=== PATIENT | female | born 1945 | race Caucasian/White ===

== ENCOUNTER 2020-02-20 10:07 | Outpatient (CLI) | payer MEDICARE, SELFPAY ==
[2020-02-20 10:46] LABS: Basophils Absolute Auto 0.1 K/mm3 (0.0-0.1); Basophils Percent Auto 1.4 % (0.2-1.2); Eosinophils Absolute Auto 0.2 K/mm3 (0-0.3); Eosinophils Percent Auto 4.1 % (0-4.4); Hematocrit 41.6 % (37.0-47.0); Hemoglobin 14.4 g/dL (12.0-15.0); Immature Granulocyte Absolute 0.02 K/mm3 (0.00-0.031); Immature Granulocyte Percent A 0.3 % (0-0.5); Lymphocytes Absolute Auto 1.92 K/mm3 (0.9-3.2); Lymphocytes Percent Auto 33.1 % (18.3-44.2); Mean Corpuscular HGB Conc 34.6 g/dl (32-36); Mean Corpuscular Hemoglobin 30.5 pg (26-34); Mean Corpuscular Volume 88.1 fl (80-100); Mean Platelet Volume 9.5 fl (7.4-10.4); Monocytes Absolute Auto 0.4 K/mm3 (0.1-0.6); Monocytes Percent Auto 7.4 % (2.6-8.5); Neutrophils Absolute Auto 3.1 K/mm3 (1.3-6.7); Neutrophils Percent Auto 53.7 % (45.5-73.1); Platelet Count Result 283 k/mm3 (150-375); Red Blood Count 4.72 M/mm3 (4.2-5.4); Red Cell Distribution Width 13.2 % (11.5-14.5); White Blood Count 5.8 K/mm3 (4.5-10.0)
[2020-02-20 11:00] LABS: Alanine Aminotransferase 18 U/L (4-35); Albumin Level 4.2 g/dL (3.5-5.1); Alkaline Phosphatase 80 U/L (38-126); Anion Gap 5 mmol/L (8-16); Aspartate Amino Transferase 23 U/L (14-36); Bilirubin,Total 0.3 mg/dL (0.2-1.3); Blood Urea Nitrogen 14 mg/dL (7-17); Calcium 9.1 mg/dL (8.4-10.2); Carbon Dioxide 23 mmol/L (22-30); Chloride 110 mmol/L (98-107); Estimated Glomerular Filt Rate > 60; Glucose 91 mg/dL (65-105); Sodium 138 mmol/L (137-145)
[2020-02-20 11:02] LABS: Add Urine Microscopic? NO; Appearance Urine Clear (Clear); Bilirubin Urine Negative (Negative); Blood Urine Negative (Negative); Color Urine Yellow (Yellow); Glucose Urine UA Negative (Negative); Ketones Urine Negative (Negative); Leukocyte Esterase Ur Negative LEU/UL (Negative); Nitrate Urine Negative (Negative); Protein Urine Negative (Negative); Specific Grav Ur 1.018 (1.001-1.035); Urobilinogen Urine Negative mg/dL (<2.0)
[2020-02-20 11:28] LABS: Free T4 Free Thyroxine 0.97 ng/mL (0.78-2.19)
== END 2020-02-20 10:08 | disposition home or self-care (01) ==
PROVIDERS: Visit Provider Internal Medicine
DX: M25.551 Pain in right hip (principal); M54.5 Low back pain; M70.61 Trochanteric bursitis, right hip; M70.62 Trochanteric bursitis, left hip; M25.552 Pain in left hip; M79.18 Myalgia, other site; M79.2 Neuralgia and neuritis, unspecified; M46.1 Sacroiliitis, not elsewhere classified; R13.10 Dysphagia, unspecified
CPT/HCPCS: 36415; 80053; 81003; 84439; 84443; 85025

== ENCOUNTER 2020-04-03 13:52 | Outpatient (CLI) | payer MEDICARE, SELFPAY ==
--- NOTE | ~2020-04-03 | DEXA_ITS ---
Bone Density Report Name: Diana Terry Age: 74 Sex: Female Ethnicity: White Date of : 1945 Indication: postmenopausal; height loss; cancer; hysterectomy; Referring Provider: BethelAgustin Study: Bone densitometry was performed. Exam Date: April 03, 2020 Accession number: [id number] Bone Density: Region BMD T-score Z-score Classification AP Spine (L1-L4) 0.932 -1.0 1.4 Normal Femoral Neck (Left) 0.482 -3.3 -1.2 Osteoporosis Total Hip (Left) 0.675 -2.2 -0.4 Osteopenia Total Hip Bilateral Avg 0.695 -2.1 -0.3 Osteopenia Femoral Neck (Right) 0.573 -2.5 -0.4 Osteoporosis Total Hip (Right) 0.713 -1.9 -0.1 Osteopenia World Health Organization criteria for BMD impression classify patients as: Normal (T-score at or above -1.0), Osteopenia (T-score between -1.0 and -2.5), or Osteoporosis (T-score at or below -2.5). 10-year Fracture Risk: FRAX not reported because: Some T-score for Spine Total or Hip Total or Femoral Neck at or below -2.5 Clinical Information Provided by Patient: Smokes Has the following medical conditions: Cancer, Hysterectomy Patient maximum height was 61 Menopause Age: 39 No regular weight bearing exercise Drinks caffeinated beverages Onset of menses at age 16 Number of children 2 Impression: The patient has osteoporosis, based on the Left Femoral Neck T-score. The patient has risk factors, including: smoking. Discussion: INCREASED RISK OF FRACTURE. BONE DENSITY IS UNDESIRABLY LOW AT ONE OR MORE SKELETAL SITES, CONSISTENT WITH POSTMENOPAUSAL OSTEOPOROSIS. This patient's lowest T-score meets the World Health Organization's (WHO) criteria for osteoporosis at one or more sites (T-score -2.5 or below). In untreated patients, the risk of osteoporotic fracture increases approximately two-fold for each 1.0 SD decrease in T-score. Low bone density is not the only risk factor for fracture; also consider factors such as patient's age, frailty or poor health, risk of falling, risk of injury, previous osteoporotic fracture, family history of osteoporosis, cigarette smoking, low body weight, etc. Not everyone with low bone mineral density has osteoporosis; osteomalacia and other metabolic bone disorders should also be considered. Patients who have osteoporosis should be evaluated for specific diseases and conditions (secondary causes) that may cause or contribute to bone loss. The [place] Association [employer] Clinical Endocrinologists (AACE) and National Osteoporosis Foundation (NOF) recommend pharmacologic intervention for all postmenopausal women whose T-score is in this range. The patient should follow a healthful lifestyle (good nutrition with adequate calcium and vitamin D, and appropriate weight-bearing exercise). Follow-Up: Consider a repeat BMD and Vertebral Fracture Assessment (VFA) exam in 2 year
== END 2020-04-03 13:53 | disposition home or self-care (01) ==
PROVIDERS: Visit Provider Internal Medicine
DX: Z78.0 Asymptomatic menopausal state (principal); M81.0 Age-related osteoporosis without current pathological fracture; M85.852 Other specified disorders of bone density and structure, left thigh; M85.851 Other specified disorders of bone density and structure, right thigh
CPT/HCPCS: 77080

== ENCOUNTER 2020-08-30 12:42 | Outpatient (CLI) | payer MEDICARE, SELFPAY ==
[2020-08-30 13:28] LABS: Basophils Absolute Auto 0.1 K/mm3 (0.0-0.1); Basophils Percent Auto 1.4 % (0.2-1.2); Eosinophils Absolute Auto 0.2 K/mm3 (0-0.3); Eosinophils Percent Auto 3.8 % (0-4.4); Hematocrit 42.3 % (37.0-47.0); Hemoglobin 14.3 g/dL (12.0-15.0); Immature Granulocyte Absolute 0.01 K/mm3 (0.00-0.031); Immature Granulocyte Percent A 0.2 % (0-0.5); Lymphocytes Absolute Auto 2.32 K/mm3 (0.9-3.2); Lymphocytes Percent Auto 41.6 % (18.3-44.2); Mean Corpuscular HGB Conc 33.8 g/dl (32-36); Mean Corpuscular Volume 88.7 fl (80-100); Mean Platelet Volume 9.5 fl (7.4-10.4); Monocytes Absolute Auto 0.4 K/mm3 (0.1-0.6); Monocytes Percent Auto 6.8 % (2.6-8.5); Neutrophils Absolute Auto 2.6 K/mm3 (1.3-6.7); Neutrophils Percent Auto 46.2 % (45.5-73.1); Platelet Count Result 260 k/mm3 (150-375); Red Blood Count 4.77 M/mm3 (4.2-5.4); Red Cell Distribution Width 13.5 % (11.5-14.5); White Blood Count 5.6 K/mm3 (4.5-10.0)
[2020-08-30 13:29] LABS: Add Urine Microscopic? NO; Appearance Urine Clear (Clear); Bilirubin Urine Negative (Negative); Blood Urine Negative (Negative); Color Urine Yellow (Yellow); Glucose Urine UA Negative (Negative); Ketones Urine Negative (Negative); Leukocyte Esterase Ur Negative LEU/UL (NEGATIVE); Nitrate Urine Negative (Negative); Protein Urine Negative (Negative); Specific Grav Ur 1.011 (1.001-1.035); Urobilinogen Urine Negative mg/dL (<2.0)
[2020-08-30 14:05] LABS: LDL Cholesterol Direct 141 mg/dL
[2020-08-30 14:14] LABS: Alanine Aminotransferase 13 U/L (4-35); Albumin Level 4.2 g/dL (3.5-5.1); Alkaline Phosphatase 65 U/L (38-126); Anion Gap 3 mmol/L (8-16); Aspartate Amino Transferase 22 U/L (14-36); Bilirubin,Total 0.4 mg/dL (0.2-1.3); Blood Urea Nitrogen 16 mg/dL (7-17); Calcium 9.7 mg/dL (8.4-10.2); Carbon Dioxide 27 mmol/L (22-30); Chloride 110 mmol/L (98-107); Cholesterol 221 mg/dL (0-200); Estimated Glomerular Filt Rate > 60; Glucose 95 mg/dL (65-105); HDL Direct 55 mg/dL; Potassium 3.9 mmol/L (3.4-5.0); Sodium 140 mmol/L (137-145); Triglycerides 126 mg/dL (<150)
[2020-08-30 14:32] LABS: Vitamin D 25 Hydroxy 36.6 ng/mL
[2020-08-30 14:33] LABS: Free T4 Free Thyroxine 0.87 ng/mL (0.78-2.19)
== END 2020-08-30 12:43 | disposition home or self-care (01) ==
LOC: ANHLAB 12:45
PROVIDERS: Visit Provider Internal Medicine
DX: M25.551 Pain in right hip (principal); M54.5 Low back pain; M70.61 Trochanteric bursitis, right hip; M70.62 Trochanteric bursitis, left hip; M25.552 Pain in left hip; M79.18 Myalgia, other site; M79.2 Neuralgia and neuritis, unspecified; M46.1 Sacroiliitis, not elsewhere classified; R13.10 Dysphagia, unspecified
CPT/HCPCS: 36415; 80053; 80061; 81003; 82306; 84439; 84443; 85025

== ENCOUNTER → 2020-10-30 02:19 | Outpatient (CLI) | payer MEDICARE, SELFPAY ==
[2020-10-30 19:24] LABS: SARS-CoV-2 RNA PCR Negative
== END ==
PROVIDERS: Visit Provider Urology
DX: Z01.812 Encounter for preprocedural laboratory examination (principal); Z20.822 Contact with and (suspected) exposure to COVID-19
CPT/HCPCS: C9803; U0003; U0005

== ENCOUNTER 2020-10-31 13:49 | Outpatient (CLI) | payer MEDICARE, SELFPAY ==
--- NOTE | 2020-10-31 13:55 | ECG_ITS ---
Measurements Intervals Kite Rate: 76 P: 31 CA: 142 QRS: -8 QRSD: 93 T: 19 QT: 363 QTc: 410 Interpretive Statements SINUS RHYTHM ATRIAL PREMATURE COMPLEX VOLTAGE CRITERIA FOR LVH BORDERLINE R WAVE PROGRESSION, ANTERIOR LEADS BASELINE ARTIFACT- I, II, III, AVR, AVL BORDERLINE ECG Electronically Signed On 10-31-2020 14:08:36 CDT by Azael Sen D.O.
== END 2020-10-31 13:50 | disposition home or self-care (01) ==
LOC: ANHSURGERY 13:52
PROVIDERS: Visit Provider Urology
DX: Z01.810 Encounter for preprocedural cardiovascular examination (principal); I10 Essential (primary) hypertension
CPT/HCPCS: 93005

== ENCOUNTER 2020-11-01 01:17 | Day surgery (SDC) | payer MEDICARE, SELFPAY ==
[2020-10-30 11:13] VITALS: BMI 29.5
--- NOTE | 2020-10-31 10:01 | WPDANESEPPF ---
Anes - Initial Pre Proc Eval Procedure: Operation Date: 11/01/20 12:00 Proposed Procedures p Cystoscopy, Bilateral Retrograde Pyelogram, - Alexis Miguel MD s Trans Urethral Resection Bladder Tumor With Mitomycin C Instillation - Alexis Miguel MD Date/Time: 10/31/20 10:01 Surgeon: Alexis Miguel MD Pre Op Diagnosis: bladder ca Patient Data Age: 74 Gender: F Height: 1.47 m Weight: 64 kg Allergies Allergy/AdvReac Type Severity Reaction Status Date / Time propoxyphene AdvReac Unknown EXCESSIVE Verified 10/30/20 11:09 THIRST Home Medications Medication Instructions Recorded Confirmed Type amlodipine 5 mg PO QAM 10/30/20 10/30/20 History naproxen sodium 440 mg PO BID PRN 10/30/20 10/30/20 History PMFSH Past Medical History Medical History (Updated 10/31/20 @ 10:02 by Phu Dorantes DO) Bladder cancer GERD (gastroesophageal reflux disease) Hypertension PONV (postoperative nausea and vomiting) Surgical History Surgical History (Updated 10/31/20 @ 10:02 by Phu Dorantes DO) History of hysterectomy Family History Family History (Updated 02/23/14 @ 07:13 by DOCTOR UNKNOWN) Mother Family history of renal failure Patient's mother is Father Family history of heart disease in male family member before age 55 Patient's father is Other Diabetes mellitus Family history of arthritis Hypertension Social History Social History Smoking packs per day: 1 Smoking cigarettes per day: 20.0 Years smoked: 58 Smoking pack-years: 58.00 Smoking status: Current every day smoker Tobacco type: cigarettes Alcohol intake: never Substance use: never Additional living arrangements comments: Spiritual care concerns: No Anes - Eval Final PreProcedure Day of Procedure 10/31/20 10:01 Patient weight: overweight Heart: regular rate and rhythm Lungs: clear to auscultation and normal air movement Airway: Mallampati scale class II Neurological: alert and oriented Last oral intake: >/= 8 hours ASA classification: III Emergent: no Anesthetic plan: proceed Anesthesia type and monitoring: general LMA and standard monitoring Informed Consent: The patient's anesthetic plan and its attendant risks and benefits were discussed with the patient/family/POA. Questions were solicited and answers provided to the satisfaction of the patient/family/POA.
[2020-11-01] VITALS (11 sets, daily range): BP systolic 93–152; BP diastolic 41–93; PULSE 45–61; RESP 12–20; TEMP 36.2–36.8; O2SAT 92–100
--- NOTE | ~2020-11-01 | XR_ITS ---
EXAMINATION: XR retrograde pyelogram BI EXAM DATE: 11/01/2020 13:37 INDICATION: Bilateral retrograde pyelogram. TECHNIQUE: Fluoroscopy used during XR retrograde pyelogram BI performed by Dr. Alexis Miguel MD , urologist. The radiologist Tucker Patel M.D. dictating this report of the image(s) available was no t present for the procedure. Total fluoroscopic time of 24 seconds. The DAP for this procedure was 160 radcm2. A total of 92 images sent to PACS from the exam. Cine run(s) available for review. FINDINGS: The right ureter was cannulated and injected, is without filling defect or stricture. Tania екатерина unremarkable. Left ureter was then cannulated and injected, similar normal appearance. Correlate with procedure note. IMPRESSION: Fluoroscopy used during XR retrograde pyelogram BI. Reviewed, dictated and finalized at location B.
--- NOTE | 2020-11-01 07:23 | WPDHPUPDATE1 ---
History and Physical Update Update Date/Time: 11/01/20 07:23 History and Physical has been reviewed, including an updated exam of the patient. There are NO changes in the patient's condition. Risks, benefits, and alternatives have been discussed and questions answered. Patient agrees to proceed with procedure.
[2020-11-01] MEDS: LACTATED RINGERS 1,000 ML 30 ML IV CONT ×2 (10:20→14:08)
--- NOTE | 2020-11-01 10:25 | WPDANESEPPF ---
Anes - Initial Pre Proc Eval Procedure: Operation Date: 11/01/20 12:00 Proposed Procedures p Cystoscopy, Bilateral Retrograde Pyelogram, - Alexis Miguel MD s Trans Urethral Resection Bladder Tumor With Mitomycin C Instillation - Alexis Miguel MD Date/Time: 11/01/20 10:25 Surgeon: Alexis Miguel MD Pre Op Diagnosis: bladder ca Patient Data Age: 74 Gender: F Height: 4 ft 10 in Weight: 64 kg Allergies Allergy/AdvReac Type Severity Reaction Status Date / Time propoxyphene AdvReac Mild EXCESSIVE Verified 11/01/20 10:04 THIRST Home Medications Medication Instructions Recorded Confirmed Type amlodipine 5 mg PO QAM 10/30/20 11/01/20 History naproxen sodium 440 mg PO BID PRN 10/30/20 11/01/20 History Patient hx anesthesia problems: post op nausea/vomiting Family hx anesthesia problems: none PMFSH Past Medical History Medical History Bladder cancer GERD (gastroesophageal reflux disease) Hypertension PONV (postoperative nausea and vomiting) Surgical History Surgical History History of hysterectomy Family History Family History Mother Family history of renal failure Patient's mother is Father Family history of heart disease in male family member before age 55 Patient's father is Other Diabetes mellitus Family history of arthritis Hypertension Social History Social History Smoking packs per day: 1 Smoking cigarettes per day: 20.0 Years smoked: 58 Smoking pack-years: 58.00 Smoking status: Current every day smoker Tobacco type: cigarettes Alcohol intake: never Substance use: never Living arrangements: with family Additional living arrangements comments: Spiritual care concerns: No Anes - Eval Final PreProcedure Day of Procedure 11/01/20 10:25 Patient weight: overweight Heart: regular rate and rhythm Lungs: decreased breath sounds Airway: Mallampati scale class II Neurological: alert and oriented Last oral intake: >/= 8 hours ASA classification: III Emergent: no Anesthetic plan: proceed Anesthesia type and monitoring: general LMA and standard monitoring Other findings: TIVA with LMA Informed Consent: The patient's anesthetic plan and its attendant risks and benefits were discussed with the patient/family/POA. Questions were solicited and answers provided to the satisfaction of the patient/family/POA.
--- NOTE | 2020-11-01 11:27 | SUR.PREOP ---
1125-DR. VILLANUEVA IN TO SPEAK WITH PT AND INFORM PREVIOUS SURGEON DELAYS DR. VILLANUEVA UNDETERMINED AMOUNT OF TIME.
[2020-11-01] MEDS: ceFAZolin 2 GM/D5W 50 ML 2 GM/50 ML BAG IVPB (13:04)
[2020-11-01] MEDS: LIDOCAINE HCL 2% GEL UROJET 10 ML PKG MUCOUS MEM (13:27)
--- NOTE | 2020-11-01 13:43 | P.OP_ITS ---
Procedure Note - Detailed Date of procedure: 11/01/20 Pre-op diagnosis: bladder ca Post-op diagnosis: same Procedure performed: 1. TURBT (small, 1.5cm) 2. Right ureterosocpy 3. Bilateral retrograde pyelogram Description of procedure: Patient is brought to the operative suite where she was prepped and draped in routine sterile fashion while in a dorsal lithotomy position. This is done after the uneventful induction of a general LMA anesthe tic. Twenty-four F resectoscope was placed in her bladder. The bladder was carefully inspected. 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 I had resected orifice in order to excise this lesion. I avoid cautery in that area. Bilateral retrograde pyelography was then obtained via a 19 F F cystoscope and 5 F ball-tip catheter. Retrograde pyelography failed to show points of obstruction or filling defect. I did quick right distal ureteroscopy with the semi-rigid scope to ensure that there was no additional urothelial changes in the right distal ureter. Right ureter to the iliac vessels was without attached visible neoplastic changes Anesthesia: GLMA Surgeon: Alexis Miguel MD Estimated blood loss (mL): 0 Drains: Yes (16F Turner) Packing: No Pathology: yes Complications: No immediate complications Condition: stable Disposition: PACU
--- NOTE | 2020-11-01 13:46 | PM.PROC ---
Procedure Note - Detailed Date of procedure: 11/01/20 Pre-op diagnosis: bladder ca Post-op diagnosis: same Procedure performed: Mitomycin-C installation Description of procedure: With the patient in the supine position, a 16F Turner catheter is placed using sterile technique. Using a protective facemask, gown and double layer of gloves Mitomycin-C 40mm in 50cc saline is administered through the catheter/into the bladder. The catheter is then plugged. Patient was instructed to lie supine x20min, then to roll both the left and right x20 min. each. Total dwell time will be 60 min., after which the bladder will be drained and catheter removed. Anesthesia: none Surgeon: Alexis Miguel MD Estimated blood loss (mL): 0 Drains: No Packing: No Pathology: none sent Complications: No immediate complications Condition: stable Disposition: PACU
--- NOTE | 2020-11-01 14:19 | SUR.PHASEI ---
dr hogan here and instilled mitomycin into bLAdder,pt turned to right side 20 im,back 20mi,left side 20 min.
--- NOTE | 2020-11-01 15:29 | SUR.PHASEI ---
1520 crum opened to ldrain mitomycin 1530 instilled 150 ml ns into crum and removed.
--- NOTE | 2020-11-01 16:10 | SUR.PHASEII ---
1608 PRESCRIPTION FOR CEPHALEXIN 500MG Q8HRS DISPENSE #9 CALLED INTO [facility].
== END 2020-11-01 16:13 | disposition home or self-care (01) ==
PROVIDERS: Visit Provider Urology
PROC: (CPT 52352; principal; 2020-11-01 12:00)
PROC: 0TBB8ZZ Excision of Bladder, Via Natural or Artificial Opening Endoscopic (ICD-10-PCS; CPT 52234; 2020-11-01 12:00)
DX: C67.6 Malignant neoplasm of ureteric orifice (principal); I10 Essential (primary) hypertension; K21.9 Gastro-esophageal reflux disease without esophagitis; F17.210 Nicotine dependence, cigarettes, uncomplicated
CPT/HCPCS: 52234; 51720; 74420; 88305; 93005; A9270; C1758; C1769; C9803; J0690; J1100; J2405; J2704; J3010; J7120; J9280; Q9966; U0003; U0005

== ENCOUNTER 2021-02-09 11:48 | Emergency (ER) | payer MEDICARE, SELFPAY ==
[2021-02-09 12:15] VITALS: BP 157/84; PULSE 77; RESP 16; TEMP 36.1; O2SAT 98
--- NOTE | 2021-02-09 12:23 | ED.FEMALEGU ---
HPI - Female Genitourinary General Chief complaint: Urogenital-Female Stated complaint: uncontrollable urination post-op (November 01), abd pain Time Seen by Provider: 02/09/21 12:23 Source: patient Mode of arrival: ambulatory Limitations: no limitations History of Present Illness HPI Narrative: 75-year-old woman comes in today complaining of several months of incontinence and pain with urination. Patient states that she was up all night urinating. She frequently has incontinence and has discomfort around her privates from irritation. She denies fever, nausea, vomiting, abdominal pain. On November 01 she underwent a surgery for bladder cancer and states that she has had difficulty with urination since. MD elicited complaint: dysuria Onset (ago): month(s) (3) Location of symptoms: external genitalia and urethra Severity: severe Female Urogenital Radiation: Non-Radiating Quality of pain: sharp and burning Consistency: constant Vaginal discharge: none Vaginal bleeding: none Urinary symptoms: Dysuria, Urgency, Frequency and Foul Smelling Urine Exacerbating factors: none Relieving factors: none Associated symptoms: denies other symptoms Treatment prior to arrival: none Patient : No Related Data Home Medications Medication Instructions Recorded Confirmed amlodipine 5 mg PO QAM 10/30/20 02/09/21 Allergies Allergy/AdvReac Type Severity Reaction Status Date / Time propoxyphene AdvReac Mild EXCESSIVE Verified 11/01/20 10:04 THIRST Review of Systems Review of Systems: All systems reviewed & are unremarkable except as noted in HPI and below Constitutional: Constitutional: Denies chills and Denies fatigue ENT: Denies sore throat Cardiovascular: Cardiovascular: Denies chest pain and Denies radiating jaw, neck or arm pain Respiratory: Respiratory: Denies cough and Denies dyspnea Gastrointestinal: Gastrointestinal: Denies abdominal pain, Denies nausea and Denies vomiting Genitourinary: Genitourinary: Reports hematuria, Reports nocturia and Reports dysuria Musculoskeletal: Musculoskeletal: Denies back pain, Denies arthralgias and Denies joint swelling Integumentary/Breasts: Skin/Breast: Denies pruritus, Denies erythema and Reports rash Neurologic: Denies focal weakness and Denies numbness Hematologic/Lymphatic: Hematologic/Lymphatic: Denies easy bleeding and Denies easy bruising PMFSH Past Medical History Medical History (Updated 02/09/21 @ 14:56 by Maurice Osorio MD) Bladder cancer GERD (gastroesophageal reflux disease) Hypertension PONV (postoperative nausea and vomiting) Surgical History Surgical History (Updated 02/09/21 @ 14:29 by Maurice Osorio MD) History of bladder surgery History of hysterectomy Family History Family History Mother Family history of renal failure Patient's mother is Father Family history of heart disease in male family member before age 55 Patient's father is Other Diabetes mellitus Family history of arthritis Hypertension Social History Social History Smoking packs per day: 1 Smoking cigarettes per day: 20.0 Years smoked: 58 Smoking pack-years: 58.00 Smoking status: Current every day smoker Tobacco type: cigarettes Alcohol intake: never Substance use: never Additional living arrangements comments: Spiritual care concerns: No Exam Const: General: healthy appearing and alert Orientation/consciousness: patient oriented x3 Limitations: no limitations Other: Mild acute distress. HENMT: Head: normal to inspection Mouth: Yes moist mucous membranes Throat: posterior oropharynx normal Eyes: Conjunctivae: conjunctivae normal Pupils: Equal, round and reactive pupils present EOM: EOMs intact bilaterally Resp: Effort & Inspection: normal respiratory effort and not labo
--- NOTE | 2021-02-09 13:59 | PC.NURSE ---
pt resting comfortably on stretcher, no change in status. awaing ua results.
[2021-02-09 14:02] LABS: Add Urine Microscopic? YES; Appearance Urine Cloudy (Clear); Bilirubin Urine Negative (Negative); Blood Urine 3+ (Negative); Color Urine Light Yellow (Yellow); Glucose Urine UA Negative (Negative); Ketones Urine Negative (Negative); Leukocyte Esterase Ur 3+ (Negative); Nitrate Urine Negative (Negative); Protein Urine 2+ (Negative); Urobilinogen Urine 0.2 mg/dL (0.2-1.0)
[2021-02-09 14:07] LABS: RBC Urine 21-50 /hpf (0-2); Squamous Epithelial Cell Urine Few /hpf (Few); WBC Urine >75 /hpf (0-3)
[2021-02-09 14:08] LABS: Bacteria Urine 4+ /hpf
[2021-02-09 15:12] VITALS: BP 176/89; PULSE 69; RESP 20; TEMP 36.1; O2SAT 96
== END 2021-02-09 15:14 | disposition home or self-care (01) ==
PROVIDERS: Emergency Provider Emergency Medicine
DX: N30.00 Acute cystitis without hematuria (principal); K21.9 Gastro-esophageal reflux disease without esophagitis; I10 Essential (primary) hypertension
CPT/HCPCS: 81001; 87086; 99283

== ENCOUNTER 2021-11-04 13:44 | Outpatient (CLI) | payer MEDICARE, SELFPAY ==
--- NOTE | ~2021-11-04 | CT_ITS ---
EXAMINATION: CT abdomen pelvis wo/w con DATE: 11/04/2021 15:18 INDICATION: Malignant neoplasm of urinary bladder TECHNIQUE: Computed tomography (CT) of the abdomen and pelvis was performed without and subsequently with 130 CC Omnipaque 300 intravenous contrast. Automated exposure control and iterative reconstructi on technique were employed. Exam dose: 597.54 mGy-cm total exam DLP. COMPARISON: 11/01/2020 bilateral retrograde pyelography 03/25/2018 complete abdominal ultrasound examination FINDINGS: The lung bases are clear. Normal heart size. Coronary artery calcification. No pericardial or pleural effusion. 1 cm lower right hepatic cyst. The liver otherwise appears unremarkable. The gallbladder is present. No pericholecystic fluid or fat stranding or gallbladder wall thickening is evident. No bile duct or pancreatic duct dilatation. No pancreatic mass lesion or calcification is evident. Normal splenic siz e. No adrenal mass lesion is evident. Focal posterior lower pole right renal scarring. Moderately severe bilateral hydroureteronephrosis is noted. The bladder is relatively evacuated. There is some thickening of the urinary bladder wall, pa rticularly anteriorly; recurrent or residual urinary bladder malignancy is not excluded on this limit ed examination.. There are numerous diverticula of the sigmoid colon; no CT evidence of diverticulitis. No bowel obstr uction, bowel wall thickening, pneumatosis or intraperitoneal free air is detected. Status post hysterectomy. Diffuse osteopenia. Degenerative changes of the thoracic and lumbar spine, most severe at L5-S1, with severe degenerative disc disease at this level. Is prominent degenerative change at the apophyseal j oints of the lumbar and lumbosacral area with associated grade 1 anterolisthesis at L4-5. IMPRESSION: Prominent bilateral hydroureteronephrosis, new since 11/01/2020 Thickening of the wall of the urinary bladder; residual or recurrent urinary bladder malignancy is no t excluded Focal posterior lower pole right renal scarring 1 cm right hepatic cyst Diverticulosis of the sigmoid colon; no evidence of diverticulitis Status post hysterectomy Reviewed, dictated and finalized at Location [facility]. Reviewed, dictated and finalized at location B. IMPRESSION: Prominent bilateral hydroureteronephrosis, new since 11/01/2020 Thickening of the wall of the urinary bladder; residual or recurrent urinary bl adder malignancy is not excluded Focal posterior lower pole right renal scarring 1 cm right hepatic cyst Diverticulosis of the sigmoid colon; no evidence of diverticulitis Status post hysterectomy
[2021-11-04 15:03] LABS: Estimated Glomerular Filt Rate > 60
== END 2021-11-04 13:45 | disposition home or self-care (01) ==
PROVIDERS: PCP Internal Medicine
DX: Z85.51 Personal history of malignant neoplasm of bladder (principal); N13.30 Unspecified hydronephrosis; R93.41 Abnormal radiologic findings on diagnostic imaging of renal pelvis, ureter, or bladder; K76.89 Other specified diseases of liver; K57.30 Diverticulosis of large intestine without perforation or abscess without bleeding; Z90.710 Acquired absence of both cervix and uterus
CPT/HCPCS: 74178; Q9967

== ENCOUNTER 2023-04-02 21:42 | Inpatient (IN) | payer MEDICARE, SELFPAY ==
--- NOTE | ~2023-04-02 | US_ITS ---
EXAMINATION: US venous doppler [facility] DATE: 04/03/2023 16:30 INDICATION: Chest pain. Acute pulmonary emboli. TECHNIQUE: Grayscale ultrasound images without and with compression and Doppler ultrasound images of the bilateral lower extremity veins were obtained. COMPARISON: None. FINDINGS: The visualized portions of right common femoral vein, profunda (deep) femoral vein, femoral vein, pop liteal vein, peroneal veins, posterior tibial veins, and greater saphenous vein outflow are patent. The visualized portions of left common femoral vein, profunda femoral vein, femoral vein, popliteal v ein, peroneal veins, posterior tibial veins, and greater saphenous vein outflow are patent. IMPRESSION: 1. No deep venous thrombosis. Reviewed, dictated and finalized at location E.
--- NOTE | ~2023-04-02 | US_ITS ---
EXAMINATION: US venous doppler [facility] DATE: 04/03/2023 16:30 INDICATION: Pulmonary embolism TECHNIQUE: Grayscale images without and with compression and Doppler images of the bilateral upper ex tremity veins were obtained. COMPARISON: None. FINDINGS: The right internal jugular vein, subclavian vein, axillary vein, brachial vein, basilic vein, cephali c vein, radial vein, and ulnar vein are patent. The left internal jugular vein, subclavian vein, axillary vein, brachial vein, basilic vein, cephalic vein, radial vein, and ulnar vein are patent. IMPRESSION: 1. Patent bilateral upper extremity veins. No evidence of venous thrombosis. Reviewed, dictated and finalized at location A.
--- NOTE | ~2023-04-02 | US_ITS ---
US renal BI DATE: 04/05/2023 09:39 INDICATION: Bilateral hydronephrosis. History of bladder cancer. TECHNIQUE: Real-time imaging of kidneys, Doppler COMPARISON: 04/03/2023 CTA chest abdomen pelvis FINDINGS: Right kidney measures approximately 9 cm length, left kidney approximately 9.1 cm length. Mild right hydronephrosis. No left hydronephrosis is evident. No renal mass lesion is detected. The bladder is not evaluated due to evacuation, with Turner catheter present. IMPRESSION: Improvement of bilateral hydronephrosis since 04/03/2023 Reviewed, dictated and finalized at [facility]. Reviewed, dictated and finalized at location A.
--- NOTE | ~2023-04-02 | CT_ITS ---
Clinical Indication: Chest pain, flank pain CT Scan of the Chest, Abdomen, and Pelvis with Contrast: Technique: Contiguous sections were acquired throughout the chest, abdomen, and pelvis after intraven ous administration of 100 cc of Omnipaque 350. Dose reduction technique was used on this scan by pascual bhakta automated exposure control and iterative reconstruction technique. The dose-length product (DL P) was 672.24 mGy-cm. COMPARISON: 11/04/2021 Findings: There is no evidence of any significant mediastinal, hilar or axillary lymphadenopathy. There is pulm onary embolus occluding large segmental branches in the right lower lobe pulmonary arterial tree (axi al image 129 for example). No other pulmonary embolus identified. No aortic aneurysm or dissection. There is no evidence of pleural or pericardial effusion. There is hazy airspace disease the right lung base, probably corresponding to segment involved by the aforementioned pulmonary embolus, most likely representing developing pulmonary infarct. Remainder o f the lungs are clear. The liver, spleen, pancreas, gallbladder, and adrenal glands are within normal limits. There is moder ate to advanced bilateral hydroureteronephrosis, extending to the level of the urinary bladder. There are atherosclerotic calcifications of the aorta. No lymphadenopathy. No bowel obstruction or bowel wall thickening. There is no evidence to suggest acute appendicitis. Urinary bladder demonstrates a somewhat lobulated morphology, stable from prior exam. Possible urinar y bladder diverticula.. No pelvic mass clearly evident. No ascites. Impression: Pulmonary embolus occluding a large segmental branch in the right lower lobe pulmonary arterial tree. Associated developing pulmonary infarct in the right lung base. Moderate to advanced bilateral hydroureteronephrosis, similar to prior exam. Stable somewhat lobulated, unusual morphology of the urinary bladder. Correlate for any history of bl adder intervention or cancer treatment. Reviewed, dictated and finalized at [facility]. Impression: Pulmonary embolus occluding a large segmental branch in the right lower lobe pu lmonary arterial tree. Associated developing pulmonary infarct in the right lung base. Moderate to advanced bilateral hydroureteronephrosis, similar to prior exam. Stable somewhat lobulated, unusual morphology of the urinary bladder. Correlate for any history of bladder intervention or cancer treatment.
--- NOTE | ~2023-04-02 | XR_ITS ---
Clinical Indication: Chest pain AP and lateral views of the chest: Comparison: None Findings: The lungs are clear, without evidence of focal consolidation or pleural effusion. Cardiome diastinal silhouette is within normal limits. Bones and soft tissues are unremarkable. Impression: Normal chest. Reviewed, dictated and finalized at location . Impression: Normal chest.
[2023-04-02 21:47] VITALS: BP 158/84; PULSE 59; RESP 16; TEMP 36.3; O2SAT 99
--- NOTE | 2023-04-02 23:46 | ECG_ITS ---
Measurements Intervals [place]ell Rate: 48 P: 78 PA: 157 QRS: 9 QRSD: 88 T: 18 QT: 454 QTc: 409 Interpretive Statements SINUS BRADYCARDIA WITH OCCASIONAL SUPRAVENTRICULAR PREMATURE COMPLEXES COMPARED TO ECG 10/31/2020 14:01:59 SINUS BRADYCARDIA NOW PRESENT Electronically Signed On 04-03-2023 14:22:51 CDT by Jason Cortes M.D.
[2023-04-02 23:53] VITALS: BP 151/86; PULSE 64; RESP 14; O2SAT 99
[2023-04-03] VITALS (14 sets, daily range): BP systolic 133–164; BP diastolic 55–78; PULSE 46–68; RESP 13–23; TEMP 36.1–36.4; O2SAT 95–98
--- NOTE | 2023-04-03 01:00 | ED.BACK ---
HPI - Back Pain/Injury General Chief Complaint: Back Pain/Injury <Nicole Wilcox PA-C - Last Filed: 04/06/23 09:17> Stated Complaint: back pain <REGINE Hunt Last Filed: 04/06/23 09:17> Time Seen by Provider: 04/03/23 00:06 <REGINE Hunt Last Filed: 04/06/23 09:17> Source: patient <REGINE Hunt Last Filed: 04/06/23 09:17> Mode of arrival: ambulatory <REGINE Hunt Last Filed: 04/06/23 09:17> Limitations: no limitations <REGINE Hunt Last Filed: 04/06/23 09:17> History of Present Illness HPI Narrative: This is a 77 year old female that presents to the ER for right sided flank pain. Reports sudden onset sharp right sided chest/back pain. She took an anti-inflammatory and the pain has continued to improve since. Reports the pain made it difficult for her to breath. Denies fever, abdominal pain, or vomiting. <REGINE Hunt Last Filed: 04/06/23 09:17> Related Data Home Medications: Home Medications Medication Instructions Recorded Confirmed amlodipine 5 mg tablet (Norvasc) 5 mg PO QAM 10/30/20 04/03/23 <REGINE Hunt Last Filed: 04/06/23 09:17> Allergies/Adverse Reactions: Allergies Allergy/AdvReac Type Severity Reaction Status Date / Time propoxyphene AdvReac Mild EXCESSIVE Verified 04/02/23 23:47 THIRST <REGINE Hunt Last Filed: 04/06/23 09:17> Review of Systems Review of Systems: CONSTITUTIONAL: Denies fever CARDIOVASCULAR: Reports chest pain. Denies edema. RESPIRATORY: Denies dyspnea. GASTROINTESTINAL: Denies abdominal pain, nausea, vomiting MUSCULOSKELETAL: Reports back pain, joint pain, and myalgia. <REGINE Hunt Last Filed: 04/06/23 09:17> All systems reviewed & are unremarkable except as noted in HPI and below <Nicole Wilcox PA-C - Last Filed: 04/06/23 09:17> PMFSH Past Medical History Medical History: Medical History Bladder cancer GERD (gastroesophageal reflux disease) Hypertension PONV (postoperative nausea and vomiting) <Nicole Wilcox PA-C - Last Filed: 04/06/23 09:17> Surgical History Surgical History: Surgical History History of bladder surgery History of hysterectomy <Nicole Wilcox PA-C - Last Filed: 04/06/23 09:17> Family History Family History: Family History Mother Family history of renal failure Patient's mother is Father Family history of heart disease in male family member before age 55 Patient's father is Other Diabetes mellitus Family history of arthritis Hypertension <Nicole Wilcox PA-C - Last Filed: 04/06/23 09:17> Social History Social History: Social History Smoking packs per day: 1 Smoking cigarettes per day: 20.0 Years smoked: 58 Smoking pack-years: 58.00 Smoking status: Former smoker Tobacco type: cigarettes Alcohol intake: never Substance use: never Substance use type: does not use Lack of Transportation: No Lack of Food: Never True Current Housing: I Have Housing Concerned About Future Housing: No Difficulty Paying Gas/Electric Bills: No Difficulty Paying for Meds: No Currently Unemployed: YES Education: High School Diploma/GED Difficulty w/ Childcare or Family Care: No Living arrangements: with family Additional living arrangements comments: Spiritual care concerns: No <REGINE Hunt Last Filed: 04/06/23 09:17> Exam Narrative: GENERAL: Well-appearing, well-nourished, and in no acute distress. HEAD: Normocephalic, atraumatic. EYES: EOMI. CHEST: Clear to auscultation. No respiratory distress. No wheezes rales or rhonchi HEART:
[2023-04-03 01:09] LABS: Basophils Absolute Auto 0.1 K/mm3 (0.0-0.1); Basophils Percent Auto 0.6 % (0.2-1.2); Eosinophils Absolute Auto 0.1 K/mm3 (0-0.3); Eosinophils Percent Auto 1.6 % (0-4.4); Hematocrit 38.8 % (37.0-47.0); Hemoglobin 12.6 g/dL (12.0-15.0); Immature Granulocyte Absolute 0.03 K/mm3 (0.00-0.031); Immature Granulocyte Percent A 0.4 % (0-0.5); Lymphocytes Absolute Auto 2.32 K/mm3 (0.9-3.2); Mean Corpuscular HGB Conc 32.5 g/dl (32-36); Mean Corpuscular Volume 89.4 fl (80-100); Mean Platelet Volume 8.7 fl (7.4-10.4); Monocytes Absolute Auto 0.4 K/mm3 (0.1-0.6); Monocytes Percent Auto 4.6 % (2.6-8.5); Neutrophils Absolute Auto 5.1 K/mm3 (1.3-6.7); Neutrophils Percent Auto 63.8 % (45.5-73.1); Platelet Count Result 370 k/mm3 (150-375); Red Blood Count 4.34 M/mm3 (4.2-5.4); Red Cell Distribution Width 13.8 % (11.5-14.5)
[2023-04-03 01:16] LABS: Appearance Urine Cloudy (Clear); Bacteria Urine None Seen /hpf; Bilirubin Urine Negative (Negative); Blood Urine 1+ (Negative); Color Urine Yellow (Yellow); Glucose Urine UA Negative (Negative); Ketones Urine Negative (Negative); Leukocyte Esterase Ur 3+ LEU/UL (Negative); Nitrate Urine Negative (Negative); Non Pathogenic Casts 0-2; Protein Urine Negative (Negative); RBC Urine 0-2 /hpf (0-2); Squamous Epithelial Cell Urine None seen /hpf (Few); WBC Urine >100 /hpf
[2023-04-03 01:20] LABS: Add Urine Microscopic? YES
[2023-04-03 01:21] LABS: Partial Thromboplastin Time 24.7 SECONDS (22.3-36.8); Prothrombin Time 13.4 Seconds (11.1-14.7)
[2023-04-03 01:22] LABS: Alanine Aminotransferase 25 U/L (6-35); Albumin Level 3.8 g/dL (3.5-5.1); Alkaline Phosphatase 83 U/L (38-126); Anion Gap 6 mmol/L (8-16); Aspartate Amino Transferase 25 U/L (14-36); Bilirubin,Total 0.5 mg/dL (0.2-1.3); Blood Urea Nitrogen 18 mg/dL (7-17); Calcium 9.4 mg/dL (8.4-10.2); Carbon Dioxide 26 mmol/L (22-30); Chloride 107 mmol/L (98-107); Estimated Glomerular Filt Rate > 60; Glucose 100 mg/dL (65-110); Lipase 215 U/L (23-300); Potassium 3.9 mmol/L (3.4-5.0); Sodium 139 mmol/L (137-145)
[2023-04-03 01:25] LABS: D Dimer 2.93 ug/mL (<0.48)
[2023-04-03 01:34] LABS: Troponin I < 0.012 ng/mL (0.000-0.034)
[2023-04-03] MEDS: HEPARIN SODIUM 5,000 UNITS/ML VIAL 4500 UNITS IV PUSH (06:50)
[2023-04-03] MEDS: HEPARIN SOD/D5W 100 UNITS/ML 25,000 UNITS/250 ML BAG 11 UNITS IV CONT (06:51)
[2023-04-03 07:03] LABS: Troponin I < 0.012 ng/mL (0.000-0.034)
[2023-04-03] MEDS: HEPARIN SOD/D5W 100 UNITS/ML 25,000 UNITS/250 ML BAG 9 UNITS IV CONT (08:35)
--- NOTE | 2023-04-03 11:12 | PM.IMHP ---
H&P: HPI History of Present Illness Date/Time: 04/03/23 11:12 Chief Complaint: right flank pain Narrative: 77-year-old female with history of bladder cancer in remission as well as GERD hypertension is presenting with right flank pain. No chest pain or shortness of breath. No nausea, vomiting or diarrhea. No fevers or chills. She is concerned she might have a bladder infection. CTA in the ER showed acute PE with developing pulmonary infarct as well as lobulated unusual morphology of the bladder. Patient has noted that she is had significant fatigue, malaise and weight loss over the last month or 2. She also feels like she has had recurrent UTIs. Review of Systems Review of Systems: 12 point review of systems was assessed and was negative except as noted in the HPI [facility] Past Medical History Medical History Bladder cancer GERD (gastroesophageal reflux disease) Hypertension PONV (postoperative nausea and vomiting) Surgical History Surgical History History of bladder surgery History of hysterectomy Family History Family History Mother Family history of renal failure Patient's mother is Father Family history of heart disease in male family member before age 55 Patient's father is Other Diabetes mellitus Family history of arthritis Hypertension Social History Social History Smoking packs per day: 1 Smoking cigarettes per day: 20.0 Years smoked: 58 Smoking pack-years: 58.00 Smoking status: Former smoker Tobacco type: cigarettes Alcohol intake: never Substance use: never Substance use type: does not use Lack of Transportation: No Lack of Food: Never True Current Housing: I Have Housing Concerned About Future Housing: No Difficulty Paying Gas/Electric Bills: No Difficulty Paying for Meds: No Currently Unemployed: YES Education: High School Diploma/GED Difficulty w/ Childcare or Family Care: No Living arrangements: with family Additional living arrangements comments: Spiritual care concerns: No Meds Home Medications and Allergies Home Medications Medication Instructions Recorded Confirmed Type amlodipine 5 mg tablet (Norvasc) 5 mg PO QAM 10/30/20 04/03/23 History ciprofloxacin HCl 500 mg tablet 500 mg PO Q12H #14 tabs 02/09/21 04/03/23 Rx phenazopyridine 95 mg tablet 95 mg PO TID PRN pain 6 doses #6 02/09/21 04/03/23 Rx tabs amlodipine 5 mg tablet mg 04/03/23 History Allergies Allergy/AdvReac Type Severity Reaction Status Date / Time propoxyphene AdvReac Mild EXCESSIVE Verified 04/02/23 23:47 THIRST Vital Signs Vital Signs - 24 hr 04/02/23 21:47 04/02/23 23:53 04/03/23 03:58 Temperature 97.4 F L Pulse Rate 59 L 64 49 L Respiratory Rate 16 14 20 Blood Pressure 158/84 H 151/86 H Pulse Oximetry 99 99 98 Oxygen Delivery Room Air 04/03/23 04:00 04/03/23 04:17 04/03/23 04:31 Temperature Pulse Rate 55 L 49 L 46 L Respiratory Rate 15 20 15 Blood Pressure Pulse Oximetry 98 Oxygen Delivery 04/03/23 05:33 04/03/23 06:54 04/03/23 06:53 Temperature Pulse Rate 56 L 58 L Respiratory Rate 22 H 23 H Blood Pressure 164/78 H Pulse Oximetry 95 95 96 Oxygen Delivery 04/03/23 07:46 04/03/23 10:01 Temperature 97.1 F L Pulse Rate 48 L 50 L Respiratory Rate 13 14 Blood Pressure 146/70 H 144/67 H Pulse Oximetry 96 98 Oxygen Delivery Exam Narrative: General: No acute distress, alert and oriented per baseline HEENT: Atraumatic, normocephalic, mucous membranes moist CV: Regular rate and rhythm, S1, S2 Lungs: Clear to auscultation bilaterally, no rales or crackles noted, no wheezes, good air entry Abdomen: Soft, non
[2023-04-03 12:38] LABS: NT Pro B Type Natriuretic Pept 472 pg/mL (19.9-100)
--- NOTE | 2023-04-03 14:16 | ADMGEN ---
This patient, Diana Terry, was admitted to [facility] Surg Room 330-01. Patient/family oriented to hospital policies and general routines including ID bracelet, bed and alarms, visiting hours, pain management, procedures, bathroom and other care routines, personal items, smoking policy, room service/diet, and visiting hours. Information on how to activate the Rapid Response Team has been discussed. Patient/Family are encouraged to report perceived risks to care and to ask questions if they do not understand what they are told or what they should do.
[2023-04-03 15:19] LABS: Partial Thromboplastin Time 39.5 SECONDS (22.3-36.8)
[2023-04-03] MEDS: amLODIPine BESYLATE 5 MG TABLET PO (16:22)
[2023-04-03] MEDS: HEPARIN SODIUM 5,000 UNITS/ML VIAL 4000 UNITS IV PUSH (16:22)
--- NOTE | 2023-04-03 16:30 | WPDURCON ---
Assessment and Plan Assessment and plan (1) Acute UTI: Code(s): N39.0 - Urinary tract infection, site not specified Status: Acute Assessment and Plan: Continue Ceftriaxone, tailor antibiotics to culture results. 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 will need an outpatient cystoscopy to further evaluate CT findings. Cysto in 12/18 was normal without tumors noted. No need for surgical intervention at this time. (3) Bilateral hydronephrosis: Code(s): N13.30 - Unspecified hydronephrosis Status: Acute Assessment and Plan: Place crum catheter, secondary to retention. Obtain a CLARISA on Thursday to ensure hydro is improving. (4) Retention of urine: Code(s): R33.9 - Retention of urine, unspecified Status: Acute Assessment and Plan: Stop Gemtesa at home could be contributing to retention. Likely causing chronic UTI's and overflow incontinence. Urology Consult Note HPI Date Seen: 04/03/23 Time Seen: 16:30 Requesting Physician: Anna Vee DO Primary Care Provider: Armando Concepcion, Consult Narrative Reason for consult: Bilateral Hydronephrosis/Possible Bladder Tumor Narrative: Diana Terry is a 77 year old female who presented to the ER for lower abdominal pain that was persistent. She was found on CT today in the ER to have a Pulmonary embolus occluding a large segmental branch in the right lower lobe pulmonary arterial tree. Associated developing pulmonary infarct in the right lung base. Moderate to advanced bilateral hydroureteronephrosis, similar to prior exam. Stable somewhat lobulated, unusual morphology of the urinary bladder. Correlate for any history of bladder intervention or cancer treatment. Creatinine is 0.90, WBC is 8.0 and she is bradycardic, UA is suggestive of a UTI. She c/o chronic UTI's over the past year and just got off of a course of antibiotics. She is a patient from our group who is seen by Dr. Bernard for bladder cancer most recently seen in the office on 02/18/22. She was scoped on 12/12/21 with no tumors visible. She is also treated for OAB with Gemtesa. She c/o of severe incontinence for the past year which requires many clothing changes and depend changes throughout her day. She denies dysuria or hematuria. Review of Systems Cardiovascular: Cardiovascular: Denies chest pain Respiratory: Respiratory: Reports no additional respiratory complaints Gastrointestinal: Gastrointestinal: Reports abdominal pain, Denies nausea and Denies hematemesis Genitourinary: Genitourinary: Denies hematuria, Denies nocturia, Denies dysuria, Denies pelvic pain, Denies flank pain, Reports urinary incontinence, Denies urinary hesitancy and Denies urinary urgency PMFSH Past Medical History Medical History Bladder cancer GERD (gastroesophageal reflux disease) Hypertension PONV (postoperative nausea and vomiting) Surgical History Surgical History History of bladder surgery History of hysterectomy Family History Family History Mother Family history of renal failure Patient's mother is Father Family history of heart disease in male family member before age 55 Patient's father is Other Diabetes mellitus Family history of arthritis Hypertension Social History Social History Smoking packs per day: 1 Smoking cigarettes per day: 20.0 Years smoked: 58 Smoking pack-years: 58.00 Smoking status: Former smoker Tobacco type: cigarettes Alcohol intake: never Substance use: never Substance use type: does not use Lack of Transportation: No
[2023-04-03 23:31] LABS: Partial Thromboplastin Time 88.7 SECONDS (22.3-36.8)
[2023-04-04] VITALS (7 sets, daily range): BP systolic 134–138; BP diastolic 51–69; PULSE 47–76; RESP 16; TEMP 36.1–36.7; O2SAT 93–100
--- NOTE | 2023-04-04 | ECHO_ITS ---
Patient Info Name: Diana Terry Age: 77 years : 1945 Gender: Female Ht: 57 in Wt: 130 lbs BSA: 1.56 m2 HR: 67 bpm BP: 134 / 63 mmHg Heart Rhythm: Sinus Rhythm Technical Quality: Fair Exam Date: 04/04/2023 8:51 AM Exam Location: [facility] Room: 330 Patient Status: Inpatient Admit Date: 04/03/2023 Staff Ordering Physician: Delphine Hurtado DO Financial Accountant: Renita Zaragoza CT Attending Provider: Anna Vee DO Referring Physician: Bryant BENITEZ; Exam Type: CA echo doppler color flow Study Info Indications - ACUTE CVA PULM EMBOLISM Complete two-dimensional, color flow and Doppler transthoracic echocardiogram is performed. Summary 1. Complete two-dimensional, color flow and Doppler transthoracic echocardiogram is performed. 2. Left ventricular chamber dimension is normal. 3. Left ventricular systolic function is normal, estimated at 65-70%. 4. There is mildly increased left ventricular wall thickness. 5. The left ventricular diastolic function is grade I diastolic dysfunction. 6. Left atrial chamber dimension is mildly enlarged. 7. There is mild mitral valve regurgitation. 8. There is mild pulmonic regurgitation. 9. There is mild tricuspid valve regurgitation. 10. Mild pulmonary hypertension, estimated pulmonary arterial systolic pressure is 41 mmHg. Left Ventricle Left ventricular chamber dimension is normal. Left ventricular systolic function is normal, estimated at 65-70%. There is mildly increased left ventricular wall thickness. The left ventricular diastolic function is grade I diastolic dysfunction. Right Ventricle Right ventricular chamber dimension is normal. Right ventricular systolic function is normal. Left Atria Left atrial chamber dimension is mildly enlarged. Right Atria Right atrial chamber dimension is normal. Atrial Septum Intact interatrial septum visualized by color flow imaging. Aortic Valve The aortic valve is trileaflet. There is mild aortic valve sclerosis. There is no aortic valve stenosis. There is trace aortic valve regurgitation. Pulmonic Valve The pulmonic valve is normal. There is no pulmonic valve stenosis. There is mild pulmonic regurgitation. Mitral Valve The mitral valve has normal leaflets. There is no mitral valve stenosis. There is mild mitral valve regurgitation. Tricuspid Valve The tricuspid valve leaflets are normal. There is no significant tricuspid valve stenosis. There is mild tricuspid valve regurgitation. Mild pulmonary hypertension, estimated pulmonary arterial systolic pressure is 41 mmHg. Pericardium/Pleural The pericardium appears normal. There is no pericardial effusion. Inferior Vena Cava Normal inferior vena cava with >50% collapse upon inspiration consistent with normal right atrial pressure, 10 mmHg. Aorta The aortic root size at the sinus of Valsalva is normal. There is mild aortic atherosclerosis. Left Ventricular Outflow Tract Name Value Normal LVOT 2D LVOT Diameter 2.0 cm LVOT Doppler LVOT Peak Gradient 7 mmHg LVOT Mean Gradient 4 mmHg LVOT VTI 25 cm LVOT VTI/AV VTI
[2023-04-04 07:24] LABS: Basophils Absolute Auto 0.1 K/mm3 (0.0-0.1); Basophils Percent Auto 1.6 % (0.2-1.2); Eosinophils Absolute Auto 0.2 K/mm3 (0-0.3); Eosinophils Percent Auto 3.8 % (0-4.4); Hematocrit 36.5 % (37.0-47.0); Hemoglobin 11.8 g/dL (12.0-15.0); Immature Granulocyte Absolute 0.01 K/mm3 (0.00-0.031); Immature Granulocyte Percent A 0.2 % (0-0.5); Lymphocytes Absolute Auto 2.16 K/mm3 (0.9-3.2); Lymphocytes Percent Auto 48.5 % (18.3-44.2); Mean Corpuscular HGB Conc 32.3 g/dl (32-36); Mean Corpuscular Hemoglobin 29.3 pg (26-34); Mean Corpuscular Volume 90.6 fl (80-100); Monocytes Absolute Auto 0.3 K/mm3 (0.1-0.6); Monocytes Percent Auto 6.1 % (2.6-8.5); Neutrophils Absolute Auto 1.8 K/mm3 (1.3-6.7); Neutrophils Percent Auto 39.8 % (45.5-73.1); Platelet Count Result 356 k/mm3 (150-375); Red Blood Count 4.03 M/mm3 (4.2-5.4); Red Cell Distribution Width 14.1 % (11.5-14.5); White Blood Count 4.5 K/mm3 (4.5-10.0)
[2023-04-04 07:36] LABS: Partial Thromboplastin Time 78.1 SECONDS (22.3-36.8)
[2023-04-04 07:42] LABS: Alanine Aminotransferase 19 U/L (6-35); Albumin Level 3.3 g/dL (3.5-5.1); Alkaline Phosphatase 66 U/L (38-126); Anion Gap 5 mmol/L (8-16); Aspartate Amino Transferase 28 U/L (14-36); Bilirubin,Total 0.4 mg/dL (0.2-1.3); Blood Urea Nitrogen 16 mg/dL (7-17); Carbon Dioxide 23 mmol/L (22-30); Chloride 109 mmol/L (98-107); Estimated Glomerular Filt Rate > 60; Glucose 88 mg/dL (65-110); Potassium 4.1 mmol/L (3.4-5.0); Sodium 137 mmol/L (137-145)
[2023-04-04] MEDS: amLODIPine BESYLATE 5 MG TABLET PO (08:35)
[2023-04-04] MEDS: HEPARIN SOD/D5W 100 UNITS/ML 25,000 UNITS/250 ML BAG 11 UNITS IV CONT (08:36)
--- NOTE | 2023-04-04 12:05 | PM.IMPN ---
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: Code(s): C67.4 - Malignant neoplasm of posterior wall of bladder Status: Acute Assessment and Plan: With acute changes on bladder noted on CT as well as recent fatigue, weight loss and appetite loss in now on provoked PE, concern for recurrent bladder cancer, will put in consult to Oncology and Urology Urology consultation recommending Turner catheter, renal ultrasound 04/05, outpatient cystoscopy, d/c gemtessa Plan DVT prophylaxis with SCDs GI prophylaxis not indicated Code status full code Subjective Date/time seen: 04/04/23 12:05 Interval history: 77-year-old female with history of bladder cancer in remission as well as GERD hypertension is presenting with right flank pain and found to have acute PE with developing pulmonary infarct as well as lobulated unusual morphology of the bladder. No overnight events noted. No chest pain or shortness of breath. No nausea, vomiting or diarrhea. No fevers or chills. Review of Systems Review of Systems: 12 point review of systems was assessed and was negative except as noted in the HPI Exam Narrative: General: No acute distress, alert and oriented per baseline HEENT: Atraumatic, normocephalic, mucous membranes moist CV: Regular rate and rhythm, S1, S2 Lungs: Clear to auscultation bilaterally, no rales or crackles noted, no wheezes, good air entry Abdomen: Soft, nontender, nondistended Extremities: Normal to inspection Skin: No rashes noted, no lesions or wounds seen Psych: Euthymic, normal affect Objective Data Vital Signs Vital Signs: Vital Signs - 24 hr 04/03/23 14:00 04/03/23 16:00 04/03/23 20:51 Temperature 97.5 F L 97 F L Pulse Rate 54 L 58 L 51 L Respiratory Rate 15 16 Blood Pressure 133/57 L 146/55 H Pulse Oximetry 97 97 Oxygen Delivery 04/03/23 20:00 04/04/23 00:40 04/04/23 00:00 Temperature Pulse Rate 55 L 47 L Respiratory Rate Blood Pressure Pulse Oximetry 97 Oxygen Delivery Room Air 04/04/23 04:00 04/04/23 05:37 Temperature 97.3 F L Pulse Rate 50 L 50 L Respiratory Rate 16 Blood Pressure 134/63 Pulse Oximetry 95 Oxygen Delivery Intake/Output Intake/Output: Intake & Output 04/01/23 04/02/23 04/03/23 04/04/23 23:59 23:59 23:59 23:59 Intake Total 50 540 Output Total 700 1000 Balance -650 -460 Meds/Results Medications: Active Medications Generic Name Dose Route Start Last Admin Trade Name Freq PRN Reason Stop Dose Admin Amlodipine Besylate 5 mg 04/03/23 12:00 04/04/23 08:35 Amlodipine Besylate 5 Mg Tablet PO 5 mg QAM [facility] Administration Heparin Sodium (Porcine) 4,000 units 04/03/23 07:59 04/03/23 16:22 Heparin Sodium 5,000 Units/Ml Vial IV PUSH 4,000 units PRN PRN Administration aPTT less than 55 seconds Heparin Sodium (Porcine) 2,000 units 04/03/23 07:59 Heparin Sodium 5,000 Units/Ml Vial IV PUSH PRN PRN aPTT 55 - 70 seconds Heparin Sodium/Dextrose 25,000 units in 250 mls @ 11 mls/hr 04/03/23 08:05 04/04/23 08:36 Heparin Sodium/D5w 100 Units/Ml IV CONT 1,100 units/hr .[id number] FUNMI 11 mls/hr Administration Protocol 1,100 UNITS/HR Ceftriaxone Sodium 1 gm in 50 mls @ 100 mls/hr
--- NOTE | 2023-04-04 14:11 | PC.NURSE ---
1412 Called and updates patient's son
[2023-04-05 04:40] VITALS: BP 137/60; PULSE 54; RESP 16; TEMP 36.3; O2SAT 99
[2023-04-05] MEDS: HEPARIN SOD/D5W 100 UNITS/ML 25,000 UNITS/250 ML BAG 11 UNITS IV CONT (06:13)
[2023-04-05 06:59] LABS: Basophils Percent Auto 0.8 % (0.2-1.2); Eosinophils Absolute Auto 0.2 K/mm3 (0-0.3); Eosinophils Percent Auto 3.7 % (0-4.4); Hematocrit 36.4 % (37.0-47.0); Hemoglobin 11.6 g/dL (12.0-15.0); Immature Granulocyte Absolute 0.02 K/mm3 (0.00-0.031); Immature Granulocyte Percent A 0.4 % (0-0.5); Lymphocytes Absolute Auto 2.27 K/mm3 (0.9-3.2); Lymphocytes Percent Auto 46.6 % (18.3-44.2); Mean Corpuscular HGB Conc 31.9 g/dl (32-36); Mean Corpuscular Hemoglobin 28.6 pg (26-34); Mean Corpuscular Volume 89.9 fl (80-100); Monocytes Absolute Auto 0.3 K/mm3 (0.1-0.6); Neutrophils Absolute Auto 2.1 K/mm3 (1.3-6.7); Neutrophils Percent Auto 42.5 % (45.5-73.1); Platelet Count Result 356 k/mm3 (150-375); Red Blood Count 4.05 M/mm3 (4.2-5.4); Red Cell Distribution Width 13.9 % (11.5-14.5); White Blood Count 4.9 K/mm3 (4.5-10.0)
[2023-04-05 07:12] LABS: Alanine Aminotransferase 19 U/L (6-35); Albumin Level 3.5 g/dL (3.5-5.1); Alkaline Phosphatase 58 U/L (38-126); Anion Gap 3 mmol/L (8-16); Aspartate Amino Transferase 30 U/L (14-36); Bilirubin,Total 0.6 mg/dL (0.2-1.3); Blood Urea Nitrogen 20 mg/dL (7-17); Calcium 8.9 mg/dL (8.4-10.2); Carbon Dioxide 26 mmol/L (22-30); Chloride 107 mmol/L (98-107); Estimated Glomerular Filt Rate > 60; Glucose 89 mg/dL (65-110); Potassium 4.2 mmol/L (3.4-5.0); Sodium 136 mmol/L (137-145)
[2023-04-05 07:34] LABS: Partial Thromboplastin Time 51.1 SECONDS (22.3-36.8)
[2023-04-05] MEDS: HEPARIN SODIUM 5,000 UNITS/ML VIAL 4000 UNITS IV PUSH (08:22)
[2023-04-05] MEDS: amLODIPine BESYLATE 5 MG TABLET PO (08:24)
--- NOTE | 2023-04-05 08:44 | PM.IMPN ---
Progress Note: A&P Assessment and Plan (1) Pulmonary emboli: Code(s): I26.99 - Other pulmonary embolism without acute cor pulmonale Status: Acute Assessment and Plan: Heparin drip initially started, echo 04/04 showed an EF of 65-70% with grade 1 diastolic dysfunction as well as mild pulmonary hypertension but no significant right heart strain, transition to oral anticoagulation (2) Pulmonary infarct: Code(s): I26.99 - Other pulmonary embolism without acute cor pulmonale Status: Acute Assessment and Plan: See above (3) Acute UTI: Code(s): N39.0 - Urinary tract infection, site not specified Status: Acute Assessment and Plan: Rocephin initiated 04/03, follow-up urine culture, Gram-negative bacilli noted in greater than 100K CFU, specifics regarding species and sensitivities still pending D/c on augmentin, f/u culture to confirm sens (4) 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: Code(s): C67.4 - Malignant neoplasm of posterior wall of bladder Status: Acute Assessment and Plan: With acute changes on bladder noted on CT as well as recent fatigue, weight loss and appetite loss in now on provoked PE, concern for recurrent bladder cancer, will put in consult to Oncology and Urology Urology consultation recommending Turner catheter, renal ultrasound 04/05, outpatient cystoscopy, d/c gemtessa Plan DVT prophylaxis with SCDs GI prophylaxis not indicated Code status full code Subjective Date/time seen: 04/05/23 08:44 Interval history: 77-year-old female with history of bladder cancer in remission as well as GERD hypertension is presenting with right flank pain and found to have acute PE with developing pulmonary infarct as well as lobulated unusual morphology of the bladder. No overnight events noted. No chest pain or shortness of breath. No nausea, vomiting or diarrhea. No fevers or chills. Eager to go home. Her has Parkinson's and she is his caregiver. Review of Systems Review of Systems: 12 point review of systems was assessed and was negative except as noted in the HPI Exam Narrative: General: No acute distress, alert and oriented per baseline HEENT: Atraumatic, normocephalic, mucous membranes moist CV: Regular rate and rhythm, S1, S2 Lungs: Clear to auscultation bilaterally, no rales or crackles noted, no wheezes, good air entry Abdomen: Soft, nontender, nondistended Extremities: Normal to inspection Skin: No rashes noted, no lesions or wounds seen Psych: Euthymic, normal affect Objective Data Vital Signs Vital Signs: Vital Signs - 24 hr 04/04/23 14:00 04/04/23 20:51 04/05/23 04:40 Temperature 98.0 F 97 F L 97.3 F L Pulse Rate 57 L 57 L 54 L Respiratory Rate 16 16 16 Blood Pressure 138/69 138/51 L 137/60 Pulse Oximetry 93 100 99 Intake/Output Intake/Output: Intake & Output 04/02/23 04/03/23 04/04/23 04/05/23 23:59 23:59 23:59 23:59 Intake Total 50 1020 250 Output Total 700 1650 550 Balance -650 -630 -300 Meds/Results Medications: Active Medications Generic Name Dose Route Start Last Admin Trade Name Freq PRN Reason Stop Dose Admin Amlodipine Besylate 5 mg 04/03/23 12:00 04/05/23 08:24 Amlodipine Besylate 5 Mg Tablet PO 5 mg QAM FUNMI Administration Heparin Sodium (Porcine) 4,000 units 04/03/23 07:59 04/05/23 08:22 Heparin Sodium 5,000 Units/Ml Vial IV PUSH 4,000 units PRN PRN Administration aPTT less than 55 seconds Heparin Sodium (Porcine) 2,000 units 04/03/23 07:59 Heparin Sodium 5,000 Units/Ml Vial IV PUSH PRN PRN aPTT 55 - 70 seconds Heparin Sodium/Dextrose 25,000 units in 250 mls @ 13 mls/hr 04/03/23 08:05 04/05/23 08:22 Heparin Sodium/D5w 100 Units/Ml IV CONT 1,300 units/hr .[id number] [facility] 13 mls/hr Titration Protocol 1,300 UNITS/HR Ceftriaxone Sodium 1 gm in 50 mls @ 100 mls/hr 04/04/23 09
[2023-04-05] MEDS: APIXABAN 5 MG TABLET 10 MG PO ×2 (09:25→20:58)
[2023-04-05 14:00] VITALS: BP 131/69; PULSE 93; RESP 18; TEMP 36.2; O2SAT 94
--- NOTE | 2023-04-05 14:11 | PDONCCN ---
HPI - Date of Consult Date/Time: 04/05/23 14:11 Requesting Physician: Anna Vee DO Primary Care Provider: Armando Concepcion, - Consult Narrative Reason for consult: Pulmonary embolism and bladder tumor Narrative: Diana Terry is a 77 year old female with history of bladder tumor was seen by in [place]. Patient is a poor historian. Looks like her bladder cancer was diagnosed long time ago. She was last seen by the urologist in January 2022. Her last cystoscopy was in November 2021 showed no evidence of relapse of the disease. Patient came into the ER with complain of right-sided chest wall discomfort. CTA chest showed PE involving the large segmental branch in the right lower lobe. Doppler study showed no evidence of DVT. She denies any previous history of thromboembolic events. She denies any dysuria and hematuria. She was started on heparin drip with improvement in the chest discomfort. Review of Systems - Review of Systems All systems reviewed & are unremarkable except as noted in HPI and [facility] Medical History: Medical History (Last Reviewed 04/03/23 @ 16:35 by Betzaida Fleming APRN) Bladder cancer GERD (gastroesophageal reflux disease) Hypertension PONV (postoperative nausea and vomiting) Surgical History: Surgical History (Last Reviewed 04/03/23 @ 16:35 by Betzaida Fleming APRN) History of bladder surgery History of hysterectomy Family History: Family History (Last Reviewed 04/03/23 @ 16:35 by Betzaida Fleming APRN) Mother Family history of renal failure Patient's mother is Father Family history of heart disease in male family member before age 55 Patient's father is Other Diabetes mellitus Family history of arthritis Hypertension - Social History Social History: Social History (Last Reviewed 04/03/23 @ 16:35 by Betzaida Fleming APRN) Alcohol Use: Alcohol intake: never Substance Use: Substance use: never Substance use type: does not use Others: Spiritual care concerns: No Living Arrangements: Living arrangements: with family Smoking Status: Smoking status: Former smoker Tobacco type: cigarettes Approximate Smoking End Date: 07/2022 Smoking Pack-years: Smoking packs per day: 1 Smoking cigarettes per day: 20.0 Years smoked: 58 Smoking pack-years: 58.00 Social Determinants of Health: Has the Lack of Transportation Kept You From Medical Appointments or From Getting Medications?: No Within the Past 12 Months, Were You Worried Whether Your Food Would Run Out Before You Got Money to Buy More?: Never True What is Your Housing Situation Today?: I Have Housing Are You Worried That in the Next 2 Months, You May Not Have Your Own Housing to Live In?: No Do You Have Trouble Paying Your Heating Or Electricity Bill?: No Do You Have Trouble Paying For Medicines?: No Are You Currently Unemployed and Looking for Work?: Yes Highest Level of Education Completed: High School Diploma/GED Do You Have Trouble With Childcare or the Care of a Family Member?: No Exam - Vital Signs Vital Signs - 24 hr 04/04/23 20:51 04/05/23 04:40 Temperature 36.1 C L 36.3 C L Pulse Rate 57 L 54 L Respiratory Rate 16 16 Blood Pressure 138/51 L 137/60 Pulse Oximetry 100 99 - Exam HEENT: EOMI, PERRLA, mucous membranes moist and pink Neck: supple Lungs: clear to auscultation, normal air movement Heart: no murmurs, gallops, or rubs, regular rhythm, regular rate Abdomen: abdomen soft, non-distended Extremities: normal pulses Integumentary: no abnormalities Neurological: normal speech Psychological: mental status NL, mood NL - Lab Results Laboratory Last Values WBC 4.9 K/mm3 (4.5-10.0) 04/05/23 06:20 RBC 4.05 M/mm3 (4.2-5.4) L 04/05/23 06:20 Hgb 11.6 g/dL (12.0-15.0) L 04/05/23 06:20 Hct 36.4 %
[2023-04-05 14:57] LABS: Partial Thromboplastin Time 31.4 SECONDS (22.3-36.8)
--- NOTE | 2023-04-05 16:26 | PC.NURSE ---
Son called, and was given an update.
[2023-04-05 20:42] VITALS: BP 157/81; PULSE 66; RESP 18; TEMP 36.6; O2SAT 96
[2023-04-06 05:57] VITALS: BP 124/50; PULSE 51; RESP 18; TEMP 36.9; O2SAT 96
[2023-04-06 07:13] LABS: Basophils Absolute Auto 0.1 K/mm3 (0.0-0.1); Basophils Percent Auto 1.2 % (0.2-1.2); Eosinophils Absolute Auto 0.2 K/mm3 (0-0.3); Eosinophils Percent Auto 4.9 % (0-4.4); Hematocrit 36.5 % (37.0-47.0); Immature Granulocyte Absolute 0.01 K/mm3 (0.00-0.031); Immature Granulocyte Percent A 0.2 % (0-0.5); Lymphocytes Absolute Auto 1.64 K/mm3 (0.9-3.2); Lymphocytes Percent Auto 33.7 % (18.3-44.2); Mean Corpuscular HGB Conc 32.9 g/dl (32-36); Mean Corpuscular Hemoglobin 29.2 pg (26-34); Mean Corpuscular Volume 88.8 fl (80-100); Mean Platelet Volume 8.7 fl (7.4-10.4); Monocytes Absolute Auto 0.4 K/mm3 (0.1-0.6); Monocytes Percent Auto 7.4 % (2.6-8.5); Neutrophils Absolute Auto 2.6 K/mm3 (1.3-6.7); Neutrophils Percent Auto 52.6 % (45.5-73.1); Platelet Count Result 328 k/mm3 (150-375); Red Blood Count 4.11 M/mm3 (4.2-5.4); Red Cell Distribution Width 13.8 % (11.5-14.5); White Blood Count 4.9 K/mm3 (4.5-10.0)
[2023-04-06 07:25] LABS: Alanine Aminotransferase 24 U/L (6-35); Albumin Level 3.6 g/dL (3.5-5.1); Alkaline Phosphatase 65 U/L (38-126); Anion Gap 3 mmol/L (8-16); Aspartate Amino Transferase 31 U/L (14-36); Bilirubin,Total 0.5 mg/dL (0.2-1.3); Blood Urea Nitrogen 15 mg/dL (7-17); Calcium 9.4 mg/dL (8.4-10.2); Carbon Dioxide 25 mmol/L (22-30); Chloride 108 mmol/L (98-107); Estimated Glomerular Filt Rate > 60; Glucose 88 mg/dL (65-110); Potassium 4.1 mmol/L (3.4-5.0); Sodium 136 mmol/L (137-145)
--- NOTE | 2023-04-06 08:40 | PM.DS ---
DS: Admitting Diagnosis Discharge Date 04/06/23 Admitting Diagnosis flank pain DS: Discharge Diagnosis Discharge Diagnosis (1) Pulmonary emboli: Code(s): I26.99 - Other pulmonary embolism without acute cor pulmonale Status: Acute Assessment and Plan: Heparin drip initially started, echo 04/04 showed an EF of 65-70% with grade 1 diastolic dysfunction as well as mild pulmonary hypertension but no significant right heart strain, transition to oral anticoagulation (2) Pulmonary infarct: Code(s): I26.99 - Other pulmonary embolism without acute cor pulmonale Status: Acute Assessment and Plan: See above (3) Acute UTI: Code(s): N39.0 - Urinary tract infection, site not specified Status: Acute Assessment and Plan: Rocephin initiated 04/03, follow-up urine culture, Gram-negative bacilli noted in greater than 100K CFU, specifics regarding species and sensitivities still pending D/c on augmentin, f/u culture to confirm sens (4) 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: Code(s): C67.4 - Malignant neoplasm of posterior wall of bladder Status: Acute Assessment and Plan: With acute changes on bladder noted on CT as well as recent fatigue, weight loss and appetite loss in now on provoked PE, concern for recurrent bladder cancer, will put in consult to Oncology and Urology Urology consultation recommending Turner catheter, renal ultrasound 04/05, outpatient cystoscopy, d/c gemtessa Plan DVT prophylaxis with SCDs GI prophylaxis not indicated Code status full code DS: Summary Hospital Course Hospital Course: 77-year-old female with history of bladder cancer in remission as well as GERD hypertension is presenting with right flank pain and found to have acute PE with developing pulmonary infarct as well as lobulated unusual morphology of the bladder. Patient initiated on antibiotics for suspected UTI. Patient started on heparin drip for the PE. Urology was consulted and recommended Turner placement to hydronephrosis and likely recurrence of bladder cancer. Oncology was consulted and will follow-up outpatient for assessment and management of recurrent bladder cancer. Please see above and med rec for details. Time Spent with Patient Time attestation: Total time spent providing and/or coordinating discharge services: Exam Narrative: General: No acute distress, alert and oriented per baseline HEENT: Atraumatic, normocephalic, mucous membranes moist CV: Regular rate and rhythm, S1, S2 Lungs: Clear to auscultation bilaterally, no rales or crackles noted, no wheezes, good air entry Abdomen: Soft, nontender, nondistended Extremities: Normal to inspection Skin: No rashes noted, no lesions or wounds seen Psych: Euthymic, normal affect DS: Data Data Completed and Pending Labs on day of discharge: Labs from last 24 hours 04/06/23 04/05/23 07:05 14:41 WBC 4.9 RBC 4.11 L Hgb 12.0 Hct 36.5 L MCV 88.8 MCH 29.2 MCHC 32.9 RDW 13.8 Plt Count 328 MPV 8.7 Immature Gran % (Auto) 0.2 Neut % (Auto) 52.6 Lymph % (Auto) 33.7 Mckean % (Auto) 7.4 Eos % (Auto) 4.9 H Baso % (Auto) 1.2 Lymph # (Auto) 1.64 Mckean # (Auto) 0.4 Eos # (Auto) 0.2 Baso # (Auto) 0.1 Abs Immat Gran (auto) 0.01 Absolute Neuts (auto) 2.6 Absolute Nucleated RBC 0.0 Nucleated RBC % 0.0 APTT 31.4 Sodium 136 L Potassium 4.1 Chloride 108 H Carbon Dioxide 25 Anion Gap 3 L BUN 15 D Creatinine 0.80 Estim Creat Clear Calc Not Reportable Estimated GFR > 60 Glucose 88 Calcium 9.4 Total Bilirubin 0.5 AST 31 ALT 24 Alkaline Phosphatase 65 Total Protein 7.0 Albumin 3.6 Discharge Plan Discharge Attending physician on discharge: Delphine Hurtado Consulting providers: Alexis Miguel; Rainer Wong Discharging Clinician: Delphine Hurtado Patient Disposition:
[2023-04-06] MEDS: amLODIPine BESYLATE 5 MG TABLET PO (08:45)
[2023-04-06] MEDS: APIXABAN 5 MG TABLET 10 MG PO (08:46)
[2023-04-06 14:00] VITALS: BP 140/80; PULSE 70; RESP 16; TEMP 37.4; O2SAT 95
== END 2023-04-06 16:50 | disposition home or self-care (01) | DRG 176 ==
LOC: ANHED 04-03 00:20 → ANH3MEDSUR 04-03 07:36
PROVIDERS: Emergency Medicine; Admitting Provider Internal Medicine; Emergency Provider Physician Assistant; PCP Internal Medicine; Visit Provider Student in an Organized Health Care Education/Training Program
DX: I26.99 Other pulmonary embolism without acute cor pulmonale (principal); N13.6 Pyonephrosis; D68.59 Other primary thrombophilia; B96.1 Klebsiella pneumoniae [K. pneumoniae] as the cause of diseases classified elsewhere; C67.4 Malignant neoplasm of posterior wall of bladder; K21.9 Gastro-esophageal reflux disease without esophagitis; I10 Essential (primary) hypertension; Z90.710 Acquired absence of both cervix and uterus; Z87.891 Personal history of nicotine dependence
CPT/HCPCS: 36415; 71046; 71275; 74177; 76775; 80053; 81001; 83690; 83880; 84484; 85025; 85380; 85610; 85730; 87077; 87086; 87186; 93005; 93306; 93970; 96365; 96366; 96367; 99291; A9270; G0378; J0696; J1644; Q9967

== ENCOUNTER 2023-08-20 10:17 | Outpatient (CLI) | payer MEDICARE, SELFPAY ==
[2023-08-20 11:34] LABS: Appearance Urine Clear (Clear); Bilirubin Urine Negative (Negative); Blood Urine Negative (Negative); Color Urine Yellow (Yellow); Glucose Urine UA Negative (Negative); Ketones Urine Negative (Negative); Leukocyte Esterase Ur Negative LEU/UL (NEGATIVE); Nitrate Urine Negative (Negative); Protein Urine Negative (Negative); Specific Grav Ur 1.013 (1.001-1.035); Urobilinogen Urine 0.2 mg/dL (<2.0); pH Urine 6.5 (5.0-9.0)
[2023-08-20 11:45] LABS: Add Urine Microscopic? NO
== END 2023-08-20 10:18 | disposition home or self-care (01) ==
PROVIDERS: PCP Internal Medicine; Visit Provider Internal Medicine
DX: N39.0 Urinary tract infection, site not specified (principal)
CPT/HCPCS: 81003; 87086

== ENCOUNTER 2023-09-21 20:28 | Emergency (ER) | payer MEDICARE, SELFPAY ==
--- NOTE | ~2023-09-21 | XR_ITS ---
EXAMINATION: XR chest 1V portable INDICATION: Weakness TECHNIQUE: Portable AP chest at 2123 hours COMPARISON: 04/03/2023 FINDINGS: The lungs are free of acute opacities. No pleural effusion or pneumothorax. The cardiomedia stinal silhouette is normal. IMPRESSION: 1. No acute cardiopulmonary abnormality. Reviewed, dictated and finalized at location F.
[2023-09-21 20:35] VITALS: BP 150/97; PULSE 104; RESP 20; TEMP 37; O2SAT 95
--- NOTE | 2023-09-21 21:02 | ECG_ITS ---
Measurements Intervals [place] Rate: 94 P: 43 PA: 139 QRS: 8 QRSD: 85 T: 36 QT: 340 QTc: 427 Interpretive Statements SINUS RHYTHM CONSIDER INFERIOR INFARCT, AGE INDETERMINATE BASELINE ARTIFACT- II, III, AVF ABNORMAL ECG COMPARED TO ECG 04/02/2023 23:51:37 SINUS RHYTHM NOW PRESENT Electronically Signed On 09-22-2023 6:26:57 CDT by Azael Sen D.O.
[2023-09-21] MEDS: ONDANSETRON INJ 4 MG/2 ML VIAL IV PUSH (21:28)
[2023-09-21] MEDS: SODIUM CHLORIDE 0.9% IV 2,000 ML 999 ML IV CONT (21:29)
[2023-09-21] MEDS: ACETAMINOPHEN 500 MG TABLET 1000 MG PO (21:30)
[2023-09-21 21:31] LABS: Basophils Absolute Auto 0.04 K/mm3 (0.00-0.10); Basophils Percent Auto 0.4 % (0.0-1.0); Hematocrit 36.6 % (35.0-42.0); Hemoglobin 12.1 g/dL (11.7-13.8); Immature Granulocyte Absolute 0.05 K/mm3 (0.00-0.00); Immature Granulocyte Percent A 0.5 % (0.0-0.0); Lymphocytes Absolute Auto 1.04 K/mm3 (1.10-4.50); Mean Corpuscular HGB Conc 33.1 g/dL (32-36); Mean Corpuscular Hemoglobin 27.9 pg (27.0-31.0); Mean Corpuscular Volume 84.5 fL (78.0-102.0); Mean Platelet Volume 8.6 fl (9.2-11.8); Monocytes Absolute Auto 0.75 K/mm3 (0.10-0.90); Monocytes Percent Auto 7.2 % (2.0-11.0); Neutrophils Absolute Auto 8.48 K/mm3 (1.70-7.20); Neutrophils Percent Auto 81.9 % (50.0-70.0); Platelet Count Result 321 K/mm3 (150-420); Red Blood Count 4.33 M/mm3 (4.20-5.40); Red Cell Distribution Width 14.2 % (11.6-14.4); White Blood Count 10.4 K/mm3 (4.8-10.8)
--- NOTE | 2023-09-21 21:34 | ED.GENADULT ---
HPI - General Adult General Chief complaint: Urogenital-Female Stated complaint: UTI/seen at UrgentCare Time Seen by Provider: 09/21/23 20:36 History of Present Illness HPI narrative: This is a 77year-old female presenting with 2 days of not feeling well. Patient was seen in urgent care earlier today and had a UA indicative of infection. Her that time she was tachycardic in the 140s they were concerned for sepsis. She was then sent to the ED for further evaluation. patient states that over the last several days she has had decreased appetite and nausea. No vomiting. No fevers chills chest pain difficulty breathing abdominal pain or urinary symptoms. Patient has a history of bladder cancer and gets frequent UTIs. Related Data Home Medications Medication Instructions Recorded Confirmed amlodipine 5 mg tablet (Norvasc) 5 mg PO QAM 10/30/20 09/21/23 Allergies Allergy/AdvReac Type Severity Reaction Status Date / Time propoxyphene AdvReac Mild EXCESSIVE Verified 04/02/23 23:47 THIRST PMFSH Past Medical History Medical History Bladder cancer GERD (gastroesophageal reflux disease) Hypertension PONV (postoperative nausea and vomiting) Surgical History Surgical History History of bladder surgery History of hysterectomy Family History Family History Mother Family history of renal failure Patient's mother is Father Family history of heart disease in male family member before age 55 Patient's father is Other Diabetes mellitus Family history of arthritis Hypertension Social History Social History Smoking packs per day: 1 Smoking cigarettes per day: 20.0 Years smoked: 58 Smoking pack-years: 58.00 Smoking status: Former smoker Tobacco type: cigarettes Alcohol intake: never Substance use: never Substance use type: does not use Lack of Transportation: No Lack of Food: Never True Current Housing: I Have Housing Concerned About Future Housing: No Difficulty Paying Gas/Electric Bills: No Difficulty Paying for Meds: No Currently Unemployed: YES Education: High School Diploma/GED Difficulty w/ Childcare or Family Care: No Living arrangements: with family Additional living arrangements comments: Spiritual care concerns: No Exam Narrative: APPEARANCE: No apparent distress. Head: atraumatic. EYES: EOMI, NOSE: Atraumatic NECK: Trachea midline RESPIRATORY: No increased rate of breathing, CTAB CARDIOVASCULAR: RRR, No peripheral edema ABDOMINAL: Non-distended, soft nontender no CVA tenderness MUSCULOSKELETAl: No obvious deformities NEURO: Alert. Moving 4/4 extremities SKIN:: Warm, dry. Normal color PSYCHIATRIC: Normal affect Course Vital Signs Vital signs: Vital Signs Temperature 98.6 F 09/21/23 20:35 Pulse Rate 104 H 09/21/23 20:35 Respiratory Rate 20 09/21/23 20:35 Blood Pressure 150/97 H 09/21/23 20:35 Pulse Oximetry 95 09/21/23 20:35 Oxygen Delivery Room Air 09/21/23 20:35 Temperature 98.6 F 09/21/23 20:35 Pulse Rate 104 H 09/21/23 20:35 Respiratory Rate 20 09/21/23 20:35 Blood Pressure 150/97 H 09/21/23 20:35 Pulse Oximetry 95 09/21/23 20:35 Oxygen Delivery Room Air 09/21/23 20:35 Medical Decision Making MDM Narrative Medical decision making narrative: -Course: 69-year-old female presenting with 2 days of feeling unwell. Sepsis workup ordered. Urine indicative of infection. White count normal. Not febrile. No CVA tenderness. Lactic normal. Vital signs normalized after full of IV fluids. Patient has been tolerating food and water in our emergency department. Discussed admission versus discharge the patient adamantly refus
[2023-09-21 21:35] LABS: Appearance Urine Clear (Clear); Bilirubin Urine Negative (Negative); Blood Urine 1+ (Negative); Color Urine Light Yellow (Yellow); Glucose Urine UA Negative (Negative); Ketones Urine Trace (Negative); Leukocyte Esterase Ur 3+ LEU/UL (Negative); Nitrate Urine Positive (Negative); Protein Urine Trace (Negative); Urobilinogen Urine 0.2 mg/dL (0.2-1.0)
[2023-09-21 21:45] VITALS: BP 142/79; PULSE 100; RESP 18; O2SAT 98
[2023-09-21 21:45] LABS: Add Urine Microscopic? YES
[2023-09-21 21:46] LABS: Bacteria Urine 3+ /hpf; Squamous Epithelial Cell Urine None seen /hpf (Few); WBC Urine >75 /hpf (0-3)
[2023-09-21 21:51] LABS: Lactic Acid Reflex 0.8 mmol/L (0.4-2.0)
[2023-09-21 21:55] LABS: Alanine Aminotransferase 16 U/L (14-59); Albumin Level 3.3 g/dL (3.4-5.0); Alkaline Phosphatase 70 U/L (46-116); Anion Gap 12 mmol/L (8-16); Aspartate Amino Transferase 11 U/L (15-37); Bilirubin,Total 0.6 mg/dL (0.00-1.00); Blood Urea Nitrogen 18 mg/dL (7-18); Calcium 9.5 mg/dL (8.5-10.1); Carbon Dioxide 24 mmol/L (21-32); Chloride 101 mmol/L (98-108); Estimated Glomerular Filt Rate 59; Glucose 124 mg/dL (70-99); NT Pro B Type Natriuretic Pept 501 pg/mL (0-450); Osmolality Calculated 286 mOsm/kg (285-295); Potassium 3.9 mmol/L (3.5-5.1); Sodium 137 mmol/L (136-145); Total Protein 7.5 g/dL (6.4-8.2)
[2023-09-21 22:08] LABS: SARS-CoV-2 RNA PCR Negative (Negative)
[2023-09-21 22:09] LABS: Influenza A QL RT-PCR Negative (Negative); Influenza B QL RT-PCR Negative (Negative); RSV RNA, RT-PCR Negative (Negative)
--- NOTE | 2023-09-21 22:40 | PC.NURSE ---
Pt ambulated to BR steadily c IVF infusing. She states she is feeling better. POC discussed for d/c home p IVF and antibiotics given.
[2023-09-21 23:12] VITALS: BP 130/71; PULSE 89; RESP 18; TEMP 36.9; O2SAT 98
--- NOTE | 2023-09-26 15:52 | PC.NURSE ---
Final urine culture report; patient discharged on cefdinir, culture susceptible. no further action or treatment needed per Dr. Penaloza
--- NOTE | 2023-09-28 13:09 | PC.NURSE ---
FINAL BLOOD CULTURE RESULTS X2 : NO GROWTH AFTER 5 DAYS. NO ACTION NEEDED.
== END 2023-09-21 23:12 | disposition home or self-care (01) ==
PROVIDERS: Emergency Provider Emergency Medicine; PCP Internal Medicine
DX: N39.0 Urinary tract infection, site not specified (principal); I10 Essential (primary) hypertension; Z85.51 Personal history of malignant neoplasm of bladder; Z87.891 Personal history of nicotine dependence; Z79.01 Long term (current) use of anticoagulants; Z20.822 Contact with and (suspected) exposure to COVID-19
CPT/HCPCS: 36415; 71045; 80053; 81001; 83605; 83735; 83880; 85025; 87040; 87077; 87086; 87088; 87186; 87637; 93005; 96361; 96365; 96375; 99284; J0696; J2405; J7030

== ENCOUNTER 2024-01-19 15:17 | Outpatient (CLI) | payer MEDICARE, SELFPAY ==
--- NOTE | ~2024-01-19 | XR_ITS ---
EXAM: XR hand RT min 3V DATE: 01/19/2024 15:34 HISTORY: M18.11 - Unilateral primary osteoarthritis of first carpo... . COMPARISON: None available. FINDINGS: Decreased mineralization. No fracture or dislocation. No lytic or blastic lesion. Mild sca ttered joint space narrowing, most notably in the interphalangeal joints of the fingers. Degenerative cysts in the lunate adjacent to the ulna and the articulation with the scaphoid. Ulnar positive vari ance. Chondrocalcinosis. No erosion or periosteal change. Degenerative appearing calcified/ossificati on adjacent to the medial aspect of the fourth PIP joint. IMPRESSION: Osteopenia. Mild polyarticular arthritis of hand, with chondrocalcinosis. Findings sugges tive of ulnar impaction syndrome. Reviewed, dictated and finalized at location K. IMPRESSION: Osteopenia. Mild polyarticular arthritis of hand, with chondrocalci nosis. Findings suggestive of ulnar impaction syndrome.
== END 2024-01-19 15:18 | disposition home or self-care (01) ==
LOC: ANHIMG 15:20
PROVIDERS: PCP Internal Medicine; Visit Provider Plastic Surgery
DX: M18.11 Unilateral primary osteoarthritis of first carpometacarpal joint, right hand (principal); M11.241 Other chondrocalcinosis, right hand; M85.88 Other specified disorders of bone density and structure, other site
CPT/HCPCS: 73130

== ENCOUNTER 2024-02-19 21:20 | Inpatient (IN) | payer MEDICARE, SELFPAY ==
[2024-02-17 11:44] VITALS: BMI 28.3
--- NOTE | 2024-02-17 11:46 | PC.NURSE ---
Addendum entered by Joss Hilliard RN 03/01/24 09:18: Note to be moved to account [id number]. Duplicate registration. Original Note: Report to the Outpatient Waiting Room, entrance under the green pavilion located off [facility], at time _1245_ on date _[id number]_. Planned Procedure Time: _245pm_. Time changes happen often and if your time is changed the preop area will call you the afternoon before. - You and your visitor will be asked to self-screen and do not enter if you have any COVID symptoms. - A mask is optional within the hospital at this time. Patients may have clear liquids (water, carbonated beverages, clear teas, apple juice) until 3 hours prior to surgery with a maximum of 20 ounces. - No food from midnight until time of surgery Take the following medications with a SIP of water the morning of surgery: __Amlodipine DO NOT STOP ANY OF YOUR OTHER PRESCRIPTION MEDICATIONS PRIOR TO SURGERY ?EXCEPT THE FOLLOWING Medications to discontinue per physician Patient doesn't plan to start Vitamin B-12 until after surgery. Patient is calling Dr Mahoney's office about Eliquis. Please no make-up, nail tajik, hairspray, perfume, deodorant, or body powder the day of surgery. No jewelry (including any body piercings) or valuables the day of surgery, leave them at home. Please take a shower or bath the night before, or the morning of, surgery with an antibacterial soap. Wear comfortable, loose fitting clothing. - Jewelry must be removed prior to entering the operating room. Rings and piercings that are not removed may be cut off. - The hospital will not accept responsibility for valuables. - Please leave all valuables, including medications, at home the day of surgery. If you are going home after surgery, a licensed driver manager must drive you home. - NO public transportation without another adult if you receive anesthesia. - We recommend that an adult stay with you for 24 hours following discharge. - We also recommend that you do not drive, make important decision, drink alcoholic beverages, or take any drugs that were not prescribed by your health care provider for at least 24 hours after your discharge time. Follow any additional instructions given to you from your surgeon. If you or anyone in your household have experienced Covid symptoms in the past week, please notify your surgeon or the nurse liaison at the phone number below for possible testing. Telephone instructions given to __Lois__and asked if any additional questions and then verbalized understanding. Patient advised to call surgeon office or pre surgery nurse liaison [phone] if any additional questions.
--- NOTE | ~2024-02-19 | CT_ITS ---
EXAMINATION: CT abdomen pelvis w con DATE: 02/20/2024 11:16 INDICATION: Abdominal pain. TECHNIQUE: Computed tomography (CT) of the abdomen and pelvis was performed with 100 mL Omnipaque 350 intravenous contrast. Automated exposure control and iterative reconstruction technique were employe d. The dose-length product was 395.65 mGy-cm. COMPARISON: CT abdomen and pelvis 04/03/23, 11/04/2021 FINDINGS: The visualized portions of the lung bases demonstrate mild atelectasis. No pleural effusion . The heart is normal. There are coronary artery calcifications. No pericardial effusion. There is a small sliding hiatal hernia. There is an 11 mm cyst in the liver. The gallbladder, spleen, pancreas, and adrenal glands are normal. There is mild atrophy of the kidneys. There is severe bilateral hydron ephrosis and hydroureter. The bladder is small and lobulated. There is diverticulosis of the colon wi thout evidence of diverticulitis. The appendix is not visualized. There is calcified atherosclerosis of the aorta and many of the other arteries. There are no pathologically enlarged lymph nodes. There is severe lumbar spondylosis. IMPRESSION: 1. Chronic severe bilateral hydronephrosis and hydroureter. 2. Mild atrophy of the kidneys. Reviewed, dictated and finalized at location A.
--- NOTE | ~2024-02-19 | XR_ITS ---
CORRECTED REPORT Report was moved to account, [id number], on 02/24/24 [facility] 02/24/24 This report was recreated on 02/24/24. Original report was EXAMINATION: XR fluoroscopy no charge DATE: 02/22/2024 15:23 INDICATION: Neurostimulator placement. TECHNIQUE: 2 intraoperative fluoroscopic views of the sacrum were obtained. I was not present. Fluoroscopy exposure time was 50 seconds. COMPARISON: CT abdomen and pelvis 02/20/2024 FINDINGS: There is no side marker. There is severe lumbar spondylosis. There is an electrode in an S3 neural foramen. IMPRESSION: 1. Electrode in an S3 neural foramen. Reviewed, dictated and finalized at location A. MTDD
--- NOTE | ~2024-02-19 | XR_ITS ---
EXAMINATION: XR fluoroscopy no charge DATE: 02/22/2024 15:23 INDICATION: Neurostimulator placement. TECHNIQUE: 2 intraoperative fluoroscopic views of the sacrum were obtained. I was not present. Fluoro scopy exposure time was 50 seconds. COMPARISON: CT abdomen and pelvis 02/20/2024 FINDINGS: There is no side marker. There is severe lumbar spondylosis. There is an electrode in an S3 neural foramen. IMPRESSION: 1. Electrode in an S3 neural foramen. Reviewed, dictated and finalized at location A.
[2024-02-19 21:27] VITALS: BP 119/75; PULSE 105; RESP 16; TEMP 36.7; O2SAT 95
--- NOTE | 2024-02-19 21:30 | ECG_ITS ---
Test Date: 2024-02-19 21:35:09 Measurements Intervals [place] Rate: 99 P: 17 WI: 127 QRS: -17 QRSD: 96 T: -76 QT: 338 QTc: 435 Interpretive Statements SINUS RHYTHM WITH OCCASIONAL SUPRAVENTRICULAR PREMATURE COMPLEXES LEFT VENTRICULAR HYPERTROPHY AND ST-T CHANGE [VOLTAGE CRITERIA PLUS ST/T ABNORMALITY] INFERIOR MYOCARDIAL INFARCTION , OF INDETERMINATE AGE [40+ ms Q WAVE AND/OR ST/T ABNORMALITY IN II/aVF] No previous ECG available for comparison Electronically Signed On 02-20-2024 10:35:36 CDT by Jason Cortes M.D.
[2024-02-20] VITALS (12 sets, daily range): BP systolic 116–138; BP diastolic 55–93; PULSE 77–96; RESP 13–18; TEMP 36.6–37.1; O2SAT 96–98; BMI 27.5
[2024-02-20 02:27] LABS: Basophils Absolute Auto 0.1 K/mm3 (0.0-0.1); Basophils Percent Auto 0.5 % (0.2-1.2); Eosinophils Percent Auto 0.2 % (0-4.4); Hematocrit 34.4 % (37.0-47.0); Hemoglobin 11.4 g/dL (12.0-15.0); Immature Granulocyte Absolute 0.03 K/mm3 (0.00-0.031); Immature Granulocyte Percent A 0.3 % (0-0.5); Lymphocytes Absolute Auto 2.14 K/mm3 (0.9-3.2); Lymphocytes Percent Auto 20.2 % (18.3-44.2); Mean Corpuscular HGB Conc 33.1 g/dl (32-36); Mean Corpuscular Hemoglobin 27.9 pg (26-34); Mean Corpuscular Volume 84.3 fl (80-100); Mean Platelet Volume 9.4 fl (7.4-10.4); Neutrophils Absolute Auto 7.4 K/mm3 (1.3-6.7); Neutrophils Percent Auto 69.8 % (45.5-73.1); Platelet Count Result 344 k/mm3 (150-375); Red Blood Count 4.08 M/mm3 (4.2-5.4); Red Cell Distribution Width 13.8 % (11.5-14.5); White Blood Count 10.6 K/mm3 (4.5-10.0)
[2024-02-20 02:36] LABS: Lactic Acid Reflex 0.9 mmol/L (0.7-2.0)
[2024-02-20 02:37] LABS: Alanine Aminotransferase 20 U/L (6-35); Alkaline Phosphatase 60 U/L (38-126); Anion Gap 11 mmol/L (4-12); Aspartate Amino Transferase 28 U/L (14-36); Bilirubin,Total 0.7 mg/dL (0.2-1.3); Blood Urea Nitrogen 16 mg/dL (7-17); Calcium 9.6 mg/dL (8.4-10.2); Carbon Dioxide 24 mmol/L (22-30); Chloride 100 mmol/L (98-107); Estimated Glomerular Filt Rate 60; Glucose 108 mg/dL (65-110); Potassium 3.2 mmol/L (3.4-5.0); Sodium 135 mmol/L (137-145)
[2024-02-20 02:59] LABS: Add Urine Microscopic? YES; Appearance Urine Cloudy (Clear); Bacteria Urine 4+ /hpf; Bilirubin Urine Negative (Negative); Blood Urine 1+ (Negative); Color Urine Yellow (Yellow); Glucose Urine UA Negative (Negative); Ketones Urine 1+ mg/dL (Negative); Leukocyte Esterase Ur 3+ LEU/UL (Negative); Need Manual Microscopic Reviewed; Nitrate Urine Negative (Negative); Non Pathogenic Casts 0-2; Protein Urine 1+ mg/dL (Negative); RBC Urine 0-2 /hpf (0-2); Specific Grav Ur 1.009 (1.001-1.035); Squamous Epithelial Cell Urine None Seen /hpf (Few); Urobilinogen Urine 0.2 mg/dL (<2.0); WBC Urine >100 /hpf (0-3)
[2024-02-20] MEDS: POTASSIUM CHLORIDE 20 MEQ PACKET (FOR LIQUID) 40 MEQ PO (03:01)
[2024-02-20 03:04] LABS: Procalcitonin 0.4 ng/mL
--- NOTE | 2024-02-20 03:30 | ED.GENADULT ---
HPI - General Adult General Chief complaint: Unspecified Stated complaint: uti, palpations Time Seen by Provider: 02/20/24 01:03 History of Present Illness HPI narrative: patient is a episode 8-year-old female who presents emergency department with chief complaint of palpitations and urinary tract infection. Patient reports he has been having burning with urination the patient has been treated with multiple rounds of antibiotics and still having episodes of burning with urination the patient reports she is scheduled to have urological procedure on Thursday reports that she went to urgent care and they told her that her heartbeat felt irregular. Related Data Home Medications Medication Instructions Recorded Confirmed amlodipine 5 mg tablet (Norvasc) 5 mg PO QAM 10/30/20 02/17/24 cyanocobalamin (vitamin B-12) 1,000 mcg PO DAILY 02/17/24 02/17/24 1,000 mcg tablet (Vitamin B-12) Allergies Allergy/AdvReac Type Severity Reaction Status Date / Time No Known Allergies Allergy Verified 02/19/24 21:30 Review of Systems Review of Systems: A 10 system review of systems was completed on the patient and is negative except for what is stated in the HPI. Nursing and ancillary documentation was reviewed. [facility] Past Medical History Medical History Bladder cancer GERD (gastroesophageal reflux disease) Hypertension PONV (postoperative nausea and vomiting) Surgical History Surgical History History of bladder surgery History of hysterectomy Family History Family History Mother Family history of renal failure Patient's mother is Father Family history of heart disease in male family member before age 55 Patient's father is Other Diabetes mellitus Family history of arthritis Hypertension Social History Social History Smoking packs per day: 1 Smoking cigarettes per day: 20.0 Years smoked: 55 Smoking pack-years: 55.00 Smoking status: Former smoker Tobacco type: cigarettes Smoking end date: 08/19/23 Alcohol intake: never Substance use: never Substance use type: does not use Lack of Transportation: No Lack of Food: Never True Current Housing: I Have Housing Concerned About Future Housing: No Difficulty Paying Gas/Electric Bills: No Difficulty Paying for Meds: No Currently Unemployed: YES Education: High School Diploma/GED Difficulty w/ Childcare or Family Care: No Living arrangements: alone Additional living arrangements comments: Spiritual care concerns: No Exam Narrative: GENERAL: Well-appearing, well-nourished, and in no acute distress. HEAD: Normocephalic, atraumatic. EYES: PERRLA and EOMI. ENT: Nares clear, no rhinorrhea or epistaxis. Mucous membranes moist. NECK: Supple. CHEST: Clear to auscultation. No respiratory distress. HEART: Regular rate and rhythm. No murmur heard. Normal peripheral pulses. ABDOMEN: Soft, nontender, nondistended, normal active bowel sounds. EXTREMITIES: Normal range of motion. No edema. SKIN: Warm, dry, no rash. NEURO: No focal deficits. Alert and oriented x3. PSYCH: Normal mood and affect. Course Vital Signs Vital signs: Vital Signs Temperature 36.7 C 02/19/24 21:27 Pulse Rate 105 H 02/19/24 21:27 Respiratory Rate 16 02/19/24 21:27 Blood Pressure 119/75 02/19/24 21:27 Pulse Oximetry 95 02/19/24 21:27 Oxygen Delivery Room Air 02/19/24 21:27 Temperature 36.7 C 02/19/24 21:27 Pulse Rate 96 02/20/24 01:47 Respiratory Rate 13 02/20/24 01:47 Blood Pressure 138/93 H 02/20/24 01:47 Pulse Oximetry 97 02/20/24 01:47 Oxygen Delivery Room Air 02/19/24 21:27 Medical Decision [place]
[2024-02-20] MEDS: MEROPENEM 1 GM/NS 100 ML 1 GM/100 ML BAG IVPB ×2 (04:41→18:01)
--- NOTE | 2024-02-20 06:04 | ADMGEN ---
This patient, Diana Terry, was admitted to Medical Room 340-01. Patient/family oriented to hospital policies and general routines including ID bracelet, bed and alarms, visiting hours, pain management, procedures, bathroom and other care routines, personal items, smoking policy, room service/diet, and visiting hours. Information on how to activate the Rapid Response Team has been discussed. Patient/Family are encouraged to report perceived risks to care and to ask questions if they do not understand what they are told or what they should do.
--- NOTE | 2024-02-20 06:35 | PC.NURSE ---
Patient has had thoughts of wishing she were , however, patient has no intent of suicide. Patient has become depressed after losing her of 56 years just last week.
--- NOTE | 2024-02-20 10:33 | PM.IMHP ---
H&P: HPI History of Present Illness Date/Time: 02/20/24 10:33 Chief Complaint: Palpitations and UTI Narrative: This is a 78-year-old female with a significant past medical history of bladder cancer, GERD, hypertension, pulmonary embolism, former smoker who presents to the hospital palpitations and dysuria. Patient states that she is had many UTIs in the past and has been on multiple antibiotics with recurrent UTI's. Patient started having dysuria again prompting her to get re-evaluated for urinary tract infection. Patient was diagnosed with bladder cancer and finished 6 rounds of intravesical induced mitomycin at that time. She was followed by oncology in [place], [place]. Last pathology report from 11/01/20 shown non-invasive low grade papillary urothelial carcinoma which is likely a reoccurrence of her bladder cancer. She was being maintained on OAB and Gemtesa. She was last seen by Urology here at [place] April 03, 2023 and was taken off Gemtesa due to urinary retention and likely the cause of chronic UTIs and overflow incontinence. Patient is supposed to have a procedure on Thursday with Urology however she is on sure what the procedure is and describes it as getting wires placed in her back that go down to her kidneys. Workup in the hospital included CT of the abdomen and pelvis showing chronic severe bilateral hydronephrosis and hydroureter, mild atrophy of the kidneys. She denies any fever, chills, nausea, vomiting, diarrhea, abdominal pain, chest pain, shortness a breath, lightheadedness, dizziness, headache. She reports dysuria only. Initial labs shown an initial white blood cell count of 10.6, RBC 4.08, hemoglobin 11.4, sodium 135, potassium 3.2, procalcitonin 0.4. UA was obtained and shown a cloudy appearance, 1+ urine protein, 1+ urine ketone, 1+ urine blood, 3+ leukocyte, greater than 100 urine wbc's, 4+ urine bacteria. Blood and urine cultures were obtained and are pending. EKG showing sinus rhythm with occasional PVCs, rate 99, QTC 435. Patient was given 40 mEq of potassium and started on meropenem while in the ED. Review of Systems Review of Systems: All systems reviewed & are unremarkable except as noted in HPI and below Constitutional: Constitutional: Reports as per HPI and Reports no additional constitutional complaints Eyes: Eyes: Reports as per HPI and Reports no additional eye complaints ENT: Reports system reviewed and no additional complaints, except as documented and Reports as per HPI Cardiovascular: Cardiovascular: Reports as per HPI and Reports no additional cardiovascular complaints Respiratory: Respiratory: Reports as per HPI and Reports no additional respiratory complaints Gastrointestinal: Gastrointestinal: Reports as per HPI and Reports no additional gastrointestinal complaints Genitourinary: Genitourinary: Reports no additional female genitourinary complaints and Reports as per HPI Musculoskeletal: Musculoskeletal: Reports no additional musculoskeletal complaints and Reports as per HPI Integumentary/Breasts: Skin/Breast: Reports system reviewed and no additional complaints, except as docu and Reports as per HPI Neurologic: Reports system reviewed and no additional complaints, except as documented and Reports as per HPI Psychiatric: Psychiatric: Reports no additional psychiatric complaints and Reports as per HPI PMF Past Medical History Medical History Bladder cancer GERD (gastroesophageal reflux disease) Hypertension PONV (postoperative nausea and vomiting) Surgical History Surgical History History of bladder surgery History of hysterectomy Family History Family History Mother Family history of renal failure Patient's mother is Father Family history of heart disease in male family m
--- NOTE | 2024-02-20 10:56 | PC.NURSE ---
Patient off of unit to CT scan
[2024-02-20] MEDS: PHENAZOPYRIDINE HCL 100 MG TABLET 200 MG PO ×2 (12:31→18:01)
[2024-02-21] VITALS (8 sets, daily range): BP systolic 100–126; BP diastolic 56–67; PULSE 76–98; RESP 16–18; TEMP 36.2–36.6; O2SAT 94–96
[2024-02-21 06:00] LABS: Basophils Absolute Auto 0.1 K/mm3 (0.0-0.1); Basophils Percent Auto 0.7 % (0.2-1.2); Eosinophils Absolute Auto 0.1 K/mm3 (0-0.3); Eosinophils Percent Auto 0.7 % (0-4.4); Hemoglobin 11.1 g/dL (12.0-15.0); Immature Granulocyte Absolute 0.03 K/mm3 (0.00-0.031); Immature Granulocyte Percent A 0.4 % (0-0.5); Lymphocytes Absolute Auto 1.58 K/mm3 (0.9-3.2); Lymphocytes Percent Auto 21.5 % (18.3-44.2); Mean Corpuscular HGB Conc 31.7 g/dl (32-36); Mean Corpuscular Hemoglobin 27.2 pg (26-34); Mean Corpuscular Volume 85.8 fl (80-100); Mean Platelet Volume 9.4 fl (7.4-10.4); Monocytes Absolute Auto 0.8 K/mm3 (0.1-0.6); Neutrophils Absolute Auto 4.8 K/mm3 (1.3-6.7); Neutrophils Percent Auto 65.7 % (45.5-73.1); Platelet Count Result 385 k/mm3 (150-375); Red Blood Count 4.08 M/mm3 (4.2-5.4); Red Cell Distribution Width 13.8 % (11.5-14.5); White Blood Count 7.3 K/mm3 (4.5-10.0)
[2024-02-21 06:12] LABS: Alanine Aminotransferase 21 U/L (6-35); Albumin Level 3.4 g/dL (3.5-5.1); Alkaline Phosphatase 59 U/L (38-126); Anion Gap 7 mmol/L (4-12); Aspartate Amino Transferase 25 U/L (14-36); Bilirubin,Total 0.4 mg/dL (0.2-1.3); Blood Urea Nitrogen 13 mg/dL (7-17); Calcium 9.2 mg/dL (8.4-10.2); Carbon Dioxide 25 mmol/L (22-30); Chloride 103 mmol/L (98-107); Estimated Glomerular Filt Rate 60; Glucose 104 mg/dL (65-110); Potassium 3.2 mmol/L (3.4-5.0); Sodium 135 mmol/L (137-145)
--- NOTE | 2024-02-21 08:12 | HP_ITS ---
This report was moved to account [id number] on 02/24/2024, original report was signed by Milton Mahoney MD on 02/21/2024 at 0812. H&P: HPI History of Present Illness Date/Time: 02/21/24 08:11 Chief Complaint: UUI Narrative: successful trial of SNS. desires InterStim implant Review of Systems Review of Systems: All systems reviewed & are unremarkable except as noted in HPI and below PMFSH Past Medical History Medical History Bladder cancer GERD (gastroesophageal reflux disease) Hypertension PONV (postoperative nausea and vomiting) Surgical History Surgical History History of bladder surgery History of hysterectomy Family History Family History Mother Family history of renal failure Patient's mother is Father Family history of heart disease in male family member before age 55 Patient's father is Other Diabetes mellitus Family history of arthritis Hypertension Social History Social History Smoking packs per day: 1 Smoking cigarettes per day: 20.0 Years smoked: 55 Smoking pack-years: 55.00 Smoking status: Former smoker Tobacco type: cigarettes Smoking end date: 07/30/23 Alcohol intake: never Substance use: never Substance use type: does not use Do You Feel Safe in your Home?: Yes Lack of Transportation: No Lack of Food: Never True Current Housing: I Have Housing Concerned About Future Housing: No Difficulty Paying Gas/Electric Bills: No Difficulty Paying for Meds: No Currently Unemployed: No Education: High School Diploma/GED Difficulty w/ Childcare or Family Care: No Living arrangements: alone Additional living arrangements comments: Spiritual care concerns: No Meds Home Medications and Allergies Home Medications Medication Instructions Recorded Confirmed Type amlodipine 5 mg tablet (Norvasc) 5 mg PO QAM 10/30/20 02/20/24 History cyanocobalamin (vitamin B-12) 1,000 mcg PO DAILY 02/17/24 02/20/24 History 1,000 mcg tablet (Vitamin B-12) apixaban 5 mg tablet (Eliquis) 5 mg PO Q12HR 02/20/24 02/20/24 History Allergies Allergy/AdvReac Type Severity Reaction Status Date / Time No Known Allergies Allergy Verified 02/19/24 21:30 Exam Narrative: NAD normal breathing A+O x3 Assessment and Plan Assessment and plan (1) Urge incontinence: Code(s): N39.41 - Urge incontinence Status: Acute Assessment and Plan: interstim implant This report may have been done utilizing a voice recognition system. Attempts have been made to correct errors. However, there may be uncorrected grammatical, spelling, and recognition errors present. Report Initialized date/time: Milton Mahoney MD 02/21/24811 Electronically signed by: Milton Mahoney MD 02/21/24811 [facility]
[2024-02-21] MEDS: PHENAZOPYRIDINE HCL 100 MG TABLET 200 MG PO ×3 (08:24→17:22)
[2024-02-21] MEDS: CYANOCOBALAMIN 1,000 MCG TABLET 1000 MCG PO (08:24)
[2024-02-21] MEDS: amLODIPine BESYLATE 5 MG TABLET PO (08:24)
[2024-02-21] MEDS: MEROPENEM 1 GM/NS 100 ML 1 GM/100 ML BAG IVPB ×2 (08:25→21:02)
--- NOTE | 2024-02-21 12:19 | WPDURCON ---
Assessment and Plan Assessment and plan (1) Acute UTI: Code(s): N39.0 - Urinary tract infection, site not specified Status: Acute Assessment and Plan: 78-year-old female with overactive bladder planned for InterStim tomorrow admitted out of concerns for UTI. -Continue antibiotics until cultures return, appears no urgent intervention warranted -I have relayed to Dr. Mahoney that she is in the hospital, ultimately it will be his decision about whether to proceed tomorrow or not -please keep her NPO after midnight in preparation of potential InterStim implant tomorrow Urology Consult Note HPI Date Seen: 02/21/24 Requesting Physician: Monie Vides APRN Primary Care Provider: Armando Concepcion, Consult Narrative Narrative: Diana Terry is a 78 year old female with a history of overactive bladder symptoms and recurrent UTI. She had a successful InterStim trial in November and is actually scheduled tomorrow for implant with Dr. Mahoney. When asked why she came into the hospital, she indicates that her son made her come. She feels okay. Feels like she has a UTI. Cultures are pending, but urinalysis has WBC, bacteria. Nitrites are negative. She does not appear septic whatsoever. CT shows a small bladder with bilateral hydronephrosis which appears chronic going back at least a few years WBC 7 Creatinine 0.9 Review of Systems Review of Systems: All systems reviewed & are unremarkable except as noted in HPI and below PMFSH Past Medical History Medical History Bladder cancer GERD (gastroesophageal reflux disease) Hypertension PONV (postoperative nausea and vomiting) Surgical History Surgical History History of bladder surgery History of hysterectomy Family History Family History Mother Family history of renal failure Patient's mother is Father Family history of heart disease in male family member before age 55 Patient's father is Other Diabetes mellitus Family history of arthritis Hypertension Social History Social History Smoking packs per day: 1 Smoking cigarettes per day: 20.0 Years smoked: 55 Smoking pack-years: 55.00 Smoking status: Former smoker Tobacco type: cigarettes Smoking end date: 07/30/23 Alcohol intake: never Substance use: never Substance use type: does not use Do You Feel Safe in your Home?: Yes Lack of Transportation: No Lack of Food: Never True Current Housing: I Have Housing Concerned About Future Housing: No Difficulty Paying Gas/Electric Bills: No Difficulty Paying for Meds: No Currently Unemployed: No Education: High School Diploma/GED Difficulty w/ Childcare or Family Care: No Living arrangements: alone Additional living arrangements comments: Spiritual care concerns: No Meds Home Medications and Allergies Home Medications Medication Instructions Recorded Confirmed Type amlodipine 5 mg tablet (Norvasc) 5 mg PO QAM 10/30/20 02/20/24 History cyanocobalamin (vitamin B-12) 1,000 mcg PO DAILY 02/17/24 02/20/24 History 1,000 mcg tablet (Vitamin B-12) apixaban 5 mg tablet (Eliquis) 5 mg PO Q12HR 02/20/24 02/20/24 History Allergies Allergy/AdvReac Type Severity Reaction Status Date / Time No Known Allergies Allergy Verified 02/19/24 21:30 Vital Signs Vital Signs - 24 hr 02/20/24 15:33 02/20/24 16:00 02/20/24 20:44 Temperature 37.1 C 37.1 C Pulse Rate 88 87 91 Respiratory Rate 18 17 Blood Pressure 137/84 122/73 Pulse Oximetry 97 96 Oxygen Delivery 02/20/24 20:00 02/20/24 20:00 02/21/24 00:00 Temperature Pulse Rate 90 91 98 Respiratory Rate 17 Blood Pressure Pulse Oximetry
--- NOTE | 2024-02-21 14:30 | PM.IMPN ---
Progress Note: A&P Assessment and Plan (1) Acute UTI: Code(s): N39.0 - Urinary tract infection, site not specified Status: Acute Assessment and Plan: 02/20/24: UA showing cloudy appearance, 1+ urine protein, 1+ urine ketones, 1+ urine blood, 3+ leukocytes, greater than 100 urine WBC, 4+ urine bacteria Blood and urine cultures were obtained and are pending History of recurrent UTIs and bladder cancer Followed with oncology in [place], [place]. Last pathology report from 11/01/20 shown non-invasive low grade papillary urothelial carcinoma which is likely a reoccurrence of her bladder cancer. Initial bladder cancer was diagnosed 02/2016 and she finished 6 rounds of intravesical induction mitomycin at that time. She was being maintained on OAB and Gemtesa. Was last seen by Urologist here at [place] April 03, 2023 and was taken off Gemtesa due to urinary retention and likely cause of chronic UTI's and overflow incontinence. Obtain bladder scan. Pateint reports voiding well Continue meropenem CT of abdomen/pelvis ordered Urology consulted WBC 10.6 today Urinary pain resolved, change pyridium to PRN Tylenol and [place] ordered as well (2) 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: Code(s): C67.4 - Malignant neoplasm of posterior wall of bladder Status: Acute Assessment and Plan: See above plan of care (3) Hypertension: Code(s): I10 - Essential (primary) hypertension Status: Acute Assessment and Plan: 02/20/24: Blood pressures ranging 116/55 to 138/93 Continue amlodipine (4) History of pulmonary embolism: Code(s): Z86.711 - Personal history of pulmonary embolism Status: Chronic Assessment and Plan: 02/20/24: Patient was diagnosed with PE on 04/03/2023 and was placed on Eliquis Eliquis currently on hold for possible OR tomorrow Continue SCDs for right now (5) Hypokalemia: Code(s): E87.6 - Hypokalemia Status: Acute Assessment and Plan: Potassium 3.2, was 3.3 yesterday after 40meq KCL Give 40meq PO & 20meq IV, recheck BMP in AM, Check mag and phos and AM (6) PVC's (premature ventricular contractions): Code(s): I49.3 - Ventricular premature depolarization Status: Acute Assessment and Plan: Fequent PVC's on tele. May be related to electrolyte abnormalities --Replete electrolytes --Continue amlodipine, if continues, continue switching to a beta bocker Time Spent With Patient Time: 35 Subjective Date/time seen: 02/21/24 14:30 Interval history: Feeling ok. Not eating a lot but grieving for , who last week. Urology planning a possible bladder stimulator tomorrow, NPO post midnight. Intermittent PVC's on telemetry, patient attributes palpitations to recent stress Potassium also low, replete potassium and check mag and phos Urine cultures still pending. Reports that dysuria has resolved. Exam Narrative: General: In no acute distress, well nourished Head: atraumatic, no encephalopathy Eyes: EOMI, PERRLA, sclera clear ENT: moist mucous membranes, nasal passages clear Neck: supple, no JVD, no adenopathy, trachea midline Cardiac: Normal S1 and S2. RRR, No murmur, gallops or friction rubs, peripheral pulses intact. Respiratory: Lungs clear to auscultation, no adventitious lung sounds, currently on room air Gastrointestinal: soft, non-distended, non-tender, normoactive bowel sounds. : voiding without difficulty. Reports dysuria Extremities: moves all extremities well, no edema, good ROM, strength 5/5 Skin: clean, dry, intact. No wounds or lesions. Neuro: Alert to voice and oriented x4, cranial nerves intact, no neuro deficits. Psych: normal mood, normal affect, interactive Objective Data Vital Signs Vital Signs: Vital Signs - 24 hr 02/20/24 15:33 02/20/24 16:00 02/20/24 20:44 Temperature 98.8 F 98.7 F Pulse Rate 88 87 91 Respiratory Rate 18 17 Blood Pressure 137/8
[2024-02-21] MEDS: KCL 20 MEQ/SW 100 ML 100 ML 50 MEQ IVPB (17:24)
[2024-02-22] VITALS (10 sets, daily range): BP systolic 115–137; BP diastolic 59–114; PULSE 75–99; RESP 12–16; TEMP 36.6; O2SAT 95–98
[2024-02-22 07:04] LABS: Basophils Absolute Auto 0.1 K/mm3 (0.0-0.1); Eosinophils Absolute Auto 0.1 K/mm3 (0-0.3); Eosinophils Percent Auto 2.1 % (0-4.4); Hematocrit 35.9 % (37.0-47.0); Hemoglobin 11.1 g/dL (12.0-15.0); Immature Granulocyte Absolute 0.03 K/mm3 (0.00-0.031); Immature Granulocyte Percent A 0.5 % (0-0.5); Lymphocytes Absolute Auto 2.11 K/mm3 (0.9-3.2); Lymphocytes Percent Auto 36.3 % (18.3-44.2); Mean Corpuscular HGB Conc 30.9 g/dl (32-36); Mean Corpuscular Hemoglobin 27.5 pg (26-34); Mean Corpuscular Volume 88.9 fl (80-100); Mean Platelet Volume 9.4 fl (7.4-10.4); Monocytes Absolute Auto 0.6 K/mm3 (0.1-0.6); Neutrophils Absolute Auto 2.9 K/mm3 (1.3-6.7); Neutrophils Percent Auto 50.1 % (45.5-73.1); Platelet Count Result 378 k/mm3 (150-375); Red Blood Count 4.04 M/mm3 (4.2-5.4); Red Cell Distribution Width 13.8 % (11.5-14.5); White Blood Count 5.8 K/mm3 (4.5-10.0)
--- NOTE | 2024-02-22 07:15 | HP_ITS ---
This report was moved to account [id number] on 02/25/24. Original report was signed by Milton Mahoney MD on 02/22/24 at 0715. History and Physical Update Update Date/Time: 02/22/24 07:15 History and Physical has been reviewed, including an updated exam of the patient. There are NO changes in the patient's condition. Risks, benefits, and alternatives have been discussed and questions answered. Patient agrees to proceed with procedure. This report may have been done utilizing a voice recognition system. Attempts have been made to correct errors. However, there may be uncorrected grammatical, spelling, and recognition errors present. Report Initialized date/time: Milton Mahoney MD 02/22/24 / 0715 Electronically signed by: Milton Mahoney MD 02/22/24 0715 [facility]
[2024-02-22 07:28] LABS: Alanine Aminotransferase 23 U/L (6-35); Albumin Level 3.3 g/dL (3.5-5.1); Alkaline Phosphatase 58 U/L (38-126); Anion Gap 10 mmol/L (4-12); Aspartate Amino Transferase 27 U/L (14-36); Bilirubin,Total 0.3 mg/dL (0.2-1.3); Blood Urea Nitrogen 16 mg/dL (7-17); Calcium 9.4 mg/dL (8.4-10.2); Carbon Dioxide 22 mmol/L (22-30); Chloride 106 mmol/L (98-107); Estimated Glomerular Filt Rate > 60; Glucose 90 mg/dL (65-110); Magnesium 2.4 mg/dL (1.6-2.3); Potassium 3.5 mmol/L (3.4-5.0); Sodium 138 mmol/L (137-145)
[2024-02-22] MEDS: MEROPENEM 1 GM/NS 100 ML 1 GM/100 ML BAG IVPB (08:14)
--- NOTE | 2024-02-22 08:20 | PN_ITS ---
This report was moved to account [id number] on 02/25/2024. Original report was signed by Milton Mahoney MD on 02/22/24 at 0820. Progress Note: A&P Assessment and Plan (1) Urge incontinence: Code(s): N39.41 - Urge incontinence Status: Acute Assessment and Plan: Proceed with InterStim today. She got greater than 50% improvement with previous InterStim trial (2) Bilateral hydronephrosis: Code(s): N13.30 - Unspecified hydronephrosis Status: Acute Assessment and Plan: Chronic in nature. Due to bladder dysfunction. Looks to be reflux on CT. Creatinine normal (3) Abnormal urinalysis: Code(s): R82.90 - Unspecified abnormal findings in urine Status: Acute Assessment and Plan: Colonization versus infection. I favor the former. She has been on IV antibiotics for 2 days Subjective Subjective Date/Time Seen: 02/22/24 08:18 Review of Systems Review of Systems: Her son brought her to the hospital. Her last week. She was sleeping all the time and not eating this prompted admission. Urinalysis is abnormal. No prominent symptoms of infection. Likely colonization versus infection. She has no dysuria. No white count. No fever. She was placed on IV antibiotics. We will likely proceed with her procedure today. Can be discharged home at the discretion of the hospitalist Exam Narrative: No acute distress Normal breathing Alert orient x3 This report may have been done utilizing a voice recognition system. Attempts have been made to correct errors. However, there may be uncorrected grammatical, spelling, and recognition errors present. Report Initialized date/time: Milton Mahoney MD 02/22/24 / 819 Electronically signed by: Milton Mahoney MD 02/22/24 0820 [facility]
--- NOTE | 2024-02-22 13:18 | PM.DS ---
DS: Admitting Diagnosis Discharge Date 02/22/24 Admitting Diagnosis palpitations urinary tract infection DS: Discharge Diagnosis Discharge Diagnosis (1) Urge incontinence: Code(s): N39.41 - Urge incontinence Status: Acute DS: Summary Hospital Course Reason for hospitalization: UTI palpitations urge incontinence Hospital Course: 78-year-old female with a significant past medical history of bladder cancer, GERD, hypertension, pulmonary embolism, former smoker who presents to the hospital palpitations and dysuria. Patient states that she is had many UTIs in the past and has been on multiple antibiotics with recurrent UTI's. Patient started having dysuria again prompting her to get re-evaluated for urinary tract infection. was started on meropenem for possible UTI, urine culture growing Klebsiella, we will plan to discharge on ciprofloxacin. urology was consulted, plan for InterStim today as per Urology. patient will likely be discharged after the procedure. Status at Discharge Functional status at discharge: independent ambulation Overall status at discharge: patient is back to baseline Time Spent with Patient Time attestation: Total time spent providing and/or coordinating discharge services: Time spent: Greater than 30 minutes Exam Narrative: General: In no acute distress, well nourished Head: atraumatic, no encephalopathy Eyes: EOMI, PERRLA, sclera clear ENT: moist mucous membranes, nasal passages clear Neck: supple, no JVD, no adenopathy, trachea midline Cardiac: Normal S1 and S2. RRR, No murmur, gallops or friction rubs, peripheral pulses intact. Respiratory: Lungs clear to auscultation, no adventitious lung sounds, currently on room air Gastrointestinal: soft, non-distended, non-tender, normoactive bowel sounds. : voiding without difficulty. Reports dysuria Extremities: moves all extremities well, no edema, good ROM, strength 5/5 Skin: clean, dry, intact. No wounds or lesions. Neuro: Alert to voice and oriented x4, cranial nerves intact, no neuro deficits. Psych: normal mood, normal affect, interactive DS: Data Data Completed and Pending Labs on day of discharge: Labs from last 24 hours 02/22/24 06:49 WBC 5.8 RBC 4.04 L Hgb 11.1 L Hct 35.9 L MCV 88.9 MCH 27.5 MCHC 30.9 L RDW 13.8 Plt Count 378 H MPV 9.4 Immature Gran % (Auto) 0.5 Neut % (Auto) 50.1 Lymph % (Auto) 36.3 [place] % (Auto) 10.0 H Eos % (Auto) 2.1 Baso % (Auto) 1.0 Lymph # (Auto) 2.11 [place] # (Auto) 0.6 Eos # (Auto) 0.1 Baso # (Auto) 0.1 Abs Immat Gran (auto) 0.03 Absolute Neuts (auto) 2.9 Absolute Nucleated RBC 0.000 Nucleated RBC % 0.0 Sodium 138 Potassium 3.5 Chloride 106 Carbon Dioxide 22 Anion Gap 10 BUN 16 Creatinine 0.80 Estim Creat Clear Calc Not Reportable Estimated GFR > 60 Glucose 90 Calcium 9.4 Phosphorus 3.0 Magnesium 2.4 H Total Bilirubin 0.3 AST 27 ALT 23 Alkaline Phosphatase 58 Total Protein 7.0 Albumin 3.3 L Preliminary micro results at discharge 02/20/24 02:20 Urine Culture - Preliminary Unspecified Klebsiella pneumoniae 02/20/24 04:39 Blood Culture - Preliminary Blood 02/20/24 04:39 Blood Culture - Preliminary Blood Discharge Plan Discharge Attending physician on discharge: Lyric Leung Consulting providers: Vanda Carreon; Rich Rivera; Milton Mahoney; Phu Dorantes; Jason Cortes; Monie Vides; Jeremias Solorzano V. Discharging Clinician: Lyric Leung Patient Disposition: Home, Self-Care Activity: may shower and as tolerated Diet: as tolerated Discharge Instructions: careful twisting, bending, lifting for 3 weeks Patient Instructions: Antibiotic Form, Depression (GEN), Grief and Loss (GEN), Help Prevent Suicide (GEN) Stand Alone Forms: General Discharge Information Follow-up/Referrals: Jamey,Agustin Wade MD [Primary Care Provider] - 2 Weeks Discharge Medicatio
[2024-02-22] MEDS: LACTATED RINGERS 1,000 ML 30 ML IV CONT (14:00)
--- NOTE | 2024-02-22 14:01 | PC.NURSE ---
Patient off of unit to surgery
--- NOTE | 2024-02-22 14:09 | WPDANESEPPF ---
Anes - Initial Pre Proc Eval Procedure: Operation Date: 02/22/24 14:45 Proposed Procedures p Insertion Neurostimulator Phase Two - Milton Mahoney MD Date/Time: 02/22/24 14:09 Surgeon: Monie Vides APRN Pre Op Diagnosis: uti, generalized weakness Patient Data Age: 78 Gender: F Height: 1.47 m Weight: 59.7 kg Last Vital Signs Temp 36.6 C 02/22/24 04:06 Pulse 83 02/22/24 12:00 Resp 16 02/22/24 04:06 BP 123/59 L 02/22/24 04:06 Pulse Ox 96 02/22/24 11:04 O2 Del Method Room Air 02/22/24 11:04 Allergies Allergy/AdvReac Type Severity Reaction Status Date / Time No Known Allergies Allergy Verified 02/22/24 14:22 Home Medications Medication Instructions Recorded Confirmed Type amlodipine 5 mg tablet (Norvasc) 5 mg PO QAM 10/30/20 02/20/24 History cyanocobalamin (vitamin B-12) 1,000 mcg PO DAILY 02/17/24 02/20/24 History 1,000 mcg tablet (Vitamin B-12) apixaban 5 mg tablet (Eliquis) 5 mg PO Q12HR 02/20/24 02/20/24 History ciprofloxacin HCl 500 mg tablet 500 mg PO Q12H #14 tabs 02/22/24 Rx (Cipro) tramadol 50 mg tablet 50 mg PO Q6H PRN pain #20 tabs 02/22/24 Rx Laboratory Tests 02/22/24 06:49 WBC 5.8 K/mm3 (4.5-10.0) RBC 4.04 L M/mm3 (4.2-5.4) Hgb 11.1 L g/dL (12.0-15.0) Hct 35.9 L % (37.0-47.0) MCV 88.9 fl (80-100) MCH 27.5 pg (26-34) MCHC 30.9 L g/dl (32-36) RDW 13.8 % (11.5-14.5) Plt Count 378 H k/mm3 (150-375) MPV 9.4 fl (7.4-10.4) Immature Gran % (Auto) 0.5 % (0-0.5) Neut % (Auto) 50.1 % (45.5-73.1) Lymph % (Auto) 36.3 % (18.3-44.2) [place] % (Auto) 10.0 H % (2.6-8.5) Eos % (Auto) 2.1 % (0-4.4) Baso % (Auto) 1.0 % (0.2-1.2) Lymph # (Auto) 2.11 K/mm3 (0.9-3.2) [place] # (Auto) 0.6 K/mm3 (0.1-0.6) Eos # (Auto) 0.1 K/mm3 (0-0.3) Baso # (Auto) 0.1 K/mm3 (0.0-0.1) Abs Immat Gran (auto) 0.03 K/mm3 (0.00-0.031) Absolute Neuts (auto) 2.9 K/mm3 (1.3-6.7) Absolute Nucleated RBC 0.000 K/mm3 (0.0-0.012) Nucleated RBC % 0.0 % (0.0-0.2) Sodium 138 mmol/L (137-145) Potassium 3.5 mmol/L (3.4-5.0) Chloride 106 mmol/L (98-107) Carbon Dioxide 22 mmol/L (22-30) Anion Gap 10 mmol/L (4-12) BUN 16 mg/dL (7-17) Creatinine 0.80 mg/dL (0.7-1.0) Estim Creat Clear Calc Not Reportable Estimated GFR > 60 (59 - ) Glucose 90 mg/dL (65-110) Calcium 9.4 mg/dL (8.4-10.2) Phosphorus 3.0 mg/dL (2.5-4.5) Magnesium 2.4 H mg/dL (1.6-2.3) Total Bilirubin 0.3 mg/dL (0.2-1.3) AST 27 U/L (14-36) ALT 23 U/L (6-35) Alkaline Phosphatase 58 U/L (38-126) Total Protein 7.0 g/dL (6.3-8.2) Albumin 3.3 L g/dL (3.5-5.1) Patient hx anesthesia problems: none Family hx anesthesia problems: none Results Review: All pre-operative results and documents have been reviewed as part of the pre-operative evaluation. [facility] Past Medical History Medical History (Updated 02/22/24 @ 14:17 by Milton Mahoney MD) Bladder cancer GERD (gastroesophageal reflux disease) Hypertension PONV (postoperative nausea and vomiting) Urge incontinence Surgical History Surgical History History of bladder surgery History of hysterectomy Family History Family History Mother Family history of renal failure Patient's mother is Father Family history of heart disease in male family member before age 55 Patient's father is Other Diabetes mellitus Family history of arthritis Hypertension Social History Social History Smoking packs per day: 1 Smoking cigarettes per day: 20.0 Years smoked: 55 Smoking pack-years: 55.00 Smoking status: Former
[2024-02-22] MEDS: BUPIVACAINE/EPINEPHRINE 0.5% 50 ML VIAL 30 ML INFILTRATE (15:17)
[2024-02-22] MEDS: ceFAZolin SODIUM 1 GM VIAL IRRIGATION (15:18)
--- NOTE | 2024-02-22 15:32 | P.OP_ITS ---
Procedure Note - Detailed Date of Procedure 02/22/24 Pre-op Diagnosis uti, generalized weakness Post-op Diagnosis Same Procedure Performed Implantation of sacral lead 02874 Placement of implantable pulse generator 27216 Complex neurostimulator programming impedance check [id number] Surgeon Milton Mahoney MD Anesthesia MAC and Local Indications This is a patient with refractory urge urinary incontinence. They have undergone a successful trial of sacral nerve stimulation. They present today for permanent implantation. They understand the risks of bleeding, infection, decreased efficacy, need for revision and battery changes. They agree to proceed Findings See dictated Description of Procedure They were correctly identified and informed consent was obtained. There brought to the operating room. There placed in the prone position. There given appropriate perioperative antibiotics. A time-out performed. I used fluoroscopy to jung out my sacral landmarks in the AP and the lateral orientation. I anesthetized the skin. I entered the S3 foramen. I monitored the needle with fluoroscopy. I got appropriate [place] and toe response at a low threshold. I made a skin geovanna. I placed a stylet. I placed the lead introducer sheath. I percutaneously placed and deployed to my lead. I got appropriate responses again at a low threshold. I marked out the site of the pulse generator. I anesthetized the skin and made that incision. I created a subcutaneous pocket to house the pulse generator. I tunneled the lead towards this pocket. Appropriate connections were made between the lead and the ba ttery. It was placed in the pocket. It was programmed and impedances were checked and found to be normal. I irrigated out all wounds. I ensured hemostasis. I closed the subcutaneous tissues with 2 Vicryl. I closed the skin with 4 0 Vicryl. Glue was applied. There then awakened and transferred to the PACU in stable condition. Implants Sacral neurostimulator Estimated Blood Loss 5 Drains No Packing No Pathology None sent Condition Stable Disposition PACU
--- NOTE | 2024-02-23 13:59 | PN_ITS ---
This report was moved to account [id number] on 02/24/2024. Original report was signed by Ely Vicente CRNA on 02/23/24 at 1359. Anes - Prog Note Post-Op Date/Time: 02/23/24 13:59 Pain Score (VAS): 0 Patient Feedback: Patient satisfied with anesthetic care. This report may have been done utilizing a voice recognition system. Attempts have been made to correct errors. However, there may be uncorrected grammatical, spelling, and recognition errors present. Report Initialized date/time: Ely Vicente CRNA 02/23/24 / 1358 Electronically signed by: Ely Vicente CRNA 02/23/24 135 [facility]
== END 2024-02-22 16:35 | disposition home or self-care (01) | DRG 674 ==
LOC: ANHED 02-20 03:32 → ANH3MED 02-20 04:34
PROVIDERS: Nurse Practitioner Acute Care; Urology; Admitting Provider Internal Medicine; Emergency Provider Emergency Medicine; PCP Internal Medicine; Visit Provider Internal Medicine
PROC: 01HY3MZ Insertion of Neurostimulator Lead into Peripheral Nerve, Percutaneous Approach (ICD-10-PCS; principal; 2024-02-22 14:45)
DX: N39.41 Urge incontinence (principal); N39.0 Urinary tract infection, site not specified; B96.1 Klebsiella pneumoniae [K. pneumoniae] as the cause of diseases classified elsewhere; N32.81 Overactive bladder; C67.4 Malignant neoplasm of posterior wall of bladder; K21.9 Gastro-esophageal reflux disease without esophagitis; E87.6 Hypokalemia; I10 Essential (primary) hypertension; I49.3 Ventricular premature depolarization; Z86.711 Personal history of pulmonary embolism; Z87.891 Personal history of nicotine dependence; Z90.710 Acquired absence of both cervix and uterus
CPT/HCPCS: 36415; 74177; 80053; 81001; 83605; 83735; 84100; 84145; 85025; 87040; 87077; 87086; 87088; 87186; 93005; 96365; 99199; 99285; A9270; C1767; C1778; C1787; G0378; J0690; J2185; J2405; J2704; J3010; J3480; J7120; Q9967

== ENCOUNTER 2024-05-17 11:11 | Inpatient (IN) | payer MEDICARE, SELFPAY ==
[2024-05-17] VITALS (18 sets, daily range): BP systolic 114–138; BP diastolic 59–86; PULSE 71–108; RESP 16–24; TEMP 36.4–36.8; O2SAT 92–98; BMI 29.1
--- NOTE | 2024-05-17 | ECHO_ITS ---
Patient Info Name: Diana Terry Age: 78 years : 1945 Gender: Female Ht: 58 in Wt: 139 lbs BSA: 1.63 m2 HR: 80 bpm BP: 129 / 73 mmHg Technical Quality: Fair Exam Date: 05/17/2024 4:12 PM Exam Location: Echo Lab Patient Status: Inpatient Admit Date: 05/17/2024 Staff Ordering Physician: Verenice Moise MD (gilles/drea) Market Development Specialist: Kasia Reis RDCS Attending Provider: Alberto Lauren MD Referring Physician: Jose Maria FAROOQ; Exam Type: CA echo dop color flow w con Study Info Indications - cad Complete two-dimensional, color flow and Doppler transthoracic echocardiogram is performed with contrast to opacify the left ventricle and to improve the deliniation of the left ventricle endocardial borders. Contrast/Agitated Saline Contrast/Ag. Saline: Definity Amount: 2.00 ml Existing IV Access: Yes IV Access Condition: patent with no signs of infiltration Summary 1. There is mild to moderate very eccentric mitral valve regurgitation. 2. Mild pulmonary hypertension, estimated pulmonary arterial systolic pressure is 53 mmHg. 3. There is mild tricuspid valve regurgitation. 4. The left ventricular diastolic function is grade II diastolic dysfunction. 5. Left ventricular systolic function is severely reduced with an estimated ejection fraction of 30-35%. 6. Left ventricular chamber dimension is enlarged. 7. There is small circumferential pericardial effusion. 8. Dilated inferior vena cava with >50% collapse upon inspiration consistent with elevated right atrial pressure, 10 mmHg. Left Ventricle Left ventricular chamber dimension is enlarged. Left ventricular wall thickness is normal. Left ventricular systolic function is severely reduced with an estimated ejection fraction of 30-35%. The left ventricular diastolic function is grade II diastolic dysfunction. Left ventricular wall motion shows inferior, inf-septal hypokinesis and mid-distal ant-lat hypokinesis. Right Ventricle Right ventricular systolic function is normal. Right ventricular chamber dimension is normal. Left Atria Left atrial chamber dimension is enlarged. Right Atria Right atrial chamber dimension is normal. Aortic Valve The aortic valve is trileaflet. There is no aortic valve stenosis with a peak velocity of 174.01 cm/s, mean gradient of 6 mmHg, and aortic valve area of 1.71 cm2. There is no aortic valve regurgitation. Pulmonic Valve There is mild pulmonic regurgitation. Mitral Valve There is mild to moderate very eccentric mitral valve regurgitation. The mitral valve has normal leaflets. There is no mitral valve stenosis. Tricuspid Valve There is mild tricuspid valve regurgitation. Mild pulmonary hypertension, estimated pulmonary arterial systolic pressure is 53 mmHg. Pulmonary Arteries Pulmonary arterial systolic pressure is estimated at 53 mmHg. Pericardium/Pleural There is small circumferential pericardial effusion. Inferior Vena Cava Dilated inferior vena cava with >50% collapse upon inspiration consistent with elevated right atrial pressure, 10 mmHg. Left Ventricular Outflow Tract Name Value Normal LVOT 2D LVOT Diameter 1.96 cm LVOT Doppler LVOT Peak Gradient 4 mmHg LVOT Mean Gradient 2 mmHg LVOT VTI 17.08 cm LVOT VTI/AV VTI Ratio 0.57 LVOT Stroke Volume 51.58 ml LVOT CO 4.24 l/min LVOT CI 2.60 L/min/m2 Pulmonic Valve Name Value Normal PV Doppler PV Peak Gradient 3 mmHg PV Regurgitation Doppler DE Peak End Diastolic Velocity 100.92 cm/s Mitral Valve Name Value Normal MV Doppler MV Decel [place] 582.13 cm/s2 MV PHT 0 s MV Area (PHT) 3.74 cm2 4.00-5.00 MV Diastolic Function MV E Peak Velocity 118.20 cm/s MV A Peak Velocity 123.19 cm/s MV E/A 0.96 MV Decel Time 0 s Tricuspid Valve Name Value Normal TV Regurgitation Doppler TR Peak Velocity 329.29 cm/s TR Peak Gradient 38 mmHg Estimated PAP/RSVP RA Pressure 10 mmHg <=5 PA Systolic Pressure 53 mmHg <36 RV Systolic Pressure 53 mmHg <36 Aorta Name Value Normal Ascending Aorta Ao Root Diameter (MM) 2.13 cm Ao Root Diam Index (MM) 1.31 cm/m2 Aortic Valve Name Value Normal AV Doppler AV Peak Velocity 174.01 cm/s AV Peak Gradient 12 mmHg AV Mean Gradient 6 mmHg AV VTI 30.10 cm AV Area (Cont Eq VTI) 1.71 cm2 >=3.00 AV Area (Cont Eq Artemio) 1.79 cm2 AV Regurgitation 2D LVOT Area 3.02 cm2 Ventricles Name Value Normal LV Dimensions 2D/MM IVS Diastolic Thickness (2D) 0.99 cm 0.60-1.00 IVS Diastole Thickness (MM) 0.84 cm 0.60-0.90 LVID Diastole (2D) 5.84 cm 3.80-5.20 LVID Diastole (MM) 5.88 cm 3.80-5.20 LVIW Diastolic Thickness (2D) 1.03 cm 0.60-0.90 LVIW Diastolic Thickness (MM) 0.98 cm 0.60-0.90 LVID Systole (2D) 4.71 cm 2.20-3.50 LVID Systole (MM) 4.35 cm 2.20-3.50 LVOT Diameter 1.96 cm LV Mass (2D Cubed) 238.32 g 67.00-162.00 LV Mass Index (2D Cubed) 0.01 g/cm2 0.00-0.01 Relative Wall Thickness (2D) 0.35 LV Mass (MM Cubed) 210.80 g 67.00-162.00 LV Mass Index (MM Cubed) 0.01 g/cm2 0.00-0.01 Relative Wall Thickness (MM) 0.33 LV Fractional Shortening/Ejection Fraction 2D/MM LV Fractional Shortening (2D) 19 % 27-45 LV Fractional Shortening (MM) 26 % 27-45 LV EF (MM Teicholz) 50 % 54-74 LV EF (2D Teicholz) 39 % 54-74 LV Diastolic Volume (4C MOD) 162.14 ml LV EF (4C MOD) 35 % LV Diastolic Volume (2C MOD) 154.39 ml LV EF (2C MOD) 16 % LV Diastolic Volume (BP MOD) 164.37 ml 46.00-106.00 LV Diastolic Volume Index (BP MOD) 0.10 l/m2 0.03-0.06 LV Systolic Volume (BP MOD) 116.95 ml 14.00-42.00 LV Systolic Volume Index (BP MOD) 0.07 l/m2 0.01-0.02 LV EF (BP MOD) 29 % 54-74 LV Diastolic Length (4C) 8.81 cm LV Systolic Length (4C) 7.75 cm LV Stroke Volume (4C MOD) 56.92 ml Atria Name Value Normal LA Dimensions LA Dimension (MM) 4.64 cm 2.70-3.80 LA Volume (4C A-L) 92.39 ml LA Volume (BP A-L) 72.35 ml RA Dimensions RA Area (4C) 10.56 cm2 <=18.00 Report Signatures
--- NOTE | ~2024-05-17 | XR_ITS ---
EXAMINATION: XR chest 2V DATE: 05/17/2024 12:32 INDICATION: Shortness of breath and 3 days of substernal chest pain TECHNIQUE: frontal and lateral views of the chest were obtained. COMPARISON: Chest radiograph dated 09/21/2023 FINDINGS: There are mild interstitial opacities at the bilateral lung bases. Suggestion of very small bilateral pleural effusions at the posterior sulci. No pneumothorax. The cardiomediastinal silhouette is eunice l. Mild to moderate thoracic spondylosis. IMPRESSION: 1. Mild interstitial opacities at the bilateral lung bases most likely mild pulmonary edema and/or at electasis although differential includes pneumonia. 2. Likely very small bilateral pleural effusions. Reviewed, dictated and finalized at location B. RE ADMINISTRATOR IMPRESSION: 1. Mild interstitial opacities at the bilateral lung bases most likely mild pul monary edema and/or atelectasis although differential includes pneumonia. 2. Likely very small bilateral pleural effusions.
--- NOTE | 2024-05-17 11:13 | ECG_ITS ---
Test Date: 2024-05-17 11:19:26 Measurements Intervals [place] Rate: 84 P: 14 OR: 131 QRS: 7 QRSD: 93 T: 156 QT: 376 QTc: 444 Interpretive Statements SINUS RHYTHM INCOMPLETE LEFT BUNDLE BRANCH BLOCK BORDERLINE R WAVE PROGRESSION, ANTERIOR LEADS ST-T WAVE ABNORMALITY IN HIGH LATERAL LEADS- CONSIDER ISCHEMIA BASELINE ARTIFACT- I, II, III, AVR, AVL, AVF ABNORMAL ECG Compared to ECG 02/19/2024 21:35:09 INCOMPLETE LEFT BUNDLE BRANCH BLOCK NOW PRESENT POSSIBLE ISCHEMIA NOW PRESENT Electronically Signed On 05-17-2024 11:36:34 JOB TRAINING SPECIALIST by Azael Sen D.O.
[2024-05-17 11:33] LABS: Basophils Absolute Auto 0.1 K/mm3 (0.0-0.1); Eosinophils Absolute Auto 0.6 K/mm3 (0-0.3); Eosinophils Percent Auto 8.7 % (0-4.4); Hematocrit 37.5 % (37.0-47.0); Hemoglobin 12.2 g/dL (12.0-15.0); Immature Granulocyte Absolute 0.01 K/mm3 (0.00-0.031); Immature Granulocyte Percent A 0.1 % (0-0.5); Lymphocytes Absolute Auto 1.45 K/mm3 (0.9-3.2); Lymphocytes Percent Auto 20.7 % (18.3-44.2); Mean Corpuscular HGB Conc 32.5 g/dl (32-36); Mean Corpuscular Hemoglobin 28.6 pg (26-34); Mean Platelet Volume 9.7 fl (7.4-10.4); Monocytes Absolute Auto 0.5 K/mm3 (0.1-0.6); Monocytes Percent Auto 6.4 % (2.6-8.5); Neutrophils Absolute Auto 4.4 K/mm3 (1.3-6.7); Neutrophils Percent Auto 63.1 % (45.5-73.1); Platelet Count Result 322 k/mm3 (150-375); Red Blood Count 4.26 M/mm3 (4.2-5.4); Red Cell Distribution Width 15.5 % (11.5-14.5)
[2024-05-17 11:43] LABS: INR 1.1; Prothrombin Time 14.8 Seconds (11.1-14.7)
[2024-05-17 11:44] LABS: Partial Thromboplastin Time 26.4 Seconds (22.3-36.8)
[2024-05-17 11:50] LABS: Alanine Aminotransferase 23 U/L (6-35); Alkaline Phosphatase 77 U/L (38-126); Anion Gap 5 mmol/L (4-12); Aspartate Amino Transferase 22 U/L (14-36); Bilirubin,Total 0.6 mg/dL (0.2-1.3); Blood Urea Nitrogen 15 mg/dL (7-17); Calcium 9.6 mg/dL (8.4-10.2); Carbon Dioxide 23 mmol/L (22-30); Chloride 111 mmol/L (98-107); Estimated Glomerular Filt Rate > 60; Glucose 98 mg/dL (65-110); Lipase 59 U/L (23-300); Potassium 3.8 mmol/L (3.4-5.0); Sodium 139 mmol/L (137-145)
[2024-05-17 12:02] LABS: Troponin I 0.583 ng/mL (0.000-0.034)
--- NOTE | 2024-05-17 12:34 | ED_ITS ---
HPI - Chest Pain General Chief Complaint: Chest Pain Stated Complaint: generalized chest pain Time Seen by Provider: 05/17/24 12:02 History of Present Illness HPI narrative: Patient is a 78-year-old female who presents ER with chest pain that occurred yesterday. Center of her chest. Lasted several minutes. No radiation. reports shortness of breath that occurred with the chest pain. No nausea or vomiting. No diaphoresis. No history of cardiac issues. Reports she has had some stress because her in January of this year. Patient denies any dyspnea on exertion. No exertional chest pain. Related Data Home Medications Medication Instructions Recorded Confirmed amlodipine 5 mg tablet (Norvasc) 5 mg PO QAM 10/30/20 05/17/24 apixaban 5 mg tablet (Eliquis) 5 mg PO DAILY 02/20/24 05/17/24 Allergies Allergy/AdvReac Type Severity Reaction Status Date / Time aspirin Allergy Unknown Verified 05/17/24 11:59 Review of Systems Review of Systems: All systems reviewed & are unremarkable except as noted in HPI and below Constitutional: Constitutional: Reports no additional constitutional complaints ENT: Reports system reviewed and no additional complaints, except as documented Cardiovascular: Cardiovascular: Reports chest pain, Denies rapid heart rate and Denies radiating jaw, neck or arm pain Respiratory: Respiratory: Denies chest congestion, Denies cough, Reports dyspnea and Denies wheezing Gastrointestinal: Gastrointestinal: Reports no additional gastrointestinal complaints PMFSH Past Medical History Medical History Bladder cancer GERD (gastroesophageal reflux disease) Hypertension PONV (postoperative nausea and vomiting) Urge incontinence Surgical History Surgical History History of bladder surgery History of hysterectomy Family History Family History Mother Family history of renal failure Patient's mother is Father Family history of heart disease in male family member before age 55 Patient's father is Other Diabetes mellitus Family history of arthritis Hypertension Urge incontinence Social History Social History Smoking packs per day: 1 Smoking cigarettes per day: 20.0 Years smoked: 55 Smoking pack-years: 55.00 Smoking status: Former smoker Alcohol intake: never Substance use: never Substance use type: does not use Do You Feel Safe in your Home?: Yes Lack of Transportation: No Lack of Food: Never True Current Housing: I Do Not Have Housing Concerned About Future Housing: No Difficulty Paying Gas/Electric Bills: No Difficulty Paying for Meds: No Currently Unemployed: No Education: High School Diploma/GED Difficulty w/ Childcare or Family Care: No Living arrangements: alone Additional living arrangements comments: Spiritual care concerns: No Exam Narrative: GENERAL: Well-appearing, well-nourished, and in no acute distress. HEAD: Normocephalic, atraumatic. ENT:Mucous membranes moist. NECK: Supple. CHEST: Clear to auscultation. No respiratory distress. HEART: Regular rate and rhythm. Normal peripheral pulses. EXTREMITIES: Normal range of motion. No edema. SKIN: Warm, dry, no rash. NEURO: Alert and oriented x3. PSYCH: Normal mood and affect. Course Course Emergency Course: Patient resting comfortably. No chest pain. She has been informed of results and diagnosis. We discussed treatment plan. Even fortunately had discussed this several times because she keeps forgetting what has occurred. There is no documentation of cognitive deficits/dementia. Patient does know that she takes Eliquis but is unsure why she is on it. Dr. Moise with cardiology consulted. Vital Signs Vital signs: Vital Signs Temperature 97.6 F 05/17/24 11:14 Pulse Rate 78 05/17/24 11:14 Respiratory Rate 18 05/17/24 11:14 Blood Pressure 136/86 05/17/24 11:14 Pulse Oximetry 97 05/17/24 11:14 Oxygen Delivery Room Air 05/17/24 11:14 Temperature 98.1 F 05/17/24 20:30 Pulse Rate 73 05/17/24 21:17 Respiratory Rate 20 05/17/24 21:10 Blood Pressure 114/68 05/17/24 20:30 Pulse Oximetry 93 05/17/24 21:17 Oxygen Delivery Room Air 05/17/24 21:17 Fraction of Inspired Oxygen 05/17/24 21:17 MDM - Chest Pain Lab Data 05/17/24 17:31 05/17/24 11:23 Labs: Lab Results 05/17/24 Range/Units 11:23 WBC 7.0 (4.5-10.0) K/mm3 RBC 4.26 (4.2-5.4) M/mm3 Hgb 12.2 (12.0-15.0) g/dL Hct 37.5 (37.0-47.0) % MCV 88.0 (80-100) fl MCH 28.6 (26-34) pg MCHC 32.5 (32-36) g/dl RDW 15.5 H (11.5-14.5) % Plt Count 322 (150-375) k/mm3 MPV 9.7 (7.4-10.4) fl Immature Gran % (Auto) 0.1 (0-0.5) % Neut % (Auto) 63.1 (45.5-73.1) % Lymph % (Auto) 20.7 (18.3-44.2) % [place] % (Auto) 6.4 (2.6-8.5) % Eos % (Auto) 8.7 H (0-4.4) % Baso % (Auto) 1.0 (0.2-1.2) % Lymph # (Auto) 1.45 (0.9-3.2) K/mm3 [place] # (Auto) 0.5 (0.1-0.6) K/mm3 Eos # (Auto) 0.6 H (0-0.3) K/mm3 Baso # (Auto) 0.1 (0.0-0.1) K/mm3 Abs Immat Gran (auto) 0.01 (0.00-0.031) K/mm3 Absolute Neuts (auto) 4.4 (1.3-6.7) K/mm3 Absolute Nucleated RBC 0.000 (0.0-0.012) K/mm3 Nucleated RBC % 0.0 (0.0-0.2) % PT 14.8 H (11.1-14.7) Seconds INR 1.1 APTT 26.4 (22.3-36.8) Seconds Sodium 139 (137-145) mmol/L Potassium 3.8 (3.4-5.0) mmol/L Chloride 111 H (98-107) mmol/L Carbon Dioxide 23 (22-30) mmol/L Anion Gap 5 (4-12) mmol/L BUN 15 (7-17) mg/dL Creatinine 0.80 (0.7-1.0) mg/dL Estim Creat Clear Calc Not Reportable Estimated GFR > 60 (59 - ) Glucose 98 (65-110) mg/dL Calcium 9.6 (8.4-10.2) mg/dL Total Bilirubin 0.6 (0.2-1.3) mg/dL AST 22 (14-36) U/L ALT 23 (6-35) U/L Alkaline Phosphatase 77 (38-126) U/L Troponin I 0.583 H* (0.000-0.034) ng/mL Total Protein 8.0 (6.3-8.2) g/dL Albumin 4.0 (3.5-5.1) g/dL Lipase 59 (23-300) U/L ECG Data EKG #1: ECG completion date: 05/17/24 ECG completion time: EKG Interpretation: normal rate (84), sinus rhythm, no ectopy, widened QRS, LBBB (incomplete) and left axis Discharge Plan Discharge Clinical Impression: Non-ST elevation NM (NSTEMI) Patient Disposition: Still a Patient Condition: Stable
--- NOTE | 2024-05-17 14:05 | ADMIMU ---
This patient, Diana Terry, was admitted to IMU status, and placed in IMU Room 201-01. Patient/family oriented to hospital policies and general routines including ID bracelet, bed and alarms, visiting hours, pain management, procedures, bathroom and other care routines, personal items, smoking policy, room service/diet, and visiting hours. Valuables list has been completed. Information on how to activate the Rapid Response Team has been discussed. Patient/Family are encouraged to report perceived risks to care and to ask questions if they do not understand what they are told or what they should do.
--- NOTE | 2024-05-17 14:10 | ECG_ITS ---
Test Date: 2024-05-17 14:27:37 Measurements Intervals [place] Rate: 72 P: -74 WI: 366 QRS: 12 QRSD: 98 T: 146 QT: 410 QTc: 451 Interpretive Statements SINUS RHYTHM INCOMPLETE LEFT BUNDLE BRANCH BLOCK CONSIDER INFERIOR INFARCT, AGE INDETERMINATE T WAVE ABNORMALITY IN HIGH LATERAL LEADS- CONSIDER ISCHEMIA BASELINE ARTIFACT- I, II, III ,AVR, AVL, AVF ABNORMAL ECG Compared to ECG 05/17/2024 11:19:26 NO SIGNIFICANT CHANGE Electronically Signed On 05-17-2024 14:35:10 TRAVEL ACCOMMODATIONS RATER by Azael Sen D.O.
--- NOTE | 2024-05-17 14:22 | PM.IMHP ---
H&P: HPI History of Present Illness Date/Time: 05/17/24 14:22 Chief Complaint: Dyspnea Narrative: This is a 78-year-old female patient with a past medical history of hypertension, GERD, pulmonary emboli on Eliquis who presented to the emergency department with complaints of difficulty breathing and chest pain. at time of evaluation patient was symptom free but her laboratory assessment showed elevated troponin. Labs were otherwise unremarkable. Patient received 324 mg of aspirin in the emergency department. She last took Eliquis this morning prior to coming to the emergency department. Cardiology was evaluated and ordered echocardiogram. Cardiology also requested patient go on heparin drip, metoprolol tartrate 25 mg b.i.d., atorvastatin 40 mg and baby aspirin daily. Cardiology plans to take patient to the agriculture laborer tomorrow for cardiac catheterization. Though formal echocardiogram results are not yet available, informally Cardiology (Dr. Barakat) informed patient and staff that EF was estimated 20-25%. Patient informed us that she actually had chest pain about a week ago but felt better but over the last day or 2 has been feeling short of breath with intermittent pain. Chest x-ray indicates mild pulmonary edema versus atelectasis versus pneumonia but given the remainder of clinical picture, pulmonary edema most likely. Patient received dose of IV Lasix and DuoNeb for wheezing. 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 Chronic right shoulder pain GERD (gastroesophageal reflux disease) Hypertension Hypokalemia Melanocytic nevus of neck Osteoarthritis of first carpometacarpal joint of right hand Other chronic pain Overweight (09/19/16) PONV (postoperative nausea and vomiting) Pulmonary emboli Pulmonary infarct Pure hypercholesterolemia PVC's (premature ventricular contractions) Retention of urine Urgency incontinence Vitamin D deficiency Surgical History Surgical History History of bladder surgery History of hysterectomy Family History Family History Mother Family history of renal failure Patient's mother is Father Family history of heart disease in male family member before age 55 Patient's father is Other Diabetes mellitus Family history of arthritis Hypertension Urge incontinence Social History Social History Smoking packs per day: 1 Smoking cigarettes per day: 20.0 Years smoked: 55 Smoking pack-years: 55.00 Smoking status: Former smoker Alcohol intake: never Substance use: never Substance use type: does not use Do You Feel Safe in your Home?: Yes Lack of Transportation: No Lack of Food: Never True Current Housing: I Do Not Have Housing Concerned About Future Housing: No Difficulty Paying Gas/Electric Bills: No Difficulty Paying for Meds: No Currently Unemployed: No Education: High School Diploma/GED Difficulty w/ Childcare or Family Care: No Living arrangements: alone Additional living arrangements comments: Spiritual care concerns: No Meds Home Medications and Allergies Home Medications Medication Instructions Recorded Confirmed Type amlodipine 5 mg tablet (Norvasc) 5 mg PO QAM 10/30/20 05/17/24 History apixaban 5 mg tablet (Eliquis) 5 mg PO DAILY 02/20/24 05/17/24 History Allergies Allergy/AdvReac Type Severity Reaction Status Date / Time aspirin Allergy Unknown Verified 05/17/24 11:59 Vital Signs Vital Signs - 24 hr 05/17/24 11:14 05/17/24 12:00 05/17/24 12:00 Temperature 36.4 C Pulse Rate 78 84 Respiratory Rate 18 16 Blood Pressure 136/86 138/84 Pulse Oximetry 97 98 97 Oxygen Delivery Room Air Room Air 05/17/24 12:05 05/17/24 13:34 05/17/24 13:44 Temperature 36.4 C Pulse Rate 79 76 80 Respiratory Rate 24 H 18 Blood Pressure 130/86 130/86 Pulse Oximetry 97 98 Oxygen Delivery 05/17/24 14:19 Temperature 36.8 C Pulse Rate 71 Respiratory Rate 20 Blood Pressure 120/59 L Pulse Oximetry 96 Oxygen Delivery Exam Narrative: GENERAL: Well-appearing, well-nourished, and in no acute distress. HEAD: Normocephalic, atraumatic. ENT:Mucous membranes moist. NECK: Supple. No JVD obvious CHEST: Clear to auscultation. No respiratory distress. HEART: Regular rate and rhythm. Normal peripheral pulses. EXTREMITIES: Normal range of motion. No edema. SKIN: Warm, dry, no rash. NEURO: Alert and oriented x3. PSYCH: Normal mood and affect. H&P: Results Labs Labs: Short CBC 05/17/24 Range/Units 11:23 WBC 7.0 (4.5-10.0) K/mm3 Hgb 12.2 (12.0-15.0) g/dL Hct 37.5 (37.0-47.0) % Plt Count 322 (150-375) k/mm3 BMP 05/17/24 11:23 Sodium 139 Potassium 3.8 Chloride 111 H Carbon Dioxide 23 BUN 15 Creatinine 0.80 Glucose 98 Calcium 9.6 Cardiac Enzymes 05/17/24 Range/Units 11:23 Troponin I 0.583 H* (0.000-0.034) ng/mL Liver Function 05/17/24 Range/Units 11:23 Total Bilirubin 0.6 (0.2-1.3) mg/dL AST 22 (14-36) U/L ALT 23 (6-35) U/L Alkaline Phosphatase 77 (38-126) U/L Albumin 4.0 (3.5-5.1) g/dL Pulse Oximetry SpO2 results: 92-98% on room air Attestation: I personally reviewed and interpreted this pulse oximetry as follows: Interpretation: no need for supplemental oxygenation at this time ECG Attestation: I personally reviewed and interpreted this ECG as follows: ECG completion date: 05/17/24 ECG completion time: 14:27 Prior ECG tracings: available for review Interpretation: sinus rhythm rate of 72 MS interval 131 QRS duration 98 QTC 451, no STEMI, T-wave abnormalities lateral and inferior, QRS axis 12? Imaging Chest x-ray: Radiologist's impression: EXAMINATION: XR chest 2V DATE: 05/17/2024 12:32 INDICATION: Shortness of breath and 3 days of substernal chest pain TECHNIQUE: frontal and lateral views of the chest were obtained. COMPARISON: Chest radiograph dated 09/21/2023 FINDINGS: There are mild interstitial opacities at the bilateral lung bases. Suggestion of very small bilateral pleural effusions at the posterior sulci. No pneumothorax. The cardiomediastinal silhouette is normal. Mild to moderate thoracic spondylosis. IMPRESSION: 1. Mild interstitial opacities at the bilateral lung bases most likely mild pulmonary edema and/or atelectasis although differential includes pneumonia. 2. Likely very small bilateral pleural effusions. Reviewed, dictated and finalized at location B. HT TRAINING INSTRUCTOR Assessment and Plan Assessment and plan (1) Non-ST elevation [place] (NSTEMI): Code(s): I21.4 - Non-ST elevation (NSTEMI) myocardial infarction Status: Acute Assessment and Plan: -Elevated troponin with recent chest pain and intermittent dyspnea with pulmonary edema on CXR -Troponin downtrending indicating infarct greater than 24 hours ago -Cardiology consulted -Eliquis held, heparin drip without bolus started -aspirin, metoprolol, atorvastatin ordered -lipid panel drawn -Echocardiogram obtained, no formal read yet but Dr. Barakat told patient and staff 20-25% EF (2) History of pulmonary embolism: Code(s): Z86.711 - Personal history of pulmonary embolism Status: Chronic Assessment and Plan: -On Eliquis at home, last dose this morning before coming to ER (3) Hypertension: Code(s): I10 - Essential (primary) hypertension Status: Chronic Assessment and Plan: -On amlodipine at home -Blood pressure reviewed and stable on 05/17/24 (4) GERD (gastroesophageal reflux disease): Code(s): K21.9 - Gastro-esophageal reflux disease without esophagitis Status: Chronic Quality VTE Prophylaxis VTE prophylaxis: pharmacologic ordered (Heparin drip) Hospitalist [facility] Advance Care Plan I have confirmed that the patient's Advanced Care Plan is present, code status is documented, or surrogate decision maker is listed in patient medical record.: Yes Medication Reconciliation I have utilized all available resources to obtain, update and review the patients current medications (includes all prescriptions, OTC, herbals, cannabis, and nutritional supplements).: Yes
[2024-05-17 14:54] LABS: Troponin I 0.547 ng/mL (0.000-0.034)
--- NOTE | 2024-05-17 15:49 | P.CONCA_ITS ---
Assessment and Plan Assessment and plan (1) Non-ST elevation CT (NSTEMI): Code(s): I21.4 - Non-ST elevation (NSTEMI) myocardial infarction Status: Acute Plan 1. NSTEMI -ERIKA score 3 2. Hypertension 3. History of PE 4. History of bladder cancer at -consider aspirin 81 mg, atorvastatin 40 mg, metoprolol tartrate 25 mg b.i.d. -hold Eliquis -heparin infusion -cardiac catheterization tomorrow -echo -the risk benefits and alternatives of cardiac catheterization were discussed with her and her son. The risk involves and are not limited to bleeding, contrast reaction, vascular injury, CVA, arrhythmia, CT, kidney injury needing temporary or permanent hemodialysis, emergency surgery and even . History of Present Illness History of Present Illness Consult date/time: 05/17/24 15:49 Reason For Visit: NSTEMI Narrative: Diana Terry is a 78-year-old pleasant lady known to have a history of hypertension, bladder cancer in remission, history of pea was admitted with NS AGUEDA. EKG shows T-wave inversion in lateral leads Initial troponin 0.5 Currently at the time of my evaluation she is chest pain-free Denies any prior history of CAD, CVA or recent bleeding Was not Eliquis will be, tolerating it Former smoker Review of Systems Review of Systems: All systems reviewed & are unremarkable except as noted in HPI and below Constitutional: Constitutional: Reports no additional constitutional complaints ENT: Reports system reviewed and no additional complaints, except as documented Cardiovascular: Cardiovascular: Reports chest pain, Denies rapid heart rate, Denies radiating jaw, neck or arm pain and Reports dyspnea Respiratory: Respiratory: Denies chest congestion, Denies cough, Reports dy spnea and Denies wheezing Gastrointestinal: Gastrointestinal: Reports no additional gastrointestinal complaints Neurologic: Reports system reviewed and no additional complaints, except as documented Psychiatric: Psychiatric: Reports no additional psychiatric complaints Allergic/Immunologic: Allergic/Immunologic: Denies wheezing PMFSH Past Medical History Medical History Bladder cancer GERD (gastroesophageal reflux disease) Hypertension PONV (postoperative nausea and vomiting) Urge incontinence Surgical History Surgical History History of bladder surgery History of hysterectomy Family History Family History Mother Family history of renal failure Patient's mother is Father Family history of heart disease in male family member before age 55 Patient's father is Other Diabetes mellitus Family history of arthritis Hypertension Urge incontinence Social History Social History Smoking packs per day: 1 Smoking cigarettes per day: 20.0 Years smoked: 55 Smoking pack-years: 55.00 Smoking status: Former smoker Alcohol intake: never Substance use: never Substance use type: does not use Do You Feel Safe in your Home?: Yes Lack of Transportation: No Lack of Food: Never True Current Housing: I Do Not Have Housing Concerned About Future Housing: No Difficulty Paying Gas/Electric Bills: No Difficulty Paying for Meds: No Currently Unemployed: No Education: High School Diploma/GED Difficulty w/ Childcare or Family Care: No Living arrangements: alone Additional living arrangements comments: Spiritual care concerns: No Meds Home Medications and Allergies Home Medications Medication Instructions Recorded Confirmed Type amlodipine 5 mg tablet (Norvasc) 5 mg PO QAM 10/30/20 05/17/24 History apixaban 5 mg tablet (Eliquis) 5 mg PO DAILY 02/20/24 05/17/24 History Allergies Allergy/AdvReac Type Severity Reaction Status Date / Time aspirin Allergy Unknown Verified 05/17/24 11:59 Vital Signs Vital Signs - 24 hr 05/17/24 11:14 05/17/24 12:00 05/17/24 12:00 Temperature 36.4 C Pulse Rate 78 84 Respiratory Rate 18 16 Blood Pressure 136/86 138/84 Pulse Oximetry 97 98 97 Oxygen Delivery Room Air Room Air 05/17/24 12:05 05/17/24 13:34 05/17/24 13:44 Temperature 36.4 C Pulse Rate 79 76 80 Respiratory Rate 24 H 18 Blood Pressure 130/86 130/86 Pulse Oximetry 97 98 Oxygen Delivery 05/17/24 14:19 05/17/24 15:33 05/17/24 14:24 Temperature 36.8 C 36.4 C 36.8 C Pulse Rate 71 80 71 Respiratory Rate 20 20 20 Blood Pressure 120/59 L 129/73 120/59 L Pulse Oximetry 96 98 96 Oxygen Delivery Exam Narrative: GENERAL: Well-appearing, well-nourished, and in no acute distress. HEAD: Normocephalic, atraumatic. ENT:Mucous membranes moist. NECK: Supple. CHEST: Clear to auscultation. No respiratory distress. HEART: Regular rate and rhythm. Normal peripheral pulses. EXTREMITIES: Normal range of motion. No edema. SKIN: Warm, dry, no rash. NEURO: Alert and oriented x3. PSYCH: Normal mood and affect. Results Labs and Meds 05/17/24 11:05/17/24 11: Lab results: Cardiac Enzymes 05/17/24 05/17/24 Range/Units 11: 14:16 AST 22 (14-36) U/L Troponin I 0.583 H* 0.547 H* (0.000-0.034) ng/mL Coagulation 05/17/24 Range/Units 11: PT 14.8 H (11.1-14.7) Seconds APTT 26.4 (22.3-36.8) Seconds CBC 05/17/24 Range/Units 11:23 WBC 7.0 (4.5-10.0) K/mm3 RBC 4.26 (4.2-5.4) M/mm3 Hgb 12.2 (12.0-15.0) g/dL Hct 37.5 (37.0-47.0) % Plt Count 322 (150-375) k/mm3 Lymph # (Auto) 1.45 (0.9-3.2) K/mm3 [place] # (Auto) 0.5 (0.1-0.6) K/mm3 Eos # (Auto) 0.6 H (0-0.3) K/mm3 Baso # (Auto) 0.1 (0.0-0.1) K/mm3 Comprehensive Metabolic Panel 05/17/24 Range/Units 11:23 Sodium 139 (137-145) mmol/L Potassium 3.8 (3.4-5.0) mmol/L Chloride 111 H (98-107) mmol/L Carbon Dioxide 23 (22-30) mmol/L BUN 15 (7-17) mg/dL Creatinine 0.80 (0.7-1.0) mg/dL Glucose 98 (65-110) mg/dL Calcium 9.6 (8.4-10.2) mg/dL AST 22 (14-36) U/L ALT 23 (6-35) U/L Alkaline Phosphatase 77 (38-126) U/L Total Protein 8.0 (6.3-8.2) g/dL Albumin 4.0 (3.5-5.1) g/dL Patient Weight 05/17/24 23:59 Weight 63.3 kg
[2024-05-17] MEDS: PERFLUTREN LIPID MICROSPHERES 1.5 ML VIAL DILUTED TO 10 ML TOTAL VOLUME IV PUSH (17:23)
[2024-05-17 17:36] LABS: Troponin I 0.545 ng/mL (0.000-0.034)
[2024-05-17 17:37] LABS: Basophils Absolute Auto 0.1 K/mm3 (0.0-0.1); Basophils Percent Auto 1.3 % (0.2-1.2); Eosinophils Absolute Auto 0.6 K/mm3 (0-0.3); Eosinophils Percent Auto 9.2 % (0-4.4); Hematocrit 34.5 % (37.0-47.0); Immature Granulocyte Absolute 0.02 K/mm3 (0.00-0.031); Immature Granulocyte Percent A 0.3 % (0-0.5); Lymphocytes Absolute Auto 1.94 K/mm3 (0.9-3.2); Mean Corpuscular HGB Conc 31.9 g/dl (32-36); Mean Corpuscular Volume 87.8 fl (80-100); Mean Platelet Volume 9.6 fl (7.4-10.4); Monocytes Absolute Auto 0.4 K/mm3 (0.1-0.6); Monocytes Percent Auto 5.5 % (2.6-8.5); Neutrophils Absolute Auto 3.9 K/mm3 (1.3-6.7); Neutrophils Percent Auto 55.7 % (45.5-73.1); Platelet Count Result 300 k/mm3 (150-375); Red Blood Count 3.93 M/mm3 (4.2-5.4); Red Cell Distribution Width 15.2 % (11.5-14.5); White Blood Count 6.9 K/mm3 (4.5-10.0)
[2024-05-17 17:50] LABS: Cholesterol 172 mg/dL (0-200); HDL Direct 37 mg/dL; Triglycerides 98 mg/dL (<150)
[2024-05-17 17:51] LABS: INR 1.1; Prothrombin Time 14.7 Seconds (11.1-14.7)
[2024-05-17 17:52] LABS: Partial Thromboplastin Time 26.7 Seconds (22.3-36.8)
[2024-05-17 18:02] LABS: LDL Cholesterol Direct 103 mg/dL
[2024-05-17] MEDS: HEPARIN SOD/D5W 100 UNITS/ML 25,000 UNITS/250 ML BAG 6 UNITS IV CONT (18:51)
[2024-05-17] MEDS: ATORVASTATIN 40 MG TABLET PO (20:36)
[2024-05-17] MEDS: METOPROLOL TARTRATE 25 MG TABLET PO (20:36)
[2024-05-17] MEDS: IPRATROPIUM 0.5 MG/ALBUTEROL SULFATE 2.5 MG AMPUL.NEB 3 ML INHALATION (21:10)
[2024-05-17] MEDS: FUROSEMIDE INJ 40 MG/4 ML VIAL IV PUSH (21:22)
[2024-05-18] VITALS (36 sets, daily range): BP systolic 98–135; BP diastolic 62–91; PULSE 56–83; RESP 15–20; TEMP 36.5–36.9; O2SAT 94–98
[2024-05-18 00:06] LABS: NT Pro B Type Natriuretic Pept 9530 pg/mL (19.9-100)
[2024-05-18 01:29] LABS: INR 1.1; Prothrombin Time 14.2 Seconds (11.1-14.7)
[2024-05-18] MEDS: HEPARIN SODIUM 5,000 UNITS/ML VIAL 4000 UNITS IV PUSH ×2 (02:00→10:52)
[2024-05-18 09:07] LABS: Alanine Aminotransferase 21 U/L (6-35); Alkaline Phosphatase 68 U/L (38-126); Anion Gap 5 mmol/L (4-12); Aspartate Amino Transferase 25 U/L (14-36); Bilirubin,Total 0.5 mg/dL (0.2-1.3); Blood Urea Nitrogen 16 mg/dL (7-17); Calcium 9.8 mg/dL (8.4-10.2); Carbon Dioxide 28 mmol/L (22-30); Chloride 107 mmol/L (98-107); Estimated Glomerular Filt Rate 60; Glucose 100 mg/dL (65-110); Magnesium 2.1 mg/dL (1.6-2.3); Potassium 4.3 mmol/L (3.4-5.0); Sodium 140 mmol/L (137-145)
[2024-05-18 09:16] LABS: Partial Thromboplastin Time 31.3 Seconds (22.3-36.8)
[2024-05-18 09:55] LABS: Basophils Absolute Auto 0.1 K/mm3 (0.0-0.1); Basophils Percent Auto 1.2 % (0.2-1.2); Eosinophils Absolute Auto 0.7 K/mm3 (0-0.3); Eosinophils Percent Auto 10.5 % (0-4.4); Hematocrit 35.2 % (37.0-47.0); Hemoglobin 11.4 g/dL (12.0-15.0); Immature Granulocyte Absolute 0.02 K/mm3 (0.00-0.031); Immature Granulocyte Percent A 0.3 % (0-0.5); Lymphocytes Absolute Auto 1.68 K/mm3 (0.9-3.2); Lymphocytes Percent Auto 25.5 % (18.3-44.2); Mean Corpuscular HGB Conc 32.4 g/dl (32-36); Mean Corpuscular Hemoglobin 28.4 pg (26-34); Mean Corpuscular Volume 87.8 fl (80-100); Mean Platelet Volume 9.7 fl (7.4-10.4); Monocytes Absolute Auto 0.5 K/mm3 (0.1-0.6); Monocytes Percent Auto 6.8 % (2.6-8.5); Neutrophils Absolute Auto 3.7 K/mm3 (1.3-6.7); Neutrophils Percent Auto 55.7 % (45.5-73.1); Platelet Count Result 305 k/mm3 (150-375); Red Blood Count 4.01 M/mm3 (4.2-5.4); Red Cell Distribution Width 15.2 % (11.5-14.5); White Blood Count 6.6 K/mm3 (4.5-10.0)
--- NOTE | 2024-05-18 10:25 | WPDMODSED ---
Moderate Sedation Note-Pt Data Patient Data Diagnosis: NSTEMI Cardiomyopathy Present Complaint: Chest pain Procedure to be performed/Plan: left Heart Cath Cardiomyopathy Allergies Allergy/AdvReac Type Severity Reaction Status Date / Time aspirin Allergy Unknown Verified 05/17/24 11:59 Home Medications Medication Instructions Recorded Confirmed Type amlodipine 5 mg tablet (Norvasc) 5 mg PO QAM 10/30/20 05/17/24 History apixaban 5 mg tablet (Eliquis) 5 mg PO DAILY 02/20/24 05/17/24 History Current Medications: Active Medications Acetaminophen (Acetaminophen 325 Mg Tablet) 650 mg PO Q4H PRN PRN Reason: Mild Pain (1-3) or Fever Hydrocodone Bitart/Acetaminophen (Hydrocodone/Acetaminophen (*Crx) 5-325 Mg Tablet) 1 tab PO Q4H PRN PRN Reason: Pain Rated 4-6 Albuterol/Ipratropium (Ipratropium 0.5 Mg/Albuterol Sulfate 2.5 Mg Ampul.Neb 3 Ml) 3 ml INHALATION Q6HRT PRN PRN Reason: wheezing Amlodipine Besylate (Amlodipine Besylate 5 Mg Tablet) 5 mg PO QAM [facility] Aspirin (Aspirin 81 Mg Chewable Tablet) 81 mg PO DAILY@0800 [facility] Atorvastatin Calcium (Atorvastatin 40 Mg Tablet) 40 mg PO HS [facility] Last Admin: 05/17/24 20:36 Dose: 40 mg Heparin Sodium (Porcine) (Heparin Sodium 5,000 Units/Ml Vial) 4,000 units IV PUSH PRN PRN PRN Reason: aPTT less than 55 seconds Last Admin: 05/18/24 02:00 Dose: 4,000 units Heparin Sodium (Porcine) (Heparin Sodium 5,000 Units/Ml Vial) 2,000 units IV PUSH PRN PRN PRN Reason: aPTT 55 - 70 seconds Heparin Sodium/Dextrose (Heparin Sodium/D5w 100 Units/Ml) 25,000 units in 250 mls @ 8 mls/hr IV CONT .Q24H [facility]; Protocol Last Titration: 05/18/24 02:01 Dose: 800 units/hr, 8 mls/hr Metoprolol Tartrate (Metoprolol Tartrate 25 Mg Tablet) 25 mg PO Q12HR [facility] Last Admin: 05/17/24 20:36 Dose: 25 mg Ondansetron HCl (Ondansetron Inj 4 Mg/2 Ml Vial) 4 mg IV PUSH Q4H PRN PRN Reason: Nausea Sedation/Anesthesia: No previous sedation/anesthesia problems (including family history). 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 Chronic right shoulder pain GERD (gastroesophageal reflux disease) Hypertension Hypokalemia Melanocytic nevus of neck Osteoarthritis of first carpometacarpal joint of right hand Other chronic pain Overweight (09/19/16) PONV (postoperative nausea and vomiting) Pulmonary emboli Pulmonary infarct Pure hypercholesterolemia PVC's (premature ventricular contractions) Retention of urine Urgency incontinence Vitamin D deficiency Surgical History Surgical History History of bladder surgery History of hysterectomy Family History Family History Mother Family history of renal failure Patient's mother is Father Family history of heart disease in male family member before age 55 Patient's father is Other Diabetes mellitus Family history of arthritis Hypertension Urge incontinence Social History Social History Smoking packs per day: 1 Smoking cigarettes per day: 20.0 Years smoked: 55 Smoking pack-years: 55.00 Smoking status: Former smoker Alcohol intake: never Substance use: never Substance use type: does not use Do You Feel Safe in your Home?: Yes Lack of Transportation: No Lack of Food: Never True Current Housing: I Do Not Have Housing Concerned About Future Housing: No Difficulty Paying Gas/Electric Bills: No Difficulty Paying for Meds: No Currently Unemployed: No Education: High School Diploma/GED Difficulty w/ Childcare or Family Care: No Living arrangements: alone Additional living arrangements comments: Spiritual care concerns: No Mod Sed Physical Exam Physical Exam Pre Procedural Exam: Normal: Appearance, Eyes, Ears, Nose, Neck, Throat, Airway, Lungs, Heart Size, Heart Rate, Heart Rhythm, Neuro Exam, Abdomen, Liver, Kidneys, Spleen, Breasts, Genitalia, Extremities and Skin Hours since solid foods: 10 Hours since liquid intake: 10 Mallampati Classification: class II Internal Medicine - PN: Obj Da Vital Signs Vital Signs: Vital Signs - 24 hr 05/17/24 11:14 05/17/24 12:00 05/17/24 12:00 Temperature 36.4 C Pulse Rate 78 84 Respiratory Rate 18 16 Blood Pressure 136/86 138/84 Pulse Oximetry 97 98 97 Oxygen Delivery Room Air Room Air Fraction of Inspired Oxygen 05/17/24 12:05 05/17/24 13:34 05/17/24 13:44 Temperature 36.4 C Pulse Rate 79 76 80 Respiratory Rate 24 H 18 Blood Pressure 130/86 130/86 Pulse Oximetry 97 98 Oxygen Delivery Fraction of Inspired Oxygen 05/17/24 14:19 05/17/24 15:33 05/17/24 16:00 Temperature 36.8 C 36.4 C Pulse Rate 71 80 80 Respiratory Rate 20 20 Blood Pressure 120/59 L 129/73 Pulse Oximetry 96 98 Oxygen Delivery Fraction of Inspired Oxygen 05/17/24 18:00 05/17/24 20:30 05/17/24 20:36 Temperature 36.7 C Pulse Rate 78 76 108 H Respiratory Rate 20 Blood Pressure 114/68 Pulse Oximetry 92 Oxygen Delivery Fraction of Inspired Oxygen 05/17/24 20:00 05/17/24 21:10 05/17/24 21:17 Temperature Pulse Rate 73 73 Respiratory Rate 20 Blood Pressure Pulse Oximetry 92 93 Oxygen Delivery Room Air Room Air Fraction of Inspired Oxygen 21 05/17/24 21:23 05/17/24 20:00 05/17/24 22:00 Temperature Pulse Rate 80 75 95 Respiratory Rate 20 Blood Pressure Pulse Oximetry Oxygen Delivery Fraction of Inspired Oxygen 05/17/24 23:24 05/18/24 00:00 05/18/24 00:00 Temperature 36.9 C Pulse Rate 68 65 Respiratory Rate 20 Blood Pressure 114/76 Pulse Oximetry 94 94 Oxygen Delivery Room Air Fraction of Inspired Oxygen 05/18/24 02:00 05/18/24 03:56 05/18/24 04:00 Temperature 36.5 C Pulse Rate 69 72 68 Respiratory Rate 20 Blood Pressure 121/73 Pulse Oximetry 96 Oxygen Delivery Fraction of Inspired Oxygen 05/18/24 04:00 05/18/24 06:00 05/18/24 07:39 Temperature 36.5 C Pulse Rate 70 70 Respiratory Rate 20 Blood Pressure 129/71 Pulse Oximetry 96 96 Oxygen Delivery Room Air Fraction of Inspired Oxygen 05/17/24 14:24 Temperature 36.8 C Pulse Rate 71 Respiratory Rate 20 Blood Pressure 120/59 L Pulse Oximetry 96 Oxygen Delivery Fraction of Inspired Oxygen Intake/Output Intake/Output: Intake & Output 05/15/24 05/16/24 05/17/24 05/18/24 23:59 23:59 23:59 23:59 Intake Total 440 43 Output Total 300 Balance 140 43 Meds/Results Medications: Active Medications Generic Name Dose Route Start Last Admin Trade Name Freq PRN Reason Stop Dose Admin Acetaminophen 650 mg 05/17/24 12:58 Acetaminophen 325 Mg Tablet PO Q4H PRN Mild Pain (1-3) or Fever Hydrocodone Bitart/Acetaminophen 1 tab 05/17/24 12:58 Hydrocodone/Acetaminophen (*Crx) 5-325 Mg Tablet PO Q4H PRN Pain Rated 4-6 Albuterol/Ipratropium 3 ml 05/18/24 02:00 Ipratropium 0.5 Mg/Albuterol Sulfate 2.5 Mg Ampul.Neb 3 Ml INHALATION Q6HRT PRN wheezing Amlodipine Besylate 5 mg 05/18/24 09:00 Amlodipine Besylate 5 Mg Tablet PO QAM [facility] Aspirin 81 mg 05/18/24 08:00 Aspirin 81 Mg Chewable Tablet PO DAILY@0800 [facility] Atorvastatin Calcium 40 mg 05/17/24 21:00 05/17/24 20:36 Atorvastatin 40 Mg Tablet PO 40 mg HS [facility] Administration Heparin Sodium (Porcine) 4,000 units 05/17/24 17:04 05/18/24 02:00 Heparin Sodium 5,000 Units/Ml Vial IV PUSH 4,000 units PRN PRN Administration aPTT less than 55 seconds Heparin Sodium (Porcine) 2,000 units 05/17/24 17:04 Heparin Sodium 5,000 Units/Ml Vial IV PUSH PRN PRN aPTT 55 - 70 seconds Heparin Sodium/Dextrose 25,000 units in 250 mls @ 8 mls/hr 05/17/24 17:05 05/18/24 02:01 Heparin Sodium/D5w 100 Units/Ml IV CONT 800 units/hr .Q24H [facility] 8 mls/hr Titration Protocol 800 UNITS/HR Metoprolol Tartrate 25 mg 05/17/24 21:00 05/17/24 20:36 Metoprolol Tartrate 25 Mg Tablet PO 25 mg Q12HR [facility] Administration Ondansetron HCl 4 mg 05/17/24 12:58 Ondansetron Inj 4 Mg/2 Ml Vial IV PUSH Q4H PRN Nausea Radiology Results: ITS Impressions Chest X-Ray 05/17/24 12:51 IMPRESSION: 1. Mild interstitial opacities at the bilateral lung bases most likely mild pulmonary edema and/or atelectasis although differential includes pneumonia. 2. Likely very small bilateral pleural effusions. Labs 05/18/24 09:49 05/18/24 08:46 Labs: Laboratory Results - last 24 hr 05/17/24 05/17/24 05/17/24 11:23 14:16 17:05 WBC 7.0 RBC 4.26 Hgb 12.2 Hct 37.5 MCV 88.0 MCH 28.6 MCHC 32.5 RDW 15.5 H Plt Count 322 MPV 9.7 Immature Gran % (Auto) 0.1 Neut % (Auto) 63.1 Lymph % (Auto) 20.7 [place] % (Auto) 6.4 Eos % (Auto) 8.7 H Baso % (Auto) 1.0 Lymph # (Auto) 1.45 [place] # (Auto) 0.5 Eos # (Auto) 0.6 H Baso # (Auto) 0.1 Abs Immat Gran (auto) 0.01 Absolute Neuts (auto) 4.4 Absolute Nucleated RBC 0.000 Nucleated RBC % 0.0 PT 14.8 H INR 1.1 APTT 26.4 Sodium 139 Potassium 3.8 Chloride 111 H Carbon Dioxide 23 Anion Gap 5 BUN 15 Creatinine 0.80 Estim Creat Clear Calc Not Reportable Estimated GFR > 60 Glucose 98 Calcium 9.6 Magnesium Total Bilirubin 0.6 AST 22 ALT 23 Alkaline Phosphatase 77 Troponin I 0.583 H* 0.547 H* 0.545 H* NT-Pro-B Natriuret Pep Total Protein 8.0 Albumin 4.0 Triglycerides Cholesterol LDL Cholesterol Direct HDL Direct Lipase 59 05/17/24 05/17/24 05/18/24 17:22 17:31 01:02 WBC 6.9 RBC 3.93 L Hgb 11.0 L Hct 34.5 L MCV 87.8 MCH 28.0 MCHC 31.9 L RDW 15.2 H Plt Count 300 MPV 9.6 Immature Gran % (Auto) 0.3 Neut % (Auto) 55.7 Lymph % (Auto) 28.0 [place] % (Auto) 5.5 Eos % (Auto) 9.2 H Baso % (Auto) 1.3 H Lymph # (Auto) 1.94 [place] # (Auto) 0.4 Eos # (Auto) 0.6 H Baso # (Auto) 0.1 Abs Immat Gran (auto) 0.02 Absolute Neuts (auto) 3.9 Absolute Nucleated RBC 0.000 Nucleated RBC % 0.0 PT 14.7 14.2 INR 1.1 1.1 APTT 26.7 31.0 Sodium Potassium Chloride Carbon Dioxide Anion Gap BUN Creatinine Estim Creat Clear Calc Estimated GFR Glucose Calcium Magnesium Total Bilirubin AST ALT Alkaline Phosphatase Troponin I NT-Pro-B Natriuret Pep 9530 H Total Protein Albumin Triglycerides 98 Cholesterol 172 LDL Cholesterol Direct 103 HDL Direct 37 Lipase 05/18/24 05/18/24 08:46 09:49 WBC 6.6 RBC 4.01 L Hgb 11.4 L Hct 35.2 L MCV 87.8 MCH 28.4 MCHC 32.4 RDW 15.2 H Plt Count 305 MPV 9.7 Immature Gran % (Auto) 0.3 Neut % (Auto) 55.7 Lymph % (Auto) 25.5 [place] % (Auto) 6.8 Eos % (Auto) 10.5 H Baso % (Auto) 1.2 Lymph # (Auto) 1.68 [place] # (Auto) 0.5 Eos # (Auto) 0.7 H Baso # (Auto) 0.1 Abs Immat Gran (auto) 0.02 Absolute Neuts (auto) 3.7 Absolute Nucleated RBC 0.000 Nucleated RBC % 0.0 PT INR APTT 31.3 Sodium 140 Potassium 4.3 Chloride 107 Carbon Dioxide 28 Anion Gap 5 BUN 16 Creatinine 0.90 Estim Creat Clear Calc Not Reportable Estimated GFR 60 Glucose 100 Calcium 9.8 Magnesium 2.1 Total Bilirubin 0.5 AST 25 ALT 21 Alkaline Phosphatase 68 Troponin I NT-Pro-B Natriuret Pep Total Protein 8.0 Albumin 4.0 Triglycerides Cholesterol LDL Cholesterol Direct HDL Direct Lipase ASA Classification/Sedation ASA Classification/Sedation ASA Class: III Emergent: No Risks: Risks, benefits and alternatives explained and patient/family accepted plan for sedation. Patient re-evaluated immediately prior to sedation.
[2024-05-18] MEDS: HEPARIN SOD/D5W 100 UNITS/ML 25,000 UNITS/250 ML BAG 10 UNITS IV CONT (10:51)
--- NOTE | 2024-05-18 12:13 | P.PNIM_ITS ---
Progress Note: A&P Assessment and Plan (1) Non-ST elevation [place] (NSTEMI): Code(s): I21.4 - Non-ST elevation (NSTEMI) myocardial infarction Status: Acute Assessment and Plan: -Elevated troponin with recent chest pain and intermittent dyspnea with pulmonary edema on CXR -Troponin downtrending indicating infarct greater than 24 hours ago -Cardiology consulted -Echo showing EF 30-35%, Grade II diastolic dysfunction, mild-moderate MR. LV wall motion shows inferior, inf-septal hypokinesis and mid-distal ant-lat hypokinesis. TG 98, TC 172, LDL 103 and HDL 37. -Eliquis held, heparin drip without bolus was started -Aspirin, metoprolol, atorvastatin started [facility] planned for today. Addendum: Spoke with cards after the procedure. He felt the low EF was out of proportion to the coronary artery disease. Also felt the elevated LVEDP was the cause of her wheezing. Lasix IV given. Will change xopenex to prn. Findings as follows: 1. Elevated LVEDP 2. VP RESPIRATORY of mid RCA, receives Rentrop grade 2-3 collaterals from the left system as well as bridging collaterals 3. Small flat caliber 1st diagnosed in and marginal have severe stenosis. vessels are not amenable to PCI as they are small in caliber 4. Cardiomyopathy appears to be mixed both ischemic and nonischemic components (2) History of pulmonary embolism: Code(s): Z86.711 - Personal history of pulmonary embolism Status: Chronic Assessment and Plan: On Eliquis at home, last dose this morning before coming to ER Eliquis on hold. Wheezing and has hx of smoking but no asthma or COPD. Add Xopenex (3) Hypertension: Code(s): I10 - Essential (primary) hypertension Status: Chronic Assessment and Plan: Patient's blood pressure was reviewed on 05/18 Blood pressure remains well controlled. Will continue to monitor Plan DVT prophylaxis - heparin Code status - full Subjective Date/time seen: 05/18/24 12:13 Interval history: 78yo female with HTN, GERD and PE on Eliquis here for dyspnea. Assuming care. Chart reviewed. Patient quit tobacco 6 months ago. She is having chest tightness. She has been wheezing over the past week. She does not have inhalers at home. She does not have COPD or asthma that she is aware of. Exam Narrative: AF 98.0 135/80 65 20 97% ra Gen - NARD Chest - diffuse end-expiratory wheezing, nml RR CV - RRR S1/S2. Tele showing sinus rhythm with artifact Abd - Soft, NT/ND, Positive BS Ext - No pedal edema Psych - Nml mood and affect Skin - Warm and dry Objective Data Vital Signs Vital Signs: Vital Signs - 24 hr 05/17/24 13:34 05/17/24 13:44 05/17/24 14:19 Temperature 97.6 F 98.2 F Pulse Rate 76 80 71 Respiratory Rate 24 H 18 20 Blood Pressure 130/86 130/86 120/59 L Pulse Oximetry 97 98 96 Oxygen Delivery Fraction of Inspired Oxygen 05/17/24 15:33 05/17/24 16:00 05/17/24 18:00 Temperature 97.6 F Pulse Rate 80 80 78 Respiratory Rate 20 Blood Pressure 129/73 Pulse Oximetry 98 Oxygen Delivery Fraction of Inspired Oxygen 05/17/24 20:30 05/17/24 20:36 05/17/24 20:00 Temperature 98.1 F Pulse Rate 76 108 H Respiratory Rate 20 Blood Pressure 114/68 Pulse Oximetry 92 92 Oxygen Delivery Room Air Fraction of Inspired Oxygen 05/17/24 21:10 05/17/24 21:17 05/17/24 21:23 Temperature Pulse Rate 73 73 80 Respiratory Rate 20 20 Blood Pressure Pulse Oximetry 93 Oxygen Delivery Room Air Fraction of Inspired Oxygen 21 05/17/24 20:00 05/17/24 22:00 05/17/24 23:24 Temperature Pulse Rate 75 95 Respiratory Rate Blood Pressure Pulse Oximetry 94 Oxygen Delivery Room Air Fraction of Inspired Oxygen 05/18/24 00:00 05/18/24 00:00 05/18/24 02:00 Temperature 98.4 F Pulse Rate 68 65 69 Respiratory Rate 20 Blood Pressure 114/76 Pulse Oximetry 94 Oxygen Delivery Fraction of Inspired Oxygen 05/18/24 03:56 05/18/24 04:00 05/18/24 04:00 Temperature 97.7 F Pulse Rate 72 68 Respiratory Rate 20 Blood Pressure 121/73 Pulse Oximetry 96 96 Oxygen Delivery Room Air Fraction of Inspired Oxygen 05/18/24 06:00 05/18/24 07:39 05/18/24 11:18 Temperature 97.7 F 98.0 F Pulse Rate 70 70 65 Respiratory Rate 20 20 Blood Pressure 129/71 135/80 Pulse Oximetry 96 97 Oxygen Delivery Fraction of Inspired Oxygen 05/17/24 14:24 Temperature 98.2 F Pulse Rate 71 Respiratory Rate 20 Blood Pressure 120/59 L Pulse Oximetry 96 Oxygen Delivery Fraction of Inspired Oxygen Intake/Output Intake/Output: Intake & Output 05/15/24 05/16/24 05/17/24 05/18/24 23:59 23:59 23:59 23:59 Intake Total 440 113.7 Output Total 300 Balance 140 113.7 Meds/Results Medications: Active Medications Generic Name Dose Route Start Last Admin Trade Name Freq PRN Reason Stop Dose Admin Acetaminophen 650 mg 05/17/24 12:58 Acetaminophen 325 Mg Tablet PO Q4H PRN Mild Pain (1-3) or Fever Hydrocodone Bitart/Acetaminophen 1 tab 05/17/24 12:58 Hydrocodone/Acetaminophen (*Crx) 5-325 Mg Tablet PO Q4H PRN Pain Rated 4-6 Albuterol/Ipratropium 3 ml 05/18/24 02:00 Ipratropium 0.5 Mg/Albuterol Sulfate 2.5 Mg Ampul.Neb 3 Ml INHALATION Q6HRT PRN wheezing Amlodipine Besylate 5 mg 05/18/24 09:00 Amlodipine Besylate 5 Mg Tablet PO QAM [facility] Aspirin 81 mg 05/18/24 08:00 Aspirin 81 Mg Chewable Tablet PO DAILY@0800 [facility] Atorvastatin Calcium 40 mg 05/17/24 21:00 05/17/24 20:36 Atorvastatin 40 Mg Tablet PO 40 mg HS [facility] Administration Heparin Sodium (Porcine) 4,000 units 05/17/24 17:04 05/18/24 10:52 Heparin Sodium 5,000 Units/Ml Vial IV PUSH 4,000 units PRN PRN Administration aPTT less than 55 seconds Heparin Sodium (Porcine) 2,000 units 05/17/24 17:04 Heparin Sodium 5,000 Units/Ml Vial IV PUSH PRN PRN aPTT 55 - 70 seconds Heparin Sodium/Dextrose 25,000 units in 250 mls @ 10 mls/hr 05/17/24 17:05 05/18/24 10:51 Heparin Sodium/D5w 100 Units/Ml IV CONT 1,000 units/hr .Q24H [facility] 10 mls/hr Administration Protocol 1,000 UNITS/HR Metoprolol Tartrate 25 mg 05/17/24 21:00 05/17/24 20:36 Metoprolol Tartrate 25 Mg Tablet PO 25 mg Q12HR [facility] Administration Ondansetron HCl 4 mg 05/17/24 12:58 Ondansetron Inj 4 Mg/2 Ml Vial IV PUSH Q4H PRN Nausea Radiology Results: ITS Impressions Chest X-Ray 05/17/24 12:51 IMPRESSION: 1. Mild interstitial opacities at the bilateral lung bases most likely mild pulm onary edema and/or atelectasis although differential includes pneumonia. 2. Likely very small bilateral pleural effusions. Labs Labs: Laboratory Results - last 24 hr 05/17/24 05/17/24 05/17/24 14:16 17:05 17:22 WBC RBC Hgb Hct MCV MCH MCHC RDW Plt Count MPV Immature Gran % (Auto) Neut % (Auto) Lymph % (Auto) [place] % (Auto) Eos % (Auto) Baso % (Auto) Lymph # (Auto) [place] # (Auto) Eos # (Auto) Baso # (Auto) Abs Immat Gran (auto) Absolute Neuts (auto) Absolute Nucleated RBC Nucleated RBC % PT INR APTT Sodium Potassium Chloride Carbon Dioxide Anion Gap BUN Creatinine Estim Creat Clear Calc Estimated GFR Glucose Calcium Magnesium Total Bilirubin AST ALT Alkaline Phosphatase Troponin I 0.547 H* 0.545 H* NT-Pro-B Natriuret Pep 9530 H Total Protein Albumin Triglycerides Cholesterol LDL Cholesterol Direct HDL Direct 05/17/24 05/18/24 05/18/24 17:31 01:02 08:46 WBC 6.9 RBC 3.93 L Hgb 11.0 L Hct 34.5 L MCV 87.8 MCH 28.0 MCHC 31.9 L RDW 15.2 H Plt Count 300 MPV 9.6 Immature Gran % (Auto) 0.3 Neut % (Auto) 55.7 Lymph % (Auto) 28.0 [place] % (Auto) 5.5 Eos % (Auto) 9.2 H Baso % (Auto) 1.3 H Lymph # (Auto) 1.94 [place] # (Auto) 0.4 Eos # (Auto) 0.6 H Baso # (Auto) 0.1 Abs Immat Gran (auto) 0.02 Absolute Neuts (auto) 3.9 Absolute Nucleated RBC 0.000 Nucleated RBC % 0.0 PT 14.7 14.2 INR 1.1 1.1 APTT 26.7 31.0 31.3 Sodium 140 Potassium 4.3 Chloride 107 Carbon Dioxide 28 Anion Gap 5 BUN 16 Creatinine 0.90 Estim Creat Clear Calc Not Reportable Estimated GFR 60 Glucose 100 Calcium 9.8 Magnesium 2.1 Total Bilirubin 0.5 AST 25 ALT 21 Alkaline Phosphatase 68 Troponin I NT-Pro-B Natriuret Pep Total Protein 8.0 Albumin 4.0 Triglycerides 98 Cholesterol 172 LDL Cholesterol Direct 103 HDL Direct 37 05/18/24 09:49 WBC 6.6 RBC 4.01 L Hgb 11.4 L Hct 35.2 L MCV 87.8 MCH 28.4 MCHC 32.4 RDW 15.2 H Plt Count 305 MPV 9.7 Immature Gran % (Auto) 0.3 Neut % (Auto) 55.7 Lymph % (Auto) 25.5 [place] % (Auto) 6.8 Eos % (Auto) 10.5 H Baso % (Auto) 1.2 Lymph # (Auto) 1.68 [place] # (Auto) 0.5 Eos # (Auto) 0.7 H Baso # (Auto) 0.1 Abs Immat Gran (auto) 0.02 Absolute Neuts (auto) 3.7 Absolute Nucleated RBC 0.000 Nucleated RBC % 0.0 PT INR APTT Sodium Potassium Chloride Carbon Dioxide Anion Gap BUN Creatinine Estim Creat Clear Calc Estimated GFR Glucose Calcium Magnesium Total Bilirubin AST ALT Alkaline Phosphatase Troponin I NT-Pro-B Natriuret Pep Total Protein Albumin Triglycerides Cholesterol LDL Cholesterol Direct HDL Direct
[2024-05-18] MEDS: LEVALBUTEROL NEB 1.25 MG/3 ML INHALATION ×2 (12:31→21:05)
--- NOTE | 2024-05-18 13:40 | PC.NURSE ---
Pt off floor to laboratory tech with Heparin infusion running accompanied by RN.
--- NOTE | 2024-05-18 14:37 | WPDCARDPROC ---
Cardiac Cath Procedure Note Date of procedure:: 05/18/24 Performing physician:: Verenice Moise MD Indication:: NSTEMI Cardiomyopathy Brief clinical history:: 78-year-old lady came in with NSTEMI Procedure Procedure performed:: 1. Left heart catheterization 2. Coronary angiography Sedation/Medication given:: 1. Versed 1 mg 2. Fentanyl 50 mcg Access site:: Right radial Estimated blood loss:: 2 cc Procedure note:: Right radial access was taken under ultrasound guidance. 5-6 [place] sheath was placed into the right radial artery. Five [place] JL3 5 catheter was taken all of a J-wire and engaged into the left main ostium. Several angiographic images were taken in different projections. The JR3.5 catheter was exchanged with a 5 [place] JR4 catheter for an exchange length wire. The right coronary ostium was engaged with a JR4 catheter and several images were taken in different projections. LVEDP was also measured the JR4 catheter were seen across the aortic valve After the completion of the procedure TR band was applied over the radial access site for hemostasis Findings:: 1. Left heart catheterization -LVEDP 30-32 mmhg -no significant LV-Ao gradient 2. Coronary angiography. Engage left main with 5 [place] JL3.5 an RCA with 5 [place] JR4. Right dominant system with no ramus Left main: Large caliber vessel divides into LAD and some branches. No angiographic evidence of atherosclerotic disease LAD:: Large caliber transapical vessel which gives rise to small caliber 1st diagonal, small caliber 2nd diagonal and moderate caliber 3rd diagonal branches. Mid LAD has a long tubular 50% stenosis. First diagonal is a small caliber vessel which has an ostial prox 75-80% stenosis in (small-caliber vessel not amenable to PCI). Second diagonal is a very small caliber vessel with an ostial 80% stenosis. It is a very small caliber vessel not amenable to PCI. The left system via septal collaterals gives Rentrop grade 2-3 collaterals to the RCA. LCX: Large caliber nondominant vessel is gives rise to a small caliber 1st marginal and a small caliber 2nd marginal branch. First marginal is a small caliber vessel which is [place] which is 80% stenosis in the proximal one-third RCA: Large caliber dominant vessel with divides into PDA. And PLV branches prox RCA has 60-70% stenosis followed by [employer] in the mid RCA does prior to the takeoff of the RV marginal branches. RCA receives collaterals from the left system as well as bridging collaterals Conclusion:: 1. Elevated LVEDP 2. CT of mid RCA, receives Rentrop grade 2-3 collaterals from the left system as well as bridging collaterals 3. Small flat caliber 1st diagnosed in and marginal have severe stenosis. vessels are not amenable to PCI as they are small in caliber 4. Cardiomyopathy appears to be mixed both ischemic and nonischemic components Assessment and Plan Assessment and plan (1) Non-ST elevation [place] (NSTEMI): Code(s): I21.4 - Non-ST elevation (NSTEMI) myocardial infarction Status: Acute Plan -transfer to the floor -radial artery hemostasis achieved with TR band -continue uninterrupted DA PT for at least 12 months -guideline directed medical therapy for heart failure -optimize diuresis -repeat echo in 3 months
[2024-05-18] MEDS: FUROSEMIDE INJ 40 MG/4 ML VIAL IV PUSH (17:21)
[2024-05-18] MEDS: amLODIPine BESYLATE 5 MG TABLET PO (18:08)
[2024-05-18] MEDS: METOPROLOL TARTRATE 25 MG TABLET PO (21:34)
[2024-05-18] MEDS: ATORVASTATIN 40 MG TABLET PO (21:34)
[2024-05-18] MEDS: carvediloL 6.25 MG TABLET PO (21:35)
[2024-05-19] VITALS (17 sets, daily range): BP systolic 102–125; BP diastolic 63–75; PULSE 54–81; RESP 16–24; TEMP 36.3–36.6; O2SAT 98–100
[2024-05-19 04:51] LABS: Basophils Absolute Auto 0.1 K/mm3 (0.0-0.1); Basophils Percent Auto 1.4 % (0.2-1.2); Eosinophils Absolute Auto 0.7 K/mm3 (0-0.3); Eosinophils Percent Auto 12.3 % (0-4.4); Hematocrit 33.6 % (37.0-47.0); Hemoglobin 10.8 g/dL (12.0-15.0); Immature Granulocyte Absolute 0.01 K/mm3 (0.00-0.031); Immature Granulocyte Percent A 0.2 % (0-0.5); Lymphocytes Absolute Auto 1.57 K/mm3 (0.9-3.2); Lymphocytes Percent Auto 27.3 % (18.3-44.2); Mean Corpuscular HGB Conc 32.1 g/dl (32-36); Monocytes Absolute Auto 0.4 K/mm3 (0.1-0.6); Monocytes Percent Auto 7.7 % (2.6-8.5); Neutrophils Absolute Auto 2.9 K/mm3 (1.3-6.7); Neutrophils Percent Auto 51.1 % (45.5-73.1); Platelet Count Result 282 k/mm3 (150-375); Red Blood Count 3.86 M/mm3 (4.2-5.4); White Blood Count 5.8 K/mm3 (4.5-10.0)
[2024-05-19 05:02] LABS: Alanine Aminotransferase 17 U/L (6-35); Albumin Level 3.6 g/dL (3.5-5.1); Alkaline Phosphatase 62 U/L (38-126); Anion Gap 7 mmol/L (4-12); Aspartate Amino Transferase 19 U/L (14-36); Bilirubin,Total 0.3 mg/dL (0.2-1.3); Blood Urea Nitrogen 17 mg/dL (7-17); Calcium 9.3 mg/dL (8.4-10.2); Carbon Dioxide 29 mmol/L (22-30); Chloride 104 mmol/L (98-107); Estimated Glomerular Filt Rate 53; Glucose 92 mg/dL (65-110); Potassium 3.2 mmol/L (3.4-5.0); Sodium 140 mmol/L (137-145)
[2024-05-19] MEDS: CLOPIDOGREL BISULFATE 300 MG TABLET PO (09:39)
[2024-05-19] MEDS: carvediloL 6.25 MG TABLET PO ×2 (09:39→20:51)
[2024-05-19] MEDS: POTASSIUM CHLORIDE 20 MEQ ER TABLET 40 MEQ PO (09:40)
[2024-05-19] MEDS: EMPAGLIFLOZIN 10 MG TABLET PO (09:41)
[2024-05-19] MEDS: FUROSEMIDE INJ 40 MG/4 ML VIAL IV PUSH (09:41)
[2024-05-19] MEDS: LOSARTAN POTASSIUM 50 MG TABLET PO (09:41)
[2024-05-19] MEDS: ASPIRIN 81 MG ENTERIC TABLET PO (09:41)
--- NOTE | 2024-05-19 10:29 | PM.PNCARD ---
Progress Note: A&P Assessment and Plan (1) Non-ST elevation [place] (NSTEMI): Code(s): I21.4 - Non-ST elevation (NSTEMI) myocardial infarction Status: Acute Plan 1. CAD, NSTEMI [facility] (05/18/2024) : mLAD 50%, D1 75-80% (small vessel), OM1 80% (small caliber), mRCA REGIONAL ACCOUNT DIRECTOR, Bridging and Rentrop Gd 2-3 collaterals from left system - Medical mgt for CAD - Consdier intervention on RCA REGIONAL ACCOUNT DIRECTOR if symptoms - Uninterrupted DAPT for atleast 12 months - Statins 2. Acute on chronic systolic HF NYHA II-III, Stage C EF 30-35% Most likley mixed component of ICM/NICM - IV diuresis today, will switch to lasix 40 mg OD from tomorrow - Carvedilol 6.25 mg BID - Losartan 50 mg OD - Jardiance 10 mg OD - MRA as an outpatient - Repeat echo in 3 months 3. HTN As above 4. Hyperlipidemia On moderate intensity statin Subjective Date/time seen: 05/19/24 10:29 Interval history: Doing well No acute events overnight No more dyspnea or chest pain Ambulating Making good urine, not documented though Review of Systems Review of Systems: All systems reviewed & are unremarkable except as noted in HPI and below Constitutional: Constitutional: Reports no additional constitutional complaints ENT: Reports system reviewed and no additional complaints, except as documented Cardiovascular: Cardiovascular: Reports chest pain, Denies rapid heart rate, Denies radiating jaw, neck or arm pain and Reports dyspnea Respiratory: Respiratory: Denies chest congestion, Denies cough, Reports dyspnea and Denies wheezing Gastrointestinal: Gastrointestinal: Reports no additional gastrointestinal complaints Neurologic: Reports system reviewed and no additional complaints, except as documented Psychiatric: Psychiatric: Reports no additional psychiatric complaints Allergic/Immunologic: Allergic/Immunologic: Denies wheezing Exam Narrative: GENERAL: Well-appearing, well-nourished, and in no acute distress. HEAD: Normocephalic, atraumatic. ENT:Mucous membranes moist. NECK: Supple. CHEST: Clear to auscultation. No respiratory distress. HEART: Regular rate and rhythm. Normal peripheral pulses. EXTREMITIES: Normal range of motion. No edema. SKIN: Warm, dry, no rash. NEURO: Alert and oriented x3. PSYCH: Normal mood and affect. Objective Data Vital Signs Vital Signs: Vital Signs - 24 hr 05/18/24 11:18 05/18/24 12:31 05/18/24 12:39 Temperature 36.7 C Pulse Rate 65 70 73 Pulse Rate [Bilateral Pedal (Dorsalis Pedis) Palpation] Respiratory Rate 20 20 20 Blood Pressure 135/80 Pulse Oximetry 97 Oxygen Delivery 05/18/24 12:00 05/18/24 12:00 05/18/24 14:30 Temperature Pulse Rate 82 Pulse Rate [Bilateral Pedal (Dorsalis Pedis) Palpation] 74 Respiratory Rate Blood Pressure Pulse Oximetry Oxygen Delivery Room Air 05/18/24 14:30 05/18/24 14:45 05/18/24 14:45 Temperature Pulse Rate 74 75 Pulse Rate [Bilateral Pedal (Dorsalis Pedis) Palpation] 75 Respiratory Rate 20 20 Blood Pressure 126/77 98/83 L Pulse Oximetry 96 96 Oxygen Delivery Room Air Room Air 05/18/24 15:00 05/18/24 15:00 05/18/24 15:15 Temperature Pulse Rate 71 Pulse Rate [Bilateral Pedal (Dorsalis Pedis) Palpation] 67 67 Respiratory Rate 20 Blood Pressure 135/72 Pulse Oximetry 97 Oxygen Delivery Room Air 05/18/24 15:15 05/18/24 15:30 05/18/24 15:30 Temperature Pulse Rate 67 62 Pulse Rate [Bilateral Pedal (Dorsalis Pedis) Palpation] 62 Respiratory Rate 18 20 Blood Pressure 123/64 128/76 Pulse Oximetry 95 95 Oxygen Delivery Room Air Room Air 05/18/24 15:45 05/18/24 15:45 05/18/24 16:00 Temperature Pulse Rate 68 Pulse Rate [Bilateral Pedal (Dorsalis Pedis) Palpation] 67 75 Respiratory Rate 20 Blood Pressure 121/78 Pulse Oximetry 95 Oxygen Delivery Room Air 05/18/24 16:00 05/18/24 16:15 05/18/24 16:15 Temperature Pulse Rate 74 67 Pulse Rate [Bilateral Pedal (Dorsalis Pedis) Palpation] 67 Respiratory Rate 20 20 Blood Pressure 133/70 111/91 H Pulse Oximetry 94 96 Oxygen Delivery Room Air Room Air 05/18/24 16:30 05/18/24 16:30 05/18/24 16:45 Temperature Pulse Rate 68 Pulse Rate [Bilateral Pedal (Dorsalis Pedis) Palpation] 68 83 Respiratory Rate 18 Blood Pressure 113/66 Pulse Oximetry 98 Oxygen Delivery Room Air 05/18/24 16:45 05/18/24 17:00 05/18/24 17:00 Temperature Pulse Rate 83 78 Pulse Rate [Bilateral Pedal (Dorsalis Pedis) Palpation] 74 Respiratory Rate 20 15 Blood Pressure 128/76 130/85 Pulse Oximetry 96 96 Oxygen Delivery Room Air Room Air 05/18/24 17:15 05/18/24 17:15 05/18/24 18:49 Temperature 36.7 C Pulse Rate 75 81 Pulse Rate [Bilateral Pedal (Dorsalis Pedis) Palpation] 75 Respiratory Rate 18 16 Blood Pressure 116/82 128/69 Pulse Oximetry 96 96 Oxygen Delivery Room Air 05/18/24 17:48 05/18/24 18:00 05/18/24 20:37 Temperature 36.6 C Pulse Rate 81 76 Pulse Rate [Bilateral Pedal (Dorsalis Pedis) Palpation] 75 Respiratory Rate 16 Blood Pressure 122/63 Pulse Oximetry 98 Oxygen Delivery 05/18/24 21:00 05/18/24 21:07 05/18/24 21:10 Temperature Pulse Rate 77 75 Pulse Rate [Bilateral Pedal (Dorsalis Pedis) Palpation] Respiratory Rate 20 20 Blood Pressure Pulse Oximetry 94 Oxygen Delivery Room Air 05/18/24 21:34 05/18/24 21:35 05/18/24 23:34 Temperature 36.5 C Pulse Rate 81 81 56 L Pulse Rate [Bilateral Pedal (Dorsalis Pedis) Palpation] Respiratory Rate 16 Blood Pressure 126/62 Pulse Oximetry 98 Oxygen Delivery 05/18/24 20:00 05/18/24 20:00 05/19/24 00:00 Temperature Pulse Rate 72 Pulse Rate [Bilateral Pedal (Dorsalis Pedis) Palpation] Respiratory Rate Blood Pressure Pulse Oximetry Oxygen Delivery Room Air Room Air 05/18/24 22:00 05/19/24 00:00 05/19/24 02:00 Temperature Pulse Rate 83 57 L 55 L Pulse Rate [Bilateral Pedal (Dorsalis Pedis) Palpation] Respiratory Rate Blood Pressure Pulse Oximetry Oxygen Delivery 05/19/24 04:43 05/19/24 04:00 05/19/24 04:00 Temperature 36.5 C Pulse Rate 54 L 56 L Pulse Rate [Bilateral Pedal (Dorsalis Pedis) Palpation] Respiratory Rate 16 Blood Pressure 117/63 Pulse Oximetry 98 Oxygen Delivery Room Air 05/19/24 06:00 05/19/24 07:58 05/19/24 09:39 Temperature 36.6 C Pulse Rate 63 72 67 Pulse Rate [Bilateral Pedal (Dorsalis Pedis) Palpation] Respiratory Rate 18 Blood Pressure 125/72 Pulse Oximetry 100 Oxygen Delivery Intake/Output Intake/Output: Intake & Output 05/16/24 05/17/24 05/18/24 05/19/24 23:59 23:59 23:59 23:59 Intake Total 440 353.7 790 Output Total 300 100 Balance 140 253.7 790 Meds/Results Medications: Active Medications Generic Name Dose Route Start Last Admin Trade Name Freq PRN Reason Stop Dose Admin Acetaminophen 650 mg 05/17/24 12:58 Acetaminophen 325 Mg Tablet PO Q4H PRN Mild Pain (1-3) or Fever Hydrocodone Bitart/Acetaminophen 1 tab 05/17/24 12:58 Hydrocodone/Acetaminophen (*Crx) 5-325 Mg Tablet PO Q4H PRN Pain Rated 4-6 Albuterol/Ipratropium 3 ml 05/18/24 02:00 Ipratropium 0.5 Mg/Albuterol Sulfate 2.5 Mg Ampul.Neb 3 Ml INHALATION Q6HRT PRN wheezing Aspirin 81 mg 05/19/24 09:00 05/19/24 09:41 Aspirin 81 Mg Enteric Tablet PO 81 mg QAM FUNMI Administration Atorvastatin Calcium 40 mg 05/17/24 21:00 05/18/24 21:34 Atorvastatin 40 Mg Tablet PO 40 mg HS FUNMI Administration Carvedilol 6.25 mg 05/18/24 21:00 05/19/24 09:39 Carvedilol 6.25 Mg Tablet PO 6.25 mg Q12HR FUNMI Administration Clopidogrel Bisulfate 75 mg 05/20/24 09:00 Clopidogrel Bisulfate 75 Mg Tablet PO QAM FUNMI Empagliflozin 10 mg 05/19/24 09:00 05/19/24 09:41 Empagliflozin 10 Mg Tablet PO 10 mg DAILY FUNMI Administration Furosemide 40 mg 05/19/24 09:00 05/19/24 09:41 Furosemide Inj 40 Mg/4 Ml Vial IV PUSH 40 mg BID FUNMI Administration Levalbuterol HCl 1.25 mg 05/18/24 20:21 05/18/24 21:05 Levalbuterol Neb 1.25 Mg/3 Ml INHALATION 1.25 mg Q6HRT PRN Administration Shortness Of Breath Losartan Potassium 50 mg 05/19/24 09:00 05/19/24 09:41 Losartan Potassium 50 Mg Tablet PO 50 mg DAILY FUNMI Administration Ondansetron HCl 4 mg 05/17/24 12:58 Ondansetron Inj 4 Mg/2 Ml Vial IV PUSH Q4H PRN Nausea Radiology Results: ITS Impressions Chest X-Ray 05/17/24 12:51 IMPRESSION: 1. Mild interstitial opacities at the bilateral lung bases most likely mild pulmonary edema and/or atelectasis although differential includes pneumonia. 2. Likely very small bilateral pleural effusions. Labs Labs: Laboratory Results - last 24 hr 05/19/24 04:05 WBC 5.8 RBC 3.86 L Hgb 10.8 L Hct 33.6 L MCV 87.0 MCH 28.0 MCHC 32.1 RDW 15.0 H Plt Count 282 MPV 10.0 Immature Gran % (Auto) 0.2 Neut % (Auto) 51.1 Lymph % (Auto) 27.3 [place] % (Auto) 7.7 Eos % (Auto) 12.3 H Baso % (Auto) 1.4 H Lymph # (Auto) 1.57 [place] # (Auto) 0.4 Eos # (Auto) 0.7 H Baso # (Auto) 0.1 Abs Immat Gran (auto) 0.01 Absolute Neuts (auto) 2.9 Absolute Nucleated RBC 0.000 Nucleated RBC % 0.0 Sodium 140 Potassium 3.2 L Chloride 104 Carbon Dioxide 29 Anion Gap 7 BUN 17 Creatinine 1.00 Estim Creat Clear Calc Not Reportable Estimated GFR 53 L Glucose 92 Calcium 9.3 Magnesium 2.0 Total Bilirubin 0.3 AST 19 ALT 17 Alkaline Phosphatase 62 Total Protein 7.0 Albumin 3.6
--- NOTE | 2024-05-19 13:29 | PM.IMPN ---
Progress Note: A&P Assessment and Plan (1) Non-ST elevation SC (NSTEMI): Code(s): I21.4 - Non-ST elevation (NSTEMI) myocardial infarction Status: Acute Assessment and Plan: -Elevated troponin with recent chest pain and intermittent dyspnea with pulmonary edema on CXR -Troponin downtrending indicating infarct greater than 24 hours ago -Cardiology consulted -Echo showing EF 30-35%, Grade II diastolic dysfunction, mild-moderate MR. LV wall motion shows inferior, inf-septal hypokinesis and mid-distal ant-lat hypokinesis. TG 98, TC 172, LDL 103 and HDL 37. -Eliquis held, heparin drip without bolus was started LHC performed on 05/18. Spoke with cards after the procedure. He felt the low EF was out of proportion to the coronary artery disease. Also felt the elevated LVEDP was the cause of her wheezing. Lasix IV started. Findings as follows: 1. Elevated LVEDP 2. 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 Small flat caliber 1st diagnosed in and marginal have severe stenosis. vessels are not amenable to PCI as they are small in caliber 4. Cardiomyopathy appears to be mixed both ischemic and nonischemic components Plan for medical management with Plavix, Coreg, and atorvastatin. Change ASA for Eliquis. (2) CHF (congestive heart failure): Code(s): I50.9 - Heart failure, unspecified Status: Acute Assessment and Plan: Patient with acute on chronic systolic CHF. Echo shows EF 30-35%, Grade II diastolic dysfunction, mild pulm HTN and elevated RAP. [place] from a mixed component of ICM/NICM Started on IV Lasix. Wheezing has resolved and felt related to pulm edema. Medical management with Coreg, Losartan and Jardiance MRA as an outpatient Plan to repeat echo in 3 months (3) History of pulmonary embolism: Code(s): Z86.711 - Personal history of pulmonary embolism Status: Chronic Assessment and Plan: On Eliquis at home, last dose this morning before coming to ER Eliquis was held Discussed with Cards - okay to resume Eliquis and stop aspirin. She is on Eliquis 5mg daily but not a normal regiment. Will resume at VTE preventive dose of 2.5mg Q12h. (4) Hypertension: Code(s): I10 - Essential (primary) hypertension Status: Chronic Assessment and Plan: Patient's blood pressure was reviewed on 05/19 Blood pressure remains well controlled. Will continue to monitor Plan DVT prophylaxis - Eliquis Code status - full Subjective Date/time seen: 05/19/24 13:29 Interval history: 78yo female with HTN, GERD and PE on Eliquis here for dyspnea. No CP or SOB. Noted increasing UOP with Lasix. Still with occasional wheezing. Exam Narrative: AF 97.4 109/68 71 20 98% ra Gen - NARD Chest - distant, clear BS. CV - RRR S1/S2. Tele showing no significant dysrhythmias Abd - Soft, NT/ND, Positive BS Ext - No pedal edema Psych - Nml mood and affect Skin - Warm and dry Objective Data Vital Signs Vital Signs: Vital Signs - 24 hr 05/18/24 14:30 05/18/24 14:30 05/18/24 14:45 Temperature Pulse Rate 74 Pulse Rate [Bilateral Pedal (Dorsalis Pedis) Palpation] 74 75 Respiratory Rate 20 Blood Pressure 126/77 Pulse Oximetry 96 Oxygen Delivery Room Air 05/18/24 14:45 05/18/24 15:00 05/18/24 15:00 Temperature Pulse Rate 75 71 Pulse Rate [Bilateral Pedal (Dorsalis Pedis) Palpation] 67 Respiratory Rate 20 20 Blood Pressure 98/83 L 135/72 Pulse Oximetry 96 97 Oxygen Delivery Room Air Room Air 05/18/24 15:15 05/18/24 15:15 05/18/24 15:30 Temperature Pulse Rate 67 Pulse Rate [Bilateral Pedal (Dorsalis Pedis) Palpation] 67 62 Respiratory Rate 18 Blood Pressure 123/64 Pulse Oximetry 95 Oxygen Delivery Room Air 05/18/24 15:30 05/18/24 15:45 05/18/24 15:45 Temperature Pulse Rate 62 68 Pulse Rate [Bilateral Pedal (Dorsalis Pedis) Palpation] 67 Respiratory Rate 20 20 Blood Pressure 128/76 121/78 Pulse Oximetry 95 95 Oxygen Delivery Room Air Room Air 05/18/24 16:00 05/18/24 16:00 05/18/24 16:15 Temperature Pulse Rate 74 Pulse Rate [Bilateral Pedal (Dorsalis Pedis) Palpation] 75 67 Respiratory Rate 20 Blood Pressure 133/70 Pulse Oximetry 94 Oxygen Delivery Room Air 05/18/24 16:15 05/18/24 16:30 05/18/24 16:30 Temperature Pulse Rate 67 68 Pulse Rate [Bilateral Pedal (Dorsalis Pedis) Palpation] 68 Respiratory Rate 20 18 Blood Pressure 111/91 H 113/66 Pulse Oximetry 96 98 Oxygen Delivery Room Air Room Air 05/18/24 16:45 05/18/24 16:45 05/18/24 17:00 Temperature Pulse Rate 83 Pulse Rate [Bilateral Pedal (Dorsalis Pedis) Palpation] 83 74 Respiratory Rate 20 Blood Pressure 128/76 Pulse Oximetry 96 Oxygen Delivery Room Air 05/18/24 17:00 05/18/24 17:15 05/18/24 17:15 Temperature Pulse Rate 78 75 Pulse Rate [Bilateral Pedal (Dorsalis Pedis) Palpation] 75 Respiratory Rate 15 18 Blood Pressure 130/85 116/82 Pulse Oximetry 96 96 Oxygen Delivery Room Air Room Air 05/18/24 18:49 05/18/24 17:48 05/18/24 18:00 Temperature 98.0 F Pulse Rate 81 81 Pulse Rate [Bilateral Pedal (Dorsalis Pedis) Palpation] 75 Respiratory Rate 16 Blood Pressure 128/69 Pulse Oximetry 96 Oxygen Delivery 05/18/24 20:37 05/18/24 21:00 05/18/24 21:07 Temperature 97.8 F Pulse Rate 76 77 Pulse Rate [Bilateral Pedal (Dorsalis Pedis) Palpation] Respiratory Rate 16 20 Blood Pressure 122/63 Pulse Oximetry 98 94 Oxygen Delivery Room Air 05/18/24 21:10 05/18/24 21:34 05/18/24 21:35 Temperature Pulse Rate 75 81 81 Pulse Rate [Bilateral Pedal (Dorsalis Pedis) Palpation] Respiratory Rate 20 Blood Pressure Pulse Oximetry Oxygen Delivery 05/18/24 23:34 05/18/24 20:00 05/18/24 20:00 Temperature 97.7 F Pulse Rate 56 L 72 Pulse Rate [Bilateral Pedal (Dorsalis Pedis) Palpation] Respiratory Rate 16 Blood Pressure 126/62 Pulse Oximetry 98 Oxygen Delivery Room Air 05/19/24 00:00 05/18/24 22:00 05/19/24 00:00 Temperature Pulse Rate 83 57 L Pulse Rate [Bilateral Pedal (Dorsalis Pedis) Palpation] Respiratory Rate Blood Pressure Pulse Oximetry Oxygen Delivery Room Air 05/19/24 02:00 05/19/24 04:43 05/19/24 04:00 Temperature 97.7 F Pulse Rate 55 L 54 L Pulse Rate [Bilateral Pedal (Dorsalis Pedis) Palpation] Respiratory Rate 16 Blood Pressure 117/63 Pulse Oximetry 98 Oxygen Delivery Room Air 05/19/24 04:00 05/19/24 06:00 05/19/24 07:58 Temperature 97.8 F Pulse Rate 56 L 63 72 Pulse Rate [Bilateral Pedal (Dorsalis Pedis) Palpation] Respiratory Rate 18 Blood Pressure 125/72 Pulse Oximetry 100 Oxygen Delivery 05/19/24 09:39 05/19/24 08:00 05/19/24 08:00 Temperature Pulse Rate 67 73 Pulse Rate [Bilateral Pedal (Dorsalis Pedis) Palpation] Respiratory Rate Blood Pressure Pulse Oximetry Oxygen Delivery Room Air 05/19/24 10:00 05/19/24 12:00 Temperature 97.4 F L Pulse Rate 67 71 Pulse Rate [Bilateral Pedal (Dorsalis Pedis) Palpation] Respiratory Rate 20 Blood Pressure 109/68 Pulse Oximetry 98 Oxygen Delivery Intake/Output Intake/Output: Intake & Output 05/16/24 05/17/24 05/18/24 05/19/24 23:59 23:59 23:59 23:59 Intake Total 440 353.7 1030 Output Total 300 100 Balance 140 253.7 1030 Meds/Results Medications: Active Medications Generic Name Dose Route Start Last Admin Trade Name Freq PRN Reason Stop Dose Admin Acetaminophen 650 mg 05/17/24 12:58 Acetaminophen 325 Mg Tablet PO Q4H PRN Mild Pain (1-3) or Fever Hydrocodone Bitart/Acetaminophen 1 tab 05/17/24 12:58 Hydrocodone/Acetaminophen (*Crx) 5-325 Mg Tablet PO Q4H PRN Pain Rated 4-6 Albuterol/Ipratropium 3 ml 05/18/24 02:00 Ipratropium 0.5 Mg/Albuterol Sulfate 2.5 Mg Ampul.Neb 3 Ml INHALATION Q6HRT PRN wheezing Aspirin 81 mg 05/19/24 09:00 05/19/24 09:41 Aspirin 81 Mg Enteric Tablet PO 81 mg QAM FUNMI Administration Atorvastatin Calcium 40 mg 05/17/24 21:00 05/18/24 21:34 Atorvastatin 40 Mg Tablet PO 40 mg HS FUNMI Administration Carvedilol 6.25 mg 05/18/24 21:00 05/19/24 09:39 Carvedilol 6.25 Mg Tablet PO 6.25 mg Q12HR FUNMI Administration Clopidogrel Bisulfate 75 mg 05/20/24 09:00 Clopidogrel Bisulfate 75 Mg Tablet PO QAM FUNMI Empagliflozin 10 mg 05/19/24 09:00 05/19/24 09:41 Empagliflozin 10 Mg Tablet PO 10 mg DAILY FUNMI Administration Furosemide 40 mg 05/20/24 09:00 Furosemide 40 Mg Tablet PO QAM FUNMI Levalbuterol HCl 1.25 mg 05/18/24 20:21 05/18/24 21:05 Levalbuterol Neb 1.25 Mg/3 Ml INHALATION 1.25 mg Q6HRT PRN Administration Shortness Of Breath Losartan Potassium 50 mg 05/19/24 09:00 05/19/24 09:41 Losartan Potassium 50 Mg Tablet PO 50 mg DAILY FUNMI Administration Ondansetron HCl 4 mg 05/17/24 12:58 Ondansetron Inj 4 Mg/2 Ml Vial IV PUSH Q4H PRN Nausea Radiology Results: ITS Impressions Chest X-Ray 05/17/24 12:51 IMPRESSION: 1. Mild interstitial opacities at the bilateral lung bases most likely mild pulmonary edema and/or atelectasis although differential includes pneumonia. 2. Likely very small bilateral pleural effusions. Labs Labs: Laboratory Results - last 24 hr 05/19/24 04:05 WBC 5.8 RBC 3.86 L Hgb 10.8 L Hct 33.6 L MCV 87.0 MCH 28.0 MCHC 32.1 RDW 15.0 H Plt Count 282 MPV 10.0 Immature Gran % (Auto) 0.2 Neut % (Auto) 51.1 Lymph % (Auto) 27.3 [place] % (Auto) 7.7 Eos % (Auto) 12.3 H Baso % (Auto) 1.4 H Lymph # (Auto) 1.57 [place] # (Auto) 0.4 Eos # (Auto) 0.7 H Baso # (Auto) 0.1 Abs Immat Gran (auto) 0.01 Absolute Neuts (auto) 2.9 Absolute Nucleated RBC 0.000 Nucleated RBC % 0.0 Sodium 140 Potassium 3.2 L Chloride 104 Carbon Dioxide 29 Anion Gap 7 BUN 17 Creatinine 1.00 Estim Creat Clear Calc Not Reportable Estimated GFR 53 L Glucose 92 Calcium 9.3 Magnesium 2.0 Total Bilirubin 0.3 AST 19 ALT 17 Alkaline Phosphatase 62 Total Protein 7.0 Albumin 3.6
--- NOTE | 2024-05-19 15:58 | IVDEFINITY ---
Prior to administration of IV Definity the patient was educated on the risks and benefits of the imaging enhancing agent including potential adverse side effects. The patient verbalized understanding. Allergies were verified. No exclusion criteria were identified and at least one of the following inclusion criteria were met: 1) physician request, 2) patient technically difficult to image (per the [place] [employer] guidelines of two or more segments not discernable within the apical view), or 3) questionable left ventricular function. ?
[2024-05-19] MEDS: APIXABAN 2.5 MG TABLET PO (20:51)
[2024-05-19] MEDS: ATORVASTATIN 40 MG TABLET PO (20:51)
[2024-05-20] VITALS (9 sets, daily range): BP systolic 97–110; BP diastolic 47–70; PULSE 55–96; RESP 16–20; TEMP 36.4–36.8; O2SAT 95–98
[2024-05-20 04:37] LABS: Basophils Absolute Auto 0.1 K/mm3 (0.0-0.1); Basophils Percent Auto 1.6 % (0.2-1.2); Eosinophils Absolute Auto 0.8 K/mm3 (0-0.3); Eosinophils Percent Auto 14.4 % (0-4.4); Hematocrit 33.1 % (37.0-47.0); Hemoglobin 10.7 g/dL (12.0-15.0); Immature Granulocyte Absolute 0.02 K/mm3 (0.00-0.031); Immature Granulocyte Percent A 0.4 % (0-0.5); Lymphocytes Absolute Auto 1.85 K/mm3 (0.9-3.2); Lymphocytes Percent Auto 32.9 % (18.3-44.2); Mean Corpuscular HGB Conc 32.3 g/dl (32-36); Mean Corpuscular Hemoglobin 28.2 pg (26-34); Mean Corpuscular Volume 87.1 fl (80-100); Monocytes Absolute Auto 0.4 K/mm3 (0.1-0.6); Monocytes Percent Auto 7.5 % (2.6-8.5); Neutrophils Absolute Auto 2.4 K/mm3 (1.3-6.7); Neutrophils Percent Auto 43.2 % (45.5-73.1); Platelet Count Result 282 k/mm3 (150-375); White Blood Count 5.6 K/mm3 (4.5-10.0)
[2024-05-20 04:53] LABS: Alanine Aminotransferase 14 U/L (6-35); Albumin Level 3.6 g/dL (3.5-5.1); Alkaline Phosphatase 59 U/L (38-126); Anion Gap 6 mmol/L (4-12); Aspartate Amino Transferase 17 U/L (14-36); Bilirubin,Total 0.5 mg/dL (0.2-1.3); Blood Urea Nitrogen 21 mg/dL (7-17); Calcium 9.5 mg/dL (8.4-10.2); Carbon Dioxide 27 mmol/L (22-30); Chloride 106 mmol/L (98-107); Estimated Glomerular Filt Rate 48; Glucose 95 mg/dL (65-110); Potassium 3.5 mmol/L (3.4-5.0); Sodium 139 mmol/L (137-145)
[2024-05-20] MEDS: LOSARTAN POTASSIUM 50 MG TABLET PO (09:35)
[2024-05-20] MEDS: FUROSEMIDE 40 MG TABLET PO (09:37)
[2024-05-20] MEDS: EMPAGLIFLOZIN 10 MG TABLET PO (09:39)
[2024-05-20] MEDS: carvediloL 6.25 MG TABLET PO (09:40)
[2024-05-20] MEDS: APIXABAN 2.5 MG TABLET PO (09:41)
[2024-05-20] MEDS: CLOPIDOGREL BISULFATE 75 MG TABLET PO (09:49)
--- NOTE | 2024-05-20 14:59 | PM.DS ---
DS: Admitting Diagnosis Discharge Date 05/20/24 Admitting Diagnosis Dyspnea DS: Discharge Diagnosis Discharge Diagnosis (1) Non-ST elevation [place] (NSTEMI): Code(s): I21.4 - Non-ST elevation (NSTEMI) myocardial infarction Status: Acute (2) CHF (congestive heart failure): Code(s): I50.9 - Heart failure, unspecified Status: Acute (3) History of pulmonary embolism: Code(s): Z86.711 - Personal history of pulmonary embolism Status: Chronic (4) Hypertension: Code(s): I10 - Essential (primary) hypertension Status: Chronic DS: Summary Hospital Course Reason for hospitalization: 78yo female with HTN, GERD and PE on Eliquis here for dyspnea. Please see H&P for details Hospital Course: Patient presents with dyspnea. She was found to have elevated troponins but downtrending indicating infarct greater than 24 hours ago. EKG showing incomplete left bundle branch block, poor R-wave progression, and ST-T wave changes the high lateral leads. Cardiology consulted. -Echo showing EF 30-35%, Grade II diastolic dysfunction, mild-moderate MR. LV wall motion shows inferior, inf-septal hypokinesis and mid-distal ant-lat hypokinesis. Lipid panel: TG 98, TC 172, LDL 103 and HDL 37. Eliquis held and heparin drip without bolus was started. LHC performed on 05/18. Spoke with cards after the procedure. He felt the low EF was out of proportion to the coronary artery disease. Also felt the elevated LVEDP was the cause of her wheezing. Lasix IV started. LHC findings as follows: 1. Elevated LVEDP 2. [employer] of mid RCA, receives Rentrop grade 2-3 collaterals from the left system as well as bridging collaterals 3. Small flat caliber 1st diagnosed in and marginal have severe stenosis. vessels are not amenable to PCI as they are small in caliber 4. Cardiomyopathy appears to be mixed both ischemic and nonischemic components Plan for medical management with Plavix, Coreg, and atorvastatin. Changed ASA for Eliquis. Patient with acute on chronic systolic CHF. [place] from a mixed component of ICM/NICM. Started on IV Lasix. Wheezing has resolved and felt related to pulm edema. Medical management with Coreg, Losartan and Jardiance. Changed to oral Lasix. MRA to be consider as an outpatient. On Eliquis at home. Discussed with Cards - okay to resume Eliquis and stop aspirin. She is on Eliquis 5mg daily but not a normal regiment. Eliquis resumed at VTE preventive dose of 2.5mg Q12h. She feels well. No chest pain or shortness of breath. No lightheadedness with standing. She overall did well and was able to be discharged home on 05/20/24 Status at Discharge Cognitive/behavioral status at discharge: stable Time Spent with Patient Time attestation: Total time spent providing and/or coordinating discharge services: 35 minutes Time spent: Greater than 30 minutes Exam Narrative: AF 97.5 97/57 89 20 98% ra Gen - NARD Chest - CTA bilaterally CV - RRR S1/S2. Tele showing no significant dysrhythmias Abd - Soft, NT/ND, Positive BS Ext - No pedal edema Psych - Nml mood and affect Skin - Warm and dry DS: Data Data Completed and Pending Labs on day of discharge: Labs from last 24 hours 05/20/24 03:49 WBC 5.6 RBC 3.80 L Hgb 10.7 L Hct 33.1 L MCV 87.1 MCH 28.2 MCHC 32.3 RDW 15.0 H Plt Count 282 MPV 10.0 Immature Gran % (Auto) 0.4 Neut % (Auto) 43.2 L Lymph % (Auto) 32.9 [place] % (Auto) 7.5 Eos % (Auto) 14.4 H Baso % (Auto) 1.6 H Lymph # (Auto) 1.85 [place] # (Auto) 0.4 Eos # (Auto) 0.8 H Baso # (Auto) 0.1 Abs Immat Gran (auto) 0.02 Absolute Neuts (auto) 2.4 Absolute Nucleated RBC 0.000 Nucleated RBC % 0.0 Sodium 139 Potassium 3.5 Chloride 106 Carbon Dioxide 27 Anion Gap 6 BUN 21 H Creatinine 1.10 H Estim Creat Clear Calc Not Reportable Estimated GFR 48 L Glucose 95 Calcium 9.5 Magnesium 2.0 Total Bilirubin 0.5 AST 17 ALT 14 Alkaline Phosphatase 59 Total Protein 7.0 Albumin 3.6 Discharge Plan Discharge Attending physician on discharge: Agustin Cameron Consulting providers: Verenice Moise Discharging Clinician: Agustin Cameron Anticipated Discharge Date/Time: 05/20/24 15:05 Patient Disposition: Home, Self-Care Activity: as tolerated Diet: heart healthy Discharge Instructions: [facility] [address] [place] [address] DISCHARGE INSTRUCTIONS - POST CARDIAC CATH Activity Restriction 1. No Driving for 24 hours 2. No lifting, pushing or pulling more than 10 LBS for 1 week 3. No strenuous activity or exercising for 1 week 4. Shower after 24 hours, do not soak in any water such as hot tubs or bath tubs Wound Care 1. Remove dressing 24 hours after your procedure prior to showering 2. Lather soap and water to puncture site and rinse then pat dry 3. You may apply a new band aid to the site and remove aft er 24 hours then leave open to air 4. Monitor daily for redness, drainage, mild swelling and fever Report IMMEDIATELY: CALL 911 1. If you experience any swelling or bleeding from puncture site. Hold firm pressure over the puncture site until help arrives 2. If you experience any new discomfort in you back, neck, jaw, stomach or arm. Any shortness of breath, nausea, vo miting, or cold sweats 3. If you experience any swelling, tenderness, or numbness in your leg or if your leg becomes cold or has color changes. Follow Up 1. Follow your doctors discharge instructions on resuming your medications. Some medications will need to be held after your procedure 2. Follow up with the office to schedule your next appointment with your doctor 3. Drink plenty of water following your procedure, avoid alcohol If you received a stent or a closure device keep your card with you such as in your wallet. Present your card to your doctor appointments to update your health care information. *For any other questions please call the office at [phone]. Office hours are 8AM 4:30PM Thursday through Thursday. Check blood pressure 1 to 2 times a day. Record and bring into your doctor for review. Call your doctor if your blood pressure is greater than 180/110 or less than 90/45. Take precautions to avoid falls. Rise slowly from a lying or sitting position. Pause before standing or walking. Check daily morning weights after voiding. Call your doctor if you gain more than 3 lb in 2 days or 5 lb in 1 week. Contact your doctor or call 911 and come to the Emergency Room if you have lightheadedness with standing or other worrisome symptoms. Avoid NSAIDs (ibuprofen, naproxen, Aleve). Tylenol is safe to take. Follow-up with your primary care provider in 1-2 weeks. Please call for appointment. Follow-up with Cardiology in 2-4 weeks. Please call for an appointment Thank you for using [facility] for your health care needs. Patient Instructions: Antibiotic Form, Heart Catheterization (DC) Stand Alone Forms: General Discharge Information Follow-up/Referrals: Bethel,Agustin Wade MD [Primary Care Provider] - Call for Appointment Verenice Moise MD [Physician] - Call for Appointment Discharge Medications: New atorvastatin 40 mg Tablet 40 mg PO HS Qty: 30 1RF losartan [Cozaar] 50 mg Tablet 50 mg PO DAILY Qty: 30 1RF clopidogrel 75 mg Tablet 75 mg PO QAM Qty: 30 1RF carvedilol [Coreg] 6.25 mg Tablet 6.25 mg PO Q12HR Qty: 60 1RF Jardiance 10 mg Tablet 10 mg PO DAILY Qty: 30 1RF furosemide 40 mg Tablet 40 mg PO QAM Qty: 30 1RF apixaban 2.5 mg tablet 2.5 mg PO Q12H Qty: 60 1RF Discontinued amlodipine [Norvasc] 5 mg tablet 5 mg PO QAM Eliquis 5 mg tablet 5 mg PO DAILY Hold Instructions: Resume on 02/23/24. Other Ambulatory Orders: Renal Function Panel (Routine) Timeframe: 1 Week Location: Determined by Patient Ordered By: Agustin Cameron Date of admission: 05/18/24 09:58 Primary Care Provider: BethelAgustin Admitting Provider: Alberto Lauren Attending physician on admission: Alberto Lauren Condition: Stable Hospitalist MIPS Heart Failure (Exclusion) Patient has history of Heart Transplant or Left Ventricular Assistive Device?: No IF YES, STOP HERE Heart Failure (Qualifier) Patient has current or prior documentation of LVEF less than or equal to 40%, or mod/servere depressed LVSF?: Yes IF NO, STOP HERE If Yes, Heart Failure (Qualifier) Patient was prescribed or already taking an Angiotensin-Converting Enzyme (PABLO) Inhibitor, or Antiotensin Receptor [place] (ARB): Yes Patient was prescribed or already taking bisoprolol, carvedilol, or sustained release metoprolol succinate: Yes
--- NOTE | 2024-05-20 15:17 | PM.PNCARD ---
Progress Note: A&P Assessment and Plan (1) Non-ST elevation [place] (NSTEMI): Code(s): I21.4 - Non-ST elevation (NSTEMI) myocardial infarction Status: Acute Plan 1. CAD, NSTEMI [facility] (05/18/2024) : mLAD 50%, D1 75-80% (small vessel), OM1 80% (small caliber), mRCA [employer]OP[employer] BRACE [employer]KER, Bridging and Rentrop Gd 2-3 collaterals from left system - Medical mgt for CAD - Consider intervention on RCA ORTHOP[employer]IC BRACE MAKER if symptoms - Uninterrupted DAPT for atleast 12 months - Statins 2. Acute on chronic systolic HF NYHA II-III, Stage C EF 30-35% Most likely mixed component of ICM/NICM - Lasix 40 mg OD - Carvedilol 6.25 mg BID - Losartan 50 mg OD - Jardiance 10 mg OD - MRA as an outpatient - Repeat echo in 3 months - F/U with cardiology as an outpatient 3. HTN As above 4. Hyperlipidemia On moderate intensity statin Subjective Date/time seen: 05/20/24 15:17 Interval history: Doing well No acute events overnight No more dyspnea or chest pain Ambulating Review of Systems Review of Systems: All systems reviewed & are unremarkable except as noted in HPI and below Constitutional: Constitutional: Reports no additional constitutional complaints ENT: Reports system reviewed and no additional complaints, except as documented Cardiovascular: Cardiovascular: Reports chest pain, Denies rapid heart rate, Denies radiating jaw, neck or arm pain and Reports dyspnea Respiratory: Respiratory: Denies chest congestion, Denies cough, Reports dyspnea and Denies wheezing Gastrointestinal: Gastrointestinal: Reports no additional gastrointestinal complaints Neurologic: Reports system reviewed and no additional complaints, except as documented Psychiatric: Psychiatric: Reports no additional psychiatric complaints Allergic/Immunologic: Allergic/Immunologic: Denies wheezing Exam Narrative: GENERAL: Well-appearing, well-nourished, and in no acute distress. HEAD: Normocephalic, atraumatic. ENT:Mucous membranes moist. NECK: Supple. CHEST: Clear to auscultation. No respiratory distress. HEART: Regular rate and rhythm. Normal peripheral pulses. EXTREMITIES: Normal range of motion. No edema. SKIN: Warm, dry, no rash. NEURO: Alert and oriented x3. PSYCH: Normal mood and affect. Objective Data Vital Signs Vital Signs: Vital Signs - 24 hr 05/19/24 16:00 05/19/24 16:00 05/19/24 16:00 Temperature 36.6 C Pulse Rate 69 68 Respiratory Rate 20 Blood Pressure 107/66 Pulse Oximetry 98 Oxygen Delivery Room Air 05/19/24 18:00 05/19/24 18:49 05/19/24 20:51 Temperature 36.4 C Pulse Rate 77 76 81 Respiratory Rate 24 H Blood Pressure 102/75 Pulse Oximetry 98 Oxygen Delivery 05/19/24 20:00 05/19/24 20:00 05/19/24 22:00 Temperature Pulse Rate 66 57 L Respiratory Rate Blood Pressure Pulse Oximetry Oxygen Delivery Room Air 05/20/24 00:00 05/20/24 00:00 05/20/24 00:00 Temperature 36.8 C Pulse Rate 61 61 Respiratory Rate 16 Blood Pressure 106/47 L Pulse Oximetry 95 Oxygen Delivery Room Air 05/20/24 02:00 05/20/24 04:00 05/20/24 04:00 Temperature Pulse Rate 59 L 56 L Respiratory Rate Blood Pressure Pulse Oximetry Oxygen Delivery Room Air 05/20/24 04:00 05/20/24 06:00 05/20/24 07:30 Temperature 36.5 C 36.4 C L Pulse Rate 55 L 56 L 96 Respiratory Rate 16 16 Blood Pressure 108/70 110/63 Pulse Oximetry 95 96 Oxygen Delivery 05/20/24 09:40 05/20/24 08:00 05/20/24 11:43 Temperature 36.4 C L Pulse Rate 68 69 73 Respiratory Rate 20 Blood Pressure 97/57 L Pulse Oximetry 98 Oxygen Delivery 05/20/24 12:25 Temperature Pulse Rate 89 Respiratory Rate Blood Pressure Pulse Oximetry Oxygen Delivery Intake/Output Intake/Output: Intake & Output 05/17/24 05/18/24 05/19/24 05/20/24 23:59 23:59 23:59 23:59 Intake Total 440 353.7 2180 1020 Output Total 300 100 Balance 140 253.7 2180 1020 Meds/Results Medications: Active Medications Generic Name Dose Route Start Last Admin Trade Name Freq PRN Reason Stop Dose Admin Acetaminophen 650 mg 05/17/24 12:58 Acetaminophen 325 Mg Tablet PO Q4H PRN Mild Pain (1-3) or Fever Hydrocodone Bitart/Acetaminophen 1 tab 05/17/24 12:58 Hydrocodone/Acetaminophen (*Crx) 5-325 Mg Tablet PO Q4H PRN Pain Rated 4-6 Albuterol/Ipratropium 3 ml 05/18/24 02:00 Ipratropium 0.5 Mg/Albuterol Sulfate 2.5 Mg Ampul.Neb 3 Ml INHALATION Q6HRT PRN wheezing Apixaban 2.5 mg 05/19/24 21:00 05/20/24 09:41 Apixaban 2.5 Mg Tablet PO 2.5 mg Q12HR FUNMI Administration Atorvastatin Calcium 40 mg 05/17/24 21:00 05/19/24 20:51 Atorvastatin 40 Mg Tablet PO 40 mg HS FUNMI Administration Carvedilol 6.25 mg 05/18/24 21:00 05/20/24 09:40 Carvedilol 6.25 Mg Tablet PO 6.25 mg Q12HR FUNMI Administration Clopidogrel Bisulfate 75 mg 05/20/24 09:00 05/20/24 09:49 Clopidogrel Bisulfate 75 Mg Tablet PO 75 mg QAM FUNMI Administration Empagliflozin 10 mg 05/19/24 09:00 05/20/24 09:39 Empagliflozin 10 Mg Tablet PO 10 mg DAILY FUNMI Administration Furosemide 40 mg 05/20/24 09:00 05/20/24 09:37 Furosemide 40 Mg Tablet PO 40 mg QAM FUNMI Administration Levalbuterol HCl 1.25 mg 05/18/24 20:21 05/18/24 21:05 Levalbuterol Neb 1.25 Mg/3 Ml INHALATION 1.25 mg Q6HRT PRN Administration Shortness Of Breath Losartan Potassium 50 mg 05/19/24 09:00 05/20/24 09:35 Losartan Potassium 50 Mg Tablet PO 50 mg DAILY FUNMI Administration Ondansetron HCl 4 mg 05/17/24 12:58 Ondansetron Inj 4 Mg/2 Ml Vial IV PUSH Q4H PRN Nausea Radiology Results: ITS Impressions Chest X-Ray 05/17/24 12:51 IMPRESSION: 1. Mild interstitial opacities at the bilateral lung bases most likely mild pulmonary edema and/or atelectasis although differential includes pneumonia. 2. Likely very small bilateral pleural effusions. Labs Labs: Laboratory Results - last 24 hr 05/20/24 03:49 WBC 5.6 RBC 3.80 L Hgb 10.7 L Hct 33.1 L MCV 87.1 MCH 28.2 MCHC 32.3 RDW 15.0 H Plt Count 282 MPV 10.0 Immature Gran % (Auto) 0.4 Neut % (Auto) 43.2 L Lymph % (Auto) 32.9 [place] % (Auto) 7.5 Eos % (Auto) 14.4 H Baso % (Auto) 1.6 H Lymph # (Auto) 1.85 [place] # (Auto) 0.4 Eos # (Auto) 0.8 H Baso # (Auto) 0.1 Abs Immat Gran (auto) 0.02 Absolute Neuts (auto) 2.4 Absolute Nucleated RBC 0.000 Nucleated RBC % 0.0 Sodium 139 Potassium 3.5 Chloride 106 Carbon Dioxide 27 Anion Gap 6 BUN 21 H Creatinine 1.10 H Estim Creat Clear Calc Not Reportable Estimated GFR 48 L Glucose 95 Calcium 9.5 Magnesium 2.0 Total Bilirubin 0.5 AST 17 ALT 14 Alkaline Phosphatase 59 Total Protein 7.0 Albumin 3.6
--- NOTE | 2024-05-20 16:02 | PC.NURSE ---
1528 discharge instructions discussed - new medications and activity post radial cath - pt acknowledged understanding
== END 2024-05-20 15:29 | disposition home or self-care (01) | DRG 280 ==
LOC: ANHED 12:15 → ANHIMU 13:50
PROVIDERS: Emergency Medicine; Internal Medicine Interventional Cardiology; Nurse Practitioner; Admitting Provider Internal Medicine; Emergency Provider Emergency Medicine; PCP Internal Medicine; Visit Provider Internal Medicine
PROC: 4A023N7 Measurement of Cardiac Sampling and Pressure, Left Heart, Percutaneous Approach (ICD-10-PCS; CPT 93452; principal; 2024-05-18 08:30)
DX: I21.4 Non-ST elevation (NSTEMI) myocardial infarction (principal); I50.23 Acute on chronic systolic (congestive) heart failure; I42.8 Other cardiomyopathies; I11.0 Hypertensive heart disease with heart failure; E55.9 Vitamin D deficiency, unspecified; E78.00 Pure hypercholesterolemia, unspecified; K21.9 Gastro-esophageal reflux disease without esophagitis; M19.041 Primary osteoarthritis, right hand; G89.29 Other chronic pain; Z85.51 Personal history of malignant neoplasm of bladder; Z79.01 Long term (current) use of anticoagulants; Z87.891 Personal history of nicotine dependence; Z86.711 Personal history of pulmonary embolism
CPT/HCPCS: 36415; 71046; 80053; 80061; 83690; 83735; 83880; 84484; 85025; 85610; 85730; 93005; 93458; 94640; 96365; 96366; 96375; 99285; A9270; C1769; C1887; C1894; C8929; G0378; J1644; J1940; J2003; J2250; J2305; J3010; J7040; Q9957

== ENCOUNTER 2025-03-18 14:40 | Emergency (ER) | payer MEDICARE, SELFPAY ==
--- OUTSIDE RECORDS SUMMARY | 2014-01-18 07:07 | XMS_ITS | Continuity of Care Document ---
Author Organization [facility] Address [address] [place] [address] Phone Care Team Providers Care Pecan Huller Name Role Phone Devin Tejeda MD Unavailable Unavailable Allergies, Adverse Reactions, Alerts Substance Reaction Status Criticality PROPOXYPHENE HCL vomiting Active No Informat ion Medications Medication Instructions Dosage Effective Dates (start - stop) Status Comments ibuprofen 800 mg tablet take 1 tablet (800MG) by oral route 3 times every day with food 800 MG - Active triamterene 50 mg Cap take 1 capsule (50MG) by oral route every day after a meal 50 MG - Active K-Tab 10 mEq take 2 tablet (20MEQ) by oral route 2 times every day with food - Active LOVASTATIN (unknown strength) take 1 tablet by oral route every day with the evening meal Not Available - Active Procedures Procedure Date Cystourethroscopy (separt Pro 3 Pt Doc No Events On Discharge 3 Pt W/o Preop Order IV AB Prop 3 Cytopathology, Select Cell Enhanc W/inte rpretation cystoscopy Cystourethroscopy (separt Pro 3 Pt Doc No Events On Discharge 3 Pt W/o Preop Order IV AB Prop 3 cystoscopy Cytopathology, Select Cell Enhanc W/inte rpretation Cysto W/Biopsy, Fulg. Small Lesions Office E&m Estab Mod-hi 2 UA auto w/o micro Cytopathology, Select Cell Enhanc W/inte rpretation cystoscopy Cystourethroscopy (separt Pro 2 Pt Doc No Events On Discharge 2 Pt W/o Preop Order IV AB Prop 2 cystoscopy Cystourethroscopy (separt Pro 2 Cytopathology, Select Cell Enhanc W/inte rpretation Office E&m Estab Low-mod TURBT - 0.5 -up To 2.0 Cm Cysto W/Double J w/or w/o exchange Office E&m Estab Mod-hi 2 UA auto w/o micro cystoscopy Cystourethroscopy (separt Pro 2 Offic Cons New/estab Mod-hi 60 12 UA auto w/o micro Cytopathology, Select Cell Enhanc W/inte rpretation Advance Directives Directive Yes / No Effective Date File Name No Information Encounters Encounter Description Practice Location Reason(s) For Visit Diagnoses Date Provider Providers Copied on Encounter [facility], [address] [place], [place], [id number] , [place] tel:[phone] [place] [facility] 410 No Information 4 Nikhil Beltran. [address], [facility] [address], [place], [address], [place]. tel:[phone] [facility], [address] [place] [address], [place], [id number] , [place] tel:[phone] [facility] LUCINA Canseco Bladder Cancer 3 [facility] Canseco. [address] [place], [place], [id number], [place]. tel:[phone] Referring Provider: Jamaal Juarez, [address], [place], [address]. tel:[phone] [facility], [address] [place], [address], [place] tel: [phone] [facility] No Information 3 Ann Hinton. [address], [facility] [address], [place], [address], [place]. tel:[phone] [facility], [address] [place] [address], [place], [id number] , [place] tel: [phone] [facility] No Information 3 Ann Hinton. [address], [facility] [address], [place], [address], [place]. tel:[phone] Referring Provider: Phu Kingsley, [facility] [place], [address]. tel:[phone] [facility], [address] [place] [address], [place], [id number] , [place] tel: [phone] [facility] Bladder Cancer 3 Gayla Mcdaniels [address] [facility], [address], [place], [address], [place]. [phone] [facility], [address] [place] [address], [place], [id number] , [place] tel: [phone] [facility] No Information 3 [facility] Ajith. [address] [place], [place], [id number], [place]. tel:[phone] Referring Provider: Jamaal Juarez, [address] [facility], [place], [address]. tel:[phone] [facility], [address] [place], [address], [place] tel: [phone] [facility] Bladder Cancer 3 Ann Hinton. [address], [address], [place], [address], [place]. tel:[phone] [facility], [address] [place] [address], [id number] , [place] tel:[phone] [facility] Bladder Cancer 3 [facility]. [address], [address], [place], [address], [place]. tel:[phone] Referring Provider: Phu Kingsley, [address] [place] [address], [address]. tel:[phone] [facility], [address] [place] [address], [id number] , [place] tel: [phone] [facility] Bladder Cancer 3 [facility]. [address], [address], [place], [address], [place]. tel:[phone] [facility], [address] [place] [address], [id number] , [place] tel: [phone] [facility] No Information 2 [facility]. [address], [address], [place], [address], [place]. tel:[phone] Referring Provider: Phu Kingsley, [address] [place] [address], [address]. tel:[phone] Office E&m Estab Mod-hi 2 [facility], [address] [place] [address], [id number] , [place] tel: [phone] [facility] 420 Bladder cancer (chief complaint) Bladder Cancer 2 [facility]. [address], [address], [place], [address], [place]. tel:[phone] Referring Provider: Phu Kingsley, [address] [place] [address], [address]. tel:[phone] [facility], [address] [place], [place], [id number] , [place] tel: [phone] [place] [facility] 410 Bladder Cancer 2 Ann Hinton. [address], [address], [place], [address], [place]. tel:[phone] [facility], [address] [place], [place], [id number] , [place] tel: [phone] [facility] Other Specific Disorders Of The BladderBladde r Cancer 2 [facility]. [facility], [id number], [place]. tel:[phone] Referring Provider: Jamaal Juarez, [address] [facility], [place], [address]. tel:[phone] [facility], [address] [place] [address], [place], [id number] , [place] tel: [phone] [facility] No Information 2 [facility] Canseco. [address] [place], [place], [id number], [place]. [phone] Referring Provider: Jamaal Juarez, [address], [place], [address]. tel:[phone] [facility], [address] [place] [address], [place], [id number] , [place] tel: [phone] [facility] No Information 2 Ann Hinton. [address], [address], [place], [address], [place]. tel:[phone] Referring Provider: Phu Kingsley, [address] [place], [address]. tel:[phone] [facility], [address] [place] [address], [place], [id number] , [place] tel: [phone] [facility] Bladder Cancer [facility]. [facility], [id number], [place]. [phone] Referring Provider: Jamaal Juarez, [address], [place], [address]. tel:[phone] Office E&m Estab Low-mod [facility], [address] [place] [address], [id number] , [place] tel: [phone] [place] [facility] 420 Bladder cancer (chief complaint) Bladder Cancer Ann Hinton. [address], [address], [place], [address], [place]. tel:[phone] Referring Provider: Phu Kingsley, [address] [place] [address], [address]. tel:[phone] [facility], [address] [place] [address], [id number] , [place] tel: [phone] [facility]. No Information Ann Hinton. [address], [address], [place], [address], [place]. tel:[phone] Referring Provider: Phu Kingsley, [address] [place] [address], [address]. tel:[phone] Office E&m Estab Mod-hi 2 [facility], [address] [place] [address], [id number] , [place] tel:[phone] [place] [facility] 410 Bladder cancer (chief complaint) Bladder Cancer 2 Ann Hinton. [address], [address], [place], [address], [place]. tel:[phone] Referring Provider: Phu Kingsley, [facility] [place], [address]. tel:[phone] [facility], [address] [place] [address], [place], [id number] , [place] tel: [phone] [facility] No Information Ann Hinton. [address], [address], [place], [address], [place]. tel:[phone] Referring Provider: Phu Kingsley, [address] [place] [address], [address]. tel:[phone] [facility], [address] [place] [address], [id number] , [place] tel: [phone] [facility] No Information [facility]. [address] [place] [address], [id number], [place]. [phone] Referring Provider: Jamaal Juarez, [address] [place] [address], [place], [address]. [phone] [facility], [address] [place] [address], [id number] , [place] tel: [phone] [facility] Ajith Bladder Cancer Ann mica. [address], [facility] [address], [place], [address], [place]. tel:[phone] [facility], [address] [place] [address], [id number] , [place] tel: [phone] [facility] 420 Bladder Cancer Ann mica. [address], [address], [place], [address], [place]. tel:[phone] Referring Provider: Phu Kingsley, [address] [place] [address], [address]. tel:[phone] Offic Cons New/estab Mod-hi 60 [facility], [address] [place] [address], [id number] , [place] tel: [phone] [facility] 420 Bladder cancer (chief complaint) Hypertension, UnspecifiedHy pertension, UnspecifiedBl adder Cancer 2 Ann Hinton. [address], [address], [place], [address], [place]. tel:[phone] Referring Provider: Phu Kingsley, [address] [place], [address]. tel:[phone] Family History Family Member Type Diagnosis Age At Onset Problem (finding) Family history of migra ine Problem (finding) Family history of Diabe levy mellitus Problem (finding) Family history of hyper tension Payers Payer name Insurance type Covered republican ID Authoriza tion(s) [employer] HMO [id number] Social History Type Description Quantity Date Captured Comments Sex Female Smoking Status No Information Chief Complaint And Reason For Visit No Information Reason For Referral Reason For Referral No Information Plan Of Treatment Date Type Action Status Goal H&P. Due on due Goal H&P. Due on due Goal Tobacco cessation counseling completed Future Order: Lab Order Urine, C ytology ([id number]), Ordered on: Ordered Future Order: Lab Order Urine, C ytology ([id number]), Ordered on: Ordered Future Order: Lab Order Urine, C ytology ([id number]), Ordered on: Ordered Future Order: Lab Order Urine, C ytology ([id number]), Ordered on: Ordered Future Order: Lab Order Urine Cu lture, Routine (395), Ordered on: Ordered Future Order: Lab Order Urine, C ytology ([id number]), Ordered on: Ordered History Of Present Illness Encounter Date Complaint History Of Prese nt Illness No Information Functional Status Date Functional Assessmen t No Information Instructions Date Instruction Additional Infor sameer Discussed TURBT w/benefits and r isks Related to Bladder cancer Discussed pathology. Related to Bladder cancer Review risk of recur rence, progression, surveillance protocol Related to Bladder cancer Discussed TURBT w/benefits and r isks Related to Bladder cancer Assessments Type Assessment Date No Information Patient Care Teams Name Effective Dates (start - stop) Status Members No Information
--- OUTSIDE RECORDS SUMMARY | 2014-01-18 07:07 | XMS_ITS | Continuity of Care Document ---
Author Organization [facility] Address [address] [place] [address] Phone Care Team Providers Care Travel Agency Manager Name Role Phone Devin Tejeda MD Unavailable [...] Copied on Encounter [facility], [address] [place], [place], [id number] , [place] tel:[phone] [place] [facility] 410 No Information 4 Nikhil Beltran. [address], [facility] [address], [place], [address], [place]. tel:[phone] [facility], [address] [place], [place], [id number] , [place] tel:[phone] [facility] LUCINA Canseco Bladder Cancer 3 [facility] Canseco. [address] [place], [place], [id number], [place]. tel:[phone] Referring Provider: Jamaal Juarez, [address], [place], [address]. tel:[phone] [facility], [address] [place], [address], [place] tel: [phone] [facility] No Information 3 Ann Hinton. [address], [facility] [address], [place], [address], [place]. tel:[phone] [facility], [address] [place], [place], [id number] , [place] tel: [phone] [facility] No Information 3 Ann Hinton. [address], [facility] [address], [place], [address], [place]. tel:[phone] Referring Provider: Phu Kingsley, [facility] [place], [address]. tel:[phone] [facility], [address] [place], [place], [id number] , [place] tel: [phone] [facility] Bladder Cancer 3 Gayla Mcdaniels [address] [facility], [address], [place], [address], [place]. [phone] [facility], [address] [place], [place], [id number] , [place] tel: [phone] [facility] No Information 3 [facility] Ajith. [address] [place], [place], [id number], [place]. tel:[phone] Referring Provider: Jamaal Juarez, [address] [facility] [address], [place], [address]. tel:[phone] [facility], [address] [place], [address], [place] tel: [phone] [facility] Bladder Cancer 3 Ann Hinton. [address], [address], [place], [address], [place]. tel:[phone] [facility], [address] [place] [address], [id number] , [place] tel:[phone] [facility] Bladder Cancer 3 [facility]. [address], [address], [place], [address], [place]. tel:[phone] Referring Provider: Phu Kingsley, [address] [place] [address], [address]. tel:[phone] [facility], [address] [place] [address], [id number] , [place] tel: [phone] [facility] Bladder Cancer 3 [facility]. [address], [address], [place], [address], [place]. tel:[phone] [facility], [address] [place] [address], [id number] , [place] tel: [phone] [facility] No Information [facility] [address], [address], [place], [address], [place]. tel:[phone] Referring Provider: Phu Kingsley, [address] [place] [address], [address]. tel:[phone] Office E&m Estab Mod-hi 2 [facility], [address] [place] [address], [id number] , [place] tel: [phone] [facility] 420 Bladder cancer (chief complaint) [facility]adder [facility] [address] [facility] [address], [address], [place], [address], [place]. tel:[phone] Referring Provider: Phu Kingsley, [address] [place] [address], [address]. tel:[phone] [facility], [address] [place], [place], [id number] , [place] tel: [phone] [place] [facility] 410 Bladder Cancer 2 Ann Hinton. [address], [address], [place], [address], [place]. tel:[phone] [facility], [address] [place], [place], [id number] , [place] tel: [phone] [facility] Other Specific Disorders Of The BladderBladde r Cancer 2 [facility]. [facility] [place], [id number], [place]. tel:[phone] Referring Provider: Jamaal Juarez, [address] [facility], [place], [address]. tel:[phone] [facility], [address] [place], [place], [id number] , [place] tel: [phone] [facility] No Information 2 [facility] Canseco. [address] [place], [place], [id number], [place]. [phone] Referring Provider: Jamaal Juarez, [address], [place], [address]. tel:[phone] [facility], [address] [place], [place], [id number] , [place] tel: [phone] [facility] No Information 2 Ann Hinton. [address], [address], [place], [address], [place]. tel:[phone] Referring Provider: Phu Kingsley, [address] [place], [address]. tel:[phone] [facility], [address] [place], [place], [id number] , [place] tel: [phone] [facility] Bladder Cancer [facility]. [facility] [place], [id number], [place]. [phone] Referring Provider: Jamaal Juarez, [address], [place], [address]. tel:[phone] Office E&m Estab Low-mod [facility], [address] [place] [address], [id number] , [place] tel: [phone] [place] [facility] 420 Bladder cancer (chief complaint) Bladder Cancer Ann Hinton. [address], [address], [place], [address], [place]. tel:[phone] Referring Provider: Phu Kingsley, [address] [place] [address], [address]. tel:[phone] [facility], [address] [place] [address], [id number] , [place] tel: [phone] [facility]. No Information Ann Hinton. [address], [address], [place], [address], [place]. tel:[phone] Referring Provider: Phu Kingsley, [address] [place] [address], [address]. tel:[phone] Office E&m Estab Mod-hi 2 [facility], [address] [place] [address], [id number] , [place] tel:[phone] [place] [facility] 410 Bladder cancer (chief complaint) Bladder Cancer 2 Ann Hinton. [address], [address], [place], [address], [place]. tel:[phone] Referring Provider: Phu Kingsley, [facility] [place], [address]. tel:[phone] [facility], [address] [place], [place], [id number] , [place] tel: [phone] [facility] No Information Ann Hinton. [address], [address], [place], [address], [place]. tel:[phone] Referring Provider: Phu Kingsley, [address] [place] [address], [address]. tel:[phone] [facility], [address] [place] [address], [id number] , [place] tel: [phone] [facility] No Information [facility]. [address] [place] [address], [id number], [place]. [phone] Referring Provider: Jamaal Juarez, [address] [place] [address], [place], [address]. [phone] [facility], [address] [place] [address], [id number] , [place] tel: [phone] [facility] Ajith Bladder Cancer Ann mica. [address], [facility] [address], [place], [address], [place]. tel:[phone] [facility], [address] [place] [address], [id number] , [place] tel: [phone] [facility] 420 Bladder Cancer Ann mica. [address], [address], [place], [address], [place]. tel:[phone] Referring Provider: Phu Kingsley, [address] [place] [address], [address]. tel:[phone] Offic Cons New/estab Mod-hi 60 [facility], [address] [place] [address], [id number] , [place] tel: [phone] [facility] 420 Bladder cancer (chief complaint) Hypertension, UnspecifiedHy pertension, UnspecifiedBl adder Cancer 2 Ann Hinton. [address], [address], [place], [address], [place]. tel:[phone] Referring Provider: Phu Kingsley, [address] [facility], [place], [address]. tel:[phone] Family History Family Member Type Diagnosis Age At Onset Problem (finding) Family history of migra ine Problem (finding) Family history of Diabe levy mellitus Problem (finding) Family history of hyper tension Payers Payer name Insurance type Covered green party ID Authoriza tion(s) [employer] HMO [id number] Social History Type Description Quantity Date Captured Comments Sex Female Smoking Status No Information Chief Complaint And Reason For Visit No Information Reason For Referral Reason For Referral No Information Plan Of Treatment Date Type Action Status Goal H&P. Due on due Goal H&P. Due on due Goal Tobacco cessation counseling completed Future Order: Lab Order Urine, C ytology ([id number]), Ordered on: Ordered Future Order: Lab Order Urine, C ytology ([id number]), Ordered on: Ordered Future Order: Lab Order Urine, C ytology ([id number]), Ordered on: Ordered Future Order: Lab Order Urine, C ytology ([id number]), Ordered on: Ordered Future Order: Lab Order Urine Cu lture, Routine (395), Ordered on: Ordered Future Order: Lab Order Urine, C ytology ([id number]), Ordered on: Ordered History Of Present Illness Encounter Date Complaint History Of Prese nt Illness No Information Functional Status Date Functional Assessmen t No Information Instructions Date Instruction Additional Infor sameer Discussed TURBT w/benefits and r isks Related to Bladder cancer Review risk of recur rence, progression, surveillance protocol Related to Bladder cancer Discussed pathology. Related to Bladder cancer Discussed TURBT w/benefits and r isks Related to Bladder cancer Assessments Type Assessment Date No Information Patient Care Teams Name Effective Dates (start - stop) Status Members No Information
[2025-03-18] VITALS (12 sets, daily range): BP systolic 108–112; BP diastolic 61–88; PULSE 72–91; RESP 14–26; TEMP 36.5; O2SAT 81–100
--- NOTE | ~2025-03-18 | XR_ITS ---
EXAMINATION: XR chest 2V, 03/18/2025 15:25 CDT HISTORY: CP COMPARISON: No comparisons available. Technique: 2 views obtained. Findings: Small left pleural effusion otherwise the lungs are clear. No pneumothorax. Heart is normal size. Mediastinal and hilar contours are within normal limits. Bony thorax no acute abnormality. Impression: Small left pleural effusion Reviewed, dictated and finalized at location A. Impression: Small left pleural effusion
--- NOTE | 2025-03-18 14:42 | ECG_ITS ---
Test Date: 2025-03-18 14:45:56 Measurements Intervals [place] Rate: 77 P: 3 TN: 144 QRS: -27 QRSD: 101 T: 78 QT: 379 QTc: 430 Interpretive Statements SINUS RHYTHM BORDERLINE LEFT AXIS DEVIATION [QRS AXIS < -20] NONSPECIFIC ST & T-WAVE ABNORMALITY ABNORMAL ECG Compared to ECG 05/17/2024 14:27:[address]-ELEVATION HAS RESOLVED Electronically Signed On 03-19-2025 08:16:33 CDT by Raymond Long M.D.
--- OUTSIDE RECORDS SUMMARY | 2025-03-18 14:42 | XMS_ITS | Clinical Summary ---
Author Organization [facility] A Address [address] [place] [address] Care Team Providers Care Kindergarten Paraprofessional Name Role Phone Armando Concepcion MD Primary Care Provider + Allergies Active Allergy Reactions Criticality Noted Date Comments Propoxyphene Other (See comments) Low crave water, vomit Medications losartan (COZAAR) 50 mg tablet Take 1 tablet (50 mg total) by mouth daily 05/20/2024 Active furosemide (LASIX) 40 mg tablet Take 1 tablet (40 mg total) by mouth every morning 05/20/2024 Active clopidogreL (PLAVIX) 75 mg tablet Take 1 tablet (75 mg total) by mouth every morning 05/20/2024 Active carvediloL (COREG) 6.25 mg tablet Take 1 tablet (6.25 mg total) by mouth every 12 (twelve) hours 05/20/2024 Active atorvastatin (LIPITOR) 40 mg tablet Take 1 tablet (40 mg total) by mouth nightly at bedtime. 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 Overall asymptomatic. Continue risk factor modification with Plavix statin therapy and good blood pressure control. Follow up in 1 year with repeat carotid duplex. Acute cystitis with hematuria 03/24/2017 Assessment & Plan (03/24/2017 1:47 PM CDT): Recent urine culture was reviewed including susceptibility panel. Given persistent symptoms will switch to alternate agent, Bactrim DS 1 by mouth twice daily for the next 7 days. I have also recommended patient return to the lab in 2 weeks to repeat urinalysis with culture and sensitivity to ensure resolution of both blood and bacteria in the urine. Patient was encouraged to take her antibiotic with food. She was also encouraged to take a daily probiotic, yogurt or capsule while on the antibiotic. History of bladder cancer 03/24/2017 Assessment & Plan (03/24/2017 1:46 PM CDT): Status post chemotherapy. Followed by urologist Dr. Bernard @ [facility]. She now sees her urologist on an annual basis. No sign of recurrence at last office visit. Chronic constipation 03/24/2017 Assessment & Plan (03/24/2017 1:47 PM CDT): Daily stool softener, docusate sodium recommended. Script sent to mail order pharmacy per patient request. She will contact the office with persistent complaints. Dyslipidemia 03/04/2017 Assessment & Plan (02/08/2025 10:54 AM CDT): Stable continue Lipitor Essential hypertension 03/04/2017 Assessment & Plan (02/08/2025 10:54 AM CDT): Stable continue Coreg and losartan Tobacco abuse 03/04/2017 Healthcare maintenance 03/03/2017 Medication management 03/03/2017 Encounters Date Type Department Care Team Description 02/08/2025 10:00 AM CDT Office Visit [facility] at [address] [phone] Hayden Leyva MD Bilateral carotid artery stenosis (Primary Dx); Dyslipidemia; Essential hypertension 02/08/2025 Orders Only [facility] at [address] [place] [phone] Hayden Leyva MD Bilateral carotid artery stenosis (Primary Dx) 02/01/2025 Telephone [address] [address] [address] [place] [phone] Eliot Denson MD 01/15/2025 Results Follow-Up [facility] at [address] [place] [phone] Bibi Rice NP Urine culture Urine, clean voided 01/13/2025 3:45 PM CDT Office Visit [facility] [address] [place] [place] [phone] Rita Wisdom NP Chronic low back pain, unspecified back pain laterality, unspecified whether sciatica present (Primary Dx); History of recurrent UTIs 01/13/2025 3:03 PM CDT - 01/13/2025 11:59 PM CDT Hospital Encounter [address] [address] Chronic low back pain, unspecified back pain laterality, unspecified whether sciatica present Discharge Disposition: Discharge to home or self care 01/10/2025 Results Follow-Up [address] [address] [address] [place] [phone] Eliot Denson MD US Carotids Duplex Bilateral 01/04/2025 1:00 PM CDT Ancillary Procedure [facility] at [address] [place] [phone] Bilateral carotid artery stenosis 01/02/2025 1:15 PM CDT Office Visit [address] [address] [address] [place] [address] Eliot Denson MD Essential hypertension (Primary Dx); Dyslipidemia; Coronary artery disease of morongo artery of morongo heart with stable angina pectoris; Bilateral carotid artery stenosis; History of pulmonary embolism; Tobacco abuse 12/22/2024 Telephone [address] [address] [address] [place] [phone] Eliot Denson MD from Last 3 Months Surgical History Surgery Date Site/Laterality Comments HYSTERECTOMY 06/29/1979 - 06/28/1980 BLADDER SURGERY 1999, 2002, 2016 Medical History Medical History Date Comments Cancer (HCC) bladder NSTEMI (non-ST elevated myocardial infarction) ( HCC) Apr 2024- [facility] CHF (congestive heart failure) (HCC) Pulmonary embolism HTN (hypertension) GERD (gastroesophageal reflux disease) Hyperlipidemia Family History Medical History Relation Name Comments Heart disease Father Liver disease Mother Relation Name Status Comments Father Mother Social History Tobacco Use Types Packs/Day Years Used Date Smoking Tobacco: Former Cigarettes Smokeless Tobacco: Never Tobacco Cessation:Counseling Given: Not Answered Alcohol Use Standard Drinks/Week Comments No 0 (1 standard drink = 0.6 oz pur e alcohol) Personal Safety Answer Date Recorded Have you ever been in or are you currently in a harmful physical or emotional relationship or is someone making you feel afraid or unsafe? 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 Gender Identity Not on file Sexual Orientation Not on file Obstetrics History Last Filed Vital Signs Vital Sign Reading Time Taken Comments Blood Pressure 127/78 02/08/2025 10:17 AM CDT Pulse 89 02/08/2025 10:17 AM CDT Temperature 36.3 C (97.3 F) 01/13/2025 3:55 PM CDT Respiratory Rate 18 01/13/2025 3:55 PM CDT Oxygen Saturation 98% 02/08/2025 10:17 AM CDT Inhaled Oxygen Concentration - - Weight 57 kg (125 lb 9.6 oz) 02/08/2025 10:17 AM CDT Height 147.3 cm (4' 10) 02/08/2025 10:17 AM CDT Body Mass Index 26.25 02/08/2025 10:17 AM CDT Plan of Treatment Health Maintenance Due Date Last Done Comments Fall Risk Assessment 1945 DTaP/Tdap/Td Vaccine (1 - Tdap) 11/15/1955 Hepatitis B Screening 1962 Zoster Vaccine (2 of 3) 04/27/2013 03/02/2013 Well Visit 65+ 03/04/2018 03/04/2017 Depression Screening 03/24/2018 03/24/2017, 03/04/20 17 Osteoporosis Screening-Bone Density Scan 04/03/2019 04/03/2017 Influenza Vaccine (#1) 2025 0, 05/29/2019, 02/27/2018, Additional history exists Pneumococcal vaccine 65+ Completed 04/15/2016, 02/27 Procedures Procedure Name Priority Date/Time Associated Diagnosis Comments POCT URINALYSIS DIPSTICK Routine 01/13/2025 3:09 PM CDT Chronic low back pain, unspecified back pain laterality, unspecified whether sciatica present URINE CULTURE Routine 01/13/2025 3:03 PM CDT Chronic low back pain, unspecified back pain laterality, unspecified whether sciatica present US CAROTIDS DUPLEX BILATERAL Schedule Routine, Read Routine (OP Routine) 01/04/2025 1:42 PM CDT Bilateral carotid artery stenosis DEXA AXIAL SKELETON BONE DENSITY 1 OR MORE SITES Schedule Routine, Read Routine (OP Routine) 04/03/2017 2:42 PM CDT Healthcare maintenance from Last 3 Months or Most Recently Relevant to Health Maintenance Results * (ABNORMAL) POCT urinalysis dipstick (01/13/2025 3:09 PM CDT) Color, Urine, POC Yellow Clarity, ur, POC Cloudy(A) Clear Glucose, ur, POC Negative Negative Bilirubin, ur, POC Negative Negative Ketones, ur, POC Negative Negative Specific [place], POC 1.010 1.003 - 1.030 Blood, ur, POC Small(A) Negative pH, ur, POC 5.5 5.0 - 8.0 Protein, ur, POC Negative Negative Urobilinogen, urine, POC 0.2 0.2 - 1.0 mg/dL Nitrite, ur, POC Negative Negative Leukocytes, ur, POC Negative Negative Lot Number [id number] Urine 01/13/2025 3:09 PM CDT us Rita Wisdom NP POINT OF CARE TEST ORDERABL ES Final Result * (ABNORMAL) Urine culture Urine, clean voided (01/13/2025 3:03 PM CDT) Report Final Report: Greater than or equal to 100,000 colonies/mL of Enterococcus faecalis Plus growth of clinically insignificant bacterial ana maria. (.) Comment:Testing performed by : [facility], [address] [place] [address] Organism ENTEROCOCCUS FAECALIS [facility] Organism PLUS GROWTH OF CLINICALLY INSIGNIFICANT ANA MARIA. [facility] Urine, clean voided 01/13/2025 3:03 PM CDT 01/14/2025 12:48 AM CDT Narrative [facility] - 01/16/2025 10:43 AM CDT Testing performed by [facility] ([phone]) Organism Antibiotic Method Susceptibility Enterococcus faecalis Ampicillin (KASSANDRA) INTERPRETATIO N Susceptible Enterococcus faecalis Vancomycin (KASSANDRA) INTERPRETATIO N Susceptible Enterococcus faecalis Linezolid (KASSANDRA) INTERPRETATIO N Susceptible Enterococcus faecalis Doxycycline (KASSANDRA) INTERPRETATIO N Susceptible Enterococcus faecalis Nitrofurantoin (KASSANDRA) INTERPRETAT ION Susceptible Rita Wisdom NP LAB MICROBIOLOGY - GENERAL ORDERABLES Final Result [facility] [id number] Department [place] [address] * US Carotids Duplex Bilateral (01/04/2025 1:42 PM CDT) Anatomical Region Laterality Modality Vascular Bilateral Ultrasound 01/04/2025 12:5 4 PM CDT Narrative 01/05/2025 10:37 AM CDT Vascular & Vein Surgery [address] [place] [address] Carotid Duplex Ultrasound Report Patient Name: LEVON TERRY A : 1945 (79y 1m) Study Date: 01/04/2025 12:54:58 PM Gender: F Appeals Writer: BINTA Location: [facility] Ref Provider: ELIOT DENSON Quality: Adequate Order Provider: ELIOT DENSON PROCEDURES: Carotid Report: Carotid duplex examination of the extracranial arteries was performed using 2D, color and spectral Doppler. INDICATIONS: I65.23 Occlusion and stenosis of bilateral carotid arteries. HISTORY: HTN. PE. Bladder CA. CAD- PA. Former smoker. COMPARISONS: Prior CTA 12/11/24 @ [facility]: Rt >70, Lt >70, extensive calcification in AO arch extending into Lt SCA. MEASUREMENTS: Right Value Left Value RT Prox CCA PSV 90 cm/sec Lt Subc PSV 237 cm/sec RT Prox CCA EDV 25 cm/sec LT Prox CCA PSV 72 cm/sec RT Distal CCA PSV 53 cm/sec LT Prox CCA EDV 21 cm/sec RT Distal CCA EDV 16 cm/sec LT Distal CCA PSV 64 cm/sec Rt Bulb PSV 61 cm/sec LT Distal CCA EDV 20 cm/sec Rt Bulb EDV 17 cm/sec Lt Bulb PSV 44 cm/sec RT Prox ICA PSV 109 cm/sec Lt Bulb EDV 14 cm/sec RT Prox ICA EDV 35 cm/sec LT Prox ICA PSV 67 cm/sec RT Mid ICA PSV 68 cm/sec LT Prox ICA EDV 23 cm/sec RT Mid ICA EDV 23 cm/sec LT Mid ICA PSV 59 cm/sec RT Distal ICA PSV 69 cm/sec LT Mid ICA EDV 22 cm/sec RT Distal ICA EDV 27 cm/sec LT Distal ICA PSV 56 cm/sec RT ECA Prx PSV 94 cm/sec LT Distal ICA EDV 17 cm/sec RT ICA/CCA 2.06 ratio LT ECA Prx PSV 83 cm/sec Rt Vert Dst PSV 65 cm/sec LT ICA/CCA 1.05 ratio Lt Vert Dst PSV 41 cm/sec FINDINGS: Rt Common Carotid Artery: Duplex imaging of the right common carotid artery is within normal limits without evidence of atherosclerotic disease. Rt Internal Carotid Artery: The plaque in the right internal carotid artery appears to be heterogeneous, calcified and irregular. Atherosclerotic changes of the right internal carotid artery without hemodynamically significant Doppler findings. <50% stenosis. Rt External Carotid Artery: Patent right external carotid artery with evidence of atherosclerotic disease present. Rt Vertebral Artery: The right vertebral artery is patent with antegrade flow. Lt Common Carotid Artery: Duplex imaging of the left common carotid artery is within normal limits without evidence of atherosclerotic disease. Lt Internal Carotid Artery: The plaque in the left internal carotid artery appears to be heterogeneous, calcified and irregular. Atherosclerotic changes of the left internal carotid artery without hemodynamically significant Doppler findings. <50% stenosis. Lt External Carotid Artery: Patent left external carotid artery with evidence of atherosclerotic disease present. Lt Vertebral Artery: The left vertebral artery is patent with antegrade flow. Comments: Brachial artery systolic blood pressure is 103 on the right, 105 on the left. Unable to reproduce disease noted in prior CTA. CONCLUSIONS: 1. No evidence of hemodynamically significant disease of the bilateral extracranial carotid system. 2. Normal, antegrade flow is noted in bilateral vertebral arteries. ATTESTATION: I have reviewed and interpreted the pertinent images and measurements of this study. I attest to the conclusions in the final report that is provided above. Electronically Signed By: Hayden Leyva MD 01/05/2025 10:02:19 AM CDT Procedure Note Hayden Leyva MD - 01/05/2025 Vascular & Vein Surgery [address] [facility] [place] [address] Carotid Duplex Ultrasound Report Patient Name: LEVON TERRY A : 1945 (79y 1m) Study Date: 01/04/2025 12:54:58 PM Gender: F Appeals Writer: BINTA Location: [facility] Ref Provider: ELIOT DENSON Quality: Adequate Order Provider: ELIOT DENSON PROCEDURES: Carotid Report: Carotid duplex examination of the extracranial arterieswas performed using 2D, color and spectral Doppler. INDICATIONS: I65.23 Occlusion and stenosis of bilateral carotid arteries. HISTORY: HTN. PE. Bladder CA. CAD- PA. Former smoker. COMPARISONS: Prior CTA 12/11/24 @ [facility]: Rt >70, Lt >70, extensivecalcification in AO arch extending into Lt SCA. MEASUREMENTS: Right Value Left Value RT Prox CCA PSV 90 cm/sec Lt Subc PSV 237 cm/sec RT Prox CCA EDV 25 cm/sec LT Prox CCA PSV 72 cm/sec RT Distal CCA PSV 53 cm/sec LT Prox CCA EDV 21 cm/sec RT Distal CCA EDV 16 cm/sec LT Distal CCA PSV 64 cm/sec Rt Bulb PSV 61 cm/sec LT Distal CCA EDV 20 cm/sec Rt Bulb EDV 17 cm/sec Lt Bulb PSV 44 cm/sec RT Prox ICA PSV 109 cm/sec Lt Bulb EDV 14 cm/sec RT Prox ICA EDV 35 cm/sec LT Prox ICA PSV 67 cm/sec RT Mid ICA PSV 68 cm/sec LT Prox ICA EDV 23 cm/sec RT Mid ICA EDV 23 cm/sec LT Mid ICA PSV 59 cm/sec RT Distal ICA PSV 69 cm/sec LT Mid ICA EDV 22 cm/sec RT Distal ICA EDV 27 cm/sec LT Distal ICA PSV 56 cm/sec RT ECA Prx PSV 94 cm/sec LT Distal ICA EDV 17 cm/sec RT ICA/CCA 2.06 ratio LT ECA Prx PSV 83 cm/sec Rt Vert Dst PSV 65 cm/sec LT ICA/CCA 1.05 ratio Lt Vert Dst PSV 41 cm/sec FINDINGS: Rt Common Carotid Artery: Duplex imaging of the right common carotidartery is within normal limits without evidence of atherosclerotic disease. Rt Internal Carotid Artery: The plaque in the right internal carotidartery appears to be heterogeneous, calcified and irregular. Atherosclerotic changes of theright internal carotid artery without hemodynamically significant Doppler findings. <50%stenosis. Rt External Carotid Artery: Patent right external carotid artery withevidence of atherosclerotic disease present. Rt Vertebral Artery: The right vertebral artery is patent with antegradeflow. Lt Common Carotid Artery: Duplex imaging of the left common carotid arteryis within normal limits without evidence of atherosclerotic disease. Lt Internal Carotid Artery: The plaque in the left internal carotid arteryappears to be heterogeneous, calcified and irregular. Atherosclerotic changes of theleft internal carotid artery without hemodynamically significant Doppler findings. <50%stenosis. Lt External Carotid Artery: Patent left external carotid artery withevidence of atherosclerotic disease present. Lt Vertebral Artery: The left vertebral artery is patent with antegradeflow. Comments: Brachial artery systolic blood pressure is 103 on the right, 105on the left. Unable to reproduce disease noted in prior CTA. CONCLUSIONS: 1. No evidence of hemodynamically significant disease of the bilateralextracranial carotid system. 2. Normal, antegrade flow is noted in bilateral vertebral arteries. ATTESTATION: I have reviewed and interpreted the pertinent images and measurements ofthis study. I attest to the conclusions in the final report that is provided above. Electronically Signed By: Hayden Leyva MD 01/05/2025 10:02:19 AM CDT us Eliot Denson MD IM US PROCEDURES Fi nal Result * Dexa Axial Skeleton Bone Density 1 or 2 Site (04/03/2017 2:42 PM CDT) SCRIBED DXA T-SCORE -2.6 SCRIBED DXA Z-SCORE -1.0 SCRIBED DXA BMD 0.670 Anatomical Region Laterality Modality Body N/A Digital Radiogra phy Armando Concepcion MD IMG DXA PROCEDURES Final Result from Last 3 Months or Most Recently Relevant to Health Maintenance [place] [address] [employer] [place] [address] Care Teams Kindergarten Paraprofessional Relationship Specialty Start Date End Date Armando Concepcion MD [id number] [place] [address] PCP - General 11/11/16
[2025-03-18 15:00] LABS: Hematocrit 28.4 % (37.0-47.0); Hemoglobin 9.0 g/dL (12.0-15.0); Immature Granulocyte Percent A 0.5 % (0-0.5); Lymphocytes Absolute Auto 1.49 K/mm3 (0.9-3.2); Mean Corpuscular HGB Conc 31.7 g/dl (32-36); Mean Corpuscular Hemoglobin 27.7 pg (26-34); Mean Corpuscular Volume 87.4 fl (80-100); Nucleated Red Blood Cells Absolute Auto 0.000 K/mm3 (0.0-0.012); Nucleated Red Blood Cells Perc 0.0 % (0.0-0.2); Platelet Count Result 364 k/mm3 (150-375); Red Blood Count 3.25 M/mm3 (4.2-5.4); White Blood Count 6.6 K/mm3 (4.5-10.0)
[2025-03-18 15:11] LABS: INR 1.3; Prothrombin Time 16.5 Seconds (11.1-14.7)
[2025-03-18 15:12] LABS: Alanine Aminotransferase 11 U/L (6-35); Albumin Level 3.3 g/dL (3.5-5.1); Alkaline Phosphatase 88 U/L (38-126); Anion Gap 7 mmol/L (4-12); Aspartate Amino Transferase 20 U/L (14-36); Bilirubin,Total 0.4 mg/dL (0.2-1.3); Blood Urea Nitrogen 24 mg/dL (7-17); Calcium 9.2 mg/dL (8.4-10.2); Carbon Dioxide 20 mmol/L (22-30); Chloride 107 mmol/L (98-107); Estimated Glomerular Filt Rate 52; Glucose 92 mg/dL (65-110); Lipase 64 U/L (23-300); Partial Thromboplastin Time 35.2 Seconds (22.3-36.8); Potassium 3.6 mmol/L (3.4-5.0); Sodium 134 mmol/L (137-145); Total Protein 7.2 g/dL (6.3-8.2)
[2025-03-18 15:24] LABS: Troponin I 0.032 ng/mL (0.000-0.034)
--- NOTE | 2025-03-18 18:24 | ED_ITS ---
HPI - Chest Pain General Chief Complaint: Chest Pain Stated Complaint: Neck/chest pain Time Seen by Provider: 03/18/25 18:19 Source: patient and family Mode of arrival: ambulatory Limitations: no limitations History of Present Illness HPI narrative: 79 YEARS OLD WHITE FEMALE CAME TO THE ED FROM HOME WITH HER SON TELLING ME THAT SHE BEEN HAVING LEFT-SIDED NECK PAIN RADIATING TO LEFT UPPER SHOULDER 4 DAYS AGO. WORSE WITH CERTAIN MOVEMENT AND POSITION, BETTER WHEN SHE TAKE PAIN RELIEVE MEDICATION. SHE DENIES CHEST PAIN OR SHORTNESS OF BREATH. HISTORY OF HYPERTENSION HYPERLIPIDEMIA AND PULMONARY EMBOLISM CURRENTLY ON ELIQUIS. PATIENT REPORT HAVING SIMILAR SYMPTOM WHEN SHE SLEEP WRONG. PATIENT BELIEVED THAT SHE SLEPT WRONG IN THE LAST FEW DAYS THAT WOULD TRIGGER HER PAIN. Related Data Allergies Allergy/AdvReac Type Severity Reaction Status Date / Time aspirin Allergy Unknown Verified 05/17/24 11:59 Review of Systems 2 Review of Systems: All systems reviewed & are unremarkable except as noted in HPI and below PMFSH Past Medical History Medical History CHF (congestive heart failure) Vitamin D deficiency Pure hypercholesterolemia Overweight (09/19/16) Other chronic pain Melanocytic nevus of neck Chronic right shoulder pain Urgency incontinence PVC's (premature ventricular contractions) Hypokalemia Acute UTI Osteoarthritis of first carpometacarpal joint of right hand Retention of urine Bilateral hydronephrosis Pulmonary infarct Pulmonary emboli 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 PONV (postoperative nausea and vomiting) GERD (gastroesophageal reflux disease) Hypertension Surgical History Surgical History History of bladder surgery History of hysterectomy Family History Family History Mother Family history of renal failure Patient's mother is Father Family history of heart disease in male family member before age 55 Patient's father is Other Diabetes mellitus Family history of arthritis Hypertension Urge incontinence Social History Social History Smoking packs per day: 1 Smoking cigarettes per day: 20.0 Years smoked: 55 Smoking pack-years: 55.00 Smoking status: Former smoker Alcohol intake: never Substance use: never Substance use type: does not use Do You Feel Safe in your Home?: Yes Lack of Transportation: No Lack of Food: Never True Current Housing: I Do Not Have Housing Concerned About Future Housing: No Difficulty Paying Gas/Electric Bills: No Difficulty Paying for Meds: No Currently Unemployed: No Education: High School Diploma/GED Difficulty w/ Childcare or Family Care: No Living arrangements: alone Additional living arrangements comments: Spiritual care concerns: No Exam 2 Narrative: GENERAL APPEARANCE: WELL-DEVELOPED, WELL-NOURISHED SKIN: NORMAL COLOR HEAD: NORMOCEPHALIC, NONTRAUMATIC EYES: CLEAR CONJUNCTIVA ENT: OROPHARYNX NORMAL, EARS NORMAL, NOSE NORMAL NECK: DIFFUSE TENDERNESS LEFT SIDE OF NECK LEFT UPPER BACK AND LEFT UPPER CHEST WITH PALPATION, CHEST AND RESPIRATORY: AIRWAY PATENT, NO RESPIRATORY DISTRESS, NO ACCESSORY MUSCLE USE HEART: REGULAR RATE/RHYTHM ABDOMEN: SOFT, NONTENDER, NO ORGANOMEGALY, QUIET BOWEL SOUNDS VASCULAR: NORMAL PERIPHERAL PULSES, NORMAL CAPILLARY REFILL. MUSCULOSKELETAL: LIMITED RANGE OF MOTION OF THE LEFT SHOULDER BECAUSE OF PAIN INDUCED BY MOVEMENT MAINLY ABDUCTION. 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 NORMAL TESTED, NO GROSS MOTOR DEFICIT Course Vital Signs Vital signs: Vital Signs Temperature 36.5 C 03/18/25 14:43 Pulse Rate 78 03/18/25 14:43 Respiratory Rate 18 03/18/25 14:43 Blood Pressure 111/61 03/18/25 14:43 Pulse Oximetry 98 03/18/25 14:43 Oxygen Delivery Autopap 03/18/25 14:43 Temperature 36.5 C 03/18/25 14:43 Pulse Rate 76 03/18/25 17:05 Respiratory Rate 17 03/18/25 16:59 Blood Pressure 108/62 03/18/25 16:59 Pulse Oximetry 98 03/18/25 17:02 Oxygen Delivery Room Air 03/18/25 17:02 MDM - Chest Pain MDM Narrative Medical decision making narrative: DIFFERENTIAL DIAGNOSIS INCLUDE MUSCULAR STRAIN/SPRAIN BLOOD WORKUP TODAY INCLUDES CBC, CMP, TROPONIN SHOWED INSIGNIFICANT ABNORMALITY PATIENT TESTED NEGATIVE FOR COVID FLU AND RSV CHEST X-RAY SHOWED SMALL LEFT PLEURAL EFFUSION EKG ON ARRIVAL SHOWED NORMAL SINUS RHYTHM DIAGNOSIS CERVICALGIA Differential Diagnosis Differential diagnosis: Likely other ( ABOVE) Medical Records Data Attestation: I reviewed the patient's medical records. Lab Data Attestation: I reviewed the patient's lab results. 03/18/25 14:53 03/18/25 14:53 Labs: Lab Results 03/18/25 03/18/25 03/18/25 Range/Units 14:53 18:39 19:29 WBC 6.6 (4.5-10.0) K/mm3 RBC 3.25 L (4.2-5.4) M/mm3 Hgb 9.0 L (12.0-15.0) g/dL Hct 28.4 L (37.0-47.0) % MCV 87.4 (80-100) fl MCH 27.7 (26-34) pg MCHC 31.7 L (32-36) g/dl RDW 14.2 (11.5-14.5) % Plt Count 364 (150-375) k/mm3 MPV 9.1 (7.4-10.4) fl Immature Gran % (Auto) 0.5 (0-0.5) % Neut % (Auto) 67.6 (45.5-73.1) % Lymph % (Auto) 22.5 (18.3-44.2) % [place] % (Auto) 7.1 (2.6-8.5) % Eos % (Auto) 1.5 (0-4.4) % Baso % (Auto) 0.8 (0.2-1.2) % Lymph # (Auto) 1.49 (0.9-3.2) K/mm3 [place] # (Auto) 0.5 (0.1-0.6) K/mm3 Eos # (Auto) 0.1 (0-0.3) K/mm3 Baso # (Auto) 0.1 (0.0-0.1) K/mm3 Abs Immat Gran (auto) 0.03 (0.00-0.031) K/mm3 Absolute Neuts (auto) 4.5 (1.3-6.7) K/mm3 Absolute Nucleated RBC 0.000 (0.0-0.012) K/mm3 Nucleated RBC % 0.0 (0.0-0.2) % PT 16.5 H (11.1-14.7) Seconds INR 1.3 APTT 35.2 (22.3-36.8) Seconds Sodium 134 L (137-145) mmol/L Potassium 3.6 (3.4-5.0) mmol/L Chloride 107 (98-107) mmol/L Carbon Dioxide 20 L (22-30) mmol/L Anion Gap 7 (4-12) mmol/L BUN 24 H (7-17) mg/dL Creatinine 1.03 H (0.7-1.0) mg/dL Estim Creat Clear Calc Not Reportable Estimated GFR 52 L (59 - ) Glucose 92 (65-110) mg/dL Calcium 9.2 (8.4-10.2) mg/dL Total Bilirubin 0.4 (0.2-1.3) mg/dL AST 20 (14-36) U/L ALT 11 (6-35) U/L Alkaline Phosphatase 88 (38-126) U/L Troponin I 0.032 0.033 (0.000-0.034) ng/mL Total Protein 7.2 (6.3-8.2) g/dL Albumin 3.3 L (3.5-5.1) g/dL Lipase 64 (23-300) U/L Urine Color Pending Urine Appearance Pending Urine pH Pending Ur Specific [place] Pending Urine Protein Pending Urine Glucose (UA) Pending Urine Ketones Pending Ur Blood (Man) Pending Urine Nitrate Pending Urine Bilirubin Pending Urine Urobilinogen Pending Leukocyte Esterase Rfl Pending Influenza A (RT-PCR) Negative (Negative) Influenza B (RT-PCR) Negative (Negative) RSV (RT-PCR) Negative (Negative) SARS-CoV-2 RNA (RT-PCR) Negative (Negative) Imaging Data Radiologist's impression: Impressions Chest X-Ray 03/18/25 16:08 Impression: Small left pleural effusion ECG Data EKG #1: Attestation: I personally reviewed and interpreted this ECG as follows: Discharge Plan Discharge Clinical Impression: Cervicalgia Patient Disposition: Home Condition: Stable Instructions: Acute Neck Pain (ED) Additional Instructions: RETURN IF SYMPTOMS ARE WORSENING , CALL YOUR FAMILY PHYSICIAN FOR APPOINTMENT, TAKE TYLENOL NEEDED FOR ACHES AND PAIN, CONTINUE HOME MEDICATIONS. MASSAGE HEATING PAD NECK EXERCISE Patient Language: [place] Prescriptions: New metaxalone 400 mg tablet 800 mg PO TID Qty: 20 0RF No Action apixaban 2.5 mg tablet 2.5 mg PO Q12H Qty: 60 1RF losartan [Cozaar] 50 mg Tablet 50 mg PO DAILY Qty: 30 1RF furosemide 40 mg Tablet 40 mg PO QAM Qty: 30 1RF atorvastatin 40 mg Tablet 40 mg PO HS Qty: 30 1RF carvedilol [Coreg] 6.25 mg Tablet 6.25 mg PO Q12HR Qty: 60 1RF clopidogrel 75 mg Tablet 75 mg PO QAM Qty: 30 1RF Jardiance 10 mg Tablet 10 mg PO DAILY Qty: 30 1RF Follow-up/Referrals: Jamey,Agustin Wade MD [Primary Care Provider]
--- OUTSIDE RECORDS SUMMARY | 2025-03-18 19:03 | XMS_ITS | Clinical Summary ---
Author Organization [facility] A Address [address] [place] [address] Care Team Providers Care Food Technology Teacher Name Role Phone Amrando Concepcion MD Primary Care Provider + Allergies [...] artery disease of n ative artery of [place] heart with stable angina pectoris 01/02/2025 Bilateral [...] chemotherapy. Followed by urologist Dr. Bernard @ [facility]. She now sees her urologist on [...] Description 02/08/2025 10:00 AM CDT Office Visit [facility] at [address] [phone] Hayden Leyva MD Bilateral carotid artery stenosis (Primary Dx); Dyslipidemia; Essential hypertension 02/08/2025 Orders Only [facility] at [address] [place] [phone] Hayden Leyva MD Bilateral carotid artery stenosis (Primary Dx) 02/01/2025 Telephone [address] [address] [address] [place] [address] Eliot Denson MD 01/15/2025 Results Follow-Up [facility] at [address] [place] [phone] Bibi Rice NP Urine culture Urine, clean voided 01/13/2025 3:45 PM CDT Office Visit [facility] [place] [address] [place] [address] [place] [phone] Rita Wisdom NP Chronic low back pain, unspecified back pain laterality, unspecified whether sciatica present (Primary Dx); History of recurrent UTIs 01/13/2025 3:03 PM CDT - 01/13/2025 11:59 PM CDT Hospital Encounter [address] [address] Chronic low back pain, unspecified back pain laterality, unspecified whether sciatica present Discharge Disposition: Discharge to home or self care 01/10/2025 Results Follow-Up [address] [address] [address] [place] [phone] Eliot Denson MD US Carotids Duplex Bilateral 01/04/2025 1:00 PM CDT Ancillary Procedure [facility] at [address] [place] [phone] Bilateral carotid artery stenosis 01/02/2025 1:15 PM CDT Office Visit [address] [address] [address] [place] [address] Eliot Denson MD Essential hypertension (Primary Dx); Dyslipidemia; Coronary artery disease of [place] artery of [place] heart with stable angina pectoris; Bilateral carotid artery stenosis; History of pulmonary embolism; Tobacco abuse 12/22/2024 Telephone [address] [address] [address] [place] [phone] Eliot Denson MD from Last 3 Months Surgical History Surgery Date Site/Laterality Comments HYSTERECTOMY 06/29/1979 - 06/28/1980 BLADDER SURGERY 1999, 2002, 2016 Medical History Medical History Date Comments Cancer (HCC) bladder NSTEMI (non-ST elevated myocardial infarction) ( HCC) Apr 2024- [facility] CHF (congestive heart failure) (HCC) Pulmonary embolism [...] on file 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 Gender Identity Not on file Sexual Orientation [...] Negative Ketones, ur, POC Negative Negative Specific [place], POC 1.010 1.003 - 1.030 Blood, ur, POC Small(A) Negative pH, ur, POC 5.5 5.0 - 8.0 Protein, ur, POC Negative Negative Urobilinogen, urine, POC 0.2 0.2 - 1.0 mg/dL Nitrite, ur, POC Negative Negative Leukocytes, ur, POC Negative Negative Lot Number [id number] Urine 01/13/2025 3:09 PM CDT us Rita Wisdom NP POINT OF CARE TEST ORDERABL ES Final Result * (ABNORMAL) Urine culture Urine, clean voided (01/13/2025 3:03 PM CDT) Report Final Report: Greater than or equal to 100,000 colonies/mL of Enterococcus faecalis Plus growth of clinically insignificant bacterial ana maria. (.) Comment:Testing performed by : [facility], [address] [place]., [address] Organism ENTEROCOCCUS FAECALIS [facility] Organism PLUS GROWTH OF CLINICALLY INSIGNIFICANT ANA MARIA. [facility] Urine, clean voided 01/13/2025 3:03 PM CDT 01/14/2025 12:48 AM CDT Narrative [facility] - 01/16/2025 10:43 AM CDT Testing performed by [facility] ([phone]) Organism Antibiotic Method Susceptibility Enterococcus faecalis Ampicillin (KASSANDRA) INTERPRETATIO N Susceptible Enterococcus faecalis Vancomycin (KASSANDRA) INTERPRETATIO N Susceptible Enterococcus faecalis Linezolid (KASSANDRA) INTERPRETATIO N Susceptible Enterococcus faecalis Doxycycline (KASSANDRA) INTERPRETATIO N Susceptible Enterococcus faecalis Nitrofurantoin (KASSANDRA) INTERPRETAT ION Susceptible Rita Wisdom NP LAB MICROBIOLOGY - GENERAL ORDERABLES Final Result [facility] [id number] Department [place] [address] * US Carotids Duplex Bilateral (01/04/2025 1:42 PM CDT) Anatomical Region Laterality Modality Vascular Bilateral Ultrasound 01/04/2025 12:5 4 PM CDT Narrative 01/05/2025 10:37 AM CDT Vascular & Vein Surgery [address] [place] [address] Carotid Duplex Ultrasound Report Patient Name: LEVON TERRY A : 1945 (79y 1m) Study Date: 01/04/2025 12:54:58 PM Gender: F Nutrition Services Aide: BINTA Location: [facility] Ref Provider: ELIOT DENSON Quality: Adequate Order Provider: ELIOT DENSON PROCEDURES: Carotid Report: Carotid duplex examination of the extracranial arteries was performed using 2D, color and spectral Doppler. INDICATIONS: I65.23 Occlusion and stenosis of bilateral carotid arteries. HISTORY: HTN. PE. Bladder CA. CAD- NE. Former smoker. COMPARISONS: Prior CTA 12/11/24 @ [facility]: Rt >70, Lt >70, extensive calcification [...] - 01/05/2025 Vascular & Vein Surgery [address] [facility] [place] [address] Carotid Duplex Ultrasound Report Patient Name: LEVON TERRY A : 1945 (79y 1m) Study Date: 01/04/2025 12:54:58 PM Gender: F Nutrition Services Aide: BINTA Location: [facility] Ref Provider: ELIOT DENSON Quality: Adequate Order Provider: ELIOT DENSON PROCEDURES: Carotid Report: Carotid duplex examination of the extracranial arterieswas performed using 2D, color and spectral Doppler. INDICATIONS: I65.23 Occlusion and stenosis of bilateral carotid arteries. HISTORY: HTN. PE. Bladder CA. CAD- NE. Former smoker. COMPARISONS: Prior CTA 12/11/24 @ [facility]: Rt >70, Lt >70, extensivecalcification in [...] Relevant to Health Maintenance [place] [address] [employer] [place] [address] [place] [address] Care Teams Food Technology Teacher Relationship Specialty Start Date End Date Armando Concepcion MD [id number] [place] [address] PCP - General 11/11/16
[2025-03-18 19:16] LABS: Troponin I 0.033 ng/mL (0.000-0.034)
[2025-03-18 19:26] LABS: Influenza A QL RT-PCR Negative (Negative); Influenza B QL RT-PCR Negative (Negative); RSV RNA, RT-PCR Negative (Negative); SARS-CoV-2 RNA PCR Negative (Negative)
[2025-03-18 19:37] LABS: Add Urine Microscopic? YES; Appearance Urine Cloudy (Clear); Glucose Urine UA Negative (Negative); Leukocyte Esterase Ur 3+ LEU/UL (Negative); Nitrate Urine Negative (Negative); Non Pathogenic Casts 0-2; Specific Grav Ur 1.012 (1.001-1.035)
== END 2025-03-18 20:05 | disposition home or self-care (01) ==
PROVIDERS: Emergency Provider Emergency Medicine; PCP Internal Medicine
DX: M54.2 Cervicalgia (principal); Z20.822 Contact with and (suspected) exposure to COVID-19; I11.0 Hypertensive heart disease with heart failure; I50.9 Heart failure, unspecified; E78.00 Pure hypercholesterolemia, unspecified; E55.9 Vitamin D deficiency, unspecified; R32 Unspecified urinary incontinence; M18.9 Osteoarthritis of first carpometacarpal joint, unspecified; K21.9 Gastro-esophageal reflux disease without esophagitis; Z90.710 Acquired absence of both cervix and uterus; Z85.51 Personal history of malignant neoplasm of bladder; Z86.711 Personal history of pulmonary embolism; Z87.440 Personal history of urinary (tract) infections; Z87.891 Personal history of nicotine dependence; Z79.01 Long term (current) use of anticoagulants; Z79.02 Long term (current) use of antithrombotics/antiplatelets; Z79.84 Long term (current) use of oral hypoglycemic drugs; Z79.899 Other long term (current) drug therapy; R94.31 Abnormal electrocardiogram [ECG] [EKG]
CPT/HCPCS: 36415; 71046; 80053; 81001; 83690; 84484; 85025; 85610; 85730; 87077; 87086; 87186; 87637; 93005; 99284

== ENCOUNTER 2025-05-25 19:22 | Inpatient (IN) | payer MEDICARE, SELFPAY ==
--- NOTE | ~2025-05-25 | CT_ITS ---
Diana Terry EXAMINATION: CT abdomen pelvis w con COMPARISON: None HISTORY: UTI, sepsis TECHNIQUE: Axial images were obtained through the abdomen, pelvis post administration of IV contrast. Oral contrast was also administered. Coronal reconstruction images were obtained from the axial views. CT scan performed using dose optimization techniques including the following automated exposure control; adjustment of mA and/or kV; use of iterative reconstruction technique. Automatic exposure control was used to reduce radiation dose. Permanent radiation dose record is archived to PACS. FINDINGS: CT abdomen: LUNG BASES: Mild cardiomegaly. Trace pericardial effusion. LIVER: Mild hepatic steatosis. Portal vein patent. No intrahepatic biliary duct dilatation. SPLEEN: There is a large old splenic infarct noted.. KIDNEYS: Right Kidney: Right kidney is atrophic with severe hydronephrosis and hydroureter without obstructing distal ureteral calculus. Left Kidney: Left kidney is atrophic with severe hydronephrosis and hydroureter without obstructing distal ureteral calculus. ADRENAL GLANDS: Unremarkable. PANCREAS: Mild atrophy of the pancreas. GALLBLADDER/BILIARY: Unremarkable. No biliary dilatation. STOMACH AND ESOPHAGUS: The stomach appears decompressed. There is mild thickening of the gastric wall with hyperemia which may relate to mild gastritis. BOWEL/MESENTERY: Moderate fecal content, no colitis or diverticulitis. Mesentery normal. Small bowel normal. No thickening or dilated loops of small bowel. Appendix is not identified. ADENOPATHY/RETROPERITONEUM: No lymphadenopathy. AORTA/VASCULATURE: Normal caliber aorta. FREE FLUID OR FREE AIR: No free fluid.. CT pelvis: SOLID ORGANS/REPRODUCTIVE: Post hysterectomy. BLADDER: The bladder appears decompressed. OSSEOUS STRUCTURES: No acute osseous abnormality.No suspicious lesions. OVERLYING SOFT TISSUES: Unremarkable. IMPRESSION: 1. Bilateral hydronephrosis and hydroureter with distal stricture suspected. Findings are probably chronic without. The renal parenchyma noted bilaterally. 2. Incidental findings above Reviewed, dictated and finalized at location P. CAN FOOD MAKER IMPRESSION: 1. Bilateral hydronephrosis and hydroureter with distal stricture suspected. Fi ndings are probably chronic without. The renal parenchyma noted bilaterally. 2. Incidental findings above
--- NOTE | ~2025-05-25 | XR_ITS ---
EXAMINATION: XR chest 1V portable COMPARISON: No comparisons available. HISTORY: crackles/SOB FINDINGS: Moderate pulmonary venous congestion. Small basilar infiltrates with trace left effusion. No pneumothorax. Moderate cardiomegaly. Mediastinal and hilar contours are within normal limits. Bony thorax no acute abnormality. Miscellaneous: None Impression: CHF. Early left lower lobe pneumonia suspected. Reviewed, dictated and finalized at location P. D STUDY TEAM DIRECTOR Impression: CHF. Early left lower lobe pneumonia suspected.
--- NOTE | ~2025-05-25 | CT_ITS ---
CT brain without contrast HISTORY: AMS COMPARISON: None. TECHNIQUE: Multiplanar images were obtained of the head without intravenous contrast. FINDINGS: There is mild periventricular lucency, consistent with ischemic small vessel disease. ICH: No acute intracranial hemorrhage, mass effect or midline shift. No extra- axial fluid collections. Mass(es): There is no mass or mass effect seen. CVA: No evidence of acute infarct is seen. CSF Spaces: There is no evidence of hydrocephalus. The CSF spaces are prominent, consistent with mild, generalized atrophy. Skull: The calvarium is intact. Sinuses/MastoidsVisualized paranasal sinuses and mastoid air cells are clear. There is been bilateral cataract removal. IMPRESSION: No acute findings. All CT scans at this facility are performed using low dose modulation techniques as appropriate to perform exam including the following: automated exposure control; use of iterative reconstruction technique; adjustment of the mA and/or kV according to patient size (this includes techniques or standardized protocols for targeted exams where dose is matched to indication/reason for exam). Reviewed, dictated and finalized at location A. MBLER SEAT IMPRESSION: No acute findings. All CT scans at this facility are performed using low dose modulation techniqu es as appropriate to perform exam including the following: automated exposure c ontrol; use of iterative reconstruction technique; adjustment of the mA and/or kV according to patient size (this includes techniques or standardized protocol s for targeted exams where dose is matched to indication/reason for exam).
--- NOTE | ~2025-05-25 | XR_ITS ---
PROCEDURE/PROCEDURES: XR foot RT 2V HISTORY: Pain; no injury COMPARISON(S): None. TECHNIQUE: 2 radiographic images were submitted for interpretation. FINDINGS: Bones: There are no fractures seen. There are no destructive lesions or other lesions identified. Joints: There are no dislocations identified. There is degenerative change in the midfoot with multiple lucencies in the tarsal bones. There is mild to moderate plantar calcaneal spurring. There is evidence of mild hallux valgus. There is some calcification in the soft tissues about this region as well as soft tissue swelling and changes in the first MTP joint. IMPRESSION: No acute abnormalities are seen. Given the MTP findings, consider gout. Reviewed, dictated and finalized at location A. IMPRESSION: No acute abnormalities are seen. Given the MTP findings, consider g out.
--- NOTE | ~2025-05-25 | XR_ITS ---
Examination: XR chest 1V portable Clinical History: wheezing Comparison: 05/25/2025 Technique: Portable AP Findings: Heart size normal. Worsening bibasilar opacities, left lung worse. No acute bony abnormality. IMPRESSION: 1. Worsening bibasilar atelectasis and/or airspace disease, left lung worse. Reviewed, dictated and finalized at location R. HEADLIGHT MECHANIC
--- NOTE | ~2025-05-25 | XR_ITS ---
EXAM/PROCEDURE: XR chest 1V portable HISTORY: Injury COMPARISON: March 18 TECHNIQUE: 1 view(s) of the chest. FINDINGS: The exam is obtained in marked expiration, which is causing crowding of the lung markings. LUNGS: No definite airspace disease PLEURAL SPACES: Clear. No evidence of fluid or pneumothorax. HEART/ MEDIASTINUM: Cardiomegaly SOFT TISSUES: No significant findings. BONES: No acute osseous abnormality. IMPRESSION: Cardiomegaly and expiratory image, making evaluation of the interstitium difficult. Pulmonary vascular congestion is not excluded. No airspace disease. Reviewed, dictated and finalized at location A. RVISOR [employer]ING IMPRESSION: Cardiomegaly and expiratory image, making evaluation of the interstitium diffic ult. Pulmonary vascular congestion is not excluded. No airspace disease.
--- NOTE | ~2025-05-25 | XR_ITS ---
EXAMINATION: XR ankle RT 2V, 05/29/2025 11:00 DEICER INSPECTOR ELECTRIC HISTORY: swelling/ pain UNKNOWN INJ COMPARISON: No comparisons available. Findings: No acute fracture or malalignment. No significant degenerative changes. Soft tissues unremarkable. Impression: No acute fracture or malalignment. Reviewed, dictated and finalized at location P. ER INSPECTOR ELECTRIC Impression: No acute fracture or malalignment.
--- NOTE | ~2025-05-25 | XR_ITS ---
EXAMINATION: XR chest 1V portable COMPARISON: No comparisons available. HISTORY: Shortness of breath FINDINGS: Mild pulmonary venous congestion. Small left basilar infiltrate and effusion. No pneumothorax. Moderate cardiomegaly. Mediastinal and hilar contours are within normal limits. Bony thorax no acute abnormality. Miscellaneous: None Impression: CHF. Superimposed pneumonia is suspected the findings appear improved compared to the previous study. Reviewed, dictated and finalized at location P. TOLOGY ONCOLOGY CONSULTANT Impression: CHF. Superimposed pneumonia is suspected the findings appear improved compared to the previous study.
--- NOTE | 2025-05-25 19:26 | ECG_ITS ---
Test Date: 2025-05-25 19:45:20 Measurements Intervals [place] Rate: 93 P: 0 WY: 0 QRS: 27 QRSD: 102 T: 144 QT: 333 QTc: 414 Interpretive Statements SINUS RHYTHM WITH PACS AND PVCS NONSPECIFIC T-WAVE ABNORMALITY ABNORMAL ECG Compared to ECG 03/18/2025 14:45:56 PVCS AND PACS ARE NOTED Electronically Signed On 05-26-2025 13:11:07 BACK ORDER CLERK by Raymond Long M.D.
[2025-05-25 19:34] VITALS: BP 105/67; PULSE 90; RESP 26; O2SAT 98
--- NOTE | 2025-05-25 19:38 | ED_ITS ---
HPI - Weakness General Chief complaint: Weakness Stated complaint: AMS, FALL 2 DAYS AGO; ON BLOOD THINNERS Time Seen by Provider: 05/25/25 19:23 History of Present Illness HPI Narrative: 79-year-old female with history of CHF 4th reduced ejection fraction, CAD with no stents medically managed. Patient is on low-dose apixaban and clopidogrel. Patient presents to the emergency department today after she has been having progressive lethargy and weakness for last 2 weeks and then over last 2 days had worsening functional status, falls out of bed and currently being treated for urinary tract infection with Keflex. Patient's family members providing majority of the collateral formation is patient is confused and not able to answer questions very appropriately. She is able to no was in the room and where she is but confused about events and what is going on with her health presently. She is very weak and lethargic appearing on exam but arousable to verbal and physical stimuli. Patient herself denies any headache, vision changes, chest pain, shortness of breath, abdominal pain, nausea, vomiting, fever, diarrhea, cough. Patient has right foot pain after 1 over falls and has been more confused after a fall 2 days ago per family members. They states she has not been taking care of herself, lying in bed and only getting up for 1 hour a day and having minimal p.o. intake. Related Data Allergies Allergy/AdvReac Type Severity Reaction Status Date / Time aspirin Allergy Unknown Verified 05/17/24 11:59 Review of Systems 2 Review of Systems: As reviewed above in HPI All systems reviewed & are unremarkable except as noted in HPI and below PMFSH Past Medical History Medical History CHF (congestive heart failure) Vitamin D deficiency Pure hypercholesterolemia Overweight (09/19/16) Other chronic pain Melanocytic nevus of neck Chronic right shoulder pain Urgency incontinence PVC's (premature ventricular contractions) Hypokalemia Acute UTI Osteoarthritis of first carpometacarpal joint of right hand Retention of urine Bilateral hydronephrosis Pulmonary infarct Pulmonary emboli 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 PONV (postoperative nausea and vomiting) GERD (gastroesophageal reflux disease) Hypertension Surgical History Surgical History History of bladder surgery History of hysterectomy Family History Family History Mother Family history of renal failure Patient's mother is Father Family history of heart disease in male family member before age 55 Patient's father is Other Diabetes mellitus Family history of arthritis Hypertension Urge incontinence Social History Social History Smoking packs per day: 1 Smoking cigarettes per day: 20.0 Years smoked: 55 Smoking pack-years: 55.00 Smoking status: Former smoker Alcohol intake: never Substance use: never Substance use type: does not use Lack of Transportation: No Lack of Food: Never True Current Housing: I Do Not Have Housing Concerned About Future Housing: No Difficulty Paying Gas/Electric Bills: No Difficulty Paying for Meds: No Currently Unemployed: No Education: High School Diploma/GED Difficulty w/ Childcare or Family Care: No Living arrangements: alone Additional living arrangements comments: Spiritual care concerns: No Exam 2 Narrative: GENERAL: Ill-appearing, tachypneic, lethargic but responding to physical and verbal stimuli. HEAD: Normocephalic and atraumatic EYES: PERRLA with extraocular movements intact ENT: Nares clear, no rhinorrhea or epistaxis. Mucous membranes very dry. NECK: Supple. CHEST: Clear to auscultation without any wheezing, rhonchi or decreased air entry. Is tachypneic with deep breathing HEART: Regular rate, regular rhythm, warm extremities. 2+ pulses ABDOMEN: Soft, nontender, nondistended, no peritonitis EXTREMITIES: Normal range of motion. No edema, tenderness to palpation and some mild redness over the dorsal aspect of the right foot from recent fall. No step-offs deformities. Ankle plantar and dorsiflexion full strength SKIN: Warm, dry, no rash. NEURO: Moving all extremities without any focal deficits or slurring speech. No facial asymmetry. Alert and oriented x2 Course Vital Signs Vital signs: Vital Signs Pulse Rate 90 05/25/25 19:34 Respiratory Rate 26 H 05/25/25 19:34 Blood Pressure 105/67 05/25/25 19:34 Pulse Oximetry 98 05/25/25 19:34 Oxygen Delivery Room Air 05/25/25 19:34 Temperature 38.8 C H 05/25/25 21:30 Pulse Rate 50 L 05/26/25 04:26 Respiratory Rate 16 05/26/25 04:26 Blood Pressure 116/67 05/26/25 04:26 Pulse Oximetry 100 05/26/25 04:26 Oxygen Delivery Room Air 05/25/25 19:34 Procedures Central Line Placement Right Femoral: Central Line Date: 05/25/25 Central Line Time: 23:40 Discussed w/ the patient/family/POA,the placement of a central venous catheter, including its clinical necessity/indication & associated potential risks, benifits and alternatives.: Yes The patient/family/POA understand(s) and acknowledge(s) the need to proceed with central venous catheter insertion as an important element of the patient's clinical management.: Yes Time Out Performed: Yes Patient Placed on Monitor/Pulse Ox: Yes Max. Sterile Barrier Technique: Caps, large sterile sheet and hand hygiene Central Line Prep: 2% chlorhexidine scrub and sterile drapes applied Technique: US-Guided Local Anesthetic: lidocaine 1% Amount of anesthesia used (mL): 3 Ultrasound Used for Placement: Yes Central Line Lumen Inserted: triple Post Procedure: sutured in place, good blood return, all ports aspirated, flushed, capped and sterile dressing applied Patient Tolerated Procedure: well and no complications Complications: none MDM - Weakness MDM Narrative Medical decision making narrative: 79-year-old female with history of CHF 4th reduced ejection fraction, CAD with no stents medically managed. Patient is on low-dose apixaban and clopidogrel. Patient presents to the emergency department today after she has been having progressive lethargy and weakness for last 2 weeks and then over last 2 days had worsening functional status, falls out of bed and currently being treated for urinary tract infection with Keflex. Patient's family members providing majority of the collateral formation is patient is confused and not able to answer questions very appropriately. She is able to no was in the room and where she is but confused about events and what is going on with her health presently. She is very weak and lethargic appearing on exam but arousable to verbal and physical stimuli. Patient herself denies any headache, vision changes, chest pain, shortness of breath, abdominal pain, nausea, vomiting, fever, diarrhea, cough. Patient has right foot pain after 1 over falls and has been more confused after a fall 2 days ago per family members. They states she has not been taking care of herself, lying in bed and only getting up for 1 hour a day and having minimal p.o. intake. Patient is ill-appearing, tachypneic, very dry and dehydrated. Likely multifactorial but given the fall on blood thinners also concerning for potential intraparenchymal/cranial hemorrhage. Dehydration from UTI/sepsis likely, low suspicion pneumonia given her clear breath sounds but she is tachypneic likely from volume depletion. Septic bundle was initiated this time. She was given 2 L of fluid, blood cultures, lactic acid ordered. Administered Rocephin empirically for UTI currently being treated with Keflex. X-rays of the chest and foot were obtained as well as a CT of the head. EKG obtained. Placed on quality assurance monitor body and re-evaluated. Patient re-evaluated after fluids and has worsening vital signs. Current blood pressure down trending to 79/45. She is febrile given Tylenol, 30 cc/kg bolus given additional fluid resuscitation provided she appears very dry. Expanded her antibiotics to include vancomycin cefepime, discussed with family about central access and vasopressors. Started peripheral norepinephrine and femoral central line will be placed. CT abdomen pelvis with IV contrast ordered for further infection delineation possibility of pyelonephritis or infected kidney stone given her UTI recently being treated with Keflex and failing. Family members are concerned about her blood pressure and states she is on several different antihypertensives and she normally runs low but she has been down trending and septic, will proceed with vasopressors. Right femoral central venous catheter placed without complication. Patient started on norepinephrine with improvement in vital signs. Currently 116/67. Tachypnea resolved, fever broke after Tylenol. 100% on room air. CT of the head unremarkable. CT of of the abdomen pelvis shows chronic hydronephrosis and hydroureter seen on multiple previous CT scans. She has a bladder stimulator device for this and follows with Urology. Other solid organs are within normal limits. No bowel obstruction. No fracture. Small splenic infarct but she is already anticoagulated. She has responded to vasopressors but failed fluid resuscitation efforts. Likely shock secondary to urinary tract infection and possibly Gram-negative sepsis awaiting blood cultures. Hospitalist was spoken to and patient was accepted to the ICU. Spoke to the visual educator Dr. Ca. Family members made aware of the plan. Lab Data 05/25/25 20:41 05/25/25 20:42 Labs: Lab Results 05/25/25 05/25/25 05/25/25 Range/Units 20:41 20:42 21:23 WBC 13.5 H (4.5-10.0) K/mm3 RBC 3.84 L (4.2-5.4) M/mm3 Hgb 9.6 L (12.0-15.0) g/dL Hct 30.8 L (37.0-47.0) % MCV 80.2 (80-100) fl MCH 25.0 L (26-34) pg MCHC 31.2 L (32-36) g/dl RDW 15.6 H (11.5-14.5) % Plt Count 425 H (150-375) k/mm3 MPV 8.8 (7.4-10.4) fl Immature Gran % (Auto) 0.7 H (0-0.5) % Neut % (Auto) 83.0 H (45.5-73.1) % Lymph % (Auto) 8.8 L (18.3-44.2) % Swisher % (Auto) 7.1 (2.6-8.5) % Eos % (Auto) 0.0 (0-4.4) % Baso % (Auto) 0.4 (0.2-1.2) % Lymph # (Auto) 1.19 (0.9-3.2) K/mm3 Swisher # (Auto) 1.0 H (0.1-0.6) K/mm3 Eos # (Auto) 0.0 (0-0.3) K/mm3 Baso # (Auto) 0.1 (0.0-0.1) K/mm3 Abs Immat Gran (auto) 0.10 H (0.00-0.031) K/mm3 Absolute Neuts (auto) 11.2 H (1.3-6.7) K/mm3 Absolute Nucleated RBC 0.000 (0.0-0.012) K/mm3 Nucleated RBC % 0.0 (0.0-0.2) % PT 17.7 H (11.1-14.7) Seconds INR 1.5 APTT 31.1 (22.3-36.8) Seconds Sodium 135 L (137-145) mmol/L Potassium 3.2 L (3.4-5.0) mmol/L Chloride 103 (98-107) mmol/L Carbon Dioxide 25 (22-30) mmol/L Anion Gap 7 (4-12) mmol/L BUN 22 H (7-17) mg/dL Creatinine 1.27 H (0.7-1.0) mg/dL Estim Creat Clear Calc 23 ml/min Estimated GFR 40 L (59 - ) Glucose 127 H (65-110) mg/dL Lactic Acid 0.8 (0.7-2.0) mmol/L Calcium 9.6 (8.4-10.2) mg/dL Total Bilirubin 0.5 (0.2-1.3) mg/dL AST 31 (14-36) U/L ALT 12 (6-35) U/L Alkaline Phosphatase 80 (38-126) U/L Total Creatine Kinase 47 (30-135) U/L Total Protein 8.0 (6.3-8.2) g/dL Albumin 3.5 (3.5-5.1) g/dL Urine Color Yellow (Yellow) Urine Appearance Clear (Clear) Urine pH 5.5 (5.0-9.0) Ur Specific [place] 1.010 (1.001-1.035) Urine Protein Trace (Negative) mg/dL Urine Glucose (UA) Negative (Negative) mg/dL Urine Ketones Negative (Negative) mg/dL Ur Blood (Man) Trace (Negative) Urine Nitrate Negative (Negative) Urine Bilirubin Negative (Negative) Urine Urobilinogen 0.2 (<2.0) mg/dL Add Ur Microanalysis Reviewed Leukocyte Esterase Rfl 2+ H (Negative) OC/UL Urine RBC 0-2 (0-2) /hpf Urine WBC 21-50 H (0-3) /hpf Ur Squamous Epith Cells Occasional (Few) /hpf Urine Bacteria None seen /hpf Urine Casts 0-2 Urine Opiates Screen Negative (Negative) Urine Methadone Screen Negative (Negative) Ur Barbiturates Screen Negative (Negative) Ur Phencyclidine Scrn Negative (Negative) Ur Amphetamine Screen Negative (Negative) U Benzodiazepines Scrn Negative (Negative) Urine Cocaine Screen Negative (Negative) U Cannabinoids Screen Negative (Negative) Ethyl Alcohol < 10 (<10) mg/dL Critical Care Time Critical Care Time Critical Care Time: Yes Total Critical Care Time: 105 (Critical care time is exclusive of separately billable procedures above) Discharge Plan Discharge Clinical Impression: Septic shock, Acute UTI, MAGALIS (acute kidney injury), Weakness Patient Disposition: Still a Patient Condition: Stable Patient Language: Portuguese Prescriptions: No Action apixaban 2.5 mg tablet 2.5 mg PO Q12H Qty: 60 1RF losartan [Cozaar] 50 mg Tablet 50 mg PO DAILY Qty: 30 1RF furosemide 40 mg Tablet 40 mg PO QAM Qty: 30 1RF atorvastatin 40 mg Tablet 40 mg PO HS Qty: 30 1RF carvedilol [Coreg] 6.25 mg Tablet 6.25 mg PO Q12HR Qty: 60 1RF clopidogrel 75 mg Tablet 75 mg PO QAM Qty: 30 1RF Jardiance 10 mg Tablet 10 mg PO DAILY Qty: 30 1RF metaxalone 400 mg tablet 800 mg PO TID Qty: 20 0RF Follow-up/Referrals: Green,Agustin Wade MD [Primary Care Provider] Time of Disposition: 04:40
[2025-05-25] MEDS: LACTATED RINGERS 1,000 ML 999 ML IV CONT ×3 (20:45→23:28)
[2025-05-25 20:47] LABS: Hematocrit 30.8 % (37.0-47.0); Hemoglobin 9.6 g/dL (12.0-15.0); Immature Granulocyte Percent A 0.7 % (0-0.5); Lymphocytes Absolute Auto 1.19 K/mm3 (0.9-3.2); Mean Corpuscular HGB Conc 31.2 g/dl (32-36); Mean Corpuscular Hemoglobin 25.0 pg (26-34); Mean Corpuscular Volume 80.2 fl (80-100); Nucleated Red Blood Cells Absolute Auto 0.000 K/mm3 (0.0-0.012); Nucleated Red Blood Cells Perc 0.0 % (0.0-0.2); Platelet Count Result 425 k/mm3 (150-375); Red Blood Count 3.84 M/mm3 (4.2-5.4); White Blood Count 13.5 K/mm3 (4.5-10.0)
[2025-05-25 21:01] LABS: Alanine Aminotransferase 12 U/L (6-35); Albumin Level 3.5 g/dL (3.5-5.1); Alkaline Phosphatase 80 U/L (38-126); Anion Gap 7 mmol/L (4-12); Aspartate Amino Transferase 31 U/L (14-36); Bilirubin,Total 0.5 mg/dL (0.2-1.3); Blood Urea Nitrogen 22 mg/dL (7-17); Calcium 9.6 mg/dL (8.4-10.2); Carbon Dioxide 25 mmol/L (22-30); Chloride 103 mmol/L (98-107); Creatine Kinase 47 U/L (30-135); Estimated CRCL calculation 23 ml/min; Estimated Glomerular Filt Rate 40; Glucose 127 mg/dL (65-110); Potassium 3.2 mmol/L (3.4-5.0); Sodium 135 mmol/L (137-145); Total Protein 8.0 g/dL (6.3-8.2)
[2025-05-25 21:03] LABS: INR 1.5; Partial Thromboplastin Time 31.1 Seconds (22.3-36.8); Prothrombin Time 17.7 Seconds (11.1-14.7)
[2025-05-25] MEDS: cefTRIAXone 2 GM in SODIUM CHLORIDE 0.9% IV 100 ML 200 ML IVPB (21:26)
[2025-05-25 21:30] VITALS: BP 91/62; PULSE 79; RESP 17; TEMP 38.8; O2SAT 96
[2025-05-25 21:47] LABS: Cannabinoid Screen Urine Negative (Negative)
[2025-05-25 21:59] LABS: Add Urine Microscopic? YES; Appearance Urine Clear (Clear); Glucose Urine UA Negative (Negative); Leukocyte Esterase Ur 2+ LEU/UL (Negative); Need Manual Microscopic Reviewed; Nitrate Urine Negative (Negative); Non Pathogenic Casts 0-2; Specific Grav Ur 1.010 (1.001-1.035)
[2025-05-25] MEDS: CEFEPIME 2 GM in SODIUM CHLORIDE 0.9% IV 50 ML 100 ML IVPB (22:51)
[2025-05-25] MEDS: ACETAMINOPHEN 500 MG TABLET 1000 MG PO (22:51)
[2025-05-25] MEDS: VANCOMYCIN 1,500 MG/NS 500 ML 1,500 MG/500 ML BAG 250 MG IVPB (23:30)
[2025-05-26] VITALS (105 sets, daily range): BP systolic 74–139; BP diastolic 48–98; PULSE 47–74; RESP 12–25; TEMP 35.6–37.3; O2SAT 94–100; BMI 23.7
--- NOTE | 2025-05-26 | ECHO_ITS ---
Patient Info Name: Diana Terry Age: 79 years : 1945 Gender: Female Ht: 60 in Wt: 121 lbs BSA: 1.53 m2 HR: 60 bpm BP: 121 / 74 mmHg Technical Quality: Good Exam Date: 05/26/2025 9:30 AM Patient Status: I Admit Date: 05/26/2025 Exam Type: CA echo dop color flow w con Complete two-dimensional, color flow and Doppler transthoracic echocardiogram is performed with contrast to opacify the left ventricle and to improve the deliniation of the left ventricle endocardial borders. Staff Referring Physician: Naseem Jain Spin Instructor: Guillermina Johnson Attending Provider: Fili Moise Contrast/Agitated Saline Contrast/Ag. Saline: Definity Amount: 2.00 ml Summary 1. Definity contrast administered improved wall motion interpretation. 2. Left ventricular chamber dimension is moderately enlarged. 3. Left ventricular systolic function is moderately globally reduced, estimated at 40-45. 4. The left ventricular diastolic function is grade I diastolic dysfunction. 5. E/e' 21 is elevated. 6. Left atrial chamber dimension is mildly enlarged. 7. There is mild aortic valve sclerosis. 8. There is moderate mitral valve regurgitation. 9. There is mild tricuspid valve regurgitation. 10. No pulmonary hypertension, estimated pulmonary arterial systolic pressure is 37 mmHg. 11. There is trace pulmonic regurgitation. Left Ventricle E/e' 21 is elevated. Left ventricular chamber dimension is moderately enlarged. Left ventricular systolic function is moderately globally reduced, estimated at 40-45. The left ventricular diastolic function is grade I diastolic dysfunction. Definity contrast administered improved wall motion interpretation. Right Ventricle Right ventricular chamber dimension is normal. Right ventricular systolic function is normal. Left Atria Left atrial chamber dimension is mildly enlarged. Right Atria Right atrial chamber dimension is normal. Aortic Valve The aortic valve is trileaflet. There is mild aortic valve sclerosis. There is no aortic valve stenosis. There is no aortic valve regurgitation. No aortic valve vegetation visualized. Pulmonic Valve There is trace pulmonic regurgitation. No pulmonic valve vegetation visualized. Mitral Valve There is no mitral valve stenosis. There is moderate mitral valve regurgitation. No mitral valve vegetation visualized. Tricuspid Valve There is mild tricuspid valve regurgitation. No pulmonary hypertension, estimated pulmonary arterial systolic pressure is 37 mmHg. No tricuspid valve vegetation visualized. Pericardium/Pleural There is no pericardial effusion. Inferior Vena Cava Normal inferior vena cava with >50% collapse upon inspiration consistent with normal right atrial pressure, 5 mmHg. Aorta The aortic root size at the sinus of Valsalva is normal. Left Ventricular Outflow Tract Name Value Normal LVOT 2D LVOT Diameter 2.0 cm LVOT Doppler LVOT Peak Velocity 114 cm/s LVOT Peak Gradient 5 mmHg LVOT Mean Gradient 2 mmHg LVOT VTI 24 cm LVOT Stroke Volume 75 ml LVOT CO 4.5 l/min LVOT CI 3.0 l/min/m2 Pulmonic Valve Name Value Normal RVOT Doppler RVOT Peak Velocity 71 cm/s RVOT Peak Gradient 2 mmHg PV Doppler PV Peak Velocity 92 cm/s PV Peak Gradient 3 mmHg Mitral Valve Name Value Normal MV Regurgitation Doppler MR Peak Gradient 169 mmHg MV Diastolic Function MV E Peak Velocity 97 cm/s MV A Peak Velocity 100 cm/s MV E/A 1.0 MV Decel Time (PW) 269 ms MV Annular TDI MV E/e' (Septal) 27.3 MV E/e' (Lateral) 17.2 MV E/e' (Average) 22.3 Tricuspid Valve Name Value Normal TV Regurgitation Doppler TR Peak Velocity 284 cm/s TR Peak Gradient 32 mmHg Estimated PAP/RSVP RA Pressure 5 mmHg <=5 PA Systolic Pressure 37 mmHg <36 RV Systolic Pressure 37 mmHg <36 Aortic Valve Name Value Normal AV Doppler AV Peak Velocity 177 cm/s AV Peak Gradient 13 mmHg AV Area (Cont Eq Artemio) 2.0 cm2 AV DI (Artemio) 0.64 AV Regurgitation 2D LVOT Area 3.2 cm2 Ventricles Name Value Normal LV Dimensions 2D/MM IVS Diastolic Thickness (2D) 0.9 cm 0.6-1.0 LVID Diastole (2D) 5.3 cm 3.8-5.2 LVIW Diastolic Thickness (2D) 0.9 cm 0.6-0.9 LVID Systole (2D) 4.4 cm 2.2-3.5 LVOT Diameter 2.0 cm LV Mass (2D Cubed) 174.41 g 67.00-162.00 LV Mass Index (2D Cubed) 114 g/m2 43-95 Relative Wall Thickness (2D) 0.32 <=0.42 LV Fractional Shortening/Ejection Fraction 2D/MM LV Fractional Shortening (2D) 18 % 27-45 LV EF (2D Teichholz) 37 % LV Diastolic Volume (4C MOD) 185 ml LV EF (4C MOD) 43 % LV Diastolic Volume (2C MOD) 166 ml LV EF (2C MOD) 34 % LV Diastolic Volume (BP MOD) 177 ml 46-106 LV Diastolic Volume Index (BP MOD) 116 ml/m2 29-61 LV Systolic Volume (BP MOD) 105 ml 14-42 LV Systolic Volume Index (BP MOD) 68 ml/m2 8-24 LV EF (BP MOD) 41 % 54-74 LV Diastolic Length (4C) 8.0 cm LV Systolic Length (4C) 7.4 cm LV Stroke Volume (4C MOD) 79 ml Atria Name Value Normal LA Dimensions LA Volume (4C A-L) 37 ml LA Volume (BP A-L) 49 ml RA Dimensions RA Systolic Major [place] Length (4C) 4.3 cm 2.2-2.8 RA Area (4C) 8.3 cm2 <=18.0 Report Signatures
[2025-05-26] MEDS: NOREPINEPHRINE 8 MG/D5W 250 ML 8 MG/250 ML BAG 9.38 MG IV CONT (00:04)
--- NOTE | 2025-05-26 04:41 | PM.IMHP ---
H&P: HPI History of Present Illness Date/Time: 05/26/25 04:41 Chief Complaint: Weakness Narrative: This is an 79-year-old independent female patient who has a history of coronary artery disease that is medically managed and congestive heart failure. The patient has been on low-dose apixaban and Plavix. The patient came to the emergency room today due to increase listed G and weakness for the last 2 weeks. Typically the patient is pretty independent however the family stated that she has been having worsening weakness over the last 2 days and has been having falls. She is being treated for urinary tract infection at this time with Keflex. The patient is very hard of hearing but is able to offer history at this time. Earlier the family was offering history. Her initial temperature was 101.9?. Her H&H is 9.6 and 30.8. Her white count is 13.5. Sodium was 135, potassium 3.2, BUN 22 and creatinine 1.27 with a GFR 40. Glucose is 127. Her urine was positive for 2+ leukocyte esterase and wbc's 21-50. X-ray of the right foot was read as no acute abnormalities as per Radiology. Head CT was read as no acute findings as per Radiology. Chest x-ray was read as cardiomegaly and expiratory image, making evaluation of the interstitium difficult. Pulmonary vascular congestion is not excluded. No airspace disease. CT of the abdomen and pelvis was read as a small splenic infarct which is chronic. Severe right and moderate to severe left hydronephrosis and hydroureter without never nephrolithiasis which is also chronic. The patient fits sepsis criteria. Her blood pressure dropped down a 74/48. The patient was given at 30 milligram/kilogram as per sepsis protocol. She has had 4 L of lactated Ringer's. However the patient was not stable and therefore a central line was started in the emergency room and she was started on Levophed. Her blood pressure came to 116/67. The patient's temperature dropped down to 96.3 and a Josh Hugger was placed. The cigar wrapper tender automatic was notified and agrees to the consult. Urologist was also consulted. She was given ceftriaxone, cefepime, and vancomycin in the emergency room. The patient is being admitted to ICU inpatient on the date of service of 05/26/2025. Review of Systems Constitutional: Constitutional: Reports as per HPI and Reports no additional constitutional complaints Eyes: Eyes: Reports as per HPI and Reports no additional eye complaints ENT: Reports no additional ear, nose, mouth, and throat complaints and Reports Normal hearing present Cardiovascular: Cardiovascular: Reports no additional cardiovascular complaints Respiratory: Respiratory: Reports as per HPI and Reports no additional respiratory complaints Gastrointestinal: Gastrointestinal: Reports as per HPI and Reports no additional gastrointestinal complaints Genitourinary: Genitourinary: Reports no additional female genitourinary complaints Musculoskeletal: Musculoskeletal: Reports no additional musculoskeletal complaints Integumentary/Breasts: Skin/Breast: Reports system reviewed and no additional complaints, except as docu Neurologic: Reports no additional neurologic complaints and Reports Normal hearing present Psychiatric: Psychiatric: Reports no additional psychiatric complaints and Reports as per HPI Hematologic/Lymphatic: Hematologic/Lymphatic: Reports no additional hematologic/lymphatic complaints Allergic/Immunologic: Allergic/Immunologic: Reports no additional allergic/immunologic complaints [facility] Past Medical History Medical History (Updated 05/26/25 @ 05:30 by Nancy Noble APRN) Chronic anticoagulation Splenic infarct CHF (congestive heart failure) Vitamin D deficiency Pure hypercholesterolemia Overweight (09/19/16) Other chronic pain Melanocytic nevus of neck Chronic right shoulder pain Urgency incontinence PVC's (premature ventricular contractions) Hypokalemia Acute UTI Osteoarthritis of first carpometacarpal joint of right hand Retention of urine Bilateral hydronephrosis Pulmonary infarct Pulmonary emboli 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 PONV (postoperative nausea and vomiting) GERD (gastroesophageal reflux disease) Hypertension Surgical History Surgical History History of bladder surgery History of hysterectomy Family History Family History Mother Family history of renal failure Patient's mother is Father Family history of heart disease in male family member before age 55 Patient's father is Other Diabetes mellitus Family history of arthritis Hypertension Urge incontinence Social History Social History (Updated 05/26/25 @ 05:24 by Nancy Noble APRN) Social History: She lives alone and has 2 children. She is . She is retired. Code status: Full code Smoking packs per day: 1 Smoking cigarettes per day: 20.0 Years smoked: 55 Smoking pack-years: 55.00 Smoking status: Former smoker Tobacco type: cigarettes Alcohol intake: never Substance use: never Substance use type: does not use Lack of Transportation: No Lack of Food: Never True Current Housing: I Have Housing Concerned About Future Housing: No Difficulty Paying Gas/Electric Bills: No Difficulty Paying for Meds: No Currently Unemployed: No Education: High School Diploma/GED Difficulty w/ Childcare or Family Care: No Living arrangements: alone Spiritual care concerns: No Meds Home Medications and Allergies Home Medications ?Medication ?Instructions ?Recorded ?Confirmed ?Type apixaban 2.5 mg tablet 2.5 mg PO Q12H #60 tabs 05/20/24 05/26/25 Rx atorvastatin 40 mg tablet 40 mg PO HS #30 tabs 05/20/24 05/26/25 Rx carvedilol 6.25 mg tablet (Coreg) 6.25 mg PO Q12HR #60 tabs 05/20/24 05/26/25 Rx clopidogrel 75 mg tablet 75 mg PO QAM #30 tabs 05/20/24 05/26/25 Rx furosemide 40 mg tablet 40 mg PO QAM #30 tabs 05/20/24 05/26/25 Rx losartan 50 mg tablet (Cozaar) 50 mg PO DAILY #30 tabs 05/20/24 05/26/25 Rx cephalexin 500 mg capsule 500 mg PO QID 05/26/25 05/26/25 History pregabalin 50 mg capsule 50 mg PO TID 05/26/25 05/26/25 History Allergies Allergy/AdvReac Type Severity Reaction Status Date / Time No Known Allergies Allergy Verified 05/26/25 09:06 Vital Signs Vital Signs - 24 hr 05/25/25 19:34 05/25/25 21:30 05/26/25 00:04 Temperature 101.9 F H Pulse Rate 90 79 61 Respiratory Rate 26 H 17 Blood Pressure 105/67 91/62 L 74/48 L Pulse Oximetry 98 96 Oxygen Delivery Room Air 05/26/25 00:32 05/26/25 00:33 05/26/25 00:34 Temperature Pulse Rate 65 56 L 51 L Respiratory Rate 21 H 18 18 Blood Pressure 79/48 L 94/55 L Pulse Oximetry 98 96 98 Oxygen Delivery 05/26/25 00:36 05/26/25 00:41 05/26/25 00:45 Temperature Pulse Rate 50 L 50 L 54 L Respiratory Rate 17 16 16 Blood Pressure 98/55 L 105/56 L Pulse Oximetry 99 100 99 Oxygen Delivery 05/26/25 00:46 05/26/25 00:51 05/26/25 00:56 Temperature Pulse Rate 50 L 50 L 51 L Respiratory Rate 17 17 16 Blood Pressure 106/59 L 102/60 106/59 L Pulse Oximetry 100 100 100 Oxygen Delivery 05/26/25 01:00 05/26/25 01:01 05/26/25 01:06 Temperature Pulse Rate 52 L 50 L 49 L Respiratory Rate 16 16 16 Blood Pressure 114/53 L 108/62 Pulse Oximetry 100 100 100 Oxygen Delivery 05/26/25 01:11 05/26/25 01:15 05/26/25 01:16 Temperature Pulse Rate 53 L 49 L 49 L Respiratory Rate 17 18 17 Blood Pressure 113/68 110/65 Pulse Oximetry 100 100 100 Oxygen Delivery 05/26/25 01:21 05/26/25 01:26 05/26/25 01:31 Temperature Pulse Rate 48 L 49 L 49 L Respiratory Rate 16 16 16 Blood Pressure 112/66 113/53 L 111/56 L Pulse Oximetry 100 100 100 Oxygen Delivery 05/26/25 01:36 05/26/25 01:41 05/26/25 01:46 Temperature Pulse Rate 47 L 49 L 49 L Respiratory Rate 15 16 17 Blood Pressure 114/55 L 106/64 111/65 Pulse Oximetry 100 100 100 Oxygen Delivery 05/26/25 01:51 05/26/25 01:56 05/26/25 02:01 Temperature Pulse Rate 54 L 57 L 58 L Respiratory Rate 15 14 15 Blood Pressure 114/58 L 108/67 119/66 Pulse Oximetry 100 100 99 Oxygen Delivery 05/26/25 02:06 05/26/25 02:11 05/26/25 02:16 Temperature Pulse Rate 48 L 54 L 52 L Respiratory Rate 15 15 15 Blood Pressure 112/63 110/61 113/68 Pulse Oximetry 100 100 100 Oxygen Delivery 05/26/25 02:21 05/26/25 02:26 05/26/25 02:31 Temperature Pulse Rate 53 L 48 L 49 L Respiratory Rate 16 16 15 Blood Pressure 110/68 113/61 117/60 Pulse Oximetry 100 100 100 Oxygen Delivery 05/26/25 02:36 05/26/25 02:41 05/26/25 02:46 Temperature Pulse Rate 48 L 48 L 48 L Respiratory Rate 15 16 15 Blood Pressure 115/73 117/73 113/65 Pulse Oximetry 100 100 100 Oxygen Delivery 05/26/25 02:51 05/26/25 02:56 05/26/25 03:01 Temperature Pulse Rate 49 L 48 L 48 L Respiratory Rate 16 16 16 Blood Pressure 116/60 109/59 L 111/59 L Pulse Oximetry 100 100 100 Oxygen Delivery 05/26/25 03:06 05/26/25 03:11 05/26/25 03:16 Temperature Pulse Rate 49 L 49 L 49 L Respiratory Rate 16 15 16 Blood Pressure 113/59 L 113/73 118/62 Pulse Oximetry 100 100 100 Oxygen Delivery 05/26/25 03:21 05/26/25 03:26 05/26/25 03:31 Temperature Pulse Rate 48 L 55 L 48 L Respiratory Rate 15 15 15 Blood Pressure 116/70 112/65 114/62 Pulse Oximetry 100 100 100 Oxygen Delivery 05/26/25 03:36 05/26/25 03:41 05/26/25 03:46 Temperature Pulse Rate 48 L 49 L 49 L Respiratory Rate 15 15 15 Blood Pressure 116/66 121/64 124/72 Pulse Oximetry 100 100 100 Oxygen Delivery 05/26/25 03:51 05/26/25 03:56 05/26/25 04:01 Temperature Pulse Rate 48 L 48 L 52 L Respiratory Rate 15 15 15 Blood Pressure 116/67 117/68 117/68 Pulse Oximetry 100 100 100 Oxygen Delivery 05/26/25 04:06 05/26/25 04:11 05/26/25 04:16 Temperature Pulse Rate 50 L 50 L 61 Respiratory Rate 15 16 16 Blood Pressure 114/61 115/67 115/62 Pulse Oximetry 100 100 100 Oxygen Delivery 05/26/25 04:21 05/26/25 04:26 Temperature Pulse Rate 50 L 50 L Respiratory Rate 15 16 Blood Pressure 115/69 116/67 Pulse Oximetry 100 100 Oxygen Delivery Exam Const: General: cooperative, comfortable, no acute distress, well developed, awake, Physically active, average body habitus and well nourished Nutritional Appearance: average body habitus and well nourished Orientation/consciousness: oriented to person and oriented to place HENMT: Head: normal to inspection, No palpable skull fracture present, normocephalic, atraumatic and abrasion Other: She is very hard of hearing bilaterally Eyes: General: appearance normal, both eyes and all related structures Alignment and Position: alignment normal Periorbital: periorbital findings normal Eyelids: eyelids normal Neck: Neck: normal visual inspection and full ROM Chest: Chest palpation & inspection: normal inspection of the chest Resp: Effort & Inspection: normal respiratory effort Auscultation: clear to auscultation bilaterally Percussion: percussion normal Cardio: Palpation: normal PMI Rate: regular rate Rhythm: regular rhythm Heart sounds: S1 normal heart sound present and S2 normal heart sound present Peripheral pulses: Peripheral pulses 2+ throughout GI: Inspection: normal to inspection Auscultation: normal bowel sounds Back/Spine/Pelvis: Back: no CVA tenderness Skin: General skin exam: normal color Lesions: no lesions Rashes: no rashes Trauma: no lacerations or abrasions Wounds: no wounds Hair: normal Nails: normal Neuro: General: oriented to person and oriented to place Extrem: General: normal to inspection Right upper extremity: normal to inspection and shoulder/upper arm Left upper extremity: normal to inspection and shoulder/upper arm Right lower extremity: normal to inspection Left lower extremity: normal to inspection Psych: Appearance: grossly normal Mental Status: mental status grossly normal Speech and movement: Normal speech and movement present Affect: normal affect Attitude: cooperative Thought process: Normal thought process present Thought content: Yes Normal thought content present H&P: Results Labs Labs: Short CBC 05/25/25 Range/Units 20:41 WBC 13.5 H (4.5-10.0) K/mm3 Hgb 9.6 L (12.0-15.0) g/dL Hct 30.8 L (37.0-47.0) % Plt Count 425 H (150-375) k/mm3 BMP 05/25/25 20:42 Sodium 135 L Potassium 3.2 L Chloride 103 Carbon Dioxide 25 BUN 22 H Creatinine 1.27 H Glucose 127 H Calcium 9.6 Cardiac Enzymes 05/25/25 Range/Units 20:42 Total Creatine Kinase 47 (30-135) U/L Liver Function 05/25/25 Range/Units 20:42 Total Bilirubin 0.5 (0.2-1.3) mg/dL AST 31 (14-36) U/L ALT 12 (6-35) U/L Alkaline Phosphatase 80 (38-126) U/L Albumin 3.5 (3.5-5.1) g/dL Urine 05/25/25 Range/Units 21:23 Urine Color Yellow (Yellow) Urine Appearance Clear (Clear) Urine pH 5.5 (5.0-9.0) Ur Specific [place] 1.010 (1.001-1.035) Urine Protein Trace (Negative) mg/dL Urine Glucose (UA) Negative (Negative) mg/dL ECG Interpretation: ATRIAL FIBRILLATION WITH ABERRANT CONDUCTION OR VENTRICULAR PREMATURE COMPLEXES NONSPECIFIC ST & T-WAVE ABNORMALITY Compared to ECG 03/18/2025 14:45:56 Ventricular premature complex(es) now present Aberrant conduction of supraventricular beat(s) now present Sinus rhythm no longer present T-wave abnormality still present Imaging CT scan - abdomen: Radiologist's impression: ITS Impressions Chest X-Ray 05/25/25 19:53 IMPRESSION: Cardiomegaly and expiratory image, making evaluation of the interstitium difficult. Pulmonary vascular congestion is not excluded. No airspace disease. Head CT 05/25/25 20:11 IMPRESSION: No acute findings. All CT scans at this facility are performed using low dose modulation techniques as appropriate to perform exam including the following: automated exposure control; use of iterative reconstruction technique; adjustment of the mA and/or kV according to patient size (this includes techniques or standardized protocols for targeted exams where dose is matched to indication/reason for exam). Foot X-Ray 05/25/25 20:17 IMPRESSION: No acute abnormalities are seen. Given the MTP findings, consider gout. Assessment and Plan Assessment and plan (1) Septic shock: Code(s): A41.9 - Sepsis, unspecified organism; R65.21 - Severe sepsis with septic shock Status: Acute Assessment and Plan: -her blood pressure had dropped on the 74/48. A central line was placed per ED provider and she was started on vasopressors. Continue with Levophed and maintain a map greater than 65 mmhg are systolic blood pressure greater than 100 mmHg -she did have IV boluses with the 30 milligram/kilogram per sepsis protocol. The patient had a total of 4 L of lactated Ringer's. -her initial temperature was 101.9?. Now she is 96.3 and a Josh Hugger was applied. -her white count 13.5. -most likely this is secondary to her urinary tract infection -she was given Rocephin, cefepime and vancomycin in the emergency room. As per UTI sepsis protocol she was continued on cefepime. -her last urine culture from 03/18/2025 grew out citrobacter freundii which is sensitive to Rocephin and cefepime. -the cigar wrapper tender automatic was consulted from ER and was placed in the ICU. -blood and urine cultures are pending. May consider Infectious Disease consult. -her last urine culture from 03/18/2025 grew out citrobacter freundii which is sensitive to Rocephin and cefepime. Urology has been consulted as she has chronic hydronephrosis without nephrolithiasis -monitor lactic acid (2) Acute UTI: Code(s): N39.0 - Urinary tract infection, site not specified Status: Acute Assessment and Plan: -blood and urine cultures are pending next-urology has been consulted. -her last urine culture from 03/18/2025 grew out citrobacter freundii which is sensitive to Rocephin and cefepime. - (3) History of pulmonary embolism: Code(s): Z86.711 - Personal history of pulmonary embolism Status: Chronic Assessment and Plan: -the patient is already on apixaban (4) CHF (congestive heart failure): Code(s): I50.9 - Heart failure, unspecified Status: Acute Assessment and Plan: -hold Coreg, losartan, metolazone, and Lasix at this time. -last echo on 05/17/2024 Summary 1. There is mild to moderate very eccentric mitral valve regurgitation. 2. Mild pulmonary hypertension, estimated pulmonary arterial systolic pressure is 53 mmHg. 3. There is mild tricuspid valve regurgitation. 4. The left ventricular diastolic function is grade II diastolic dysfunction. 5. Left ventricular systolic function is severely reduced with an estimated ejection fraction of 30-35%. 6. Left ventricular chamber dimension is enlarged. 7. There is small circumferential pericardial effusion. 8. Dilated inferior vena cava with >50% collapse upon inspiration consistent with elevated right atrial pressure, 10 mmHg. (5) Hypertension: Code(s): I10 - Essential (primary) hypertension Status: Chronic Assessment and Plan: hold Coreg, losartan, Jardiance and Lasix at this time. (6) GERD (gastroesophageal reflux disease): Code(s): K21.9 - Gastro-esophageal reflux disease without esophagitis Status: Chronic Assessment and Plan: -continue with IV Protonix (7) Chronic anticoagulation: Code(s): Z79.01 - exterminator helper (current) use of anticoagulants Status: Acute Assessment and Plan: -the patient has a chronic splenic infarct and has had a PE in the past. - Quality VTE Prophylaxis VTE prophylaxis: pharmacologic ordered
[2025-05-26] MEDS: LACTATED RINGERS 1,000 ML 75 ML IV CONT ×2 (05:42→20:22)
--- NOTE | 2025-05-26 06:13 | WPCEDHO ---
ED Hand Off Checklist All vitals saved:yes IV Site documented:yes All med administrations yesdocumented: Triage Note Triage Note Pt to the with C/O increased 05/25/25 19:34 weakness that started about 2 and a half weeks ago with 2 falls that were coupled along with it. Per Pt family she usually very active and recently has had a decline in energy levels and has been only awake for about an hour a day. Pt has had recent string of UTI's Allergies aspirin Allergy (Verified 05/17/24 11:59) Unknown Family History (Last Reviewed 05/25/25 @ 19:41 by Naseem Jain MD) Mother Family history of renal failure Patient's mother is Father Family history of heart disease in male family member before age 55 Patient's father is Other Diabetes mellitus Family history of arthritis Hypertension Urge incontinence Active Medications including assessments/comments Norepinephrine Bitartrate (Levophed 8 Mg/D5w 250 Ml) 8 mg in 250 mls @ 9.375 mls/hr IV CONT .Q24H FUNMI; Protocol Last Admin: 05/26/25 00:04 Dose: 5 mcg/min, 9.38 mls/hr Documented By: ZACHARYW Infusion/Titration Document 05/26/25 00:04 DJW (Rec: 05/26/25 00:07 DJW [id number]) Intake IV Site Peripheral Access Right Wrist Container Volume 250 Waste Amount 0 Dosing Dose Rate 5 Infusion Rate 9.38 Increase/Decrease Started Elapsed Time Elapsed Time ( 0m minutes) Norepinephrine Infusion Assess Document 05/26/25 00:04 DJW (Rec: 05/26/25 00:07 DJW [id number]) Infusion Action Norepinephrine Initiated Infusion Action Pulse Pulse Rate (60-100) 61 Blood Pressure Blood Pressure (100/ 74/48 L 60-140/90) Blood Pressure Mean 56 Lactated Ringer's (Lr - Lactated Ringers Iv) 1,000 mls @ 75 mls/hr IV CONT .[id number] FUNMI Last Admin: 05/26/25 05:42 Dose: 75 mls/hr Documented By: LLG Infusion/Titration Document 05/26/25 05:42 LLG (Rec: 05/26/25 05:42 LLG [id number]) Intake IV Site Peripheral Access Right Forearm Container Volume 1,000 Waste Amount 0 Dosing Infusion Rate 75 Cumulative Dose Not Applicable Increase/Decrease Started Elapsed Time Elapsed Time ( 0m minutes) Administered/Completed Medications Discontinued Medications Acetaminophen (Acetaminophen 500 Mg Tablet) 1,000 mg PO ONCE STA Stop: 05/25/25 22:13 Last Admin: 05/25/25 22:51 Dose: 1,000 mg Documented By: FRANKLYN Acetaminophen (Acetaminophen 500 Mg Tablet) 1,000 mg PO ONCE STA Stop: 05/26/25 02:35 Last Admin: 05/26/25 04:50 Dose: Not Given Documented By: FRANKLYN Non-Admin Reason: Pt afebrile and denies pain Lactated Ringer's (Lr - Lactated Ringers Iv) 1,000 mls @ 999 mls/hr IV CONT .Q1H1M STA Stop: 05/25/25 20:37 Last Infusion: 05/25/25 23:31 Dose: Infused Documented By: Admin: 05/25/25 20:45 Dose: 999 mls/hr Documented By: FRANKLYN Lactated Ringer's (Lr - Lactated Ringers Iv) 1,000 mls @ 999 mls/hr IV CONT .Q1H1M STA Stop: 05/25/25 20:37 Last Infusion: 05/25/25 23:31 Dose: Infused Documented By: Admin: 05/25/25 20:46 Dose: 999 mls/hr Documented By: FRANKLYN Ceftriaxone Sodium 2 gm/ (Sodium Chloride) 100 mls @ 200 mls/hr IVPB ONCE STA Stop: 05/25/25 20:06 Last Infusion: 05/25/25 22:15 Dose: Infused Documented By: Admin: 05/25/25 21:26 Dose: 200 mls/hr Documented By: TIMUR Lactated Ringer's (Lr - Lactated Ringers Iv) 1,000 mls @ 999 mls/hr IV CONT .Q1H1M STA Stop: 05/25/25 23:12 Last Infusion: 05/26/25 00:35 Dose: Infused Documented By: Admin: 05/25/25 23:28 Dose: 999 mls/hr Documented By: FRANKLYN Cefepime HCl 2 gm/ Sodium (Chloride) 50 mls @ 100 mls/hr IVPB ONCE STA Stop: 05/25/25 22:43 Last Infusion: 05/25/25 23:31 Dose: Infused Documented By: Admin: 05/25/25 22:51 Dose: 100 mls/hr Documented By: FRANKLYN Vancomycin HCl (Vancomycin 1,500 Mg/Ns 500 Ml) 1,500 mg in 500 mls @ 250 mls/hr IVPB ONCE ONE Stop: 05/26/25 00:59 Last Infusion: 05/26/25 01:54 Dose: Infused Documented By: Admin: 05/25/25 23:30 Dose: 250 mls/hr Documented By: FRANKLYN Interventions/Assessments IV / Saline Lock, Insert Start: 05/25/25 19:26 Freq: STAT Status: Active Protocol: Document 05/26/25 04:53 LLG (Rec: 05/26/25 04:54 LLG [id number]) IV Assessment Central Catheter, Triple Lumen Right Femoral, Groin IV Catheter Access Initiated IV Insertion Date 05/26/25 IV Insertion Time 02:30 IV Insertion 1 Attempts IV Site Assessment WNL IV Care and WNL Maintenance PA: Cardiovascular Assessment Start: 05/25/25 19:33 Freq: Status: Active Protocol: Document 05/25/25 19:34 LLG (Rec: 05/25/25 19:44 LLG [id number]) Cardiovascular Assessment Cardiovascular Dyspnea Symptoms Skin Description Normal Color Heart Sounds Normal Jugular Vein None Distention PA: Neurological Assessment Start: 05/25/25 19:33 Freq: Status: Active Protocol: Document 05/25/25 19:34 LLG (Rec: 05/25/25 19:44 LLG [id number]) Razia Coma Scale Eyes Open Verbal Oriented and Alert Motor Follows Commands Melvin Coma Total 15 Score Neurological Assessment Level of Alert,Awake Consciousness Arousable to Verbal Orientation Oriented to Person,Oriented to Place Neurological Confusion,Frequent Falls,Incontinence Bowel/Bladder, Symptoms Weakness, General Hallucination Type None Behavior Cooperative Patient Able to Comprehend Comprehension Memory Description Intact Ability to Maintain Unable to Assess Balance Facial Symmetry Symmetrical Speech Pattern Clear Tongue Position Midline Last Vital Signs Temperature 96.0 F L 05/26/25 05:30 Pulse Rate 53 L 05/26/25 05:15 Respiratory Rate 17 05/26/25 05:15 Pulse Oximetry 100 05/26/25 04:31 Blood Pressure 116/69 05/26/25 05:11 Blood Pressure Mean 85 05/26/25 05:11 Oxygen Delivery Room Air 05/25/25 19:34 Weight 55.1 kg 05/25/25 19:34 Last Result - Abnormals Only WBC 13.5 K/mm3 (4.5-10.0) H 05/25/25 20:41 RBC 3.84 M/mm3 (4.2-5.4) L 05/25/25 20:41 Hgb 9.6 g/dL (12.0-15.0) L 05/25/25 20:41 Hct 30.8 % (37.0-47.0) L 05/25/25 20:41 MCH 25.0 pg (26-34) L 05/25/25 20:41 MCHC 31.2 g/dl (32-36) L 05/25/25 20:41 RDW 15.6 % (11.5-14.5) H 05/25/25 20:41 Plt Count 425 k/mm3 (150-375) H 05/25/25 20:41 Immature Gran % (Auto) 0.7 % (0-0.5) H 05/25/25 20:41 Neut % (Auto) 83.0 % (45.5-73.1) H 05/25/25 20:41 Lymph % (Auto) 8.8 % (18.3-44.2) L 05/25/25 20:41 [place] # (Auto) 1.0 K/mm3 (0.1-0.6) H 05/25/25 20:41 Abs Immat Gran (auto) 0.10 K/mm3 (0.00-0.031) H 05/25/25 20:41 Absolute Neuts (auto) 11.2 K/mm3 (1.3-6.7) H 05/25/25 20:41 PT 17.7 Seconds (11.1-14.7) H 05/25/25 20:41 Sodium 135 mmol/L (137-145) L 05/25/25 20:42 Potassium 3.2 mmol/L (3.4-5.0) L 05/25/25 20:42 BUN 22 mg/dL (7-17) H 05/25/25 20:42 Creatinine 1.27 mg/dL (0.7-1.0) H 05/25/25 20:42 Estimated GFR 40 (59-) L 05/25/25 20:42 Glucose 127 mg/dL (65-110) H 05/25/25 20:42 Leukocyte Esterase Rfl 2+ OC/UL (Negative) H 05/25/25 21:23 Urine WBC 21-50 /hpf (0-3) H 05/25/25 21:23 Most Recent Suicide Severity Rating Suicide Severity Rating NO RISK INDICATED 05/25/25 19:34
[2025-05-26 06:16] LABS: MRSA (PCR) NOT DETECTED (NOT DETECTE)
--- NOTE | 2025-05-26 06:23 | ADMGEN ---
This patient, Diana Terry, was admitted to Intensive Care Unit-7. Patient/family oriented to hospital policies and general routines including ID bracelet, bed and alarms, visiting hours, pain management, procedures, bathroom and other care routines, personal items, smoking policy, room service/diet, and visiting hours. Information on how to activate the Rapid Response Team has been discussed. Patient/Family are encouraged to report perceived risks to care and to ask questions if they do not understand what they are told or what they should do.
[2025-05-26 06:51] LABS: Hematocrit 25.2 % (37.0-47.0); Hemoglobin 7.8 g/dL (12.0-15.0); Mean Corpuscular HGB Conc 31.0 g/dl (32-36); Mean Corpuscular Hemoglobin 25.4 pg (26-34); Mean Corpuscular Volume 82.1 fl (80-100); Platelet Count Result 354 k/mm3 (150-375); Red Blood Count 3.07 M/mm3 (4.2-5.4); White Blood Count 12.9 K/mm3 (4.5-10.0)
[2025-05-26 07:12] LABS: Anion Gap 3 mmol/L (4-12); Blood Urea Nitrogen 18 mg/dL (7-17); Calcium 8.9 mg/dL (8.4-10.2); Carbon Dioxide 26 mmol/L (22-30); Chloride 107 mmol/L (98-107); Estimated CRCL calculation 26 ml/min; Estimated Glomerular Filt Rate 49; Glucose 128 mg/dL (65-110); Potassium 3.0 mmol/L (3.4-5.0); Sodium 136 mmol/L (137-145)
[2025-05-26 09:20] LABS: Ammonia < 9 umol/L (9-30)
[2025-05-26] MEDS: PANTOPRAZOLE SODIUM IV 40 MG VIAL IV PUSH (09:23)
[2025-05-26] MEDS: KCL 40 MEQ/WATER 100 ML 100 ML 25 ML IVPB (09:26)
[2025-05-26 09:47] LABS: Influenza A QL RT-PCR Negative (Negative); Influenza B QL RT-PCR Negative (Negative); RSV RNA, RT-PCR Negative (Negative); SARS-CoV-2 RNA PCR Negative (Negative)
--- NOTE | 2025-05-26 10:29 | P.PNIM_ITS ---
Progress Note: A&P Assessment and Plan (1) Septic shock: Code(s): A41.9 - Sepsis, unspecified organism; R65.21 - Severe sepsis with septic shock Status: Acute Assessment and Plan: -her blood pressure had dropped on the 74/48. A central line was placed per ED provider and she was started on vasopressors. -she did have IV boluses with the 30 milligram/kilogram per sepsis protocol. The patient had a total of 4 L of lactated Ringer's. -her initial temperature was 101.9?. Now she is 96.3 and a Josh Hugger was applied. -her white count 13.5. -most likely this is secondary to her urinary tract infection -she was given Rocephin, cefepime and vancomycin in the emergency room. As per UTI sepsis protocol she was continued on cefepime. -her last urine culture from 03/18/2025 grew out citrobacter freundii which is sensitive to Rocephin and cefepime. -the cloud consultant was consulted from ER and was placed in the ICU. -blood and urine cultures are pending. May consider Infectious Disease consult. -her last urine culture from 03/18/2025 grew out citrobacter freundii which is sensitive to Rocephin and cefepime. Urology has been consulted as she has chronic hydronephrosis without nephrolithiasis (2) Acute UTI: Code(s): N39.0 - Urinary tract infection, site not specified Status: Acute Assessment and Plan: -blood and urine cultures are pending next-urology has been consulted. -her last urine culture from 03/18/2025 grew out citrobacter freundii which is sensitive to Rocephin and cefepime. - (3) History of pulmonary embolism: Code(s): Z86.711 - Personal history of pulmonary embolism Status: Chronic Assessment and Plan: -the patient is already on apixaban (4) CHF (congestive heart failure): Code(s): I50.9 - Heart failure, unspecified Status: Acute Assessment and Plan: -hold Coreg, losartan, metolazone, and Lasix at this time. -last echo on 05/17/2024 Summary 1. There is mild to moderate very eccentric mitral valve regurgitation. 2. Mild pulmonary hypertension, estimated pulmonary arterial systolic pressure is 53 mmHg. 3. There is mild tricuspid valve regurgitation. 4. The left ventricular diastolic function is grade II diastolic dysfunction. 5. Left ventricular systolic function is severely reduced with an estimated ejection fraction of 30-35%. 6. Left ventricular chamber dimension is enlarged. 7. There is small circumferential pericardial effusion. 8. Dilated inferior vena cava with >50% collapse upon inspiration consistent with elevated right atrial pressure, 10 mmHg. (5) Hypertension: Code(s): I10 - Essential (primary) hypertension Status: Chronic Assessment and Plan: hold Coreg, losartan, Jardiance and Lasix at this time. 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 - Plan Plan is to continue with IV antibiotic and pressure support. Patient is full code. Mechanical DVT prophylaxis ordered. Subjective Date/time seen: 05/26/25 10:29 Interval history: Was seen during the morning rounds today. Patient is slightly more alert today. No shortness of breath or chest pain. No abdominal pain, nausea, no vomiting. Review of Systems Review of Systems: All systems reviewed & are unremarkable except as noted in HPI and below (the history and physical examination) Constitutional: Constitutional: Reports as per HPI and Reports no additional constitutional complaints Eyes: Eyes: Reports as per HPI and Reports no additional eye complaints ENT: Reports system reviewed and no additional complaints, except as documented and Reports Normal hearing present Cardiovascular: Cardiovascular: Reports no additional cardiovascular complaints Respiratory: Respiratory: Reports as per HPI and Reports no additional r espiratory complaints Gastrointestinal: Gastrointestinal: Reports as per HPI and Reports no additional gastrointestinal complaints Genitourinary: Genitourinary: Reports no additional female genitourinary complaints Musculoskeletal: Musculoskeletal: Reports no additional musculoskeletal complaints Integumentary/Breasts: Skin/Breast: Reports system reviewed and no additional complaints, except as docu Neurologic: Reports system reviewed and no additional complaints, except as documented and Reports Normal hearing present Psychiatric: Psychiatric: Reports no additional psychiatric complaints and Reports as per HPI Hematologic/Lymphatic: Hematologic/Lymphatic: Reports no additional hematologic/lymphatic complaints Allergic/Immunologic: Allergic/Immunologic: Reports no additional allerg ic/immunologic complaints Exam Const: General: cooperative, comfortable, no acute distress, well developed, awake, Physically active, average body habitus and well nourished Nutritional Appearance: average body habitus and well nourished Orientation/consciousness : oriented to person and oriented to place HENMT: Head: normal to inspection, No palpable skull fracture present, normocephalic, atraumatic and abrasion Other: She is very hard of hearing bilaterally Eyes: General: appearance normal, both eyes and all related structures Alignment and Position: alignment normal Periorbital: periorbital findings normal Eyelids: eyelids normal Neck: Neck: normal visual inspection and full ROM Chest: Chest palpation & inspection: normal inspection of the chest Resp: Effort & Inspection: normal respiratory effort Auscultation: clear to auscultation bilaterally Percussion: percussion normal Cardio: Palpation: normal PMI Rate: regular rate Rhythm: regular rhythm Heart sounds: S1 normal heart sound present and S2 normal heart sound present Peripheral pulses: Peripheral pulses 2+ throughout GI: Inspection: normal to inspection Auscultation: normal bowel sounds : General: Yes no CVA tenderness Back/Spine/Pelvis: Back: no CVA tenderness Skin: General skin exam: normal color Lesions: no lesions Rashes: no rashes Trauma: no lacerations or abrasions Wounds: no wounds Hair: normal Nails: normal Neuro: General: oriented to person and oriented to place Cranial nerves: Yes Normal hearing present Extrem: General: normal to inspection Right upper extremity: normal to inspection and shoulder/upper arm Left upper extremity: normal to inspection and shoulder/upper arm Right lower extremity: normal to inspection Left lower extremity: normal to inspection Psych: Appearance: grossly normal Mental Status: mental status grossly normal Speech and movement: Normal speech and movement present Affect: normal affect Attitude: cooperative Thought process: Normal thought process present Objective Data Vital Signs Vital Signs: Vital Signs - 24 hr 05/25/25 19:34 05/25/25 21:30 05/26/25 00:04 Temperature 38.8 C H Pulse Rate 90 79 61 Respiratory Rate 26 H 17 Blood Pressure 105/67 91/62 L 74/48 L Pulse Oximetry 98 96 Oxygen Delivery Room Air 05/26/25 00:32 05/26/25 00:33 05/26/25 00:34 Temperature Pulse Rate 65 56 L 51 L Respiratory Rate 21 H 18 18 Blood Pressure 79/48 L 94/55 L Pulse Oximetry 98 96 98 Oxygen Delivery 05/26/25 00:36 05/26/25 00:41 05/26/25 00:45 Temperature Pulse Rate 50 L 50 L 54 L Respiratory Rate 17 16 16 Blood Pressure 98/55 L 105/56 L Pulse Oximetry 99 100 99 Oxygen Delivery 05/26/25 00:46 05/26/25 00:51 05/26/25 00:56 Temperature Pulse Rate 50 L 50 L 51 L Respiratory Rate 17 17 16 Blood Pressure 106/59 L 102/60 106/59 L Pulse Oximetry 100 100 100 Oxygen Delivery 05/26/25 01:00 05/26/25 01:01 05/26/25 01:06 Temperature Pulse Rate 52 L 50 L 49 L Respiratory Rate 16 16 16 Blood Pressure 114/53 L 108/62 Pulse Oximetry 100 100 100 Oxygen Delivery 05/26/25 01:11 05/26/25 01:15 05/26/25 01:16 Temperature Pulse Rate 53 L 49 L 49 L Respiratory Rate 17 18 17 Blood Pressure 113/68 110/65 Pulse Oximetry 100 100 100 Oxygen Delivery 05/26/25 01:21 05/26/25 01:26 05/26/25 01:31 Temperature Pulse Rate 48 L 49 L 49 L Respiratory Rate 16 16 16 Blood Pressure 112/66 113/53 L 111/56 L Pulse Oximetry 100 100 100 Oxygen Delivery 05/26/25 01:36 05/26/25 01:41 05/26/25 01:46 Temperature Pulse Rate 47 L 49 L 49 L Respiratory Rate 15 16 17 Blood Pressure 114/55 L 106/64 111/65 Pulse Oximetry 100 100 100 Oxygen Delivery 05/26/25 01:51 05/26/25 01:56 05/26/25 02:00 Temperature 36.9 C Pulse Rate 54 L 57 L Respiratory Rate 15 14 Blood Pressure 114/58 L 108/67 Pulse Oximetry 100 100 Oxygen Delivery 05/26/25 02:01 05/26/25 02:06 05/26/25 02:11 Temperature Pulse Rate 58 L 48 L 54 L Respiratory Rate 15 15 15 Blood Pressure 119/66 112/63 110/61 Pulse Oximetry 99 100 100 Oxygen Delivery 05/26/25 02:16 05/26/25 02:21 05/26/25 02:26 Temperature Pulse Rate 52 L 53 L 48 L Respiratory Rate 15 16 16 Blood Pressure 113/68 110/68 113/61 Pulse Oximetry 100 100 100 Oxygen Delivery 05/26/25 02:31 05/26/25 02:36 05/26/25 02:41 Temperature Pulse Rate 49 L 48 L 48 L Respiratory Rate 15 15 16 Blood Pressure 117/60 115/73 117/73 Pulse Oximetry 100 100 100 Oxygen Delivery 05/26/25 02:46 05/26/25 02:51 05/26/25 02:56 Temperature Pulse Rate 48 L 49 L 48 L Respiratory Rate 15 16 16 Blood Pressure 113/65 116/60 109/59 L Pulse Oximetry 100 100 100 Oxygen Delivery 05/26/25 03:01 05/26/25 03:06 05/26/25 03:11 Temperature Pulse Rate 48 L 49 L 49 L Respiratory Rate 16 16 15 Blood Pressure 111/59 L 113/59 L 113/73 Pulse Oximetry 100 100 100 Oxygen Delivery 05/26/25 03:16 05/26/25 03:21 05/26/25 03:26 Temperature Pulse Rate 49 L 48 L 55 L Respiratory Rate 16 15 15 Blood Pressure 118/62 116/70 112/65 Pulse Oximetry 100 100 100 Oxygen Delivery 05/26/25 03:31 05/26/25 03:36 05/26/25 03:41 Temperature Pulse Rate 48 L 48 L 49 L Respiratory Rate 15 15 15 Blood Pressure 114/62 116/66 121/64 Pulse Oximetry 100 100 100 Oxygen Delivery 05/26/25 03:46 05/26/25 03:51 05/26/25 03:56 Temperature Pulse Rate 49 L 48 L 48 L Respiratory Rate 15 15 15 Blood Pressure 124/72 116/67 117/68 Pulse Oximetry 100 100 100 Oxygen Delivery 05/26/25 04:01 05/26/25 04:06 05/26/25 04:11 Temperature Pulse Rate 52 L 50 L 50 L Respiratory Rate 15 15 16 Blood Pressure 117/68 114/61 115/67 Pulse Oximetry 100 100 100 Oxygen Delivery 05/26/25 04:16 05/26/25 04:21 05/26/25 04:26 Temperature Pulse Rate 61 50 L 50 L Respiratory Rate 16 15 16 Blood Pressure 115/62 115/69 116/67 Pulse Oximetry 100 100 100 Oxygen Delivery 05/26/25 04:27 05/26/25 04:30 05/26/25 04:31 Temperature Pulse Rate 52 L 53 L 55 L Respiratory Rate 15 21 H 15 Blood Pressure 105/54 L Pulse Oximetry 100 100 100 Oxygen Delivery 05/26/25 04:45 05/26/25 04:46 05/26/25 04:50 Temperature 35.7 C L Pulse Rate 59 L 53 L Respiratory Rate 19 18 Blood Pressure 127/86 Pulse Oximetry Oxygen Delivery 05/26/25 04:51 05/26/25 04:56 05/26/25 05:00 Temperature Pulse Rate 50 L 53 L 52 L Respiratory Rate 17 15 16 Blood Pressure 130/73 139/80 Pulse Oximetry Oxygen Delivery 05/26/25 05:01 05/26/25 05:06 05/26/25 05:11 Temperature Pulse Rate 52 L 55 L 51 L Respiratory Rate 19 17 17 Blood Pressure 124/70 125/68 116/69 Pulse Oximetry Oxygen Delivery 05/26/25 05:15 05/26/25 05:15 05/26/25 05:30 Temperature 35.7 C L 35.6 C L Pulse Rate 53 L Respiratory Rate 17 Blood Pressure Pulse Oximetry Oxygen Delivery 05/26/25 06:00 05/26/25 06:00 05/26/25 06:00 Temperature 35.6 C L 35.6 C L Pulse Rate 58 L 58 L Respiratory Rate 18 Blood Pressure 130/70 130/77 Pulse Oximetry 100 Oxygen Delivery 05/26/25 06:15 05/26/25 06:18 05/26/25 06:30 Temperature 35.7 C L 35.8 C L 35.8 C L Pulse Rate 54 L 58 L Respiratory Rate 18 18 Blood Pressure 127/77 126/74 Pulse Oximetry 100 100 Oxygen Delivery 05/26/25 06:30 05/26/25 06:45 05/26/25 06:45 Temperature 35.9 C L 36.0 C L Pulse Rate 58 L 61 Respiratory Rate 18 Blood Pressure 126/74 122/74 Pulse Oximetry 100 Oxygen Delivery 05/26/25 07:00 05/26/25 07:00 05/26/25 07:15 Temperature 36.1 C L 36.1 C L Pulse Rate 61 61 Respiratory Rate 16 Blood Pressure 121/71 121/71 Pulse Oximetry 100 Oxygen Delivery 05/26/25 07:30 05/26/25 08:00 05/26/25 08:00 Temperature 36.1 C L 36.1 C L 36.1 C L Pulse Rate 59 L Respiratory Rate 19 Blood Pressure 119/65 Pulse Oximetry 100 Oxygen Delivery 05/26/25 08:20 05/26/25 08:30 05/26/25 09:00 Temperature 36.1 C L Pulse Rate 57 L 71 Respiratory Rate Blood Pressure 116/68 111/65 Pulse Oximetry Oxygen Delivery 05/26/25 09:00 05/26/25 09:00 05/26/25 09:30 Temperature 36.3 C L 36.2 C L 36.3 C L Pulse Rate 64 Respiratory Rate 22 H Blood Pressure 104/62 Pulse Oximetry 100 Oxygen Delivery 05/26/25 09:35 05/26/25 10:00 05/26/25 10:00 Temperature 36.4 C 36.4 C Pulse Rate 64 68 Respiratory Rate Blood Pressure 104/62 96/65 L Pulse Oximetry 100 Oxygen Delivery Intake/Output Intake/Output: Intake & Output 05/23/25 05/24/25 05/25/25 05/26/25 23:59 23:59 23:59 23:59 Intake Total 2150 1705.9 Output Total 150 Balance 1999 1705.9 Meds/Results Medications: Active Medications Generic Name Dose Route Start Last Admin Trade Name Freq PRN Reason Stop Dose Admin Acetaminophen 650 mg 05/26/25 04:35 Acetaminophen 325 Mg Tablet PO Q4H PRN Mild Pain (1-3) or Fever Norepinephrine Bitartrate 8 mg in 250 mls @ 3.75 mls/hr 05/25/25 23:40 05/26/25 09:35 Levophed 8 Mg/D5w 250 Ml IV CONT 2 mcg/min .Q24H FUNMI 3.75 mls/hr Protocol Titration 2 MCG/MIN Vancomycin HCl 1,000 mg/ 250 mls @ 250 mls/hr 05/27/25 11:00 Sodium Chloride IVPB Q36H FUNMI Lactated Ringer's 1,000 mls @ 75 mls/hr 05/26/25 04:35 05/26/25 05:42 Lr - Lactated Ringers Iv IV CONT 75 mls/hr .[id number] FUNMI Administration Cefepime HCl 2 gm/ Sodium 50 mls @ 100 mls/hr 05/26/25 23:00 Chloride IVPB Q24H FUNMI Potassium Chloride 100 mls @ 25 mls/hr 05/26/25 08:20 05/26/25 09:26 Kcl 40 Meq/Water 100 Ml IVPB 05/26/25 12:19 25 mls/hr ONCE ONE Administration Ondansetron HCl 4 mg 05/26/25 04:35 Ondansetron Inj 4 Mg/2 Ml Vial IV PUSH Q4H PRN Nausea Pantoprazole Sodium 40 mg 05/26/25 09:00 05/26/25 09:23 Pantoprazole Sodium Iv 40 Mg Vial IV PUSH 40 mg QAM FUNMI Administration Perflutren Lipid Microsphere 0 ml 05/26/25 08:35 Perflutren Lipid Microspheres 1.5 Ml Vial Diluted To 10 Ml Total Volume IV PUSH 05/29/25 08:35 ONCE PRN adequate visualization Protocol Sodium Chloride 10 ml 05/26/25 14:00 Central Line Flush IV PUSH Q8HR FUNMI Sodium Chloride 20 ml 05/26/25 06:42 Central Line Flush IV PUSH PRN PRN after blood draws Radiology Results: ITS Impressions Chest X-Ray 05/25/25 19:53 IMPRESSION: Cardiomegaly and expiratory image, making evaluation of the interstitium difficult. Pulmonary vascular congestion is not excluded. No airspace disease. Head CT 05/25/25 20:11 IMPRESSION: No acute findings. All CT scans at this facility are performed using low dose modulation techniques as appropriate to perform exam including the following: automated exposure control; use of iterative reconstruction technique; adjustment of the mA and/or kV according to patient size (this includes techniques or standardized protocols for targeted exams where dose is matched to indication/reason for exam). Foot X-Ray 05/25/25 20:17 IMPRESSION: No acute abnormalities are seen. Given the MTP findings, consider gout. Abdomen/Pelvis CT 05/26/25 08:15 IMPRESSION: 1. Bilateral hydronephrosis and hydroureter with distal stricture suspected. Findings are probably chronic without. The renal parenchyma noted bilaterally. 2. Incidental findings above Labs Labs: Laboratory Results - last 24 hr 05/25/25 05/25/25 05/25/25 20:41 20:42 21:23 WBC 13.5 H RBC 3.84 L Hgb 9.6 L Hct 30.8 L MCV 80.2 MCH 25.0 L MCHC 31.2 L RDW 15.6 H Plt Count 425 H MPV 8.8 Immature Gran % (Auto) 0.7 H Neut % (Auto) 83.0 H Lymph % (Auto) 8.8 L [place] % (Auto) 7.1 Eos % (Auto) 0.0 Baso % (Auto) 0.4 Lymph # (Auto) 1.19 [place] # (Auto) 1.0 H Eos # (Auto) 0.0 Baso # (Auto) 0.1 Abs Immat Gran (auto) 0.10 H Absolute Neuts (auto) 11.2 H Absolute Nucleated RBC 0.000 Nucleated RBC % 0.0 PT 17.7 H INR 1.5 APTT 31.1 Sodium 135 L Potassium 3.2 L Chloride 103 Carbon Dioxide 25 Anion Gap 7 BUN 22 H Creatinine 1.27 H Estim Creat Clear Calc 23 Estimated GFR 40 L Glucose 127 H Lactic Acid 0.8 Calcium 9.6 Total Bilirubin 0.5 AST 31 ALT 12 Alkaline Phosphatase 80 Ammonia Total Creatine Kinase 47 Total Protein 8.0 Albumin 3.5 Urine Color Yellow Urine Appearance Clear Urine pH 5.5 Ur Specific [place] 1.010 Urine Protein Trace Urine Glucose (UA) Negative Urine Ketones Negative Ur Blood (Man) Trace Urine Nitrate Negative Urine Bilirubin Negative Urine Urobilinogen 0.2 Add Ur Microanalysis Reviewed Leukocyte Esterase Rfl 2+ H Urine RBC 0-2 Urine WBC 21-50 H Ur Squamous Epith Cells Occasional Urine Bacteria None seen Urine Casts 0-2 Nasal MRSA (PCR) Urine Opiates Screen Negative Urine Methadone Screen Negative Ur Barbiturates Screen Negative Ur Phencyclidine Scrn Negative Ur Amphetamine Screen Negative U Benzodiazepines Scrn Negative Urine Cocaine Screen Negative U Cannabinoids Screen Negative Ethyl Alcohol < 10 Influenza A (RT-PCR) Influenza B (RT-PCR) RSV (RT-PCR) SARS-CoV-2 RNA (RT-PCR) 05/26/25 05/26/25 05/26/25 05:01 06:33 08:58 WBC 12.9 H RBC 3.07 L Hgb 7.8 L Hct 25.2 L MCV 82.1 MCH 25.4 L MCHC 31.0 L RDW 15.9 H Plt Count 354 MPV 8.9 Immature Gran % (Auto) Neut % (Auto) Lymph % (Auto) [place] % (Auto) Eos % (Auto) Baso % (Auto) Lymph # (Auto) [place] # (Auto) Eos # (Auto) Baso # (Auto) Abs Immat Gran (auto) Absolute Neuts (auto) Absolute Nucleated RBC Nucleated RBC % PT INR APTT Sodium 136 L Potassium 3.0 L Chloride 107 Carbon Dioxide 26 Anion Gap 3 L BUN 18 H Creatinine 1.08 H Estim Creat Clear Calc 26 Estimated GFR 49 L Glucose 128 H Lactic Acid 0.9 Calcium 8.9 Total Bilirubin AST ALT Alkaline Phosphatase Ammonia < 9 L Total Creatine Kinase Total Protein Albumin Urine Color Urine Appearance Urine pH Ur Specific [place] Urine Protein Urine Glucose (UA) Urine Ketones Ur Blood (Man) Urine Nitrate Urine Bilirubin Urine Urobilinogen Add Ur Microanalysis Leukocyte Esterase Rfl Urine RBC Urine WBC Ur Squamous Epith Cells Urine Bacteria Urine Casts Nasal MRSA (PCR) Not detected Urine Opiates Screen Urine Methadone Screen Ur Barbiturates Screen Ur Phencyclidine Scrn Ur Amphetamine Screen U Benzodiazepines Scrn Urine Cocaine Screen U Cannabinoids Screen Ethyl Alcohol Influenza A (RT-PCR) Negative Influenza B (RT-PCR) Negative RSV (RT-PCR) Negative SARS-CoV-2 RNA (RT-PCR) Negative Quality VTE Prophylaxis VTE prophylaxis: pharmacologic ordered
[2025-05-26] MEDS: PERFLUTREN LIPID MICROSPHERES 1.5 ML VIAL DILUTED TO 10 ML TOTAL VOLUME IV PUSH (12:05)
--- NOTE | 2025-05-26 12:05 | WPDCNINT ---
Assessment and Plan Assessment and plan (1) Septic shock: Code(s): A41.9 - Sepsis, unspecified organism; R65.21 - Severe sepsis with septic shock Status: Acute Assessment and Plan: Patient presented with generalized weakness, fall, altered mental status, fevers, UA was reflective of UTI. Patient does have a history of UTI. Also bilateral hydronephrosis which are chronic and she follows up with Urology -05/25: patient was hypotensive in the ER, was given 30 cc/kg IV fluid bolus despite which her blood pressures remain low, right femoral central line was inserted -continue Levophed, maintain MAP > 65 mmHg or SBP > 100 mmHg -patient started on cefepime and vancomycin, will deescalate once cultures a result -05/25: Urine and blood cultures have been obtained and pending, (patient has had Citrobacter, Klebsiella and Pseudomonas in the past in the urine cultures, all susceptible to cefepime) -lactic acid are within normal limits -continue maintenance IV fluids for now -monitor urine output (2) Acute UTI: Code(s): N39.0 - Urinary tract infection, site not specified Status: Acute Assessment and Plan: Treatment As above (3) MAGALIS (acute kidney injury): Code(s): N17.9 - Acute kidney failure, unspecified Status: Acute Assessment and Plan: Acute kidney injury likely related to hypovolemia per ER physician -adequately fluid resuscitated -creatinine trending down -low urine output -continue to monitor renal function, electrolytes and urine output -continue maintenance IV fluids (4) History of pulmonary embolism: Code(s): Z86.711 - Personal history of pulmonary embolism Status: Chronic Assessment and Plan: Patient on apixaban, clopidogrel at home will hold for now given patient is anemic (5) CHF (congestive heart failure): Code(s): I50.9 - Heart failure, unspecified Status: Acute Assessment and Plan: Hold losartan, furosemide, carvedilol due to patient being hypotensive, in septic shock, on pressors (6) Hypertension: Code(s): I10 - Essential (primary) hypertension Status: Chronic Assessment and Plan: Hold all antihypertensives as patient is on pressors Plan DVT prophylaxis: SCDs Stress ulcer prophylaxis: Not indicated Nutrition: Heart healthy diet Code Status: Full code Critical Care Time Spent: 51 minutes Due to a high probability of clinically significant, life threatening deterioration, the patient required my highest level of preparedness to intervene emergently and I personally spent this critical care time directly and personally managing the patient. This critical care time included obtaining a history; examining the patient; pulse oximetry; ordering and review of studies; arranging urgent treatment with development of a management plan; evaluation of patient's response to treatment; frequent reassessment; and discussions with other providers. It was exclusive of separately billable procedures and treating other patients and teaching time. Please see Assessment and Plan section and the rest of the note for further information on patient assessment and treatment This dictation may have been done utilizing a voice recognition system. Attempts have been made to correct errors. However, there may be uncorrected grammatical, spelling, and recognitions errors present. 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 According the records she has been having worsening of functional status, fell out of bed and was being treated for a UTI with Keflex as outpatient. In the ER patient was confused, hypotensive despite receiving 30 cc/kg IV fluid bolus, right femoral central line was inserted and patient was started on Levophed transferred to the ICU for further management. Patient was started on cefepime and vancomycin. Pertinent labs in the ER showed WBC count of 13.5, INR 1.5. Sodium 135, potassium 3.2, CO2 25, BUN 22, creatinine 1.27, blood sugar 127, LFTs within normal limits, ammonia <9, lactic acid 0.8 and 0.9. UA was reflective of a UTI. Pt urine drug screen was negative, alcohol < 10. Influenza, RSV and SARS-CoV-2 PCR was negative. Patient seen examined this morning in the ICU, is awake, alert, oriented x2. Having breakfast at this time. Denies any chest pain, shortness a breath, abdominal pain, nausea, vomiting. Patient remains on Levophed. Was hypothermic requiring a Josh Hugger, urine output has been low. Remains on maintenance IV fluids at 75 mL/hour Review of Systems Review of Systems: All systems reviewed & are unremarkable except as noted in HPI and below PMFSH Past Medical History Medical History (Updated 05/26/25 @ 05:30 by Nancy Noble APRN) Chronic anticoagulation Splenic infarct CHF (congestive heart failure) Vitamin D deficiency Pure hypercholesterolemia Overweight (09/19/16) Other chronic pain Melanocytic nevus of neck Chronic right shoulder pain Urgency incontinence PVC's (premature ventricular contractions) Hypokalemia Acute UTI Osteoarthritis of first carpometacarpal joint of right hand Retention of urine Bilateral hydronephrosis Pulmonary infarct Pulmonary emboli 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 PONV (postoperative nausea and vomiting) GERD (gastroesophageal reflux disease) Hypertension Surgical History Surgical History History of bladder surgery History of hysterectomy Family History Family History Mother Family history of renal failure Patient's mother is Father Family history of heart disease in male family member before age 55 Patient's father is Other Diabetes mellitus Family history of arthritis Hypertension Urge incontinence Social History Social History (Updated 05/26/25 @ 05:24 by Nancy Noble APRN) Social History: She lives alone and has 2 children. She is . She is retired. Code status: Full code Smoking packs per day: 1 Smoking cigarettes per day: 20.0 Years smoked: 55 Smoking pack-years: 55.00 Smoking status: Former smoker Tobacco type: cigarettes Alcohol intake: never Substance use: never Substance use type: does not use Lack of Transportation: No Lack of Food: Never True Current Housing: I Have Housing Concerned About Future Housing: No Difficulty Paying Gas/Electric Bills: No Difficulty Paying for Meds: No Currently Unemployed: No Education: High School Diploma/GED Difficulty w/ Childcare or Family Care: No Living arrangements: alone Spiritual care concerns: No Meds Home Medications and Allergies Home Medications ?Medication ?Instructions ?Recorded ?Confirmed ?Type apixaban 2.5 mg tablet 2.5 mg PO Q12H #60 tabs 05/20/24 05/26/25 Rx atorvastatin 40 mg tablet 40 mg PO HS #30 tabs 05/20/24 05/26/25 Rx carvedilol 6.25 mg tablet (Coreg) 6.25 mg PO Q12HR #60 tabs 05/20/24 05/26/25 Rx clopidogrel 75 mg tablet 75 mg PO QAM #30 tabs 05/20/24 05/26/25 Rx furosemide 40 mg tablet 40 mg PO QAM #30 tabs 05/20/24 05/26/25 Rx losartan 50 mg tablet (Cozaar) 50 mg PO DAILY #30 tabs 05/20/24 05/26/25 Rx cephalexin 500 mg capsule 500 mg PO QID 05/26/25 05/26/25 History pregabalin 50 mg capsule 50 mg PO TID 05/26/25 05/26/25 History Allergies Allergy/AdvReac Type Severity Reaction Status Date / Time No Known Allergies Allergy Verified 05/26/25 09:06 Vital Signs Vital Signs - 24 hr 05/25/25 19:34 05/25/25 21:30 05/26/25 00:04 Temperature 101.9 F H Pulse Rate 90 79 61 Respiratory Rate 26 H 17 Blood Pressure 105/67 91/62 L 74/48 L Pulse Oximetry 98 96 Oxygen Delivery Room Air Oxygen Flow Rate 05/26/25 00:32 05/26/25 00:33 05/26/25 00:34 Temperature Pulse Rate 65 56 L 51 L Respiratory Rate 21 H 18 18 Blood Pressure 79/48 L 94/55 L Pulse Oximetry 98 96 98 Oxygen Delivery Oxygen Flow Rate 05/26/25 00:36 05/26/25 00:41 05/26/25 00:45 Temperature Pulse Rate 50 L 50 L 54 L Respiratory Rate 17 16 16 Blood Pressure 98/55 L 105/56 L Pulse Oximetry 99 100 99 Oxygen Delivery Oxygen Flow Rate 05/26/25 00:46 05/26/25 00:51 05/26/25 00:56 Temperature Pulse Rate 50 L 50 L 51 L Respiratory Rate 17 17 16 Blood Pressure 106/59 L 102/60 106/59 L Pulse Oximetry 100 100 100 Oxygen Delivery Oxygen Flow Rate 05/26/25 01:00 05/26/25 01:01 05/26/25 01:06 Temperature Pulse Rate 52 L 50 L 49 L Respiratory Rate 16 16 16 Blood Pressure 114/53 L 108/62 Pulse Oximetry 100 100 100 Oxygen Delivery Oxygen Flow Rate 05/26/25 01:11 05/26/25 01:15 05/26/25 01:16 Temperature Pulse Rate 53 L 49 L 49 L Respiratory Rate 17 18 17 Blood Pressure 113/68 110/65 Pulse Oximetry 100 100 100 Oxygen Delivery Oxygen Flow Rate 05/26/25 01:21 05/26/25 01:26 05/26/25 01:31 Temperature Pulse Rate 48 L 49 L 49 L Respiratory Rate 16 16 16 Blood Pressure 112/66 113/53 L 111/56 L Pulse Oximetry 100 100 100 Oxygen Delivery Oxygen Flow Rate 05/26/25 01:36 05/26/25 01:41 05/26/25 01:46 Temperature Pulse Rate 47 L 49 L 49 L Respiratory Rate 15 16 17 Blood Pressure 114/55 L 106/64 111/65 Pulse Oximetry 100 100 100 Oxygen Delivery Oxygen Flow Rate 05/26/25 01:51 05/26/25 01:56 05/26/25 02:00 Temperature 98.5 F Pulse Rate 54 L 57 L Respiratory Rate 15 14 Blood Pressure 114/58 L 108/67 Pulse Oximetry 100 100 Oxygen Delivery Oxygen Flow Rate 05/26/25 02:01 05/26/25 02:06 05/26/25 02:11 Temperature Pulse Rate 58 L 48 L 54 L Respiratory Rate 15 15 15 Blood Pressure 119/66 112/63 110/61 Pulse Oximetry 99 100 100 Oxygen Delivery Oxygen Flow Rate 05/26/25 02:16 05/26/25 02:21 05/26/25 02:26 Temperature Pulse Rate 52 L 53 L 48 L Respiratory Rate 15 16 16 Blood Pressure 113/68 110/68 113/61 Pulse Oximetry 100 100 100 Oxygen Delivery Oxygen Flow Rate 05/26/25 02:31 05/26/25 02:36 05/26/25 02:41 Temperature Pulse Rate 49 L 48 L 48 L Respiratory Rate 15 15 16 Blood Pressure 117/60 115/73 117/73 Pulse Oximetry 100 100 100 Oxygen Delivery Oxygen Flow Rate 05/26/25 02:46 05/26/25 02:51 05/26/25 02:56 Temperature Pulse Rate 48 L 49 L 48 L Respiratory Rate 15 16 16 Blood Pressure 113/65 116/60 109/59 L Pulse Oximetry 100 100 100 Oxygen Delivery Oxygen Flow Rate 05/26/25 03:01 05/26/25 03:06 05/26/25 03:11 Temperature Pulse Rate 48 L 49 L 49 L Respiratory Rate 16 16 15 Blood Pressure 111/59 L 113/59 L 113/73 Pulse Oximetry 100 100 100 Oxygen Delivery Oxygen Flow Rate 05/26/25 03:16 05/26/25 03:21 05/26/25 03:26 Temperature Pulse Rate 49 L 48 L 55 L Respiratory Rate 16 15 15 Blood Pressure 118/62 116/70 112/65 Pulse Oximetry 100 100 100 Oxygen Delivery Oxygen Flow Rate 05/26/25 03:31 05/26/25 03:36 05/26/25 03:41 Temperature Pulse Rate 48 L 48 L 49 L Respiratory Rate 15 15 15 Blood Pressure 114/62 116/66 121/64 Pulse Oximetry 100 100 100 Oxygen Delivery Oxygen Flow Rate 05/26/25 03:46 05/26/25 03:51 05/26/25 03:56 Temperature Pulse Rate 49 L 48 L 48 L Respiratory Rate 15 15 15 Blood Pressure 124/72 116/67 117/68 Pulse Oximetry 100 100 100 Oxygen Delivery Oxygen Flow Rate 05/26/25 04:01 05/26/25 04:06 05/26/25 04:11 Temperature Pulse Rate 52 L 50 L 50 L Respiratory Rate 15 15 16 Blood Pressure 117/68 114/61 115/67 Pulse Oximetry 100 100 100 Oxygen Delivery Oxygen Flow Rate 05/26/25 04:16 05/26/25 04:21 05/26/25 04:26 Temperature Pulse Rate 61 50 L 50 L Respiratory Rate 16 15 16 Blood Pressure 115/62 115/69 116/67 Pulse Oximetry 100 100 100 Oxygen Delivery Oxygen Flow Rate 05/26/25 04:27 05/26/25 04:30 05/26/25 04:31 Temperature Pulse Rate 52 L 53 L 55 L Respiratory Rate 15 21 H 15 Blood Pressure 105/54 L Pulse Oximetry 100 100 100 Oxygen Delivery Oxygen Flow Rate 05/26/25 04:45 05/26/25 04:46 05/26/25 04:50 Temperature 96.3 F L Pulse Rate 59 L 53 L Respiratory Rate 19 18 Blood Pressure 127/86 Pulse Oximetry Oxygen Delivery Oxygen Flow Rate 05/26/25 04:51 05/26/25 04:56 05/26/25 05:00 Temperature Pulse Rate 50 L 53 L 52 L Respiratory Rate 17 15 16 Blood Pressure 130/73 139/80 Pulse Oximetry Oxygen Delivery Oxygen Flow Rate 05/26/25 05:01 05/26/25 05:06 05/26/25 05:11 Temperature Pulse Rate 52 L 55 L 51 L Respiratory Rate 19 17 17 Blood Pressure 124/70 125/68 116/69 Pulse Oximetry Oxygen Delivery Oxygen Flow Rate 05/26/25 05:15 05/26/25 05:15 05/26/25 05:30 Temperature 96.3 F L 96.0 F L Pulse Rate 53 L Respiratory Rate 17 Blood Pressure Pulse Oximetry Oxygen Delivery Oxygen Flow Rate 05/26/25 06:00 05/26/25 06:00 05/26/25 06:00 Temperature 96.1 F L 96.0 F L Pulse Rate 58 L 58 L Respiratory Rate 18 Blood Pressure 130/70 130/77 Pulse Oximetry 100 Oxygen Delivery Oxygen Flow Rate 05/26/25 06:15 05/26/25 06:18 05/26/25 06:30 Temperature 96.3 F L 96.5 F L 96.5 F L Pulse Rate 54 L 58 L Respiratory Rate 18 18 Blood Pressure 127/77 126/74 Pulse Oximetry 100 100 Oxygen Delivery Oxygen Flow Rate 05/26/25 06:30 05/26/25 06:45 05/26/25 06:45 Temperature 96.6 F L 96.8 F L Pulse Rate 58 L 61 Respiratory Rate 18 Blood Pressure 126/74 122/74 Pulse Oximetry 100 Oxygen Delivery Oxygen Flow Rate 05/26/25 07:00 05/26/25 07:00 05/26/25 07:15 Temperature 96.9 F L 96.9 F L Pulse Rate 61 61 Respiratory Rate 16 Blood Pressure 121/71 121/71 Pulse Oximetry 100 Oxygen Delivery Oxygen Flow Rate 05/26/25 07:30 05/26/25 08:00 05/26/25 08:00 Temperature 97.0 F L 97 F L 97.0 F L Pulse Rate 59 L Respiratory Rate 19 Blood Pressure 119/65 Pulse Oximetry 100 Oxygen Delivery Oxygen Flow Rate 05/26/25 08:00 05/26/25 08:00 05/26/25 08:20 Temperature Pulse Rate 59 L 57 L Respiratory Rate Blood Pressure 116/68 Pulse Oximetry 99 Oxygen Delivery Nasal Cannula Oxygen Flow Rate 2 05/26/25 08:30 05/26/25 09:00 05/26/25 09:00 Temperature 97.0 F L 97.4 F L Pulse Rate 71 64 Respiratory Rate 22 H Blood Pressure 111/65 104/62 Pulse Oximetry 100 Oxygen Delivery Oxygen Flow Rate 05/26/25 09:00 05/26/25 09:30 05/26/25 09:35 Temperature 97.1 F L 97.4 F L Pulse Rate 64 Respiratory Rate Blood Pressure 104/62 Pulse Oximetry Oxygen Delivery Oxygen Flow Rate 05/26/25 10:00 05/26/25 10:00 05/26/25 10:00 Temperature 97.6 F 97.6 F Pulse Rate 68 66 Respiratory Rate Blood Pressure 96/65 L 96/65 L Pulse Oximetry 100 Oxygen Delivery Oxygen Flow Rate 05/26/25 10:00 05/26/25 11:00 05/26/25 11:39 Temperature 97.2 F L Pulse Rate 65 59 L 61 Respiratory Rate 22 H Blood Pressure 105/98 H 103/58 L Pulse Oximetry 99 Oxygen Delivery Oxygen Flow Rate Exam Narrative: General: Patient is awake, alert, in no acute distress HEENT:? Pupils equal and reactive, sclerae is clear Neck:? Supple Respiratory:? Coarse breath sounds at bases, no wheezing, adequate air entry Cardiac:? S1-S2 normal, regular rate and rhythm Abdomen:? Soft, nontender, nondistended, normoactive bowel sounds Extremities:? No edema, palpable pedal pulses Neuro:? Patient is awake, alert, oriented x2, able to answer questions and follows simple commands in all extremities Skin:? Warm and dry Psych:? Depressed affect Results Labs 05/26/25 06:33 05/26/25 06:33 Labs: Short CBC 05/25/25 05/26/25 Range/Units 20:41 06:33 WBC 13.5 H 12.9 H (4.5-10.0) K/mm3 Hgb 9.6 L 7.8 L (12.0-15.0) g/dL Hct 30.8 L 25.2 L (37.0-47.0) % Plt Count 425 H 354 (150-375) k/mm3 BMP 05/25/25 05/26/25 20:42 06:33 Sodium 135 L 136 L Potassium 3.2 L 3.0 L Chloride 103 107 Carbon Dioxide 25 26 BUN 22 H 18 H Creatinine 1.27 H 1.08 H Glucose 127 H 128 H Calcium 9.6 8.9 Cardiac Enzymes 05/25/25 Range/Units 20:42 Total Creatine Kinase 47 (30-135) U/L Liver Function 05/25/25 Range/Units 20:42 Total Bilirubin 0.5 (0.2-1.3) mg/dL AST 31 (14-36) U/L ALT 12 (6-35) U/L Alkaline Phosphatase 80 (38-126) U/L Albumin 3.5 (3.5-5.1) g/dL Urine 05/25/25 Range/Units 21:23 Urine Color Yellow (Yellow) Urine Appearance Clear (Clear) Urine pH 5.5 (5.0-9.0) Ur Specific [place] 1.010 (1.001-1.035) Urine Protein Trace (Negative) mg/dL Urine Glucose (UA) Negative (Negative) mg/dL Quality VTE Prophylaxis VTE prophylaxis: mechanical ordered Hospitalist MIPS Advance Care Plan I have confirmed that the patient's Advanced Care Plan is present, code status is documented, or surrogate decision maker is listed in patient medical record.: Yes Medication Reconciliation I have utilized all available resources to obtain, update and review the patients current medications (includes all prescriptions, OTC, herbals, cannabis, and nutritional supplements).: Yes
--- NOTE | 2025-05-26 12:05 | IVDEFINITY ---
Prior to administration of IV Definity the patient was educated on the risks and benefits of the imaging enhancing agent including potential adverse side effects. The patient verbalized understanding. Allergies were verified. No exclusion criteria were identified and at least one of the following inclusion criteria were met: 1) physician request, 2) patient technically difficult to image (per the [place] [employer] guidelines of two or more segments not discernable within the apical view), or 3) questionable left ventricular function. ?
--- NOTE | 2025-05-26 12:34 | WPDURCON ---
Assessment and Plan Assessment and plan (1) Septic shock: Code(s): A41.9 - Sepsis, unspecified organism; R65.21 - Severe sepsis with septic shock Status: Acute Assessment and Plan: 1. I have personally evaluated the CT scan and compared to prior imaging. I do not perceive any worsening of her chronic hydronephrosis. Thus, I do not believe she would benefit from ureteral stent placement at this time. However, if she does not improve with antibiotics, this would certaininly be a reasonable next step to maximally decompress her kidneys. Nonetheless, her UOP seems to be improving over the course of the day and ICU nursing just drained 550 mL from her Turner. 2. Agree with broad spectrum antibiotics, taper to C&S. 3. She will require surveillance cystoscopy in the near future. Urology remains available and will follow. (2) Acute UTI: Code(s): N39.0 - Urinary tract infection, site not specified Status: Acute Urology Consult Note HPI Date Seen: 05/26/25 Requesting Physician: Fili Moise MD Primary Care Provider: Armando Concepcion, Consult Narrative Narrative: Diana Terry is a 79 year old female admitted overnight with signs and symptoms of urosepsis. She has had multiple UTIs over the past several years. Review of her clinic chart shows a history of LG bladder cancer, with last recurrence in 2020, cystoscopy in August of 2024 negative for recurrent tumor. She has also had an interstim placed by Dr. Mahoney. CT scan performed in the ER demonstrates severe hydronephrosis, however comparison with previous CT from 02/20/24 demonstrates no change in degree of hydronephrosis. SCr 1.28 at admission and now 1.08 after fluid resuscitation and antibiotics. She remains on cefepime and vancomycin. Review of Systems Review of Systems: All systems reviewed & are unremarkable except as noted in HPI and below (the history and physical examination) Constitutional: Constitutional: Reports as per HPI and Reports no additional constitutional complaints Eyes: Eyes: Reports as per HPI and Reports no additional eye complaints ENT: Reports system reviewed and no additional complaints, except as documented and Reports Normal hearing present Cardiovascular: Cardiovascular: Reports no additional cardiovascular complaints Respiratory: Respiratory: Reports as per HPI and Reports no additional respiratory complaints Gastrointestinal: Gastrointestinal: Reports as per HPI and Reports no additional gastrointestinal complaints Genitourinary: Genitourinary: Reports no additional female genitourinary complaints Musculoskeletal: Musculoskeletal: Reports no additional musculoskeletal complaints Integumentary/Breasts: Skin/Breast: Reports system reviewed and no additional complaints, except as docu Neurologic: Reports system reviewed and no additional complaints, except as documented and Reports Normal hearing present Psychiatric: Psychiatric: Reports no additional psychiatric complaints and Reports as per HPI Hematologic/Lymphatic: Hematologic/Lymphatic: Reports no additional hematologic/lymphatic complaints Allergic/Immunologic: Allergic/Immunologic: Reports no additional allergic/immunologic complaints [facility] Past Medical History Medical History (Updated 05/26/25 @ 05:30 by Nancy Noble APRN) Chronic anticoagulation Splenic infarct CHF (congestive heart failure) Vitamin D deficiency Pure hypercholesterolemia Overweight (09/19/16) Other chronic pain Melanocytic nevus of neck Chronic right shoulder pain Urgency incontinence PVC's (premature ventricular contractions) Hypokalemia Acute UTI Osteoarthritis of first carpometacarpal joint of right hand Retention of urine Bilateral hydronephrosis Pulmonary infarct Pulmonary emboli 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 PONV (postoperative nausea and vomiting) GERD (gastroesophageal reflux disease) Hypertension Surgical History Surgical History History of bladder surgery History of hysterectomy Family History Family History Mother Family history of renal failure Patient's mother is Father Family history of heart disease in male family member before age 55 Patient's father is Other Diabetes mellitus Family history of arthritis Hypertension Urge incontinence Social History Social History (Updated 05/26/25 @ 05:24 by Nancy Noble APRN) Social History: She lives alone and has 2 children. She is . She is retired. Code status: Full code Smoking packs per day: 1 Smoking cigarettes per day: 20.0 Years smoked: 55 Smoking pack-years: 55.00 Smoking status: Former smoker Tobacco type: cigarettes Alcohol intake: never Substance use: never Substance use type: does not use Lack of Transportation: No Lack of Food: Never True Current Housing: I Have Housing Concerned About Future Housing: No Difficulty Paying Gas/Electric Bills: No Difficulty Paying for Meds: No Currently Unemployed: No Education: High School Diploma/GED Difficulty w/ Childcare or Family Care: No Living arrangements: alone Spiritual care concerns: No Meds Home Medications and Allergies Home Medications ?Medication ?Instructions ?Recorded ?Confirmed ?Type apixaban 2.5 mg tablet 2.5 mg PO Q12H #60 tabs 05/20/24 05/26/25 Rx atorvastatin 40 mg tablet 40 mg PO HS #30 tabs 05/20/24 05/26/25 Rx carvedilol 6.25 mg tablet (Coreg) 6.25 mg PO Q12HR #60 tabs 05/20/24 05/26/25 Rx clopidogrel 75 mg tablet 75 mg PO QAM #30 tabs 05/20/24 05/26/25 Rx furosemide 40 mg tablet 40 mg PO QAM #30 tabs 05/20/24 05/26/25 Rx losartan 50 mg tablet (Cozaar) 50 mg PO DAILY #30 tabs 05/20/24 05/26/25 Rx cephalexin 500 mg capsule 500 mg PO QID 05/26/25 05/26/25 History pregabalin 50 mg capsule 50 mg PO TID 05/26/25 05/26/25 History Allergies Allergy/AdvReac Type Severity Reaction Status Date / Time No Known Allergies Allergy Verified 05/26/25 09:06 Vital Signs Vital Signs - 24 hr 05/25/25 19:34 05/25/25 21:30 05/26/25 00:04 Temperature 101.9 F H Pulse Rate 90 79 61 Respiratory Rate 26 H 17 Blood Pressure 105/67 91/62 L 74/48 L Pulse Oximetry 98 96 Oxygen Delivery Room Air Oxygen Flow Rate 05/26/25 00:32 05/26/25 00:33 05/26/25 00:34 Temperature Pulse Rate 65 56 L 51 L Respiratory Rate 21 H 18 18 Blood Pressure 79/48 L 94/55 L Pulse Oximetry 98 96 98 Oxygen Delivery Oxygen Flow Rate 05/26/25 00:36 05/26/25 00:41 05/26/25 00:45 Temperature Pulse Rate 50 L 50 L 54 L Respiratory Rate 17 16 16 Blood Pressure 98/55 L 105/56 L Pulse Oximetry 99 100 99 Oxygen Delivery Oxygen Flow Rate 05/26/25 00:46 05/26/25 00:51 05/26/25 00:56 Temperature Pulse Rate 50 L 50 L 51 L Respiratory Rate 17 17 16 Blood Pressure 106/59 L 102/60 106/59 L Pulse Oximetry 100 100 100 Oxygen Delivery Oxygen Flow Rate 05/26/25 01:00 05/26/25 01:01 05/26/25 01:06 Temperature Pulse Rate 52 L 50 L 49 L Respiratory Rate 16 16 16 Blood Pressure 114/53 L 108/62 Pulse Oximetry 100 100 100 Oxygen Delivery Oxygen Flow Rate 05/26/25 01:11 05/26/25 01:15 05/26/25 01:16 Temperature Pulse Rate 53 L 49 L 49 L Respiratory Rate 17 18 17 Blood Pressure 113/68 110/65 Pulse Oximetry 100 100 100 Oxygen Delivery Oxygen Flow Rate 05/26/25 01:21 05/26/25 01:26 05/26/25 01:31 Temperature Pulse Rate 48 L 49 L 49 L Respiratory Rate 16 16 16 Blood Pressure 112/66 113/53 L 111/56 L Pulse Oximetry 100 100 100 Oxygen Delivery Oxygen Flow Rate 05/26/25 01:36 05/26/25 01:41 05/26/25 01:46 Temperature Pulse Rate 47 L 49 L 49 L Respiratory Rate 15 16 17 Blood Pressure 114/55 L 106/64 111/65 Pulse Oximetry 100 100 100 Oxygen Delivery Oxygen Flow Rate 05/26/25 01:51 05/26/25 01:56 05/26/25 02:00 Temperature 98.5 F Pulse Rate 54 L 57 L Respiratory Rate 15 14 Blood Pressure 114/58 L 108/67 Pulse Oximetry 100 100 Oxygen Delivery Oxygen Flow Rate 05/26/25 02:01 05/26/25 02:06 05/26/25 02:11 Temperature Pulse Rate 58 L 48 L 54 L Respiratory Rate 15 15 15 Blood Pressure 119/66 112/63 110/61 Pulse Oximetry 99 100 100 Oxygen Delivery Oxygen Flow Rate 05/26/25 02:16 05/26/25 02:21 05/26/25 02:26 Temperature Pulse Rate 52 L 53 L 48 L Respiratory Rate 15 16 16 Blood Pressure 113/68 110/68 113/61 Pulse Oximetry 100 100 100 Oxygen Delivery Oxygen Flow Rate 05/26/25 02:31 05/26/25 02:36 05/26/25 02:41 Temperature Pulse Rate 49 L 48 L 48 L Respiratory Rate 15 15 16 Blood Pressure 117/60 115/73 117/73 Pulse Oximetry 100 100 100 Oxygen Delivery Oxygen Flow Rate 05/26/25 02:46 05/26/25 02:51 05/26/25 02:56 Temperature Pulse Rate 48 L 49 L 48 L Respiratory Rate 15 16 16 Blood Pressure 113/65 116/60 109/59 L Pulse Oximetry 100 100 100 Oxygen Delivery Oxygen Flow Rate 05/26/25 03:01 05/26/25 03:06 05/26/25 03:11 Temperature Pulse Rate 48 L 49 L 49 L Respiratory Rate 16 16 15 Blood Pressure 111/59 L 113/59 L 113/73 Pulse Oximetry 100 100 100 Oxygen Delivery Oxygen Flow Rate 05/26/25 03:16 05/26/25 03:21 05/26/25 03:26 Temperature Pulse Rate 49 L 48 L 55 L Respiratory Rate 16 15 15 Blood Pressure 118/62 116/70 112/65 Pulse Oximetry 100 100 100 Oxygen Delivery Oxygen Flow Rate 05/26/25 03:31 05/26/25 03:36 05/26/25 03:41 Temperature Pulse Rate 48 L 48 L 49 L Respiratory Rate 15 15 15 Blood Pressure 114/62 116/66 121/64 Pulse Oximetry 100 100 100 Oxygen Delivery Oxygen Flow Rate 05/26/25 03:46 05/26/25 03:51 05/26/25 03:56 Temperature Pulse Rate 49 L 48 L 48 L Respiratory Rate 15 15 15 Blood Pressure 124/72 116/67 117/68 Pulse Oximetry 100 100 100 Oxygen Delivery Oxygen Flow Rate 05/26/25 04:01 05/26/25 04:06 05/26/25 04:11 Temperature Pulse Rate 52 L 50 L 50 L Respiratory Rate 15 15 16 Blood Pressure 117/68 114/61 115/67 Pulse Oximetry 100 100 100 Oxygen Delivery Oxygen Flow Rate 05/26/25 04:16 05/26/25 04:21 05/26/25 04:26 Temperature Pulse Rate 61 50 L 50 L Respiratory Rate 16 15 16 Blood Pressure 115/62 115/69 116/67 Pulse Oximetry 100 100 100 Oxygen Delivery Oxygen Flow Rate 05/26/25 04:27 05/26/25 04:30 05/26/25 04:31 Temperature Pulse Rate 52 L 53 L 55 L Respiratory Rate 15 21 H 15 Blood Pressure 105/54 L Pulse Oximetry 100 100 100 Oxygen Delivery Oxygen Flow Rate 05/26/25 04:45 05/26/25 04:46 05/26/25 04:50 Temperature 96.3 F L Pulse Rate 59 L 53 L Respiratory Rate 19 18 Blood Pressure 127/86 Pulse Oximetry Oxygen Delivery Oxygen Flow Rate 05/26/25 04:51 05/26/25 04:56 05/26/25 05:00 Temperature Pulse Rate 50 L 53 L 52 L Respiratory Rate 17 15 16 Blood Pressure 130/73 139/80 Pulse Oximetry Oxygen Delivery Oxygen Flow Rate 05/26/25 05:01 05/26/25 05:06 05/26/25 05:11 Temperature Pulse Rate 52 L 55 L 51 L Respiratory Rate 19 17 17 Blood Pressure 124/70 125/68 116/69 Pulse Oximetry Oxygen Delivery Oxygen Flow Rate 05/26/25 05:15 05/26/25 05:15 05/26/25 05:30 Temperature 96.3 F L 96.0 F L Pulse Rate 53 L Respiratory Rate 17 Blood Pressure Pulse Oximetry Oxygen Delivery Oxygen Flow Rate 05/26/25 06:00 05/26/25 06:00 05/26/25 06:00 Temperature 96.1 F L 96.0 F L Pulse Rate 58 L 58 L Respiratory Rate 18 Blood Pressure 130/70 130/77 Pulse Oximetry 100 Oxygen Delivery Oxygen Flow Rate 05/26/25 06:15 05/26/25 06:18 05/26/25 06:30 Temperature 96.3 F L 96.5 F L 96.5 F L Pulse Rate 54 L 58 L Respiratory Rate 18 18 Blood Pressure 127/77 126/74 Pulse Oximetry 100 100 Oxygen Delivery Oxygen Flow Rate 05/26/25 06:30 05/26/25 06:45 05/26/25 06:45 Temperature 96.6 F L 96.8 F L Pulse Rate 58 L 61 Respiratory Rate 18 Blood Pressure 126/74 122/74 Pulse Oximetry 100 Oxygen Delivery Oxygen Flow Rate 05/26/25 07:00 05/26/25 07:00 05/26/25 07:15 Temperature 96.9 F L 96.9 F L Pulse Rate 61 61 Respiratory Rate 16 Blood Pressure 121/71 121/71 Pulse Oximetry 100 Oxygen Delivery Oxygen Flow Rate 05/26/25 07:30 05/26/25 08:00 05/26/25 08:00 Temperature 97.0 F L 97 F L 97.0 F L Pulse Rate 59 L Respiratory Rate 19 Blood Pressure 119/65 Pulse Oximetry 100 Oxygen Delivery Oxygen Flow Rate 05/26/25 08:00 05/26/25 08:00 05/26/25 08:20 Temperature Pulse Rate 59 L 57 L Respiratory Rate Blood Pressure 116/68 Pulse Oximetry 99 Oxygen Delivery Nasal Cannula Oxygen Flow Rate 2 05/26/25 08:30 05/26/25 09:00 05/26/25 09:00 Temperature 97.0 F L 97.4 F L Pulse Rate 71 64 Respiratory Rate 22 H Blood Pressure 111/65 104/62 Pulse Oximetry 100 Oxygen Delivery Oxygen Flow Rate 05/26/25 09:00 05/26/25 09:30 05/26/25 09:35 Temperature 97.1 F L 97.4 F L Pulse Rate 64 Respiratory Rate Blood Pressure 104/62 Pulse Oximetry Oxygen Delivery Oxygen Flow Rate 05/26/25 10:00 05/26/25 10:00 05/26/25 10:00 Temperature 97.6 F 97.6 F Pulse Rate 68 66 Respiratory Rate Blood Pressure 96/65 L 96/65 L Pulse Oximetry 100 Oxygen Delivery Oxygen Flow Rate 05/26/25 10:00 05/26/25 11:00 05/26/25 11:39 Temperature 97.2 F L Pulse Rate 65 59 L 61 Respiratory Rate 22 H Blood Pressure 105/98 H 103/58 L Pulse Oximetry 99 Oxygen Delivery Oxygen Flow Rate 05/26/25 12:00 Temperature 97.8 F Pulse Rate 64 Respiratory Rate 23 H Blood Pressure 99/61 L Pulse Oximetry 100 Oxygen Delivery Oxygen Flow Rate Exam Narrative: A&Ox3 RRR eWOB S/NT/ND Clear yellow urine draining. Results Labs 05/26/25 06:33 05/26/25 06:33 Labs: Short CBC 05/25/25 05/26/25 Range/Units 20:41 06:33 WBC 13.5 H 12.9 H (4.5-10.0) K/mm3 Hgb 9.6 L 7.8 L (12.0-15.0) g/dL Hct 30.8 L 25.2 L (37.0-47.0) % Plt Count 425 H 354 (150-375) k/mm3 BMP 05/25/25 05/26/25 20:42 06:33 Sodium 135 L 136 L Potassium 3.2 L 3.0 L Chloride 103 107 Carbon Dioxide 25 26 BUN 22 H 18 H Creatinine 1.27 H 1.08 H Glucose 127 H 128 H Calcium 9.6 8.9 Cardiac Enzymes 05/25/25 Range/Units 20:42 Total Creatine Kinase 47 (30-135) U/L Liver Function 05/25/25 Range/Units 20:42 Total Bilirubin 0.5 (0.2-1.3) mg/dL AST 31 (14-36) U/L ALT 12 (6-35) U/L Alkaline Phosphatase 80 (38-126) U/L Albumin 3.5 (3.5-5.1) g/dL Urine 05/25/25 Range/Units 21:23 Urine Color Yellow (Yellow) Urine Appearance Clear (Clear) Urine pH 5.5 (5.0-9.0) Ur Specific [place] 1.010 (1.001-1.035) Urine Protein Trace (Negative) mg/dL Urine Glucose (UA) Negative (Negative) mg/dL
[2025-05-26] MEDS: PREGABALIN (*CRX) 50 MG CAPSULE PO ×2 (13:53→16:40)
[2025-05-26] MEDS: CENTRAL LINE FLUSH 10 ML IV PUSH ×2 (13:55→20:22)
[2025-05-26 14:24] LABS: Iron 21 ug/dL (37-170)
[2025-05-26 14:35] LABS: Percent Iron Saturation 11 % (20-50)
[2025-05-26 15:30] LABS: Vitamin B12 905.0 pg/mL (239-931)
[2025-05-26] MEDS: ATORVASTATIN 40 MG TABLET PO (20:21)
[2025-05-26] MEDS: ACETAMINOPHEN 325 MG TABLET 650 MG PO (20:21)
[2025-05-26] MEDS: CEFEPIME 2 GM in SODIUM CHLORIDE 0.9% IV 50 ML 100 ML IVPB (23:43)
[2025-05-27] VITALS (34 sets, daily range): BP systolic 95–131; BP diastolic 54–84; PULSE 24–77; RESP 18–28; TEMP 36.3–37; O2SAT 94–98
[2025-05-27] MEDS: CENTRAL LINE FLUSH 10 ML IV PUSH ×3 (04:59→21:59)
[2025-05-27 05:26] LABS: Hematocrit 23.4 % (37.0-47.0); Hemoglobin 7.1 g/dL (12.0-15.0); Immature Granulocyte Percent A 0.5 % (0-0.5); Lymphocytes Absolute Auto 1.78 K/mm3 (0.9-3.2); Mean Corpuscular HGB Conc 30.3 g/dl (32-36); Mean Corpuscular Hemoglobin 25.1 pg (26-34); Mean Corpuscular Volume 82.7 fl (80-100); Nucleated Red Blood Cells Absolute Auto 0.000 K/mm3 (0.0-0.012); Nucleated Red Blood Cells Perc 0.0 % (0.0-0.2); Platelet Count Result 295 k/mm3 (150-375); Red Blood Count 2.83 M/mm3 (4.2-5.4); White Blood Count 7.4 K/mm3 (4.5-10.0)
[2025-05-27 05:38] LABS: INR 1.1; Prothrombin Time 14.4 Seconds (11.1-14.7)
[2025-05-27 05:39] LABS: Partial Thromboplastin Time 35.0 Seconds (22.3-36.8)
[2025-05-27 05:51] LABS: Alanine Aminotransferase 11 U/L (6-35); Albumin Level 2.4 g/dL (3.5-5.1); Alkaline Phosphatase 57 U/L (38-126); Anion Gap -1 mmol/L (4-12); Aspartate Amino Transferase 23 U/L (14-36); Bilirubin,Total 0.2 mg/dL (0.2-1.3); Blood Urea Nitrogen 15 mg/dL (7-17); Calcium 8.8 mg/dL (8.4-10.2); Carbon Dioxide 28 mmol/L (22-30); Chloride 109 mmol/L (98-107); Estimated CRCL calculation 29 ml/min; Estimated Glomerular Filt Rate 54; Glucose 115 mg/dL (65-110); Magnesium 1.9 mg/dL (1.6-2.3); Potassium 3.3 mmol/L (3.4-5.0); Sodium 136 mmol/L (137-145); Total Protein 5.8 g/dL (6.3-8.2)
[2025-05-27] MEDS: PREGABALIN (*CRX) 50 MG CAPSULE PO ×3 (08:18→17:18)
[2025-05-27] MEDS: PANTOPRAZOLE SODIUM IV 40 MG VIAL IV PUSH (08:18)
[2025-05-27] MEDS: ACETAMINOPHEN 325 MG TABLET 650 MG PO ×4 (08:18→23:41)
--- NOTE | 2025-05-27 08:24 | WPDUROPN2 ---
Progress Note: A&P Assessment and Plan (1) Acute UTI: Code(s): N39.0 - Urinary tract infection, site not specified Status: Acute Plan Chronic hydronephrosis, creatinine improving with treatment Monitor PVRs after catheter removed UTI, continue broad spectrum antibiotics, narrow when sensitivities available, transition to oral regimen for a 2-week course for urosepsis/febrile UTI. Follow up as outpatient for surveillance cystoscopy Subjective Subjective Date/Time Seen: 05/27/25 08:24 Interval history: Ms. Terry has chronic bilateral hydronephrosis, admitted with sepsis due to UTI, creatinine improving with IVF hydration and antibiotics, culture pending, WBC wnl. She also a history of low grade bladder cancer, last recurrence 2020, cystoscopy August, negative for recurrent tumor. She has also had an interstim placed by Dr. Mahoney. Exam Const: General: comfortable and no acute distress HENMT: Face/Nose/Sinus: Normal nares present Mouth: Yes moist mucous membranes Eyes: General: appearance normal, both eyes and all related structures EOM: EOMs intact bilaterally Resp: Effort & Inspection: normal respiratory effort GI: GI Palp: Yes Soft to palpation : General: Yes bladder normal to palpation (tender to palpation) Skin: General skin exam: normal color Neuro: Speech: normal speech Extrem: General: normal to inspection Psych: Mental Status: mental status grossly normal Affect: normal affect Objective Data Vital Signs Vital Signs: Vital Signs - 24 hr 05/26/25 08:30 05/26/25 09:00 05/26/25 09:00 Temperature 36.1 C L 36.3 C L Pulse Rate 71 64 Respiratory Rate 22 H Blood Pressure 111/65 104/62 Pulse Oximetry 100 Oxygen Delivery Oxygen Flow Rate 05/26/25 09:00 05/26/25 09:05 05/26/25 09:30 Temperature 36.2 C L 36.3 C L Pulse Rate 64 Respiratory Rate 12 Blood Pressure Pulse Oximetry 99 Oxygen Delivery Nasal Cannula Oxygen Flow Rate 2 05/26/25 09:35 05/26/25 10:00 05/26/25 10:00 Temperature 36.4 C 36.4 C Pulse Rate 64 68 Respiratory Rate Blood Pressure 104/62 96/65 L Pulse Oximetry 100 Oxygen Delivery Oxygen Flow Rate 05/26/25 10:00 05/26/25 10:00 05/26/25 11:00 Temperature 36.2 C L Pulse Rate 66 65 59 L Respiratory Rate 22 H Blood Pressure 96/65 L 105/98 H Pulse Oximetry 99 Oxygen Delivery Oxygen Flow Rate 05/26/25 11:39 05/26/25 12:00 05/26/25 12:00 Temperature 36.6 C Pulse Rate 61 64 62 Respiratory Rate 23 H Blood Pressure 103/58 L 99/61 L 99/61 L Pulse Oximetry 100 Oxygen Delivery Oxygen Flow Rate 05/26/25 12:00 05/26/25 12:00 05/26/25 13:00 Temperature 36.6 C Pulse Rate 61 65 Respiratory Rate 20 Blood Pressure 97/60 L Pulse Oximetry 99 96 Oxygen Delivery Room Air Oxygen Flow Rate 05/26/25 13:59 05/26/25 14:00 05/26/25 14:00 Temperature 36.8 C Pulse Rate 63 69 62 Respiratory Rate 20 Blood Pressure 103/58 L 128/70 Pulse Oximetry 96 Oxygen Delivery Oxygen Flow Rate 05/26/25 15:00 05/26/25 16:00 05/26/25 16:00 Temperature 36.9 C 37.0 C Pulse Rate 68 69 Respiratory Rate 24 H 25 H Blood Pressure 95/65 L 90/62 L Pulse Oximetry 96 99 98 Oxygen Delivery Room Air Oxygen Flow Rate 05/26/25 16:00 05/26/25 16:00 05/26/25 17:00 Temperature 37.0 C Pulse Rate 69 71 69 Respiratory Rate 24 H Blood Pressure 90/62 L 90/62 L Pulse Oximetry 98 Oxygen Delivery Oxygen Flow Rate 05/26/25 18:00 05/26/25 18:00 05/26/25 18:00 Temperature 37.3 C Pulse Rate 74 73 73 Respiratory Rate 24 H Blood Pressure 100/56 L 100/56 L Pulse Oximetry 97 Oxygen Delivery Oxygen Flow Rate 05/26/25 19:00 05/26/25 20:00 05/26/25 20:00 Temperature 37.3 C Pulse Rate 72 71 71 Respiratory Rate 20 20 Blood Pressure 102/65 Pulse Oximetry 95 95 Oxygen Delivery Room Air Oxygen Flow Rate 05/26/25 20:00 05/26/25 20:00 05/26/25 20:30 Temperature 37.3 C Pulse Rate 71 74 71 Respiratory Rate 23 H Blood Pressure 106/69 109/69 108/76 Pulse Oximetry 98 Oxygen Delivery Oxygen Flow Rate 05/26/25 21:00 05/26/25 21:00 05/26/25 21:30 Temperature 37.3 C Pulse Rate 71 71 72 Respiratory Rate 24 H Blood Pressure 105/59 L 105/59 L 107/60 Pulse Oximetry 96 Oxygen Delivery Oxygen Flow Rate 05/26/25 22:00 05/26/25 22:00 05/26/25 22:00 Temperature 37.1 C Pulse Rate 71 71 71 Respiratory Rate 24 H Blood Pressure 101/58 L 101/58 L Pulse Oximetry 95 Oxygen Delivery Oxygen Flow Rate 05/26/25 22:30 05/26/25 23:00 05/26/25 23:00 Temperature 36.8 C Pulse Rate 69 55 L 59 L Respiratory Rate 19 Blood Pressure 95/54 L 85/52 L 85/52 L Pulse Oximetry 94 Oxygen Delivery Oxygen Flow Rate 05/26/25 23:30 05/26/25 23:45 05/27/25 00:00 Temperature Pulse Rate 59 L 64 58 L Respiratory Rate Blood Pressure 88/51 L 100/59 L 99/59 L Pulse Oximetry Oxygen Delivery Oxygen Flow Rate 05/27/25 00:00 05/27/25 00:00 05/27/25 00:00 Temperature 36.7 C Pulse Rate 64 64 64 Respiratory Rate 19 20 Blood Pressure 99/59 L Pulse Oximetry 97 98 Oxygen Delivery Room Air Oxygen Flow Rate 05/27/25 00:15 05/27/25 00:30 05/27/25 00:45 Temperature Pulse Rate 59 L 59 L 60 Respiratory Rate Blood Pressure 103/61 99/60 L 103/58 L Pulse Oximetry Oxygen Delivery Oxygen Flow Rate 05/27/25 01:00 05/27/25 01:15 05/27/25 01:30 Temperature 36.5 C Pulse Rate 60 56 L 57 L Respiratory Rate 18 Blood Pressure 110/59 L 110/59 L 102/58 L Pulse Oximetry 96 Oxygen Delivery Oxygen Flow Rate 05/27/25 02:00 05/27/25 02:00 05/27/25 02:15 Temperature 36.4 C Pulse Rate 55 L 55 L 55 L Respiratory Rate 18 Blood Pressure 95/54 L 95/54 L Pulse Oximetry 95 Oxygen Delivery Oxygen Flow Rate 05/27/25 02:45 05/27/25 03:00 05/27/25 03:00 Temperature 36.3 C L Pulse Rate 52 L 56 L 49 L Respiratory Rate 20 Blood Pressure 98/55 L 95/58 L 95/58 L Pulse Oximetry 95 Oxygen Delivery Oxygen Flow Rate 05/27/25 03:30 05/27/25 04:00 05/27/25 04:00 Temperature Pulse Rate 53 L 55 L 55 L Respiratory Rate 20 Blood Pressure 106/58 L Pulse Oximetry 96 Oxygen Delivery Room Air Oxygen Flow Rate 05/27/25 04:00 05/27/25 04:00 05/27/25 04:30 Temperature 36.3 C L Pulse Rate 55 L 55 L 54 L Respiratory Rate 20 Blood Pressure 108/63 108/63 105/59 L Pulse Oximetry 96 Oxygen Delivery Oxygen Flow Rate 05/27/25 05:00 05/27/25 05:00 05/27/25 05:30 Temperature 36.3 C L Pulse Rate 57 L 57 L 62 Respiratory Rate 22 H Blood Pressure 119/67 119/67 118/63 Pulse Oximetry 96 Oxygen Delivery Oxygen Flow Rate 05/27/25 06:00 05/27/25 06:00 05/27/25 06:00 Temperature 36.4 C Pulse Rate 66 63 57 L Respiratory Rate 20 Blood Pressure 112/61 112/61 Pulse Oximetry 97 Oxygen Delivery Oxygen Flow Rate Intake/Output Intake/Output: Intake & Output 05/24/25 05/25/25 05/26/25 05/27/25 23:59 23:59 23:59 23:59 Intake Total 2150 3059.0 193.4 Output Total 150 800 800 Balance 2000 2259.0 -606.6 Meds/Results Medications: Active Medications Generic Name Dose Route Start Last Admin Trade Name Harjeetq PRN Reason Stop Dose Admin Acetaminophen 650 mg 05/26/25 04:35 05/27/25 08:18 Acetaminophen 325 Mg Tablet PO 650 mg Q4H PRN Administration Mild Pain (1-3) or Fever Atorvastatin Calcium 40 mg 05/26/25 21:00 05/26/25 20:21 Atorvastatin 40 Mg Tablet PO 40 mg HS FUNMI Administration Norepinephrine Bitartrate 8 mg in 250 mls @ 3.75 mls/hr 05/25/25 23:40 05/27/25 06:00 Levophed 8 Mg/D5w 250 Ml IV CONT 2 mcg/min .Q24H FUNMI 3.75 mls/hr Protocol Titration 2 MCG/MIN Vancomycin HCl 1,000 mg/ 250 mls @ 250 mls/hr 05/27/25 11:00 Sodium Chloride IVPB Q36H FUNMI Lactated Ringer's 1,000 mls @ 75 mls/hr 05/26/25 04:35 05/26/25 20:22 Lr - Lactated Ringers Iv IV CONT 75 mls/hr .[id number] FUNMI Administration Cefepime HCl 2 gm/ Sodium 50 mls @ 100 mls/hr 05/26/25 23:00 05/27/25 00:15 Chloride IVPB Infused Q24H FUNMI Infusion Ondansetron HCl 4 mg 05/26/25 04:35 Ondansetron Inj 4 Mg/2 Ml Vial IV PUSH Q4H PRN Nausea Pantoprazole Sodium 40 mg 05/26/25 09:00 05/27/25 08:18 Pantoprazole Sodium Iv 40 Mg Vial IV PUSH 40 mg QAM FUNMI Administration Potassium Chloride 40 meq 05/27/25 08:30 Potassium Chloride 20 Meq Er Tablet PO 05/27/25 08:31 ONCE ONE Pregabalin 50 mg 05/26/25 13:00 05/27/25 08:18 Pregabalin (*Crx) 50 Mg Capsule PO 50 mg TID FUNMI Administration Sodium Chloride 10 ml 05/26/25 14:00 05/27/25 04:59 Central Line Flush IV PUSH 10 ml Q8HR FUNMI Administration Sodium Chloride 20 ml 05/26/25 06:42 Central Line Flush IV PUSH PRN PRN after blood draws Radiology Results: ITS Impressions Chest X-Ray 05/25/25 19:53 IMPRESSION: Cardiomegaly and expiratory image, making evaluation of the interstitium difficult. Pulmonary vascular congestion is not excluded. No airspace disease. Head CT 05/25/25 20:11 IMPRESSION: No acute findings. All CT scans at this facility are performed using low dose modulation techniques as appropriate to perform exam including the following: automated exposure control; use of iterative reconstruction technique; adjustment of the mA and/or kV according to patient size (this includes techniques or standardized protocols for targeted exams where dose is matched to indication/reason for exam). Foot X-Ray 05/25/25 20:17 IMPRESSION: No acute abnormalities are seen. Given the MTP findings, consider gout. Abdomen/Pelvis CT 05/26/25 08:15 IMPRESSION: 1. Bilateral hydronephrosis and hydroureter with distal stricture suspected. Findings are probably chronic without. The renal parenchyma noted bilaterally. 2. Incidental findings above Labs Labs: Laboratory Results - last 24 hr 05/26/25 05/26/25 05/27/25 08:58 14:00 04:57 WBC 7.4 RBC 2.83 L Hgb 7.1 L Hct 23.4 L MCV 82.7 MCH 25.1 L MCHC 30.3 L RDW 15.9 H Plt Count 295 MPV 9.1 Immature Gran % (Auto) 0.5 Neut % (Auto) 65.4 Lymph % (Auto) 24.2 [place] % (Auto) 7.6 Eos % (Auto) 1.9 Baso % (Auto) 0.4 Lymph # (Auto) 1.78 [place] # (Auto) 0.6 Eos # (Auto) 0.1 Baso # (Auto) 0.0 Abs Immat Gran (auto) 0.04 H Absolute Neuts (auto) 4.8 Absolute Nucleated RBC 0.000 Nucleated RBC % 0.0 PT 14.4 INR 1.1 APTT 35.0 Sodium 136 L Potassium 3.3 L Chloride 109 H Carbon Dioxide 28 Anion Gap -1 L BUN 15 Creatinine 0.99 Estim Creat Clear Calc 29 Estimated GFR 54 L Glucose 115 H Lactic Acid 0.9 Calcium 8.8 Phosphorus 2.6 Magnesium 1.9 Iron 21 L TIBC 188 L % Saturation 11 L Total Bilirubin 0.2 AST 23 ALT 11 Alkaline Phosphatase 57 Ammonia < 9 L Total Protein 5.8 L Albumin 2.4 L Vitamin B12 905.0 Folate 5.1 Influenza A (RT-PCR) Negative Influenza B (RT-PCR) Negative RSV (RT-PCR) Negative SARS-CoV-2 RNA (RT-PCR) Negative
[2025-05-27] MEDS: POTASSIUM CHLORIDE 20 MEQ ER TABLET 40 MEQ PO (08:26)
[2025-05-27] MEDS: VANCOMYCIN HCL 1,000 MG in SODIUM CHLORIDE 0.9% IV 250 ML 250 MG IVPB (12:28)
[2025-05-27 12:46] LABS: Hematocrit 24.2 % (37.0-47.0); Hemoglobin 7.3 g/dL (12.0-15.0)
--- NOTE | 2025-05-27 12:52 | P.PNINT_ITS ---
Progress Note: A&P Assessment and Plan (1) Septic shock: Code(s): A41.9 - Sepsis, unspecified organism; R65.21 - Severe sepsis with septic shock Status: Acute Assessment and Plan: Patient presented with generalized weakness, fall, altered mental status, fevers, UA was reflective of UTI. Patient does have a history of UTI. Also bilateral hydronephrosis which are chronic and she follows up with Urology -05/25: patient was hypotensive in the ER, was given 30 cc/kg IV fluid bolus despite which her blood pressures remain low, right femoral central line was inserted -OFF Levophed, maintain MAP > 65 mmHg or SBP > 100 mmHg -patient started on cefepime and vancomycin, will deescalate once cultures a result (05/26) -05/25: Urine and blood cultures have been obtained and pending, (patient has had Citrobacter, Klebsiella and Pseudomonas in the past in the urine cultures, all susceptible to cefepime) -lactic acid are within normal limits -will discontinue maintenance IV fluid since patient is currently volume resuscitated -monitor urine output (2) Acute UTI: Code(s): N39.0 - Urinary tract infection, site not specified Status: Acute Assessment and Plan: Treatment As above (3) MAGALIS (acute kidney injury): Code(s): N17.9 - Acute kidney failure, unspecified Status: Acute Assessment and Plan: Acute kidney injury likely related to hypovolemia per ER physician -adequately fluid resuscitated -creatinine has normalized -urine output has been -continue to monitor renal function, electrolytes and urine output -will discontinue IV fluids as she seems to be euvolemic (4) History of pulmonary embolism: Code(s): Z86.711 - Personal history of pulmonary embolism Status: Chronic Assessment and Plan: Patient on apixaban, clopidogrel at home will hold for now given patient is anemic (5) CHF (congestive heart failure): Code(s): I50.9 - Heart failure, unspecified Status: Acute Assessment and Plan: Hold losartan, furosemide, carvedilol due to patient being hypotensive, in septic shock, on pressors (6) Hypertension: Code(s): I10 - Essential (primary) hypertension Status: Chronic Assessment and Plan: Hold all antihypertensives as patient is on pressors (7) Anemia: Code(s): D64.9 - Anemia, unspecified Status: Acute Assessment and Plan: Patient dropped her hemoglobin, 9.6 on admission to 7.1 -iron panel reflects anemia of chronic disease -vitamin B12 and folate within normal limit -stool occult has been ordered and pending -patient also on apixaban and clopidogrel at home which currently on hold Plan DVT prophylaxis: SCDs, hold all chemo prophylaxis due to anemia Stress ulcer prophylaxis: Not indicated Nutrition: Heart healthy diet Code Status: Full code Critical Care Time Spent: 33 minutes Due to a high probability of clinically significant, life threatening deterioration, the patient required my highest level of preparedness to intervene emergently and I personally spent this critical care time directly and personally managing the patient. This critical care time included obtaining a history; examining the patient; pulse oximetry; ordering and review of studies; arranging urgent treatment with development of a management plan; evaluation of patient's response to treatment; frequent reassessment; and discussions with other providers. It was exclusive of separately billable procedures and treating other patients and teaching time. Please see Assessment and Plan section and the rest of the note for further information on patient assessment and treatment This dictation may have been done utilizing a voice recognition system. Attempts have been made to correct errors. However, there may be uncorrected grammatical, spelling, and recognitions errors present. Subjective Date/time seen: 05/27/25 12:52 Interval history: Reason for consult: Septic shock, UTI, altered mental status, anemia 05/27/2025: Patient seen and examined the ICU, is awake, alert, oriented x2, patient denies any chest pain, shortness a breath, abdominal pain, nausea vomiting. She only complains of right foot pain which has been ongoing for approximately 2 months. Patient had to be restarted on Levophed overnight, it has been off this since this morning. Afebrile, tolerating p.o. diet, adequate urine output. Also discontinued maintenance IV fluids Review of Systems Review of Systems: All systems reviewed & are unremarkable except as noted in HPI and below Exam Narrative: General: Pleasant female in no acute distress HEENT:? Pupils equal and reactive, sclerae is clear Neck:? Supple Respiratory:? Coarse breath sounds at bases, no wheezing, adequate air entry Cardiac:? S1-S2 normal, regular rate and rhythm Abdomen:? Soft, nontender, nondistended, normoactive bowel sounds Extremities:? No edema, palpable pedal pulses Neuro:? Patient is awake, alert, oriented x2, able to answer questions and follows simple commands in all extremities Skin:? Warm and dry Psych:? Depressed affect Objective Data Vital Signs Vital Signs: Vital Signs - 24 hr 05/26/25 13:00 05/26/25 13:59 05/26/25 14:00 Temperature 97.9 F 98.2 F Pulse Rate 65 63 69 Respiratory Rate 20 20 Blood Pressure 97/60 L 103/58 L 128/70 Pulse Oximetry 96 96 Oxygen Delivery 05/26/25 14:00 05/26/25 15:00 05/26/25 16:00 Temperature 98.4 F Pulse Rate 62 68 Respiratory Rate 24 H Blood Pressure 95/65 L Pulse Oximetry 96 99 Oxygen Delivery Room Air 05/26/25 16:00 05/26/25 16:00 05/26/25 16:00 Temperature 98.6 F Pulse Rate 69 69 71 Respiratory Rate 25 H Blood Pressure 90/62 L 90/62 L Pulse Oximetry 98 Oxygen Delivery 05/26/25 17:00 05/26/25 18:00 05/26/25 18:00 Temperature 98.6 F 99.1 F Pulse Rate 69 74 73 Respiratory Rate 24 H 24 H Blood Pressure 90/62 L 100/56 L Pulse Oximetry 98 97 Oxygen Delivery 05/26/25 18:00 05/26/25 19:00 05/26/25 20:00 Temperature 99.2 F Pulse Rate 73 72 71 Respiratory Rate 20 20 Blood Pressure 100/56 L 102/65 Pulse Oximetry 95 95 Oxygen Delivery Room Air 05/26/25 20:00 05/26/25 20:00 05/26/25 20:00 Temperature 99.2 F Pulse Rate 71 71 74 Respiratory Rate 23 H Blood Pressure 106/69 109/69 Pulse Oximetry 98 Oxygen Delivery 05/26/25 20:30 05/26/25 21:00 05/26/25 21:00 Temperature 99.1 F Pulse Rate 71 71 71 Respiratory Rate 24 H Blood Pressure 108/76 105/59 L 105/59 L Pulse Oximetry 96 Oxygen Delivery 05/26/25 21:30 05/26/25 22:00 05/26/25 22:00 Temperature 98.8 F Pulse Rate 72 71 71 Respiratory Rate 24 H Blood Pressure 107/60 101/58 L Pulse Oximetry 95 Oxygen Delivery 05/26/25 22:00 05/26/25 22:30 05/26/25 23:00 Temperature 98.3 F Pulse Rate 71 69 55 L Respiratory Rate 19 Blood Pressure 101/58 L 95/54 L 85/52 L Pulse Oximetry 94 Oxygen Delivery 05/26/25 23:00 05/26/25 23:30 05/26/25 23:45 Temperature Pulse Rate 59 L 59 L 64 Respiratory Rate Blood Pressure 85/52 L 88/51 L 100/59 L Pulse Oximetry Oxygen Delivery 05/27/25 00:00 05/27/25 00:00 05/27/25 00:00 Temperature Pulse Rate 58 L 64 64 Respiratory Rate 19 Blood Pressure 99/59 L Pulse Oximetry 97 Oxygen Delivery Room Air 05/27/25 00:00 05/27/25 00:15 05/27/25 00:30 Temperature 98.0 F Pulse Rate 64 59 L 59 L Respiratory Rate 20 Blood Pressure 99/59 L 103/61 99/60 L Pulse Oximetry 98 Oxygen Delivery 05/27/25 00:45 05/27/25 01:00 05/27/25 01:15 Temperature 97.7 F Pulse Rate 60 60 56 L Respiratory Rate 18 Blood Pressure 103/58 L 110/59 L 110/59 L Pulse Oximetry 96 Oxygen Delivery 05/27/25 01:30 05/27/25 02:00 05/27/25 02:00 Temperature 97.6 F Pulse Rate 57 L 55 L 55 L Respiratory Rate 18 Blood Pressure 102/58 L 95/54 L Pulse Oximetry 95 Oxygen Delivery 05/27/25 02:15 05/27/25 02:45 05/27/25 03:00 Temperature Pulse Rate 55 L 52 L 56 L Respiratory Rate Blood Pressure 95/54 L 98/55 L 95/58 L Pulse Oximetry Oxygen Delivery 05/27/25 03:00 05/27/25 03:30 05/27/25 04:00 Temperature 97.3 F L Pulse Rate 49 L 53 L 55 L Respiratory Rate 20 20 Blood Pressure 95/58 L 106/58 L Pulse Oximetry 95 96 Oxygen Delivery Room Air 05/27/25 04:00 05/27/25 04:00 05/27/25 04:00 Temperature 97.3 F L Pulse Rate 55 L 55 L 55 L Respiratory Rate 20 Blood Pressure 108/63 108/63 Pulse Oximetry 96 Oxygen Delivery 05/27/25 04:30 05/27/25 05:00 05/27/25 05:00 Temperature 97.4 F L Pulse Rate 54 L 57 L 57 L Respiratory Rate 22 H Blood Pressure 105/59 L 119/67 119/67 Pulse Oximetry 96 Oxygen Delivery 05/27/25 05:30 05/27/25 06:00 05/27/25 06:00 Temperature 97.6 F Pulse Rate 62 66 63 Respiratory Rate 20 Blood Pressure 118/63 112/61 Pulse Oximetry 97 Oxygen Delivery 05/27/25 06:00 05/27/25 07:00 05/27/25 08:00 Temperature 97.8 F Pulse Rate 57 L 62 Respiratory Rate 25 H Blood Pressure 112/61 125/84 Pulse Oximetry 95 95 Oxygen Delivery Room Air 05/27/25 08:00 05/27/25 08:00 05/27/25 09:00 Temperature 98.1 F 98.3 F Pulse Rate 63 63 72 Respiratory Rate 25 H 24 H Blood Pressure 120/65 120/65 131/78 Pulse Oximetry 96 97 Oxygen Delivery 05/27/25 10:00 05/27/25 10:00 05/27/25 10:00 Temperature 98.3 F Pulse Rate 77 77 77 Respiratory Rate 26 H Blood Pressure 119/81 119/81 Pulse Oximetry 97 Oxygen Delivery 05/27/25 11:00 05/27/25 12:00 Temperature 98.4 F Pulse Rate 71 24 L Respiratory Rate 20 Blood Pressure 113/72 103/61 Pulse Oximetry 95 Oxygen Delivery Intake/Output Intake/Output: Intake & Output 05/24/25 05/25/25 05/26/25 05/27/25 23:59 23:59 23:59 23:59 Intake Total 2150 3059.0 438.4 Output Total 150 800 800 Balance 2000 2259.0 -361.6 Meds/Results Medications: Active Medications Generic Name Dose Route Start Last Admin Trade Name Freq PRN Reason Stop Dose Admin Acetaminophen 650 mg 05/26/25 04:35 05/27/25 12:29 Acetaminophen 325 Mg Tablet PO 650 mg Q4H PRN Administration Mild Pain (1-3) or Fever Atorvastatin Calcium 40 mg 05/26/25 21:00 05/26/25 20:21 Atorvastatin 40 Mg Tablet PO 40 mg HS FUNMI Administration Norepinephrine Bitartrate 8 mg in 250 mls @ 0 mls/hr 05/25/25 23:40 05/27/25 12:00 Levophed 8 Mg/D5w 250 Ml IV CONT 0 mcg/min .Q0M FUNMI 0 mls/hr Protocol Titration Vancomycin HCl 1,000 mg/ 250 mls @ 250 mls/hr 05/27/25 11:00 05/27/25 12:28 Sodium Chloride IVPB 250 mls/hr Q36H FUNMI Administration Cefepime HCl 2 gm/ Sodium 50 mls @ 100 mls/hr 05/26/25 23:00 05/27/25 00:15 Chloride IVPB Infused Q24H FUNMI Infusion Ondansetron HCl 4 mg 05/26/25 04:35 Ondansetron Inj 4 Mg/2 Ml Vial IV PUSH Q4H PRN Nausea Pantoprazole Sodium 40 mg 05/26/25 09:00 05/27/25 08:18 Pantoprazole Sodium Iv 40 Mg Vial IV PUSH 40 mg QAM FUNMI Administration Pregabalin 50 mg 05/26/25 13:00 05/27/25 12:28 Pregabalin (*Crx) 50 Mg Capsule PO 50 mg TID FUNMI Administration Sodium Chloride 10 ml 05/26/25 14:00 05/27/25 04:59 Central Line Flush IV PUSH 10 ml Q8HR FUNMI Administration Sodium Chloride 20 ml 05/26/25 06:42 Central Line Flush IV PUSH PRN PRN after blood draws Radiology Results: ITS Impressions Chest X-Ray 05/25/25 19:53 IMPRESSION: Cardiomegaly and expiratory image, making evaluation of the interstitium diffic ult. Pulmonary vascular congestion is not excluded. No airspace disease. Head CT 05/25/25 20:11 IMPRESSION: No acute findings. All CT scans at this facility are performed using low dose modulation techniques as appropriate to perform exam including the following: automated exposure control; use of iterative reconstruction technique; adjustment of the mA and/or kV according to patient size (this includes techniques or standardized protocols for targeted exams where dose is matched to indication/reason for exam). Foot X-Ray 05/25/25 20:17 IMPRESSION: No acute abnormalities are seen. Given the MTP findings, consider gout. Abdomen/Pelvis CT 05/26/25 08:15 IMPRESSION: 1. Bilateral hydronephrosis and hydroureter with distal stricture suspected. Findings are probably chronic without. The renal parenchyma noted bilaterally. 2. Incidental findings above Labs Labs: Laboratory Results - last 24 hr 05/26/25 05/27/25 05/27/25 14:00 04:57 12:34 WBC 7.4 RBC 2.83 L Hgb 7.1 L 7.3 L Hct 23.4 L 24.2 L MCV 82.7 MCH 25.1 L MCHC 30.3 L RDW 15.9 H Plt Count 295 MPV 9.1 Immature Gran % (Auto) 0.5 Neut % (Auto) 65.4 Lymph % (Auto) 24.2 [place] % (Auto) 7.6 Eos % (Auto) 1.9 Baso % (Auto) 0.4 Lymph # (Auto) 1.78 [place] # (Auto) 0.6 Eos # (Auto) 0.1 Baso # (Auto) 0.0 Abs Immat Gran (auto) 0.04 H Absolute Neuts (auto) 4.8 Absolute Nucleated RBC 0.000 Nucleated RBC % 0.0 PT 14.4 INR 1.1 APTT 35.0 Sodium 136 L Potassium 3.3 L Chloride 109 H Carbon Dioxide 28 Anion Gap -1 L BUN 15 Creatinine 0.99 Estim Creat Clear Calc 29 Estimated GFR 54 L Glucose 115 H Calcium 8.8 Phosphorus 2.6 Magnesium 1.9 Iron 21 L TIBC 188 L % Saturation 11 L Total Bilirubin 0.2 AST 23 ALT 11 Alkaline Phosphatase 57 Total Protein 5.8 L Albumin 2.4 L Vitamin B12 905.0 Folate 5.1 Quality VTE Prophylaxis VTE prophylaxis: mechanical ordered
--- NOTE | 2025-05-27 14:34 | PCPTNOTE ---
attempted PT eval, per RN pt still has R femoral line in place, will follow as pt is appropriate
--- NOTE | 2025-05-27 17:42 | PM.IMPN ---
Progress Note: A&P Assessment and Plan (1) Septic shock: Code(s): A41.9 - Sepsis, unspecified organism; R65.21 - Severe sepsis with septic shock Status: Acute Assessment and Plan: Patient presented with generalized weakness, fall, altered mental status, fevers, UA was reflective of UTI. Patient does have a history of UTI. Also bilateral hydronephrosis which are chronic and she follows up with Urology -05/25: patient was hypotensive in the ER, was given 30 cc/kg IV fluid bolus despite which her blood pressures remain low, right femoral central line was inserted -OFF Levophed, maintain MAP > 65 mmHg or SBP > 100 mmHg -patient started on cefepime and vancomycin, will deescalate once cultures a result (05/26) -05/25: Urine and blood cultures have been obtained and pending, (patient has had Citrobacter, Klebsiella and Pseudomonas in the past in the urine cultures, all susceptible to cefepime) -lactic acid are within normal limits -will discontinue maintenance IV fluid since patient is currently volume resuscitated -monitor urine output -05/27: blood cultures growing gram positive cocci- cefepime + vancomycin adequate coverage at this time, sensitivities pending. (2) Acute UTI: Code(s): N39.0 - Urinary tract infection, site not specified Status: Acute Assessment and Plan: Treatment As above (3) MAGALIS (acute kidney injury): Code(s): N17.9 - Acute kidney failure, unspecified Status: Acute Assessment and Plan: Acute kidney injury likely related to hypovolemia per ER physician -adequately fluid resuscitated -creatinine has normalized -urine output has been -continue to monitor renal function, electrolytes and urine output -will discontinue IV fluids as she seems to be euvolemic (4) History of pulmonary embolism: Code(s): Z86.711 - Personal history of pulmonary embolism Status: Chronic Assessment and Plan: Patient on apixaban, clopidogrel at home will hold for now given patient is anemic (5) CHF (congestive heart failure): Code(s): I50.9 - Heart failure, unspecified Status: Acute Assessment and Plan: Hold losartan, furosemide, carvedilol due to patient being hypotensive, in septic shock, on pressors 05/27: off pressors, cautiously resume as BP goes up (6) Hypertension: Code(s): I10 - Essential (primary) hypertension Status: Chronic Assessment and Plan: Hold all antihypertensives as patient is on pressors 05/27: off pressors, cautiously resume as BP goes up (7) Anemia: Code(s): D64.9 - Anemia, unspecified Status: Acute Assessment and Plan: Patient dropped her hemoglobin, 9.6 on admission to 7.1 -iron panel reflects anemia of chronic disease -vitamin B12 and folate within normal limit -stool occult has been ordered and pending -patient also on apixaban and clopidogrel at home which currently on hold Plan Transferred to floor. DVT prophylaxis: SCDs, hold all chemo prophylaxis due to anemia Stress ulcer prophylaxis: Not indicated Nutrition: Heart healthy diet Code Status: Full code Subjective Date/time seen: 05/27/25 17:42 Interval history: Reason for consult: Septic shock, UTI, altered mental status, anemia 05/27/2025: Patient seen and examined the ICU, is awake, alert, oriented x2, patient denies any chest pain, shortness a breath, abdominal pain, nausea vomiting. She only complains of right foot pain which has been ongoing for approximately 2 months. Patient had to be restarted on Levophed overnight, it has been off this since this morning. Afebrile, tolerating p.o. diet, adequate urine output. Also discontinued maintenance IV fluids Review of Systems Review of Systems: All systems reviewed & are unremarkable except as noted in HPI and below Exam Narrative: General: Pleasant female in no acute distress HEENT:? Pupils equal and reactive, sclerae is clear Neck:? Supple Respiratory:? Coarse breath sounds at bases, no wheezing, adequate air entry Cardiac:? S1-S2 normal, regular rate and rhythm Abdomen:? Soft, nontender, nondistended, normoactive bowel sounds Extremities:? No edema, palpable pedal pulses Neuro:? Patient is awake, alert, oriented x2, able to answer questions and follows simple commands in all extremities Skin:? Warm and dry Psych:? Depressed affect Objective Data Vital Signs Vital Signs: Vital Signs - 24 hr 05/26/25 18:00 05/26/25 18:00 05/26/25 18:00 Temperature 99.1 F Pulse Rate 74 73 73 Respiratory Rate 24 H Blood Pressure 100/56 L 100/56 L Pulse Oximetry 97 Oxygen Delivery 05/26/25 19:00 05/26/25 20:00 05/26/25 20:00 Temperature 99.2 F Pulse Rate 72 71 71 Respiratory Rate 20 20 Blood Pressure 102/65 Pulse Oximetry 95 95 Oxygen Delivery Room Air 05/26/25 20:00 05/26/25 20:00 05/26/25 20:30 Temperature 99.2 F Pulse Rate 71 74 71 Respiratory Rate 23 H Blood Pressure 106/69 109/69 108/76 Pulse Oximetry 98 Oxygen Delivery 05/26/25 21:00 05/26/25 21:00 05/26/25 21:30 Temperature 99.1 F Pulse Rate 71 71 72 Respiratory Rate 24 H Blood Pressure 105/59 L 105/59 L 107/60 Pulse Oximetry 96 Oxygen Delivery 05/26/25 22:00 05/26/25 22:00 05/26/25 22:00 Temperature 98.8 F Pulse Rate 71 71 71 Respiratory Rate 24 H Blood Pressure 101/58 L 101/58 L Pulse Oximetry 95 Oxygen Delivery 05/26/25 22:30 05/26/25 23:00 05/26/25 23:00 Temperature 98.3 F Pulse Rate 69 55 L 59 L Respiratory Rate 19 Blood Pressure 95/54 L 85/52 L 85/52 L Pulse Oximetry 94 Oxygen Delivery 05/26/25 23:30 05/26/25 23:45 05/27/25 00:00 Temperature Pulse Rate 59 L 64 58 L Respiratory Rate Blood Pressure 88/51 L 100/59 L 99/59 L Pulse Oximetry Oxygen Delivery 05/27/25 00:00 05/27/25 00:00 05/27/25 00:00 Temperature 98.0 F Pulse Rate 64 64 64 Respiratory Rate 19 20 Blood Pressure 99/59 L Pulse Oximetry 97 98 Oxygen Delivery Room Air 05/27/25 00:15 05/27/25 00:30 05/27/25 00:45 Temperature Pulse Rate 59 L 59 L 60 Respiratory Rate Blood Pressure 103/61 99/60 L 103/58 L Pulse Oximetry Oxygen Delivery 05/27/25 01:00 05/27/25 01:15 05/27/25 01:30 Temperature 97.7 F Pulse Rate 60 56 L 57 L Respiratory Rate 18 Blood Pressure 110/59 L 110/59 L 102/58 L Pulse Oximetry 96 Oxygen Delivery 05/27/25 02:00 05/27/25 02:00 05/27/25 02:15 Temperature 97.6 F Pulse Rate 55 L 55 L 55 L Respiratory Rate 18 Blood Pressure 95/54 L 95/54 L Pulse Oximetry 95 Oxygen Delivery 05/27/25 02:45 05/27/25 03:00 05/27/25 03:00 Temperature 97.3 F L Pulse Rate 52 L 56 L 49 L Respiratory Rate 20 Blood Pressure 98/55 L 95/58 L 95/58 L Pulse Oximetry 95 Oxygen Delivery 05/27/25 03:30 05/27/25 04:00 05/27/25 04:00 Temperature Pulse Rate 53 L 55 L 55 L Respiratory Rate 20 Blood Pressure 106/58 L Pulse Oximetry 96 Oxygen Delivery Room Air 05/27/25 04:00 05/27/25 04:00 05/27/25 04:30 Temperature 97.3 F L Pulse Rate 55 L 55 L 54 L Respiratory Rate 20 Blood Pressure 108/63 108/63 105/59 L Pulse Oximetry 96 Oxygen Delivery 05/27/25 05:00 05/27/25 05:00 05/27/25 05:30 Temperature 97.4 F L Pulse Rate 57 L 57 L 62 Respiratory Rate 22 H Blood Pressure 119/67 119/67 118/63 Pulse Oximetry 96 Oxygen Delivery 05/27/25 06:00 05/27/25 06:00 05/27/25 06:00 Temperature 97.6 F Pulse Rate 66 63 57 L Respiratory Rate 20 Blood Pressure 112/61 112/61 Pulse Oximetry 97 Oxygen Delivery 05/27/25 07:00 05/27/25 08:00 05/27/25 08:00 Temperature 97.8 F 98.1 F Pulse Rate 62 63 Respiratory Rate 25 H 25 H Blood Pressure 125/84 120/65 Pulse Oximetry 95 95 96 Oxygen Delivery Room Air 05/27/25 08:00 05/27/25 09:00 05/27/25 10:00 Temperature 98.3 F Pulse Rate 63 72 77 Respiratory Rate 24 H Blood Pressure 120/65 131/78 119/81 Pulse Oximetry 97 Oxygen Delivery 05/27/25 10:00 05/27/25 10:00 05/27/25 11:00 Temperature 98.3 F 98.4 F Pulse Rate 77 77 71 Respiratory Rate 26 H 20 Blood Pressure 119/81 113/72 Pulse Oximetry 97 95 Oxygen Delivery 05/27/25 12:00 05/27/25 12:00 05/27/25 12:00 Temperature Pulse Rate 24 L 68 Respiratory Rate Blood Pressure 103/61 Pulse Oximetry 95 Oxygen Delivery Room Air 05/27/25 12:00 05/27/25 13:00 05/27/25 14:00 Temperature 98.5 F 98.5 F 98.5 F Pulse Rate 62 73 71 Respiratory Rate 19 22 H 26 H Blood Pressure 103/61 125/76 116/69 Pulse Oximetry 95 97 97 Oxygen Delivery 05/27/25 14:00 05/27/25 15:00 05/27/25 16:00 Temperature 98.6 F 98.5 F Pulse Rate 71 71 70 Respiratory Rate 25 H 24 H Blood Pressure 102/66 107/65 Pulse Oximetry 96 95 Oxygen Delivery 05/27/25 16:00 05/27/25 16:00 Temperature Pulse Rate 68 Respiratory Rate Blood Pressure Pulse Oximetry 95 Oxygen Delivery Room Air Intake/Output Intake/Output: Intake & Output 05/24/25 05/25/25 05/26/25 05/27/25 23:59 23:59 23:59 23:59 Intake Total 2150 3059.0 918.4 Output Total 150 800 800 Balance 2000 2259.0 118.4 Meds/Results Medications: Active Medications Generic Name Dose Route Start Last Admin Trade Name Freq PRN Reason Stop Dose Admin Acetaminophen 650 mg 05/26/25 04:35 05/27/25 17:18 Acetaminophen 325 Mg Tablet PO 650 mg Q4H PRN Administration Mild Pain (1-3) or Fever Atorvastatin Calcium 40 mg 05/26/25 21:00 05/26/25 20:21 Atorvastatin 40 Mg Tablet PO 40 mg HS FUNMI Administration Vancomycin HCl 1,000 mg/ 250 mls @ 250 mls/hr 05/27/25 11:00 05/27/25 13:28 Sodium Chloride IVPB Infused Q36H FUNMI Infusion Cefepime HCl 2 gm/ Sodium 50 mls @ 100 mls/hr 05/26/25 23:00 05/27/25 00:15 Chloride IVPB Infused Q24H FUNMI Infusion Ondansetron HCl 4 mg 05/26/25 04:35 Ondansetron Inj 4 Mg/2 Ml Vial IV PUSH Q4H PRN Nausea Pantoprazole Sodium 40 mg 05/26/25 09:00 05/27/25 08:18 Pantoprazole Sodium Iv 40 Mg Vial IV PUSH 40 mg QAM FUNMI Administration Pregabalin 50 mg 05/26/25 13:00 05/27/25 17:18 Pregabalin (*Crx) 50 Mg Capsule PO 50 mg TID FUNMI Administration Sodium Chloride 10 ml 05/26/25 14:00 05/27/25 14:18 Central Line Flush IV PUSH 10 ml Q8HR FUNMI Administration Sodium Chloride 20 ml 05/26/25 06:42 Central Line Flush IV PUSH PRN PRN after blood draws Radiology Results: ITS Impressions Chest X-Ray 05/25/25 19:53 IMPRESSION: Cardiomegaly and expiratory image, making evaluation of the interstitium difficult. Pulmonary vascular congestion is not excluded. No airspace disease. Head CT 05/25/25 20:11 IMPRESSION: No acute findings. All CT scans at this facility are performed using low dose modulation techniques as appropriate to perform exam including the following: automated exposure control; use of iterative reconstruction technique; adjustment of the mA and/or kV according to patient size (this includes techniques or standardized protocols for targeted exams where dose is matched to indication/reason for exam). Foot X-Ray 05/25/25 20:17 IMPRESSION: No acute abnormalities are seen. Given the MTP findings, consider gout. Abdomen/Pelvis CT 05/26/25 08:15 IMPRESSION: 1. Bilateral hydronephrosis and hydroureter with distal stricture suspected. Findings are probably chronic without. The renal parenchyma noted bilaterally. 2. Incidental findings above Labs Labs: Laboratory Results - last 24 hr 05/27/25 05/27/25 05/27/25 04:57 12:26 12:34 WBC 7.4 RBC 2.83 L Hgb 7.1 L 7.3 L Hct 23.4 L 24.2 L MCV 82.7 MCH 25.1 L MCHC 30.3 L RDW 15.9 H Plt Count 295 MPV 9.1 Immature Gran % (Auto) 0.5 Neut % (Auto) 65.4 Lymph % (Auto) 24.2 [place] % (Auto) 7.6 Eos % (Auto) 1.9 Baso % (Auto) 0.4 Lymph # (Auto) 1.78 [place] # (Auto) 0.6 Eos # (Auto) 0.1 Baso # (Auto) 0.0 Abs Immat Gran (auto) 0.04 H Absolute Neuts (auto) 4.8 Absolute Nucleated RBC 0.000 Nucleated RBC % 0.0 PT 14.4 INR 1.1 APTT 35.0 Sodium 136 L Potassium 3.3 L Chloride 109 H Carbon Dioxide 28 Anion Gap -1 L BUN 15 Creatinine 0.99 Estim Creat Clear Calc 29 Estimated GFR 54 L Glucose 115 H POC Capillary Glucose 99 Lactic Acid Calcium 8.8 Phosphorus 2.6 Magnesium 1.9 Total Bilirubin 0.2 AST 23 ALT 11 Alkaline Phosphatase 57 Total Protein 5.8 L Albumin 2.4 L 05/27/25 12:35 WBC RBC Hgb Hct MCV MCH MCHC RDW Plt Count MPV Immature Gran % (Auto) Neut % (Auto) Lymph % (Auto) [place] % (Auto) Eos % (Auto) Baso % (Auto) Lymph # (Auto) [place] # (Auto) Eos # (Auto) Baso # (Auto) Abs Immat Gran (auto) Absolute Neuts (auto) Absolute Nucleated RBC Nucleated RBC % PT INR APTT Sodium Potassium Chloride Carbon Dioxide Anion Gap BUN Creatinine Estim Creat Clear Calc Estimated GFR Glucose POC Capillary Glucose Lactic Acid 1.1 Calcium Phosphorus Magnesium Total Bilirubin AST ALT Alkaline Phosphatase Total Protein Albumin Hospitalist MIPS Advance Care Plan I have confirmed that the patient's Advanced Care Plan is present, code status is documented, or surrogate decision maker is listed in patient medical record.: Yes Medication Reconciliation I have utilized all available resources to obtain, update and review the patients current medications (includes all prescriptions, OTC, herbals, cannabis, and nutritional supplements).: Yes
[2025-05-27] MEDS: IPRATROPIUM 0.5 MG/ALBUTEROL SULFATE 2.5 MG (BASE) AMPUL.NEB 3 ML INHALATION (19:52)
[2025-05-27] MEDS: ATORVASTATIN 40 MG TABLET PO (21:59)
[2025-05-27] MEDS: CEFEPIME 2 GM in SODIUM CHLORIDE 0.9% IV 50 ML 100 ML IVPB (22:00)
[2025-05-28] VITALS (21 sets, daily range): BP systolic 118–144; BP diastolic 69–94; PULSE 65–102; RESP 16–24; TEMP 36.4–36.9; O2SAT 95–99
[2025-05-28] MEDS: IPRATROPIUM 0.5 MG/ALBUTEROL SULFATE 2.5 MG (BASE) AMPUL.NEB 3 ML INHALATION ×4 (01:32→21:27)
[2025-05-28 04:57] LABS: Hematocrit 24.1 % (37.0-47.0); Hemoglobin 7.2 g/dL (12.0-15.0); Immature Granulocyte Percent A 0.5 % (0-0.5); Lymphocytes Absolute Auto 1.59 K/mm3 (0.9-3.2); Mean Corpuscular HGB Conc 29.9 g/dl (32-36); Mean Corpuscular Hemoglobin 24.7 pg (26-34); Mean Corpuscular Volume 82.8 fl (80-100); Nucleated Red Blood Cells Absolute Auto 0.000 K/mm3 (0.0-0.012); Nucleated Red Blood Cells Perc 0.0 % (0.0-0.2); Platelet Count Result 319 k/mm3 (150-375); Red Blood Count 2.91 M/mm3 (4.2-5.4); White Blood Count 6.6 K/mm3 (4.5-10.0)
[2025-05-28 05:15] LABS: Alanine Aminotransferase 10 U/L (6-35); Albumin Level 2.6 g/dL (3.5-5.1); Alkaline Phosphatase 60 U/L (38-126); Anion Gap 2 mmol/L (4-12); Aspartate Amino Transferase 18 U/L (14-36); Bilirubin,Total 0.3 mg/dL (0.2-1.3); Blood Urea Nitrogen 13 mg/dL (7-17); Calcium 9.1 mg/dL (8.4-10.2); Carbon Dioxide 25 mmol/L (22-30); Chloride 113 mmol/L (98-107); Estimated CRCL calculation 28 ml/min; Estimated Glomerular Filt Rate 53; Glucose 82 mg/dL (65-110); Magnesium 1.8 mg/dL (1.6-2.3); Potassium 3.5 mmol/L (3.4-5.0); Sodium 140 mmol/L (137-145); Total Protein 6.3 g/dL (6.3-8.2)
[2025-05-28 05:24] LABS: Hypochromasia 1+
[2025-05-28 05:25] LABS: Anisocytosis 1+; Microcytosis 2+ (NORMAL); Poikilocytosis 1+
[2025-05-28 05:26] LABS: Burr Cells 1+; Ovalocytes 1+; Schistocytes Rare
[2025-05-28] MEDS: CENTRAL LINE FLUSH 10 ML IV PUSH (05:27)
[2025-05-28] MEDS: ACETAMINOPHEN 325 MG TABLET 650 MG PO ×2 (09:46→14:06)
[2025-05-28] MEDS: PREGABALIN (*CRX) 50 MG CAPSULE PO ×3 (09:46→17:21)
[2025-05-28] MEDS: PANTOPRAZOLE SODIUM IV 40 MG VIAL IV PUSH (09:46)
--- NOTE | 2025-05-28 10:57 | WPDUROPN2 ---
Progress Note: A&P Assessment and Plan (1) Acute UTI: Code(s): N39.0 - Urinary tract infection, site not specified Status: Acute Assessment and Plan: Urine culture with insignificant growth May repeat culture in case of new infection in setting of MS changes, possibility of CAUTI Voiding trial when able, check PVRs Plan Chronic hydronephrosis, creatinine improving with treatment; if concern for ureteral obstruction, obtain lasix renal scan--unlikely given chronicity and stability of renal function Follow up as outpatient for surveillance cystoscopy Subjective Subjective Date/Time Seen: 05/28/25 10:57 Interval history: Ms. Terry has chronic bilateral hydronephrosis, admitted with sepsis due to UTI, creatinine improving with IVF hydration and antibiotics, urine culture with insignificant growth, WBC wnl. She also a history of low grade bladder cancer, last recurrence 2020, cystoscopy August, negative for recurrent tumor. Last, she has had an interstim placed by Dr. Mahoney. She has been transferred to the floor from ICU. Her son is present today and reports mental status changes from baseline for her. Review of Systems Review of Systems: ROS unobtainable: Yes unobtainable due to mental status Exam Const: General: comfortable Eyes: General: appearance normal, both eyes and all related structures EOM: EOMs intact bilaterally Resp: Effort & Inspection: normal respiratory effort GI: GI Palp: Yes Soft to palpation Other: Non tender, non distended : General: Yes bladder normal to palpation Other: No CVAT Urinary Catheter: Urinary Catheter: patent and draining and urine clear Skin: General skin exam: normal color Objective Data Vital Signs Vital Signs: Vital Signs - 24 hr 05/27/25 11:05/27/25 12:00 05/27/25 12:00 Temperature 36.9 C Pulse Rate 71 24 L Respiratory Rate 20 Blood Pressure 113/72 103/61 Pulse Oximetry 95 95 Oxygen Delivery Room Air Fraction of Inspired Oxygen 05/27/25 12:00 05/27/25 12:00 05/27/25 13:00 Temperature 36.9 C 36.9 C Pulse Rate 68 62 73 Respiratory Rate 19 22 H Blood Pressure 103/61 125/76 Pulse Oximetry 95 97 Oxygen Delivery Fraction of Inspired Oxygen 05/27/25 14:00 05/27/25 14:00 05/27/25 15:00 Temperature 36.9 C 37.0 C Pulse Rate 71 71 71 Respiratory Rate 26 H 25 H Blood Pressure 116/69 102/66 Pulse Oximetry 97 96 Oxygen Delivery Fraction of Inspired Oxygen 05/27/25 16:00 05/27/25 16:00 05/27/25 16:00 Temperature 36.9 C Pulse Rate 70 68 Respiratory Rate 24 H Blood Pressure 107/65 Pulse Oximetry 95 95 Oxygen Delivery Room Air Fraction of Inspired Oxygen 05/27/25 18:00 05/27/25 19:38 05/27/25 19:47 Temperature 36.6 C Pulse Rate 73 66 Respiratory Rate 28 H Blood Pressure 113/68 Pulse Oximetry 98 Oxygen Delivery Room Air Fraction of Inspired Oxygen 05/27/25 19:54 05/27/25 19:58 05/27/25 20:00 Temperature Pulse Rate 65 64 69 Respiratory Rate 20 20 Blood Pressure Pulse Oximetry 94 Oxygen Delivery Room Air Fraction of Inspired Oxygen 21 05/27/25 20:05 05/27/25 22:00 05/28/25 00:00 Temperature Pulse Rate 65 73 Respiratory Rate 20 Blood Pressure Pulse Oximetry Oxygen Delivery Room Air Fraction of Inspired Oxygen 05/28/25 00:00 05/28/25 00:00 05/28/25 01:33 Temperature 36.4 C L Pulse Rate 91 72 74 Respiratory Rate 22 H 20 Blood Pressure 118/69 Pulse Oximetry 96 Oxygen Delivery Fraction of Inspired Oxygen 05/28/25 01:49 05/28/25 02:00 05/28/25 03:52 Temperature Pulse Rate 65 80 Respiratory Rate 20 Blood Pressure Pulse Oximetry Oxygen Delivery Room Air Fraction of Inspired Oxygen 05/28/25 04:00 05/28/25 04:00 05/28/25 06:00 Temperature 36.4 C L Pulse Rate 72 102 H 82 Respiratory Rate 24 H Blood Pressure 121/69 Pulse Oximetry 97 Oxygen Delivery Fraction of Inspired Oxygen 05/28/25 07:35 05/28/25 07:35 05/28/25 07:43 Temperature Pulse Rate 75 73 77 Respiratory Rate 20 20 20 Blood Pressure Pulse Oximetry 95 Oxygen Delivery Room Air Fraction of Inspired Oxygen 21 05/28/25 07:56 05/28/25 09:21 Temperature 36.9 C Pulse Rate 84 Respiratory Rate 16 Blood Pressure 144/83 H Pulse Oximetry 95 Oxygen Delivery Room Air Fraction of Inspired Oxygen Intake/Output Intake/Output: Intake & Output 1105/26/25 05/27/25 05/28/25 23:59 23:59 23:59 23:59 Intake Total 2150 3059.0 1208.4 370 Output Total 700 720 5032 800 Balance 1999 2259.0 -216.6 -430 Meds/Results Medications: Active Medications Generic Name Dose Route Start Last Admin Trade Name Freq PRN Reason Stop Dose Admin Acetaminophen 650 mg 05/26/25 04:35 05/28/25 09:46 Acetaminophen 325 Mg Tablet PO 650 mg Q4H PRN Administration Mild Pain (1-3) or Fever Albuterol/Ipratropium 3 ml 05/27/25 20:00 05/28/25 07:37 Ipratropium 0.5 Mg/Albuterol Sulfate 2.5 Mg (Base) Ampul.Neb 3 Ml INHALATION 3 ml Q6HRT FUNMI Administration Atorvastatin Calcium 40 mg 05/26/25 21:00 05/27/25 21:59 Atorvastatin 40 Mg Tablet PO 40 mg HS FUNMI Administration Vancomycin HCl 1,000 mg/ 250 mls @ 250 mls/hr 05/27/25 11:00 05/27/25 13:28 Sodium Chloride IVPB Infused Q36H FUNMI Infusion Cefepime HCl 2 gm/ Sodium 50 mls @ 100 mls/hr 05/26/25 23:00 05/27/25 22:30 Chloride IVPB Infused Q24H FUNMI Infusion Ondansetron HCl 4 mg 05/26/25 04:35 Ondansetron Inj 4 Mg/2 Ml Vial IV PUSH Q4H PRN Nausea Pantoprazole Sodium 40 mg 05/26/25 09:00 05/28/25 09:46 Pantoprazole Sodium Iv 40 Mg Vial IV PUSH 40 mg QAM FUNMI Administration Pregabalin 50 mg 05/26/25 13:00 05/28/25 09:46 Pregabalin (*Crx) 50 Mg Capsule PO 50 mg TID FUNMI Administration Sodium Chloride 10 ml 05/26/25 14:00 05/28/25 05:27 Central Line Flush IV PUSH 10 ml Q8HR FUNMI Administration Sodium Chloride 20 ml 05/26/25 06:42 Central Line Flush IV PUSH PRN PRN after blood draws Radiology Results: ITS Impressions Head CT 05/25/25 20:11 IMPRESSION: No acute findings. All CT scans at this facility are performed using low dose modulation techniques as appropriate to perform exam including the following: automated exposure control; use of iterative reconstruction technique; adjustment of the mA and/or kV according to patient size (this includes techniques or standardized protocols for targeted exams where dose is matched to indication/reason for exam). Foot X-Ray 05/25/25 20:17 IMPRESSION: No acute abnormalities are seen. Given the MTP findings, consider gout. Abdomen/Pelvis CT 05/26/25 08:15 IMPRESSION: 1. Bilateral hydronephrosis and hydroureter with distal stricture suspected. Findings are probably chronic without. The renal parenchyma noted bilaterally. 2. Incidental findings above Labs Labs: Laboratory Results - last 24 hr 05/27/25 05/27/25 05/27/25 12:26 12:34 12:35 WBC RBC Hgb 7.3 L Hct 24.2 L MCV MCH MCHC RDW Plt Count MPV Immature Gran % (Auto) Neut % (Auto) Lymph % (Auto) [place] % (Auto) Eos % (Auto) Baso % (Auto) Lymph # (Auto) [place] # (Auto) Eos # (Auto) Baso # (Auto) Abs Immat Gran (auto) Absolute Neuts (auto) Absolute Nucleated RBC Band Neutrophils % Nucleated RBC % Platelet Estimate Hypochromasia Poikilocytosis Anisocytosis Microcytosis Ovalocytes [place] Cells Schistocytes Sodium Potassium Chloride Carbon Dioxide Anion Gap BUN Creatinine Estim Creat Clear Calc Estimated GFR Glucose POC Capillary Glucose 99 Lactic Acid 1.1 Calcium Phosphorus Magnesium Total Bilirubin AST ALT Alkaline Phosphatase Total Protein Albumin 05/28/25 04:22 WBC 6.6 RBC 2.91 L Hgb 7.2 L Hct 24.1 L MCV 82.8 MCH 24.7 L MCHC 29.9 L RDW 15.9 H Plt Count 319 MPV 9.2 Immature Gran % (Auto) 0.5 Neut % (Auto) 65.4 Lymph % (Auto) 24.1 [place] % (Auto) 6.2 Eos % (Auto) 3.0 Baso % (Auto) 0.8 Lymph # (Auto) 1.59 [place] # (Auto) 0.4 Eos # (Auto) 0.2 Baso # (Auto) 0.1 Abs Immat Gran (auto) 0.03 Absolute Neuts (auto) 4.3 Absolute Nucleated RBC 0.000 Band Neutrophils % Not Reportable Nucleated RBC % 0.0 Platelet Estimate Adequate Hypochromasia 1+ Poikilocytosis 1+ Anisocytosis 1+ Microcytosis 2+ Ovalocytes 1+ [place] Cells 1+ Schistocytes Rare Sodium 140 Potassium 3.5 Chloride 113 H Carbon Dioxide 25 Anion Gap 2 L BUN 13 Creatinine 1.00 Estim Creat Clear Calc 28 Estimated GFR 53 L Glucose 82 POC Capillary Glucose Lactic Acid Calcium 9.1 Phosphorus 2.8 Magnesium 1.8 Total Bilirubin 0.3 AST 18 ALT 10 Alkaline Phosphatase 60 Total Protein 6.3 Albumin 2.6 L
--- NOTE | 2025-05-28 16:54 | P.PNIM_ITS ---
Progress Note: A&P Assessment and Plan (1) Septic shock: Code(s): A41.9 - Sepsis, unspecified organism; R65.21 - Severe sepsis with septic shock Status: Resolved Assessment and Plan: Patient presented with generalized weakness, fall, altered mental status, fevers, UA was reflective of UTI. Patient does have a history of UTI. Also bilateral hydronephrosis which are chronic and she follows up with Urology -05/25: patient was hypotensive in the ER, was given 30 cc/kg IV fluid bolus despite which her blood pressures remain low, right femoral central line was inserted -OFF Levophed, maintain MAP > 65 mmHg or SBP > 100 mmHg -patient started on cefepime and vancomycin, will deescalate once cultures a result (05/26) -05/25: Urine and blood cultures have been obtained and pending, (patient has had Citrobacter, Klebsiella and Pseudomonas in the past in the urine cultures, all susceptible to cefepime) -lactic acid are within normal limits -will discontinue maintenance IV fluid since patient is currently volume resuscitated -monitor urine output -05/27: blood cultures growing gram positive cocci- cefepime + vancomycin adequate coverage at this time, sensitivities pending. (2) Acute UTI: Code(s): N39.0 - Urinary tract infection, site not specified Status: Acute Assessment and Plan: Treatment As above (3) Altered mental status: Code(s): R41.82 - Altered mental status, unspecified Status: Acute Assessment and Plan: New onset delirium, ddx includes sepsis, ICU-related delirium, metabolic (carroll petar low suspicion), hardware (central line), transfer from [facility] as well, and sleep deprivation/altered sleep-wake cycle. -Monitor for improvement -manage underlying causes -Frequent reorientation -Consider neurology eval, CT Head, metabolic workup if needed (4) MAGALIS (acute kidney injury): Code(s): N17.9 - Acute kidney failure, unspecified Status: Acute Assessment and Plan: Acute kidney injury likely related to hypovolemia per ER physician -adequately fluid resuscitated -creatinine has normalized -urine output has been -continue to monitor renal function, electrolytes and urine output -will discontinue IV fluids as she seems to be euvolemic (5) History of pulmonary embolism: Code(s): Z86.711 - Personal history of pulmonary embolism Status: Chronic Assessment and Plan: Patient on apixaban, clopidogrel at home will hold for now given patient is anemic (6) CHF (congestive heart failure): Code(s): I50.9 - Heart failure, unspecified Status: Acute Assessment and Plan: Hold losartan, furosemide, carvedilol due to patient being hypotensive, in septic shock, on pressors 05/27: off pressors, cautiously resume as BP goes up (7) Hypertension: Code(s): I10 - Essential (primary) hypertension Status: Chronic Assessment and Plan: Hold all antihypertensives as patient is on pressors 05/27: off pressors, cautiously resume as BP goes up (8) Anemia: Code(s): D64.9 - Anemia, unspecified Status: Acute Assessment and Plan: Patient dropped her hemoglobin, 9.6 on admission to 7.1 -iron panel reflects anemia of chronic disease -vitamin B12 and folate within normal limit -stool occult has been ordered and pending -patient also on apixaban and clopidogrel at home which currently on hold Plan Transferred to floor. DVT prophylaxis: SCDs, hold all chemo prophylaxis due to anemia Stress ulcer prophylaxis: Not indicated Nutrition: Heart healthy diet Code Status: Full code Subjective Date/time seen: 05/28/25 16:54 Interval history: Reason for consult: Septic shock, UTI, altered mental status, anemia 05/27/2025: Patient seen and examined the ICU, is awake, alert, oriented x2, patient denies any chest pain, shortness a breath, abdominal pain, nausea vomiting. She only complains of right foot pain which has been ongoing for approximately 2 months. Patient had to be restarted on Levophed overnight, it has been off this since this morning. Afebrile, tolerating p.o. diet, adequate urine output. Also discontinued maintenance IV fluids 05/28/2025: Transferred from ICU, BP holding stable. Concern for new AMS, patient is not like this at baseline, and this has occurred after resolution of shock. May be element of sepsis that is still undergoing, but will need to be monitored. Urine culture returned negative, while blood cultures are growing E. Faecalis, sensitivities still pending. Consider Ampicillin + Ceftriaxone if sensitive to these. Urology on board for hydronephrosis and UTI, recommends to repeat Urine culture given negative result. Recommends 2 week urosepsis course of antibiotics once sensitivities are in. Outpatient cystoscopy on discharge. Review of Systems Review of Systems: All systems reviewed & are unremarkable except as noted in HPI and below Exam Narrative: General: Pleasant female in no acute distress HEENT:? Pupils equal and reactive, sclerae is clear Neck:? Supple Respiratory:? Coarse breath sounds at bases, no wheezing, adequate air entry Cardiac:? S1-S2 normal, regular rate and rhythm Abdomen:? Soft, nontender, nondistended, normoactive bowel sounds Extremities:? No edema, palpable pedal pulses Neuro:? Patient is awake, alert, oriented x2, able to answer questions and follows simple commands in all extremities. Confusion which is not baseline. Skin:? Warm and dry Psych:? Depressed affect Objective Data Vital Signs Vital Signs: Vital Signs - 24 hr 05/27/25 18:00 05/27/25 19:38 05/27/25 19:47 Temperature 97.9 F Pulse Rate 73 66 Respiratory Rate 28 H Blood Pressure 113/68 Pulse Oximetry 98 Oxygen Delivery Room Air Fraction of Inspired Oxygen 05/27/25 19:54 05/27/25 19:58 05/27/25 20:00 Temperature Pulse Rate 65 64 69 Respiratory Rate 20 20 Blood Pressure Pulse Oximetry 94 Oxygen Delivery Room Air Fraction of Inspired Oxygen 21 05/27/25 20:05 05/27/25 22:00 05/28/25 00:00 Temperature Pulse Rate 65 73 Respiratory Rate 20 Blood Pressure Pulse Oximetry Oxygen Delivery Room Air Fraction of Inspired Oxygen 05/28/25 00:00 05/28/25 00:00 05/28/25 01:33 Temperature 97.5 F L Pulse Rate 91 72 74 Respiratory Rate 22 H 20 Blood Pressure 118/69 Pulse Oximetry 96 Oxygen Delivery Fraction of Inspired Oxygen 05/28/25 01:49 05/28/25 02:00 05/28/25 03:52 Temperature Pulse Rate 65 80 Respiratory Rate 20 Blood Pressure Pulse Oximetry Oxygen Delivery Room Air Fraction of Inspired Oxygen 05/28/25 04:00 05/28/25 04:00 05/28/25 06:00 Temperature 97.5 F L Pulse Rate 72 102 H 82 Respiratory Rate 24 H Blood Pressure 121/69 Pulse Oximetry 97 Oxygen Delivery Fraction of Inspired Oxygen 05/28/25 07:35 05/28/25 07:35 05/28/25 07:43 Temperature Pulse Rate 75 73 77 Respiratory Rate 20 20 20 Blood Pressure Pulse Oximetry 95 Oxygen Delivery Room Air Fraction of Inspired Oxygen 21 05/28/25 07:56 05/28/25 09:21 05/28/25 11:56 Temperature 98.4 F 97.8 F Pulse Rate 84 91 Respiratory Rate 16 16 Blood Pressure 144/83 H 143/94 H Pulse Oximetry 95 99 Oxygen Delivery Room Air Fraction of Inspired Oxygen 05/28/25 13:40 05/28/25 13:48 05/28/25 16:00 Temperature 98.0 F Pulse Rate 73 75 89 Respiratory Rate 20 20 16 Blood Pressure 124/78 Pulse Oximetry 98 Oxygen Delivery Fraction of Inspired Oxygen Intake/Output Intake/Output: Intake & Output 05/25/25 05/26/25 05/27/25 05/28/25 23:59 23:59 23:59 23:59 Intake Total 2150 3059.0 1208.4 370 Output Total 300 491 2132 800 Balance 2000 2259.0 -216.6 -430 Meds/Results Medications: Active Medications Generic Name Dose Route Start Last Admin Trade Name Freq PRN Reason Stop Dose Admin Acetaminophen 650 mg 05/26/25 04:35 05/28/25 14:06 Acetaminophen 325 Mg Tablet PO 650 mg Q4H PRN Administration Mild Pain (1-3) or Fever Albuterol/Ipratropium 3 ml 05/27/25 20:00 05/28/25 13:42 Ipratropium 0.5 Mg/Albuterol Sulfate 2.5 Mg (Base) Ampul.Neb 3 Ml INHALATION 3 ml Q6HRT FUNMI Administration Atorvastatin Calcium 40 mg 05/26/25 21:00 05/27/25 21:59 Atorvastatin 40 Mg Tablet PO 40 mg HS FUNMI Administration Carvedilol 6.25 mg 05/28/25 21:00 Carvedilol 6.25 Mg Tablet PO Q12HR FUNMI Vancomycin HCl 1,000 mg/ 250 mls @ 250 mls/hr 05/27/25 11:00 05/27/25 13:28 Sodium Chloride IVPB Infused Q36H FUNMI Infusion Cefepime HCl 2 gm/ Sodium 50 mls @ 100 mls/hr 05/26/25 23:00 05/27/25 22:30 Chloride IVPB Infused Q24H FUNMI Infusion Ondansetron HCl 4 mg 05/26/25 04:35 Ondansetron Inj 4 Mg/2 Ml Vial IV PUSH Q4H PRN Nausea Pantoprazole Sodium 40 mg 05/26/25 09:00 05/28/25 09:46 Pantoprazole Sodium Iv 40 Mg Vial IV PUSH 40 mg QAM FUNMI Administration Pregabalin 50 mg 05/26/25 13:00 05/28/25 14:06 Pregabalin (*Crx) 50 Mg Capsule PO 50 mg TID FUNMI Administration Radiology Results: ITS Impressions Head CT 05/25/25 20:11 IMPRESSION: No acute findings. All CT scans at this facility are performed using low dose modulation techniques as appropriate to perform exam including the following: automated exposure control; use of iterative reconstruction technique; adjustment of the mA and/or kV according to patient size (this includes techniques or standardized protocols for targeted exams where dose is matched to indication/reason for exam). Foot X-Ray 05/25/25 20:17 IMPRESSION: No acute abnormalities are seen. Given the MTP findings, consider gout. Abdomen/Pelvis CT 05/26/25 08:15 IMPRESSION: 1. Bilateral hydronephrosis and hydroureter with distal stricture suspected. Findings are probably chronic without. The renal parenchyma noted bilaterally. 2. Incidental findings above Chest X-Ray 05/28/25 11:07 IMPRESSION: 1. Worsening bibasilar atelectasis and/or airspace disease, left lung worse. Labs Labs: Laboratory Results - last 24 hr 05/28/25 04:22 WBC 6.6 RBC 2.91 L Hgb 7.2 L Hct 24.1 L MCV 82.8 MCH 24.7 L MCHC 29.9 L RDW 15.9 H Plt Count 319 MPV 9.2 Immature Gran % (Auto) 0.5 Neut % (Auto) 65.4 Lymph % (Auto) 24.1 [place] % (Auto) 6.2 Eos % (Auto) 3.0 Baso % (Auto) 0.8 Lymph # (Auto) 1.59 [place] # (Auto) 0.4 Eos # (Auto) 0.2 Baso # (Auto) 0.1 Abs Immat Gran (auto) 0.03 Absolute Neuts (auto) 4.3 Absolute Nucleated RBC 0.000 Band Neutrophils % Not Reportable Nucleated RBC % 0.0 Platelet Estimate Adequate Hypochromasia 1+ Poikilocytosis 1+ Anisocytosis 1+ Microcytosis 2+ Ovalocytes 1+ Sanchez Cells 1+ Schistocytes Rare Sodium 140 Potassium 3.5 Chloride 113 H Carbon Dioxide 25 Anion Gap 2 L BUN 13 Creatinine 1.00 Estim Creat Clear Calc 28 Estimated GFR 53 L Glucose 82 Calcium 9.1 Phosphorus 2.8 Magnesium 1.8 Total Bilirubin 0.3 AST 18 ALT 10 Alkaline Phosphatase 60 Total Protein 6.3 Albumin 2.6 L Hospitalist MIPS Advance Care Plan I have confirmed that the patient's Advanced Care Plan is present, code status is documented, or surrogate decision maker is listed in patient medical record.: Yes Medication Reconciliation I have utilized all available resources to obtain, update and review the patients current medications (includes all prescriptions, OTC, herbals, cannabis, and nutritional supplements).: Yes
[2025-05-28] MEDS: ATORVASTATIN 40 MG TABLET PO (22:13)
[2025-05-28] MEDS: CEFEPIME 2 GM in SODIUM CHLORIDE 0.9% IV 50 ML 100 ML IVPB (23:12)
[2025-05-28] MEDS: VANCOMYCIN HCL 1,000 MG in SODIUM CHLORIDE 0.9% IV 250 ML 250 MG IVPB (23:55)
[2025-05-29] VITALS (14 sets, daily range): BP systolic 105–135; BP diastolic 62–84; PULSE 73–90; RESP 16–20; TEMP 36.1–36.7; O2SAT 94–95
[2025-05-29] MEDS: IPRATROPIUM 0.5 MG/ALBUTEROL SULFATE 2.5 MG (BASE) AMPUL.NEB 3 ML INHALATION ×4 (01:59→21:33)
[2025-05-29 05:45] LABS: Hematocrit 26.4 % (37.0-47.0); Hemoglobin 8.0 g/dL (12.0-15.0); Immature Granulocyte Percent A 0.5 % (0-0.5); Lymphocytes Absolute Auto 1.36 K/mm3 (0.9-3.2); Mean Corpuscular HGB Conc 30.3 g/dl (32-36); Mean Corpuscular Hemoglobin 24.9 pg (26-34); Mean Corpuscular Volume 82.2 fl (80-100); Nucleated Red Blood Cells Absolute Auto 0.000 K/mm3 (0.0-0.012); Nucleated Red Blood Cells Perc 0.0 % (0.0-0.2); Platelet Count Result 361 k/mm3 (150-375); Red Blood Count 3.21 M/mm3 (4.2-5.4); White Blood Count 7.9 K/mm3 (4.5-10.0)
[2025-05-29 06:07] LABS: Alanine Aminotransferase 10 U/L (6-35); Albumin Level 2.8 g/dL (3.5-5.1); Alkaline Phosphatase 79 U/L (38-126); Anion Gap 2 mmol/L (4-12); Aspartate Amino Transferase 19 U/L (14-36); Bilirubin,Total 0.4 mg/dL (0.2-1.3); Blood Urea Nitrogen 12 mg/dL (7-17); Calcium 9.4 mg/dL (8.4-10.2); Carbon Dioxide 26 mmol/L (22-30); Chloride 112 mmol/L (98-107); Estimated CRCL calculation 26 ml/min; Estimated Glomerular Filt Rate 49; Glucose 88 mg/dL (65-110); Magnesium 2.0 mg/dL (1.6-2.3); Potassium 3.7 mmol/L (3.4-5.0); Sodium 140 mmol/L (137-145); Total Protein 6.6 g/dL (6.3-8.2)
[2025-05-29] MEDS: PANTOPRAZOLE SODIUM IV 40 MG VIAL IV PUSH (08:27)
[2025-05-29] MEDS: PREGABALIN (*CRX) 50 MG CAPSULE PO ×3 (08:28→16:44)
--- NOTE | 2025-05-29 09:12 | WPDUROPN2 ---
Progress Note: A&P Assessment and Plan (1) Acute UTI: Code(s): N39.0 - Urinary tract infection, site not specified Status: Acute Assessment and Plan: - Repeat UCx negative for UTI - Plan for void trial prior to discharge; recommend replacement of Turner catheter for PVR >250 ml. If Turner replacement is indicated pt to be discharged with Turner in place and follow up in clinic as outpatient for further management. - Recommend bowel regimine to mitigate any constipation (2) Hydronephrosis: Qualifiers: Hydronephrosis type: unspecified Qualified Code(s): N13.30 - Unspecified hydronephrosis Code(s): N13.30 - Unspecified hydronephrosis Status: Acute Assessment and Plan: - Chronic hydronephrosis; stable as compared to previous imaging. Creatinine stable. - If progressing hydro and concern for ureteral obstruction recommend Lasix renal scan at that time - Plan for outpatient follow up for surveillance cysto Subjective Subjective Date/Time Seen: 05/29/25 09:12 Interval history: NAEO; resting comfortably in bed resting. Turner catheter with clear, yellow urine in tubing/bag. Exam Const: General: comfortable Eyes: General: appearance normal, both eyes and all related structures EOM: EOMs intact bilaterally Resp: Effort & Inspection: normal respiratory effort GI: Other: Non tender, non distended : General: Yes bladder normal to palpation Urinary Catheter: Urinary Catheter: patent and draining and urine clear Skin: General skin exam: normal color Objective Data Vital Signs Vital Signs: Vital Signs - 24 hr 05/28/25 09:21 05/28/25 10:00 05/28/25 11:56 Temperature 36.6 C Pulse Rate 90 91 Respiratory Rate 16 Blood Pressure 143/94 H Pulse Oximetry 99 Oxygen Delivery Room Air Fraction of Inspired Oxygen 05/28/25 12:00 05/28/25 13:40 05/28/25 13:48 Temperature Pulse Rate 91 73 75 Respiratory Rate 20 20 Blood Pressure Pulse Oximetry Oxygen Delivery Fraction of Inspired Oxygen 05/28/25 14:00 05/28/25 16:00 05/28/25 21:02 Temperature 36.7 C Pulse Rate 87 89 99 Respiratory Rate 16 Blood Pressure 124/78 141/84 H Pulse Oximetry 98 96 Oxygen Delivery Fraction of Inspired Oxygen 05/28/25 21:27 05/28/25 21:37 05/28/25 21:37 Temperature Pulse Rate 77 78 Respiratory Rate 20 20 Blood Pressure Pulse Oximetry 95 Oxygen Delivery Room Air Fraction of Inspired Oxygen 21 05/28/25 22:13 05/28/25 23:42 05/29/25 02:00 Temperature Pulse Rate 90 77 Respiratory Rate 18 Blood Pressure Pulse Oximetry Oxygen Delivery Room Air Fraction of Inspired Oxygen 05/29/25 02:07 05/29/25 07:51 05/29/25 08:00 Temperature 36.1 C L Pulse Rate 77 75 81 Respiratory Rate 18 20 16 Blood Pressure 135/84 Pulse Oximetry 94 Oxygen Delivery Fraction of Inspired Oxygen 05/29/25 08:05 05/29/25 08:28 Temperature Pulse Rate 78 76 Respiratory Rate 20 Blood Pressure Pulse Oximetry Oxygen Delivery Fraction of Inspired Oxygen Intake/Output Intake/Output: Intake & Output 05/26/25 05/27/25 05/28/25 05/29/25 23:59 23:59 23:59 23:59 Intake Total 3059.0 1208.4 420 270 Output Total 800 1425 1700 850 Balance 2259.0 -216.6 -1280 -580 Meds/Results Medications: Active Medications Generic Name Dose Route Start Last Admin Trade Name Freq PRN Reason Stop Dose Admin Acetaminophen 650 mg 05/26/25 04:35 05/28/25 14:06 Acetaminophen 325 Mg Tablet PO 650 mg Q4H PRN Administration Mild Pain (1-3) or Fever Albuterol/Ipratropium 3 ml 05/27/25 20:00 05/29/25 07:51 Ipratropium 0.5 Mg/Albuterol Sulfate 2.5 Mg (Base) Ampul.Neb 3 Ml INHALATION 3 ml Q6HRT FUNMI Administration Atorvastatin Calcium 40 mg 05/26/25 21:00 05/28/25 22:13 Atorvastatin 40 Mg Tablet PO 40 mg HS FUNMI Administration Carvedilol 6.25 mg 05/28/25 21:00 05/29/25 08:28 Carvedilol 6.25 Mg Tablet PO 6.25 mg Q12HR FUNMI Administration Cefepime HCl 2 gm/ Sodium 50 mls @ 100 mls/hr 05/26/25 23:00 05/28/25 23:42 Chloride IVPB Infused Q24H FUNMI Infusion Vancomycin HCl 1,000 mg/ 250 mls @ 250 mls/hr 05/28/25 23:00 05/29/25 00:55 Sodium Chloride IVPB Infused Q24H FUNMI Infusion Ondansetron HCl 4 mg 05/26/25 04:35 Ondansetron Inj 4 Mg/2 Ml Vial IV PUSH Q4H PRN Nausea Pantoprazole Sodium 40 mg 05/26/25 09:00 05/29/25 08:27 Pantoprazole Sodium Iv 40 Mg Vial IV PUSH 40 mg QAM FUNMI Administration Pregabalin 50 mg 05/26/25 13:00 05/29/25 08:28 Pregabalin (*Crx) 50 Mg Capsule PO 50 mg TID FUNMI Administration Radiology Results: ITS Impressions Head CT 05/25/25 20:11 IMPRESSION: No acute findings. All CT scans at this facility are performed using low dose modulation techniques as appropriate to perform exam including the following: automated exposure control; use of iterative reconstruction technique; adjustment of the mA and/or kV according to patient size (this includes techniques or standardized protocols for targeted exams where dose is matched to indication/reason for exam). Foot X-Ray 05/25/25 20:17 IMPRESSION: No acute abnormalities are seen. Given the MTP findings, consider gout. Abdomen/Pelvis CT 05/26/25 08:15 IMPRESSION: 1. Bilateral hydronephrosis and hydroureter with distal stricture suspected. Findings are probably chronic without. The renal parenchyma noted bilaterally. 2. Incidental findings above Chest X-Ray 05/28/25 11:07 IMPRESSION: 1. Worsening bibasilar atelectasis and/or airspace disease, left lung worse. Labs Labs: Laboratory Results - last 24 hr 05/28/25 05/29/25 22:02 05:36 WBC 7.9 RBC 3.21 L Hgb 8.0 L Hct 26.4 L MCV 82.2 MCH 24.9 L MCHC 30.3 L RDW 15.9 H Plt Count 361 MPV 9.3 Immature Gran % (Auto) 0.5 Neut % (Auto) 73.3 H Lymph % (Auto) 17.3 L [place] % (Auto) 5.7 Eos % (Auto) 2.4 Baso % (Auto) 0.8 Lymph # (Auto) 1.36 [place] # (Auto) 0.5 Eos # (Auto) 0.2 Baso # (Auto) 0.1 Abs Immat Gran (auto) 0.04 H Absolute Neuts (auto) 5.8 Absolute Nucleated RBC 0.000 Nucleated RBC % 0.0 Sodium 140 Potassium 3.7 Chloride 112 H Carbon Dioxide 26 Anion Gap 2 L BUN 12 Creatinine 1.08 H Estim Creat Clear Calc 26 Estimated GFR 49 L Glucose 88 Calcium 9.4 Phosphorus 3.1 Magnesium 2.0 Total Bilirubin 0.4 AST 19 ALT 10 Alkaline Phosphatase 79 Total Protein 6.6 Albumin 2.8 L Vancomycin Trough 12.2
--- NOTE | 2025-05-29 13:36 | P.PNIM_ITS ---
Subjective Date/time seen: 05/29/25 13:36 Interval history: Reason for consult: Septic shock, UTI, altered mental status, anemia 05/27/2025: Patient seen and examined the ICU, is awake, alert, oriented x2, patient denies any chest pain, shortness a breath, abdominal pain, nausea vomit ing. She only complains of right foot pain which has been ongoing for approximately 2 months. Patient had to be restarted on Levophed overnight, it has been off this since this morning. Afebrile, tolerating p.o. diet, adequate urine output. Also discontinued maintenance IV fluids 05/28/2025: Transferred from ICU, BP holding stable. Concern for new AMS, patient is not like this at baseline, and this has occurred after resolution of shock. May be element of sepsis that is still undergoing, but will need to be monitored. Urine culture returned negative, while blood cultures are growing E. Faecalis, sensitivities still pending. Consider Ampicillin + Ceftriaxone if sensitive to these. Urology on board for hydronephrosis and UTI, recommends to repeat Urine culture given negative result. Recommends 2 week urosepsis course of antibiotics once sensitivities are in. Outpatient cystoscopy on discharge. 05/29: Patient was complaining of ankle swelling on the right side. Prior foot x-ray reviewed which is new and, ankle x-ray was obtained and nonvisualization of image, does not appear to have any fractures. Likely a sprain, will get a uric acid to rule out, however. Blood culture returned with pansensitive Enterococcus faecalis, discussed with Pharmacy, will change to ampicillin monotherapy and follow-up with repeat blood culture. Repeat urine culture pending. Care coordination recommend short-term rehab on discharge. Patient was lethargic in the morning, difficult to get information from. Will re- evaluate in the afternoon to reassess mental status change. May obtain imaging consider neurology evaluation however suspicion is still strong at this time that altered mental status is multifactorial in nature, due to sepsis, ICU stay, transfer from ICU, underlying cognitive impairment. Review of Systems Review of Systems: All systems reviewed & are unremarkable except as noted in HPI and below Exam Narrative: General: No acute distress, currently sleeping in bed HEENT:? Pupils equal and reactive, sclerae is clear Neck:? Supple Respiratory:? Coarse breath sounds at bases, scattered wheezing, adequate air entry Cardiac:? S1-S2 normal, regular rate and rhythm Abdomen:? Soft, nontender, nondistended, normoactive bowel sounds Extremities:? No edema, palpable pedal pulses Neuro:? Patient is awake, alert, oriented x2, able to answer questions and follows simple commands in all extremities. Confusion which is not baseline. Skin:? Warm and dry Psych:? Depressed affect Objective Data Vital Signs Vital Signs: Vital Signs - 24 hr 05/28/25 13:40 05/28/25 13:48 05/28/25 14:00 Temperature Pulse Rate 73 75 87 Respiratory Rate 20 20 Blood Pressure Pulse Oximetry Oxygen Delivery Fraction of Inspired Oxygen 05/28/25 16:00 05/28/25 21:02 05/28/25 21:27 Temperature 98.0 F Pulse Rate 89 99 77 Respiratory Rate 16 20 Blood Pressure 124/78 141/84 H Pulse Oximetry 98 96 Oxygen Delivery Fraction of Inspired Oxygen 05/28/25 21:37 05/28/25 21:37 05/28/25 22:13 Temperature Pulse Rate 78 90 Respiratory Rate 20 Blood Pressure Pulse Oximetry 95 Oxygen Delivery Room Air Fraction of Inspired Oxygen 05/28/25 23:42 05/29/25 02:00 05/29/25 02:07 Temperature Pulse Rate 77 77 Respiratory Rate 18 18 Blood Pressure Pulse Oximetry Oxygen Delivery Room Air Fraction of Inspired Oxygen 05/29/25 07:51 05/29/25 08:00 05/29/25 08:05 Temperature 97.0 F L Pulse Rate 75 81 78 Respiratory Rate 20 16 20 Blood Pressure 135/84 Pulse Oximetry 94 Oxygen Delivery Fraction of Inspired Oxygen 05/29/25 08:28 Temperature Pulse Rate 76 Respiratory Rate Blood Pressure Pulse Oximetry Oxygen Delivery Fraction of Inspired Oxygen Intake/Output Intake/Output: Intake & Output 05/26/25 05/27/25 05/28/25 05/29/25 23:59 23:59 23:59 23:59 Intake Total 3059.0 1208.4 420 330 Output Total 800 1425 1700 1100 Balance 2259.0 -216.6 -1280 -770 Meds/Results Medications: Active Medications Generic Name Dose Route Start Last Admin Trade Name Freq PRN Reason Stop Dose Admin Acetaminophen 650 mg 05/26/25 04:35 05/28/25 14:06 Acetaminophen 325 Mg Tablet PO 650 mg Q4H PRN Administration Mild Pain (1-3) or Fever Albuterol/Ipratropium 3 ml 05/27/25 20:00 05/29/25 07:51 Ipratropium 0.5 Mg/Albuterol Sulfate 2.5 Mg (Base) Ampul.Neb 3 Ml INHALATION 3 ml Q6HRT FUNMI Administration Atorvastatin Calcium 40 mg 05/26/25 21:00 05/28/25 22:13 Atorvastatin 40 Mg Tablet PO 40 mg HS FUNMI Administration Carvedilol 6.25 mg 05/28/25 21:00 05/29/25 08:28 Carvedilol 6.25 Mg Tablet PO 6.25 mg Q12HR FUNMI Administration Cefepime HCl 2 gm/ Sodium 50 mls @ 100 mls/hr 05/26/25 23:00 05/28/25 23:42 Chloride IVPB Infused Q24H FUNMI Infusion Vancomycin HCl 1,000 mg/ 250 mls @ 250 mls/hr 05/28/25 23:00 05/29/25 00:55 Sodium Chloride IVPB Infused Q24H FUNMI Infusion Ondansetron HCl 4 mg 05/26/25 04:35 Ondansetron Inj 4 Mg/2 Ml Vial IV PUSH Q4H PRN Nausea Pantoprazole Sodium 40 mg 05/26/25 09:00 05/29/25 08:27 Pantoprazole Sodium Iv 40 Mg Vial IV PUSH 40 mg QAM FUNMI Administration Pregabalin 50 mg 05/26/25 13:00 05/29/25 08:28 Pregabalin (*Crx) 50 Mg Capsule PO 50 mg TID FUNMI Administration Radiology Results: ITS Impressions Head CT 05/25/25 20:11 IMPRESSION: No acute findings. All CT scans at this facility are performed using low dose modulation techniques as appropriate to perform exam including the following: automated exposure control; use of iterative reconstruction technique; adjustment of the mA and/or kV according to patient size (this includes techniques or standardized protocols for targeted exams where dose is matched to indication/reason for exam). Foot X-Ray 05/25/25 20:17 IMPRESSION: No acute abnormalities are seen. Given the MTP findings, consider gout. Abdomen/Pelvis CT 05/26/25 08:15 IMPRESSION: 1. Bilateral hydronephrosis and hydroureter with distal stricture suspected. Findings are probably chronic without. The renal parenchyma noted bilaterally. 2. Incidental findings above Chest X-Ray 05/28/25 11:07 IMPRESSION: 1. Worsening bibasilar atelectasis and/or airspace disease, left lung worse. Ankle X-Ray 05/29/25 11:21 Impression: No acute fracture or malalignment. Labs Labs: Laboratory Results - last 24 hr 05/28/25 05/29/25 22:02 05:36 WBC 7.9 RBC 3.21 L Hgb 8.0 L Hct 26.4 L MCV 82.2 MCH 24.9 L MCHC 30.3 L RDW 15.9 H Plt Count 361 MPV 9.3 Immature Gran % (Auto) 0.5 Neut % (Auto) 73.3 H Lymph % (Auto) 17.3 L [place] % (Auto) 5.7 Eos % (Auto) 2.4 Baso % (Auto) 0.8 Lymph # (Auto) 1.36 [place] # (Auto) 0.5 Eos # (Auto) 0.2 Baso # (Auto) 0.1 Abs Immat Gran (auto) 0.04 H Absolute Neuts (auto) 5.8 Absolute Nucleated RBC 0.000 Nucleated RBC % 0.0 Sodium 140 Potassium 3.7 Chloride 112 H Carbon Dioxide 26 Anion Gap 2 L BUN 12 Creatinine 1.08 H Estim Creat Clear Calc 26 Estimated GFR 49 L Glucose 88 Calcium 9.4 Phosphorus 3.1 Magnesium 2.0 Total Bilirubin 0.4 AST 19 ALT 10 Alkaline Phosphatase 79 Total Protein 6.6 Albumin 2.8 L Vancomycin Trough 12.2 Assessment and Plan Assessment and Plan (1) Septic shock: Code(s): A41.9 - Sepsis, unspecified organism; R65.21 - Severe sepsis with septic shock Status: Resolved Assessment and Plan: Patient presented with generalized weakness, fall, altered mental status, fevers, UA was reflective of UTI. Patient does have a history of UTI. Also bilateral hydronephrosis which are chronic and she follows up with Urology -05/25: patient was hypotensive in the ER, was given 30 cc/kg IV fluid bolus despite which her blood pressures remain low, right femoral central line was inserted -OFF Levophed, maintain MAP > 65 mmHg or SBP > 100 mmHg -patient started on cefepime and vancomycin, will deescalate once cultures a result (05/26) -05/25: Urine and blood cultures have been obtained and pending, (patient has had Citrobacter, Klebsiella and Pseudomonas in the past in the urine cultures, all susceptible to cefepime) -lactic acid are within normal limits -will discontinue maintenance IV fluid since patient is currently volume resuscitated -monitor urine output -05/27: blood cultures growing gram positive cocci- cefepime + vancomycin adequate coverage at this time, sensitivities pending. -05/29: Blood cultures grew pansensitive E faecalis. Antibiotic therapy switch to ampicillin along with repeat blood culture consideration for echocardiogram if repeat blood cultures positive (2) Acute UTI: Code(s): N39.0 - Urinary tract infection, site not specified Status: Acute Assessment and Plan: Admitted for urosepsis as likely primary source of septic shock however urine culture returned negative. Blood cultures as above have returned positive, management as above with ampicillin monotherapy. Urology has been on board as patient does have chronic hydronephrosis. They recommended repeating the urine culture given prior negative result. Will follow culture. (3) Altered mental status: Code(s): R41.82 - Altered mental status, unspecified Status: Acute Assessment and Plan: New onset delirium, ddx includes sepsis, ICU-related delirium, metabolic (however low suspicion), hardware (central line), transfer from [facility] as well, and sleep deprivation/altered sleep-wake cycle. 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 Will reassess in the afternoon to track progression of altered mental status. Blood cultures have grown positive for pansensitive Enterococcus faecalis in urine cultures so far are negative. Patient is not in shock number showing significant signs of sepsis as white count is normal today. However, given ongoing infection, there may be element of sepsis causing altered mental status at this time as well as previously mentioned factors. -Monitor for improvement -manage underlying causes -Frequent reorientation -Consider neurology eval, CT Head, metabolic workup if needed (4) MAGALIS (acute kidney injury): Code(s): N17.9 - Acute kidney failure, unspecified Status: Acute Assessment and Plan: Acute kidney injury likely related to hypovolemia per ER physician -adequately fluid resuscitated -creatinine has normalized -urine output has been -continue to monitor renal function, electrolytes and urine output -will discontinue IV fluids as she seems to be euvolemic -creatinine is 1.08, up from 1.00 yesterday. Appears to be more element of CKD at this time. (5) History of pulmonary embolism: Code(s): Z86.711 - Personal history of pulmonary embolism Status: Chronic Assessment and Plan: Patient on apixaban, clopidogrel at home will hold for now given patient is anemic -hemoglobin is stabilizing and holding at 8.0 -will consider restarting anticoagulation if hemoglobin remains stable (6) CHF (congestive heart failure): Code(s): I50.9 - Heart failure, unspecified Status: Acute Assessment and Plan: Hold furosemide, carvedilol due to patient being hypotensive, in septic shock, on pressors 05/27: off pressors, cautiously resume as BP goes up -will resume losartan at this time, and continue to monitor blood pressure (7) Hypertension: Code(s): I10 - Essential (primary) hypertension Status: Chronic Assessment and Plan: Hold all antihypertensives as patient is on pressors 05/27: off pressors, cautiously resume as BP goes up -will resume losartan at this time, and continue to monitor blood pressure (8) Anemia: Code(s): D64.9 - Anemia, unspecified Status: Acute Assessment and Plan: Patient dropped her hemoglobin, 9.6 on admission to 7.1. Hemoglobin now 8.0 holding steady. -iron panel reflects anemia of chronic disease -vitamin B12 and folate within normal limit -stool occult has been ordered and pending -patient also on apixaban and clopidogrel at home which currently on hold -will consider resuming apixaban and clopidogrel if hemoglobin remains stable Plan Following repeat blood cultures, repeat urine culture, urology, and mental status DVT prophylaxis on hold due to anemia, apixaban when resumed Diet: Heart healthy Medical Record Review I have reviewed the following patient records and this information was taken into consideration when formulating the assessment and plan.: previous labs, previous ER visits and previous hospitalizations Consultations Consultations: I have discussed the care of this pt with the consulting providers. Hospitalist MIPS Advance Care Plan I have confirmed that the patient's Advanced Care Plan is present, code status is documented, or surrogate decision maker is listed in patient medical record.: Yes Medication Reconciliation I have utilized all available resources to obtain, update and review the patient s current medications (includes all prescriptions, OTC, herbals, cannabis, and nutritional supplements).: Yes
[2025-05-29] MEDS: AMPICILLIN SODIUM 2 GM in SODIUM CHLORIDE 0.9% IV 100 ML 200 ML IVPB ×2 (14:06→21:23)
[2025-05-29] MEDS: LOSARTAN POTASSIUM 50 MG TABLET PO (14:20)
[2025-05-29] MEDS: ATORVASTATIN 40 MG TABLET PO (21:21)
[2025-05-30] VITALS (14 sets, daily range): BP systolic 109–123; BP diastolic 60–81; PULSE 73–85; RESP 15–20; TEMP 36.2–36.6; O2SAT 91–95
[2025-05-30] MEDS: IPRATROPIUM 0.5 MG/ALBUTEROL SULFATE 2.5 MG (BASE) AMPUL.NEB 3 ML INHALATION ×4 (01:18→21:27)
[2025-05-30] MEDS: AMPICILLIN SODIUM 2 GM in SODIUM CHLORIDE 0.9% IV 100 ML 200 ML IVPB (05:20)
[2025-05-30 05:44] LABS: Hematocrit 26.4 % (37.0-47.0); Hemoglobin 7.8 g/dL (12.0-15.0); Immature Granulocyte Percent A 0.5 % (0-0.5); Lymphocytes Absolute Auto 1.86 K/mm3 (0.9-3.2); Mean Corpuscular HGB Conc 29.5 g/dl (32-36); Mean Corpuscular Hemoglobin 24.7 pg (26-34); Mean Corpuscular Volume 83.5 fl (80-100); Nucleated Red Blood Cells Absolute Auto 0.000 K/mm3 (0.0-0.012); Nucleated Red Blood Cells Perc 0.0 % (0.0-0.2); Platelet Count Result 340 k/mm3 (150-375); Red Blood Count 3.16 M/mm3 (4.2-5.4); White Blood Count 5.5 K/mm3 (4.5-10.0)
[2025-05-30 06:07] LABS: Alanine Aminotransferase 10 U/L (6-35); Albumin Level 2.7 g/dL (3.5-5.1); Alkaline Phosphatase 75 U/L (38-126); Anion Gap 1 mmol/L (4-12); Aspartate Amino Transferase 18 U/L (14-36); Bilirubin,Total 0.4 mg/dL (0.2-1.3); Blood Urea Nitrogen 13 mg/dL (7-17); Calcium 9.0 mg/dL (8.4-10.2); Carbon Dioxide 27 mmol/L (22-30); Chloride 111 mmol/L (98-107); Estimated CRCL calculation 25 ml/min; Estimated Glomerular Filt Rate 45; Glucose 89 mg/dL (65-110); Magnesium 2.1 mg/dL (1.6-2.3); Potassium 3.5 mmol/L (3.4-5.0); Sodium 139 mmol/L (137-145); Total Protein 6.3 g/dL (6.3-8.2)
--- NOTE | 2025-05-30 06:11 | PC.NURSE ---
Anabela Carter CNA notified SILVIO Johansen patient had more than 10% weight loss from 05/29-05/30 change from 51.7 kg to 45.7kg. RN verified with PHARMACEUTICAL DEVELOPMENT TECHNICIAN, patient was re-weighted with and without leg sequential devise attached to end of bed. This morning 0500 incorrect decrease in weight change was due to devise not removed. Patient accurate weight is 45.7 kg- 100 lbs, 12 oz.
[2025-05-30 06:41] LABS: Anisocytosis 1+; Hypochromasia 1+
[2025-05-30 06:42] LABS: Ovalocytes 1+; Schistocytes None Seen; Stomatocytes Occasional
[2025-05-30] MEDS: PREGABALIN (*CRX) 50 MG CAPSULE PO ×3 (10:20→17:17)
[2025-05-30] MEDS: PANTOPRAZOLE SODIUM IV 40 MG VIAL IV PUSH (10:20)
--- NOTE | 2025-05-30 12:31 | WPDUROPN2 ---
Progress Note: A&P Assessment and Plan (1) Acute UTI: Code(s): N39.0 - Urinary tract infection, site not specified Status: Acute Assessment and Plan: - Initial UCx negative, however, in the setting of sepsis UTI is suspected source. Repeat UCx pending. - Continue Abx guided by blood culture; once urine culture results available ensure coverage based on susceptibility profile (2) Hydronephrosis: Qualifiers: Hydronephrosis type: unspecified Qualified Code(s): N13.30 - Unspecified hydronephrosis Code(s): N13.30 - Unspecified hydronephrosis Status: Acute Assessment and Plan: - Chronic hydronephrosis; stable as compared to previous imaging. Creatinine stable. - If progressing hydro and concern for ureteral obstruction recommend Lasix renal scan at that time - Plan for outpatient follow up for surveillance cysto (3) Turner catheter in place: Code(s): Z97.8 - Presence of other specified devices Status: Acute Assessment and Plan: - Plan for void trial prior to discharge; recommend replacement of Turner catheter for PVR >250 ml. If Turner replacement is indicated pt to be discharged with Turner in place and follow up in clinic as outpatient for further management. - Recommend bowel regimine to mitigate any constipation Subjective Subjective Date/Time Seen: 05/30/25 12:31 Interval history: NAEO; pt resting comfortably in bed. Turner catheter draining clear, yellow urine. This morning pt does endorse difficulty urinating prior to admission but cannot characterize symptoms further. Exam Const: General: comfortable Eyes: General: appearance normal, both eyes and all related structures EOM: EOMs intact bilaterally Resp: Effort & Inspection: normal respiratory effort GI: Other: Non tender, non distended : General: Yes bladder normal to palpation Urinary Catheter: Urinary Catheter: patent and draining and urine clear Skin: General skin exam: normal color Objective Data Vital Signs Vital Signs: Vital Signs - 24 hr 05/29/25 13:50 05/29/25 13:56 05/29/25 15:34 Temperature 36.1 C L Pulse Rate 73 75 78 Respiratory Rate 20 20 16 Blood Pressure 107/65 Pulse Oximetry 95 Oxygen Delivery Fraction of Inspired Oxygen 05/29/25 21:21 05/29/25 21:32 05/29/25 21:34 Temperature Pulse Rate 85 89 Respiratory Rate 20 Blood Pressure Pulse Oximetry 95 Oxygen Delivery Room Air Fraction of Inspired Oxygen 05/29/25 21:51 05/29/25 22:00 05/30/25 01:18 Temperature 36.7 C Pulse Rate 90 83 82 Respiratory Rate 20 16 20 Blood Pressure 105/62 Pulse Oximetry 95 Oxygen Delivery Fraction of Inspired Oxygen 05/30/25 01:27 05/30/25 06:00 05/30/25 08:37 Temperature 36.3 C L Pulse Rate 83 82 84 Respiratory Rate 20 15 20 Blood Pressure 122/69 Pulse Oximetry 91 Oxygen Delivery Fraction of Inspired Oxygen 05/30/25 08:39 05/30/25 08:45 Temperature Pulse Rate 73 Respiratory Rate 20 Blood Pressure Pulse Oximetry 92 Oxygen Delivery Room Air Fraction of Inspired Oxygen 21 Intake/Output Intake/Output: Intake & Output 05/27/25 05/28/25 05/29/25 05/30/25 23:59 23:59 23:59 23:59 Intake Total 1208.4 420 770 390 Output Total 1425 1700 1300 450 Balance -216.6 -1280 -530 -60 Meds/Results Medications: Active Medications Generic Name Dose Route Start Last Admin Trade Name Freq PRN Reason Stop Dose Admin Acetaminophen 650 mg 05/26/25 04:35 05/28/25 14:06 Acetaminophen 325 Mg Tablet PO 650 mg Q4H PRN Administration Mild Pain (1-3) or Fever Albuterol/Ipratropium 3 ml 05/27/25 20:00 05/30/25 08:33 Ipratropium 0.5 Mg/Albuterol Sulfate 2.5 Mg (Base) Ampul.Neb 3 Ml INHALATION 3 ml Q6HRT FUNMI Administration Atorvastatin Calcium 40 mg 05/26/25 21:00 05/29/25 21:21 Atorvastatin 40 Mg Tablet PO 40 mg HS FUNMI Administration Carvedilol 6.25 mg 05/28/25 21:00 05/30/25 10:20 Carvedilol 6.25 Mg Tablet PO 6.25 mg Q12HR FUNMI Administration Ampicillin Sodium 2 gm/ Sodium 100 mls @ 200 mls/hr 05/29/25 14:00 05/30/25 05:50 Chloride IVPB Infused Q8HR FUNMI Infusion Losartan Potassium 50 mg 05/30/25 12:00 Losartan Potassium 50 Mg Tablet PO DAILY FUNMI Ondansetron HCl 4 mg 05/26/25 04:35 Ondansetron Inj 4 Mg/2 Ml Vial IV PUSH Q4H PRN Nausea Pantoprazole Sodium 40 mg 05/26/25 09:00 05/30/25 10:20 Pantoprazole Sodium Iv 40 Mg Vial IV PUSH 40 mg QAM FUNMI Administration Pregabalin 50 mg 05/26/25 13:00 05/30/25 10:20 Pregabalin (*Crx) 50 Mg Capsule PO 50 mg TID FUNMI Administration Radiology Results: ITS Impressions Head CT 05/25/25 20:11 IMPRESSION: No acute findings. All CT scans at this facility are performed using low dose modulation techniques as appropriate to perform exam including the following: automated exposure control; use of iterative reconstruction technique; adjustment of the mA and/or kV according to patient size (this includes techniques or standardized protocols for targeted exams where dose is matched to indication/reason for exam). Foot X-Ray 05/25/25 20:17 IMPRESSION: No acute abnormalities are seen. Given the MTP findings, consider gout. Abdomen/Pelvis CT 05/26/25 08:15 IMPRESSION: 1. Bilateral hydronephrosis and hydroureter with distal stricture suspected. Findings are probably chronic without. The renal parenchyma noted bilaterally. 2. Incidental findings above Chest X-Ray 05/28/25 11:07 IMPRESSION: 1. Worsening bibasilar atelectasis and/or airspace disease, left lung worse. Ankle X-Ray 05/29/25 11:21 Impression: No acute fracture or malalignment. Labs Labs: Laboratory Results - last 24 hr 05/30/25 05:14 WBC 5.5 RBC 3.16 L Hgb 7.8 L Hct 26.4 L MCV 83.5 MCH 24.7 L MCHC 29.5 L RDW 16.2 H Plt Count 340 MPV 9.3 Immature Gran % (Auto) 0.5 Neut % (Auto) 53.2 Lymph % (Auto) 33.6 [place] % (Auto) 7.4 Eos % (Auto) 4.2 Baso % (Auto) 1.1 Lymph # (Auto) 1.86 [place] # (Auto) 0.4 Eos # (Auto) 0.2 Baso # (Auto) 0.1 Abs Immat Gran (auto) 0.03 Absolute Neuts (auto) 2.9 Absolute Nucleated RBC 0.000 Band Neutrophils % Not Reportable Nucleated RBC % 0.0 Platelet Estimate Adequate Hypochromasia 1+ Anisocytosis 1+ Ovalocytes 1+ Stomatocytes Occasional Schistocytes None seen Sodium 139 Potassium 3.5 Chloride 111 H Carbon Dioxide 27 Anion Gap 1 L BUN 13 Creatinine 1.17 H Estim Creat Clear Calc 25 Estimated GFR 45 L Glucose 89 Calcium 9.0 Phosphorus 3.0 Magnesium 2.1 Total Bilirubin 0.4 AST 18 ALT 10 Alkaline Phosphatase 75 Total Protein 6.3 Albumin 2.7 L
[2025-05-30] MEDS: LOSARTAN POTASSIUM 50 MG TABLET PO (14:41)
[2025-05-30] MEDS: AMPICILLIN SODIUM 2 GM in SODIUM CHLORIDE 0.9% IV 100 ML IVPB ×2 (14:41→21:11)
--- NOTE | 2025-05-30 17:30 | PM.IMPN2 ---
Assessment and Plan Assessment and Plan (1) Septic shock: Code(s): A41.9 - Sepsis, unspecified organism; R65.21 - Severe sepsis with septic shock Status: Resolved Assessment and Plan: Patient presented with generalized weakness, fall, altered mental status, fevers, UA was reflective of UTI. Patient does have a history of UTI. Also bilateral hydronephrosis which are chronic and she follows up with Urology -05/25: patient was hypotensive in the ER, was given 30 cc/kg IV fluid bolus despite which her blood pressures remain low, right femoral central line was inserted -OFF Levophed, maintain MAP > 65 mmHg or SBP > 100 mmHg -patient started on cefepime and vancomycin, will deescalate once cultures a result (05/26) -05/25: Urine and blood cultures have been obtained and pending, (patient has had Citrobacter, Klebsiella and Pseudomonas in the past in the urine cultures, all susceptible to cefepime) -lactic acid are within normal limits -will discontinue maintenance IV fluid since patient is currently volume resuscitated -monitor urine output -05/27: blood cultures growing gram positive cocci- cefepime + vancomycin adequate coverage at this time, sensitivities pending. -05/29: Blood cultures grew pansensitive E faecalis. Antibiotic therapy switch to ampicillin along with repeat blood culture consideration for echocardiogram if repeat blood cultures positive (2) Acute UTI: Code(s): N39.0 - Urinary tract infection, site not specified Status: Acute Assessment and Plan: Admitted for urosepsis as likely primary source of septic shock however urine culture returned negative. Blood cultures as above have returned positive, management as above with ampicillin monotherapy. Urology has been on board as patient does have chronic hydronephrosis. They recommended repeating the urine culture given prior negative result. Will follow culture. (3) Altered mental status: Code(s): R41.82 - Altered mental status, unspecified Status: Acute Assessment and Plan: New onset delirium, ddx includes sepsis, ICU-related delirium, metabolic (however low suspicion), hardware (central line), transfer from [facility] as well, and sleep deprivation/altered sleep-wake cycle. 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 Will reassess in the afternoon to track progression of altered mental status. Blood cultures have grown positive for pansensitive Enterococcus faecalis in urine cultures so far are negative. Patient is not in shock number showing significant signs of sepsis as white count is normal today. However, given ongoing infection, there may be element of sepsis causing altered mental status at this time as well as previously mentioned factors. -Monitor for improvement -manage underlying causes -Frequent reorientation -Neurology evaluation tomorrow 05/31 given not resolved (4) MAGALIS (acute kidney injury): Code(s): N17.9 - Acute kidney failure, unspecified Status: Acute Assessment and Plan: Acute kidney injury likely related to hypovolemia per ER physician -adequately fluid resuscitated -continue to monitor renal function, electrolytes and urine output -creatinine is 1.17. Appears to be more element of CKD at this time. (5) History of pulmonary embolism: Code(s): Z86.711 - Personal history of pulmonary embolism Status: Chronic Assessment and Plan: Patient on apixaban, clopidogrel at home will hold for now given patient is anemic -hemoglobin is stabilizing and holding at 8.0 -will consider restarting anticoagulation if hemoglobin remains stable (6) CHF (congestive heart failure): Code(s): I50.9 - Heart failure, unspecified Status: Acute Assessment and Plan: Hold furosemide, carvedilol due to patient being hypotensive, in septic shock, on pressors 05/27: off pressors, cautiously resume as BP goes up -will resume losartan at this time, and continue to monitor blood pressure (7) Hypertension: Code(s): I10 - Essential (primary) hypertension Status: Chronic Assessment and Plan: Off pressors -will resume losartan at this time, and continue to monitor blood pressure (8) Anemia: Code(s): D64.9 - Anemia, unspecified Status: Acute Assessment and Plan: Patient dropped her hemoglobin, 9.6 on admission to 7.1. Hemoglobin now 8.0 holding steady. -iron panel reflects anemia of chronic disease -vitamin B12 and folate within normal limit -stool occult has been ordered and pending -patient also on apixaban and clopidogrel at home which currently on hold -will consider resuming apixaban and clopidogrel if hemoglobin remains stable Plan Following repeat blood cultures, repeat urine culture, urology, and mental status DVT prophylaxis on hold due to anemia, apixaban when resumed Diet: Heart healthy Medical Record Review I have reviewed the following patient records and this information was taken into consideration when formulating the assessment and plan.: previous labs, previous ER visits and previous hospitalizations Consultations Consultations: I have discussed the care of this pt with the consulting providers. Subjective Date/time seen: 05/30/25 17:30 Interval history: Reason for consult: Septic shock, UTI, altered mental status, anemia 05/27/2025: Patient seen and examined the ICU, is awake, alert, oriented x2, patient denies any chest pain, shortness a breath, abdominal pain, nausea vomiting. She only complains of right foot pain which has been ongoing for approximately 2 months. Patient had to be restarted on Levophed overnight, it has been off this since this morning. Afebrile, tolerating p.o. diet, adequate urine output. Also discontinued maintenance IV fluids 05/28/2025: Transferred from ICU, BP holding stable. Concern for new AMS, patient is not like this at baseline, and this has occurred after resolution of shock. May be element of sepsis that is still undergoing, but will need to be monitored. Urine culture returned negative, while blood cultures are growing E. Faecalis, sensitivities still pending. Consider Ampicillin + Ceftriaxone if sensitive to these. Urology on board for hydronephrosis and UTI, recommends to repeat Urine culture given negative result. Recommends 2 week urosepsis course of antibiotics once sensitivities are in. Outpatient cystoscopy on discharge. 05/29: Patient was complaining of ankle swelling on the right side. Prior foot x-ray reviewed which is new and, ankle x-ray was obtained and nonvisualization of image, does not appear to have any fractures. Likely a sprain, will get a uric acid to rule out, however. Blood culture returned with pansensitive Enterococcus faecalis, discussed with Pharmacy, will change to ampicillin monotherapy and follow-up with repeat blood culture. Repeat urine culture pending. Care coordination recommend short-term rehab on discharge. Patient was lethargic in the morning, difficult to get information from. Will re-evaluate in the afternoon to reassess mental status change. May obtain imaging consider neurology evaluation however suspicion is still strong at this time that altered mental status is multifactorial in nature, due to sepsis, ICU stay, transfer from ICU, underlying cognitive impairment. 05/30: AMS improving but persistent. Per daughter who was available in patient's room, this is new, as she was completely lucid prior to septic shock and hospitalization. As such, will get neurology on board tomorrow to further assess. Cultures still pending. Urology ok with void trial prior to DC, can do today/tomorrow as patient is highly uncomfortable from crum. Urology is on board and following patient. Labs reviewed. Review of Systems Review of Systems: All systems reviewed & are unremarkable except as noted in HPI and below Exam Narrative: General: No acute distress, more awake and alert but still confused HEENT:? Pupils equal and reactive, sclerae is clear Neck:? Supple Respiratory:? Coarse breath sounds at bases, scattered wheezing, adequate air entry Cardiac:? S1-S2 normal, regular rate and rhythm Abdomen:? Soft, nontender, nondistended, normoactive bowel sounds Extremities:? No edema, palpable pedal pulses Neuro:? Patient is awake, alert, oriented x2, able to answer questions and follows simple commands in all extremities. Confusion which is not baseline. Skin:? Warm and dry Psych:? Depressed affect Objective Data Vital Signs Vital Signs: Vital Signs - 24 hr 05/29/25 21:21 05/29/25 21:32 05/29/25 21:34 Temperature Pulse Rate 85 89 Respiratory Rate 20 Blood Pressure Pulse Oximetry 95 Oxygen Delivery Room Air Fraction of Inspired Oxygen 05/29/25 21:51 05/29/25 22:00 05/30/25 01:18 Temperature 98.0 F Pulse Rate 90 83 82 Respiratory Rate 20 16 20 Blood Pressure 105/62 Pulse Oximetry 95 Oxygen Delivery Fraction of Inspired Oxygen 05/30/25 01:27 05/30/25 06:00 05/30/25 08:00 Temperature 97.3 F L Pulse Rate 83 82 Respiratory Rate 20 15 Blood Pressure 122/69 Pulse Oximetry 91 Oxygen Delivery Room Air Fraction of Inspired Oxygen 05/30/25 08:37 05/30/25 08:39 05/30/25 08:45 Temperature Pulse Rate 84 73 Respiratory Rate 20 20 Blood Pressure Pulse Oximetry 92 Oxygen Delivery Room Air Fraction of Inspired Oxygen 21 05/30/25 14:00 05/30/25 14:09 05/30/25 14:16 Temperature 97.8 F Pulse Rate 77 74 75 Respiratory Rate 20 20 20 Blood Pressure 123/81 Pulse Oximetry 94 Oxygen Delivery Fraction of Inspired Oxygen Intake/Output Intake/Output: Intake & Output 05/27/25 05/28/25 05/29/25 05/30/25 23:59 23:59 23:59 23:59 Intake Total 1208.4 420 770 630 Output Total 1425 1700 1300 450 Balance -216.6 -1280 -530 180 Meds/Results Medications: Active Medications Generic Name Dose Route Start Last Admin Trade Name Freq PRN Reason Stop Dose Admin Acetaminophen 650 mg 05/26/25 04:35 05/28/25 14:06 Acetaminophen 325 Mg Tablet PO 650 mg Q4H PRN Administration Mild Pain (1-3) or Fever Albuterol/Ipratropium 3 ml 05/27/25 20:00 05/30/25 14:09 Ipratropium 0.5 Mg/Albuterol Sulfate 2.5 Mg (Base) Ampul.Neb 3 Ml INHALATION 3 ml Q6HRT FUNMI Administration Atorvastatin Calcium 40 mg 05/26/25 21:00 05/29/25 21:21 Atorvastatin 40 Mg Tablet PO 40 mg HS FUNMI Administration Carvedilol 6.25 mg 05/28/25 21:00 05/30/25 10:20 Carvedilol 6.25 Mg Tablet PO 6.25 mg Q12HR FUNMI Administration Ampicillin Sodium 2 gm/ Sodium 100 mls @ 200 mls/hr 05/29/25 14:00 05/30/25 14:41 Chloride IVPB 100 mls/hr Q8HR FUNMI Administration Losartan Potassium 50 mg 05/30/25 12:00 05/30/25 14:41 Losartan Potassium 50 Mg Tablet PO 50 mg DAILY FUNMI Administration Ondansetron HCl 4 mg 05/26/25 04:35 Ondansetron Inj 4 Mg/2 Ml Vial IV PUSH Q4H PRN Nausea Pantoprazole Sodium 40 mg 05/26/25 09:00 05/30/25 10:20 Pantoprazole Sodium Iv 40 Mg Vial IV PUSH 40 mg QAM FUNMI Administration Pregabalin 50 mg 05/26/25 13:00 05/30/25 17:17 Pregabalin (*Crx) 50 Mg Capsule PO 50 mg TID FUNMI Administration Radiology Results: ITS Impressions Head CT 05/25/25 20:11 IMPRESSION: No acute findings. All CT scans at this facility are performed using low dose modulation techniques as appropriate to perform exam including the following: automated exposure control; use of iterative reconstruction technique; adjustment of the mA and/or kV according to patient size (this includes techniques or standardized protocols for targeted exams where dose is matched to indication/reason for exam). Foot X-Ray 05/25/25 20:17 IMPRESSION: No acute abnormalities are seen. Given the MTP findings, consider gout. Abdomen/Pelvis CT 05/26/25 08:15 IMPRESSION: 1. Bilateral hydronephrosis and hydroureter with distal stricture suspected. Findings are probably chronic without. The renal parenchyma noted bilaterally. 2. Incidental findings above Chest X-Ray 05/28/25 11:07 IMPRESSION: 1. Worsening bibasilar atelectasis and/or airspace disease, left lung worse. Ankle X-Ray 05/29/25 11:21 Impression: No acute fracture or malalignment. Labs Labs: Laboratory Results - last 24 hr 05/30/25 05:14 WBC 5.5 RBC 3.16 L Hgb 7.8 L Hct 26.4 L MCV 83.5 MCH 24.7 L MCHC 29.5 L RDW 16.2 H Plt Count 340 MPV 9.3 Immature Gran % (Auto) 0.5 Neut % (Auto) 53.2 Lymph % (Auto) 33.6 [place] % (Auto) 7.4 Eos % (Auto) 4.2 Baso % (Auto) 1.1 Lymph # (Auto) 1.86 [place] # (Auto) 0.4 Eos # (Auto) 0.2 Baso # (Auto) 0.1 Abs Immat Gran (auto) 0.03 Absolute Neuts (auto) 2.9 Absolute Nucleated RBC 0.000 Band Neutrophils % Not Reportable Nucleated RBC % 0.0 Platelet Estimate Adequate Hypochromasia 1+ Anisocytosis 1+ Ovalocytes 1+ Stomatocytes Occasional Schistocytes None seen Sodium 139 Potassium 3.5 Chloride 111 H Carbon Dioxide 27 Anion Gap 1 L BUN 13 Creatinine 1.17 H Estim Creat Clear Calc 25 Estimated GFR 45 L Glucose 89 Calcium 9.0 Phosphorus 3.0 Magnesium 2.1 Total Bilirubin 0.4 AST 18 ALT 10 Alkaline Phosphatase 75 Total Protein 6.3 Albumin 2.7 L Hospitalist MIPS Advance Care Plan I have confirmed that the patient's Advanced Care Plan is present, code status is documented, or surrogate decision maker is listed in patient medical record.: Yes Medication Reconciliation I have utilized all available resources to obtain, update and review the patients current medications (includes all prescriptions, OTC, herbals, cannabis, and nutritional supplements).: Yes
[2025-05-30] MEDS: ATORVASTATIN 40 MG TABLET PO (21:10)
[2025-05-31] VITALS (8 sets, daily range): BP systolic 101–127; BP diastolic 61–74; PULSE 74–95; RESP 14–22; TEMP 36.3–36.4; O2SAT 92–96
[2025-05-31] MEDS: IPRATROPIUM 0.5 MG/ALBUTEROL SULFATE 2.5 MG (BASE) AMPUL.NEB 3 ML INHALATION ×3 (02:54→22:03)
[2025-05-31] MEDS: AMPICILLIN SODIUM 2 GM in SODIUM CHLORIDE 0.9% IV 100 ML IVPB ×3 (05:10→20:57)
[2025-05-31 06:19] LABS: Hematocrit 24.5 % (37.0-47.0); Hemoglobin 7.2 g/dL (12.0-15.0); Immature Granulocyte Percent A 0.7 % (0-0.5); Lymphocytes Absolute Auto 1.59 K/mm3 (0.9-3.2); Mean Corpuscular HGB Conc 29.4 g/dl (32-36); Mean Corpuscular Hemoglobin 24.7 pg (26-34); Mean Corpuscular Volume 83.9 fl (80-100); Nucleated Red Blood Cells Absolute Auto 0.000 K/mm3 (0.0-0.012); Nucleated Red Blood Cells Perc 0.0 % (0.0-0.2); Platelet Count Result 310 k/mm3 (150-375); Red Blood Count 2.92 M/mm3 (4.2-5.4); White Blood Count 5.8 K/mm3 (4.5-10.0)
[2025-05-31 06:53] LABS: Alanine Aminotransferase 11 U/L (6-35); Albumin Level 2.5 g/dL (3.5-5.1); Alkaline Phosphatase 76 U/L (38-126); Anion Gap 1 mmol/L (4-12); Aspartate Amino Transferase 17 U/L (14-36); Bilirubin,Total 0.3 mg/dL (0.2-1.3); Blood Urea Nitrogen 11 mg/dL (7-17); Calcium 8.8 mg/dL (8.4-10.2); Carbon Dioxide 27 mmol/L (22-30); Chloride 112 mmol/L (98-107); Estimated CRCL calculation 26 ml/min; Estimated Glomerular Filt Rate 48; Glucose 100 mg/dL (65-110); Magnesium 2.1 mg/dL (1.6-2.3); Potassium 3.4 mmol/L (3.4-5.0); Sodium 140 mmol/L (137-145); Total Protein 6.1 g/dL (6.3-8.2)
[2025-05-31 07:07] LABS: Anisocytosis Occasional; Hypochromasia 1+; Ovalocytes Occasional; Schistocytes Occasional; Stomatocytes Occasional
[2025-05-31] MEDS: PANTOPRAZOLE SODIUM IV 40 MG VIAL IV PUSH (09:20)
[2025-05-31] MEDS: LOSARTAN POTASSIUM 50 MG TABLET PO (09:20)
[2025-05-31] MEDS: PREGABALIN (*CRX) 50 MG CAPSULE PO ×3 (09:20→19:03)
--- NOTE | 2025-05-31 14:23 | WPDNEURCNPN ---
Assessment and Plan Assessment and plan (1) Encephalopathy: Code(s): G93.40 - Encephalopathy, unspecified Status: Acute Plan 1. Fluctuating mental status with history of ongoing medical problem as outlined above, the CT scan of the head is negative for the hydrocephalus chronic epidural so subdurals, and most recent electrolytes are almost normal considering the possibility of ongoing dementia I will obtain an EEG before any further recommendation are suggested. Consult date: 05/31/25 HPI: Diana Terry is a 79 year old female Admitted to the hospital through the emergency room for the complaints of progressively increasing lethargy and weakness over the last 2 weeks. And impending for poor functional status over the last 48hours patient had been receiving the treatment for the UTI but patient was reportedly increasingly confused. She gave no history of headaches visual changes chest pain difficulties in breathing abdominal pain but she did complain of right foot pain and also complained of increasing confusion after a fall about 48hours prior to the visit to the ER reportedly she has been lying in bed and has been getting up only for 1hour a day. She is allergic to aspirin. Her past history is consistent with 1. Congestive heart failure 2. Bilateral hydronephrosis 3. History of pulmonary emboli 4. 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 Hypertension 6. Vitamin-D deficiency 7. History of bladder surgery and 8. History of hysterectomy she has history of smoking 2 packs per day 1 with years smoked 55 his smoking pack years 55 but at present she is a former smoker. She has no history of alcohol intake. On initial exam in the emergency room she was ill-appearing tap technique lethargic but was able to move all extremities. Was also admitted to intensive care for the septic shock and during that hospitalization she was treated with broad-spectrum antibiotics for the UTI and sepsis. Neurology consultation has been obtained because as per the information available she was completely lucid prior to this septic shock and hospitalization. At this particular time she has wbc's count of 5.8 with hemoglobin of only 7.2 and platelet count of 310 protime and INR are normal and most recent BMP is almost normal creatinine 1.10 and estimated GFR of 48 but albumin only 2.5. Most recent CT scan on 1127 was negative for the bleed or hydrocephalus. Review of Systems Review of Systems: All systems reviewed & are unremarkable except as noted in HPI and below PMFSH Past Medical History Medical History Chronic anticoagulation Splenic infarct CHF (congestive heart failure) Vitamin D deficiency Pure hypercholesterolemia Overweight (09/19/16) Other chronic pain Melanocytic nevus of neck Chronic right shoulder pain Urgency incontinence PVC's (premature ventricular contractions) Hypokalemia Acute UTI Osteoarthritis of first carpometacarpal joint of right hand Retention of urine Bilateral hydronephrosis Pulmonary infarct Pulmonary emboli 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 PONV (postoperative nausea and vomiting) GERD (gastroesophageal reflux disease) Hypertension Surgical History Surgical History History of bladder surgery History of hysterectomy Family History Family History Mother Family history of renal failure Patient's mother is Father Family history of heart disease in male family member before age 55 Patient's father is Other Diabetes mellitus Family history of arthritis Hypertension Urge incontinence Social History Social History Social History: She lives alone and has 2 children. She is . She is retired. Code status: Full code Smoking packs per day: 1 Smoking cigarettes per day: 20.0 Years smoked: 55 Smoking pack-years: 55.00 Smoking status: Former smoker Tobacco type: cigarettes Alcohol intake: never Substance use: never Substance use type: does not use Lack of Transportation: No Lack of Food: Never True Current Housing: I Have Housing Concerned About Future Housing: No Difficulty Paying Gas/Electric Bills: No Difficulty Paying for Meds: No Currently Unemployed: No Education: High School Diploma/GED Difficulty w/ Childcare or Family Care: No Living arrangements: alone Spiritual care concerns: No Meds Home Medications and Allergies Home Medications ?Medication ?Instructions ?Recorded ?Confirmed ?Type apixaban 2.5 mg tablet 2.5 mg PO Q12H #60 tabs 05/20/24 05/26/25 Rx atorvastatin 40 mg tablet 40 mg PO HS #30 tabs 05/20/24 05/26/25 Rx carvedilol 6.25 mg tablet (Coreg) 6.25 mg PO Q12HR #60 tabs 05/20/24 05/26/25 Rx clopidogrel 75 mg tablet 75 mg PO QAM #30 tabs 05/20/24 05/26/25 Rx furosemide 40 mg tablet 40 mg PO QAM #30 tabs 05/20/24 05/26/25 Rx losartan 50 mg tablet (Cozaar) 50 mg PO DAILY #30 tabs 05/20/24 05/26/25 Rx cephalexin 500 mg capsule 500 mg PO QID 05/26/25 05/26/25 History pregabalin 50 mg capsule 50 mg PO TID 05/26/25 05/26/25 History Allergies Allergy/AdvReac Type Severity Reaction Status Date / Time No Known Allergies Allergy Verified 05/26/25 09:06 Vital Signs Vital Signs - 24 hr 05/30/25 20:00 05/30/25 21:10 05/30/25 21:27 Temperature Pulse Rate 82 80 Respiratory Rate 18 Blood Pressure Pulse Oximetry 95 94 Oxygen Delivery Room Air Room Air Fraction of Inspired Oxygen 21 05/30/25 21:27 05/30/25 21:33 05/30/25 22:00 Temperature 36.2 C L Pulse Rate 81 85 82 Respiratory Rate 16 16 18 Blood Pressure 109/60 Pulse Oximetry 95 Oxygen Delivery Fraction of Inspired Oxygen 05/31/25 02:54 05/31/25 03:01 05/31/25 06:00 Temperature 36.3 C L Pulse Rate 74 76 74 Respiratory Rate 16 18 16 Blood Pressure 111/74 Pulse Oximetry 93 Oxygen Delivery Fraction of Inspired Oxygen 05/31/25 08:53 05/31/25 08:53 Temperature Pulse Rate 77 77 Respiratory Rate 14 14 Blood Pressure Pulse Oximetry 92 Oxygen Delivery Room Air Fraction of Inspired Oxygen Exam Narrative: On exam today she is awake alert she was able to repeat all the facial historical facts her speech was not dysphasic not dysarthric and not dysphonic, head was normocephalic with no cranial bruits, neck was supple with no meningeal signs, heart was regular with no murmur, lungs were clear to auscultation with no rhonchi or crepitations, abdomen is soft nontender, neurologically she was awake alert she was aware of that she is in the hospital he was complaining of discomfort in the right lower extremity which she asked the physician to please put the leg on the pillow, extraocular movements are full with no nystagmus facial grimace was symmetrical tongue was in the oral cavity motor examination revealed her to have ability to move both upper and lower extremities deep tendon reflexes were sluggish in plantar responses were downgoing she was unable to perform [id number] or heel to knee to [place]. Results Labs 05/31/25 06:05 05/31/25 06:05 Labs: Short CBC 05/31/25 Range/Units 06:05 WBC 5.8 (4.5-10.0) K/mm3 Hgb 7.2 L (12.0-15.0) g/dL Hct 24.5 L (37.0-47.0) % Plt Count 310 (150-375) k/mm3 BMP 05/31/25 06:05 Sodium 140 Potassium 3.4 Chloride 112 H Carbon Dioxide 27 BUN 11 Creatinine 1.10 H Glucose 100 Calcium 8.8 Liver Function 05/31/25 Range/Units 06:05 Total Bilirubin 0.3 (0.2-1.3) mg/dL AST 17 (14-36) U/L ALT 11 (6-35) U/L Alkaline Phosphatase 76 (38-126) U/L Albumin 2.5 L (3.5-5.1) g/dL
--- NOTE | 2025-05-31 14:46 | PM.IMPN2 ---
Assessment and Plan Assessment and Plan (1) Septic shock: Code(s): A41.9 - Sepsis, unspecified organism; R65.21 - Severe sepsis with septic shock Status: Resolved Assessment and Plan: Patient presented with generalized weakness, fall, altered mental status, fevers, UA was reflective of UTI. Patient does have a history of UTI. Also bilateral hydronephrosis which are chronic and she follows up with Urology -05/25: patient was hypotensive in the ER, was given 30 cc/kg IV fluid bolus despite which her blood pressures remain low, right femoral central line was inserted -OFF Levophed, maintain MAP > 65 mmHg or SBP > 100 mmHg -patient started on cefepime and vancomycin, will deescalate once cultures a result (05/26) -05/25: Urine and blood cultures have been obtained and pending, (patient has had Citrobacter, Klebsiella and Pseudomonas in the past in the urine cultures, all susceptible to cefepime) -lactic acid are within normal limits -will discontinue maintenance IV fluid since patient is currently volume resuscitated -monitor urine output -05/27: blood cultures growing gram positive cocci- cefepime + vancomycin adequate coverage at this time, sensitivities pending. -05/29: Blood cultures grew pansensitive E faecalis. Antibiotic therapy switch to ampicillin along with repeat blood culture consideration for echocardiogram if repeat blood cultures positive (2) Acute UTI: Code(s): N39.0 - Urinary tract infection, site not specified Status: Acute Assessment and Plan: Admitted for urosepsis as likely primary source of septic shock however urine culture returned negative. Blood cultures as above have returned positive, management as above with ampicillin monotherapy. Urology has been on board as patient does have chronic hydronephrosis. They recommended repeating the urine culture given prior negative result. Will follow culture, repeat 05/29 NG final. (3) Altered mental status: Code(s): R41.82 - Altered mental status, unspecified Status: Acute Assessment and Plan: New onset delirium, ddx includes sepsis, ICU-related delirium, metabolic (however low suspicion), hardware (central line), transfer from [facility] as well, and sleep deprivation/altered sleep-wake cycle. 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 Will reassess in the afternoon to track progression of altered mental status. Blood cultures have grown positive for pansensitive Enterococcus faecalis in urine cultures so far are negative. Patient is not in shock number showing significant signs of sepsis as white count is normal today. However, given ongoing infection, there may be element of sepsis causing altered mental status at this time as well as previously mentioned factors. -Monitor for improvement -manage underlying causes -Frequent reorientation -Neurology evaluation- recommending EEG at this time. (4) MAGALIS (acute kidney injury): Code(s): N17.9 - Acute kidney failure, unspecified Status: Acute Assessment and Plan: Acute kidney injury likely related to hypovolemia per ER physician -adequately fluid resuscitated -continue to monitor renal function, electrolytes and urine output -creatinine is 1.1. Appears to be more element of CKD at this time. (5) History of pulmonary embolism: Code(s): Z86.711 - Personal history of pulmonary embolism Status: Chronic Assessment and Plan: Patient on apixaban, clopidogrel at home will hold for now given patient is anemic -hemoglobin 7.2 -will consider restarting anticoagulation if hemoglobin remains stable (6) CHF (congestive heart failure): Code(s): I50.9 - Heart failure, unspecified Status: Acute Assessment and Plan: Hold furosemide, carvedilol due to patient being hypotensive, in septic shock, on pressors 05/27: off pressors, cautiously resume as BP goes up -will resume losartan and carvedilol at this time, and continue to monitor blood pressure (7) Hypertension: Code(s): I10 - Essential (primary) hypertension Status: Chronic Assessment and Plan: Off pressors -will resume losartan and carvedilol at this time, and continue to monitor blood pressure (8) Anemia: Code(s): D64.9 - Anemia, unspecified Status: Acute Assessment and Plan: Patient dropped her hemoglobin, 9.6 on admission to 7.1. Hemoglobin now 7.2. -iron panel reflects anemia of chronic disease -vitamin B12 and folate within normal limit -stool occult has been ordered and pending -patient also on apixaban and clopidogrel at home which currently on hold -will consider resuming apixaban and clopidogrel if hemoglobin remains stable Plan Following repeat blood cultures, repeat urine culture, urology, and mental status DVT prophylaxis on hold due to anemia, apixaban when resumed Diet: Heart healthy Medical Record Review I have reviewed the following patient records and this information was taken into consideration when formulating the assessment and plan.: previous labs, previous ER visits and previous hospitalizations Consultations Consultations: I have discussed the care of this pt with the consulting providers. Subjective Date/time seen: 05/31/25 14:46 Interval history: Reason for consult: Septic shock, UTI, altered mental status, anemia 05/27/2025: Patient seen and examined the ICU, is awake, alert, oriented x2, patient denies any chest pain, shortness a breath, abdominal pain, nausea vomiting. She only complains of right foot pain which has been ongoing for approximately 2 months. Patient had to be restarted on Levophed overnight, it has been off this since this morning. Afebrile, tolerating p.o. diet, adequate urine output. Also discontinued maintenance IV fluids 05/28/2025: Transferred from ICU, BP holding stable. Concern for new AMS, patient is not like this at baseline, and this has occurred after resolution of shock. May be element of sepsis that is still undergoing, but will need to be monitored. Urine culture returned negative, while blood cultures are growing E. Faecalis, sensitivities still pending. Consider Ampicillin + Ceftriaxone if sensitive to these. Urology on board for hydronephrosis and UTI, recommends to repeat Urine culture given negative result. Recommends 2 week urosepsis course of antibiotics once sensitivities are in. Outpatient cystoscopy on discharge. 05/29: Patient was complaining of ankle swelling on the right side. Prior foot x-ray reviewed which is new and, ankle x-ray was obtained and nonvisualization of image, does not appear to have any fractures. Likely a sprain, will get a uric acid to rule out, however. Blood culture returned with pansensitive Enterococcus faecalis, discussed with Pharmacy, will change to ampicillin monotherapy and follow-up with repeat blood culture. Repeat urine culture pending. Care coordination recommend short-term rehab on discharge. Patient was lethargic in the morning, difficult to get information from. Will re-evaluate in the afternoon to reassess mental status change. May obtain imaging consider neurology evaluation however suspicion is still strong at this time that altered mental status is multifactorial in nature, due to sepsis, ICU stay, transfer from ICU, underlying cognitive impairment. 05/30: AMS improving but persistent. Per daughter who was available in patient's room, this is new, as she was completely lucid prior to septic shock and hospitalization. As such, will get neurology on board tomorrow to further assess. Cultures still pending. Urology ok with void trial prior to DC, can do today/tomorrow as patient is highly uncomfortable from crum. Urology is on board and following patient. Labs reviewed. 05/31: AMS persists, neurology on board and will obtain EEG. Crum has been removed, patient has urinated twice today and appears to be tolerating well without need for catheterization. Continuing antibiotics per ID for E Faecalis. Repeat blood culture 05/29 still pending. Review of Systems Review of Systems: All systems reviewed & are unremarkable except as noted in HPI and below Exam Narrative: General: No acute distress, more awake and alert but still confused HEENT:? Pupils equal and reactive, sclerae is clear Neck:? Supple Respiratory:? Coarse breath sounds at bases, scattered wheezing, adequate air entry Cardiac:? S1-S2 normal, regular rate and rhythm Abdomen:? Soft, nontender, nondistended, normoactive bowel sounds Extremities:? No edema, palpable pedal pulses Neuro:? Patient is awake, alert, oriented x2, able to answer questions and follows simple commands in all extremities. Confusion which is not baseline. Skin:? Warm and dry Psych:? Depressed affect Objective Data Vital Signs Vital Signs: Vital Signs - 24 hr 05/30/25 20:00 05/30/25 21:10 05/30/25 21:27 Temperature Pulse Rate 82 80 Respiratory Rate 18 Blood Pressure Pulse Oximetry 95 94 Oxygen Delivery Room Air Room Air Fraction of Inspired Oxygen 21 05/30/25 21:27 05/30/25 21:33 05/30/25 22:00 Temperature 97.2 F L Pulse Rate 81 85 82 Respiratory Rate 16 16 18 Blood Pressure 109/60 Pulse Oximetry 95 Oxygen Delivery Fraction of Inspired Oxygen 05/31/25 02:54 05/31/25 03:01 05/31/25 06:00 Temperature 97.3 F L Pulse Rate 74 76 74 Respiratory Rate 16 18 16 Blood Pressure 111/74 Pulse Oximetry 93 Oxygen Delivery Fraction of Inspired Oxygen 05/31/25 08:53 05/31/25 08:53 Temperature Pulse Rate 77 77 Respiratory Rate 14 14 Blood Pressure Pulse Oximetry 92 Oxygen Delivery Room Air Fraction of Inspired Oxygen Intake/Output Intake/Output: Intake & Output 05/28/25 05/29/25 05/30/25 05/31/25 23:59 23:59 23:59 23:59 Intake Total 420 770 830 340 Output Total 1700 1300 1100 500 Balance -1280 -530 -270 -160 Meds/Results Medications: Active Medications Generic Name Dose Route Start Last Admin Trade Name Freq PRN Reason Stop Dose Admin Acetaminophen 650 mg 05/26/25 04:35 05/28/25 14:06 Acetaminophen 325 Mg Tablet PO 650 mg Q4H PRN Administration Mild Pain (1-3) or Fever Albuterol/Ipratropium 3 ml 05/27/25 20:00 05/31/25 08:52 Ipratropium 0.5 Mg/Albuterol Sulfate 2.5 Mg (Base) Ampul.Neb 3 Ml INHALATION 3 ml Q6HRT FUNMI Administration Atorvastatin Calcium 40 mg 05/26/25 21:00 05/30/25 21:10 Atorvastatin 40 Mg Tablet PO 40 mg HS FUNMI Administration Carvedilol 6.25 mg 05/28/25 21:00 05/31/25 09:21 Carvedilol 6.25 Mg Tablet PO 6.25 mg Q12HR FUNMI Administration Ampicillin Sodium 2 gm/ Sodium 100 mls @ 200 mls/hr 05/29/25 14:00 05/31/25 06:10 Chloride IVPB Infused Q8HR FUNMI Infusion Losartan Potassium 50 mg 05/30/25 12:00 05/31/25 09:20 Losartan Potassium 50 Mg Tablet PO 50 mg DAILY FUNMI Administration Ondansetron HCl 4 mg 05/26/25 04:35 Ondansetron Inj 4 Mg/2 Ml Vial IV PUSH Q4H PRN Nausea Pantoprazole Sodium 40 mg 05/26/25 09:00 05/31/25 09:20 Pantoprazole Sodium Iv 40 Mg Vial IV PUSH 40 mg QAM FUNMI Administration Pregabalin 50 mg 05/26/25 13:00 05/31/25 09:20 Pregabalin (*Crx) 50 Mg Capsule PO 50 mg TID FUNMI Administration Radiology Results: ITS Impressions Head CT 05/25/25 20:11 IMPRESSION: No acute findings. All CT scans at this facility are performed using low dose modulation techniques as appropriate to perform exam including the following: automated exposure control; use of iterative reconstruction technique; adjustment of the mA and/or kV according to patient size (this includes techniques or standardized protocols for targeted exams where dose is matched to indication/reason for exam). Foot X-Ray 05/25/25 20:17 IMPRESSION: No acute abnormalities are seen. Given the MTP findings, consider gout. Abdomen/Pelvis CT 05/26/25 08:15 IMPRESSION: 1. Bilateral hydronephrosis and hydroureter with distal stricture suspected. Findings are probably chronic without. The renal parenchyma noted bilaterally. 2. Incidental findings above Chest X-Ray 05/28/25 11:07 IMPRESSION: 1. Worsening bibasilar atelectasis and/or airspace disease, left lung worse. Ankle X-Ray 05/29/25 11:21 Impression: No acute fracture or malalignment. Labs Labs: Laboratory Results - last 24 hr 05/31/25 06:05 WBC 5.8 RBC 2.92 L Hgb 7.2 L Hct 24.5 L MCV 83.9 MCH 24.7 L MCHC 29.4 L RDW 16.4 H Plt Count 310 MPV 9.3 Immature Gran % (Auto) 0.7 H Neut % (Auto) 60.4 Lymph % (Auto) 27.5 [place] % (Auto) 7.3 Eos % (Auto) 3.6 Baso % (Auto) 0.5 Lymph # (Auto) 1.59 [place] # (Auto) 0.4 Eos # (Auto) 0.2 Baso # (Auto) 0.0 Abs Immat Gran (auto) 0.04 H Absolute Neuts (auto) 3.5 Absolute Nucleated RBC 0.000 Band Neutrophils % Not Reportable Nucleated RBC % 0.0 Atypical Lymphocytes Present Platelet Estimate Adequate Hypochromasia 1+ Anisocytosis Occasional Ovalocytes Occasional Stomatocytes Occasional Schistocytes Occasional Sodium 140 Potassium 3.4 Chloride 112 H Carbon Dioxide 27 Anion Gap 1 L BUN 11 Creatinine 1.10 H Estim Creat Clear Calc 26 Estimated GFR 48 L Glucose 100 Calcium 8.8 Phosphorus 3.1 Magnesium 2.1 Total Bilirubin 0.3 AST 17 ALT 11 Alkaline Phosphatase 76 Total Protein 6.1 L Albumin 2.5 L Hospitalist MIPS Advance Care Plan I have confirmed that the patient's Advanced Care Plan is present, code status is documented, or surrogate decision maker is listed in patient medical record.: Yes Medication Reconciliation I have utilized all available resources to obtain, update and review the patients current medications (includes all prescriptions, OTC, herbals, cannabis, and nutritional supplements).: Yes
--- NOTE | 2025-05-31 17:27 | PCRCNOTE ---
past updraft time. RT was unavailable
[2025-05-31] MEDS: ACETAMINOPHEN 325 MG TABLET 650 MG PO (20:51)
[2025-05-31] MEDS: ATORVASTATIN 40 MG TABLET PO (20:53)
[2025-06-01] VITALS (8 sets, daily range): BP systolic 110–114; BP diastolic 55–62; PULSE 63–81; RESP 17–20; TEMP 36.5–37.2; O2SAT 91–96
[2025-06-01] MEDS: AMPICILLIN SODIUM 2 GM in SODIUM CHLORIDE 0.9% IV 100 ML IVPB ×3 (05:05→21:08)
[2025-06-01 06:25] LABS: Hematocrit 25.4 % (37.0-47.0); Hemoglobin 7.2 g/dL (12.0-15.0); Immature Granulocyte Percent A 0.4 % (0-0.5); Lymphocytes Absolute Auto 1.82 K/mm3 (0.9-3.2); Mean Corpuscular HGB Conc 28.3 g/dl (32-36); Mean Corpuscular Hemoglobin 24.6 pg (26-34); Mean Corpuscular Volume 86.7 fl (80-100); Nucleated Red Blood Cells Absolute Auto 0.000 K/mm3 (0.0-0.012); Nucleated Red Blood Cells Perc 0.0 % (0.0-0.2); Platelet Count Result 303 k/mm3 (150-375); Red Blood Count 2.93 M/mm3 (4.2-5.4); White Blood Count 5.6 K/mm3 (4.5-10.0)
[2025-06-01 06:44] LABS: Alanine Aminotransferase 11 U/L (6-35); Albumin Level 2.7 g/dL (3.5-5.1); Alkaline Phosphatase 76 U/L (38-126); Anion Gap 1 mmol/L (4-12); Aspartate Amino Transferase 17 U/L (14-36); Bilirubin,Total 0.3 mg/dL (0.2-1.3); Blood Urea Nitrogen 9 mg/dL (7-17); Calcium 8.9 mg/dL (8.4-10.2); Carbon Dioxide 25 mmol/L (22-30); Chloride 112 mmol/L (98-107); Estimated CRCL calculation 28 ml/min; Estimated Glomerular Filt Rate 53; Glucose 88 mg/dL (65-110); Magnesium 2.1 mg/dL (1.6-2.3); Potassium 3.3 mmol/L (3.4-5.0); Sodium 138 mmol/L (137-145); Total Protein 6.1 g/dL (6.3-8.2)
[2025-06-01 07:18] LABS: Anisocytosis 1+; Burr Cells 2+; Hypochromasia Occasional; Ovalocytes 1+
[2025-06-01 07:19] LABS: Schistocytes Occasional
[2025-06-01] MEDS: IPRATROPIUM 0.5 MG/ALBUTEROL SULFATE 2.5 MG (BASE) AMPUL.NEB 3 ML INHALATION ×3 (07:37→21:28)
[2025-06-01] MEDS: PANTOPRAZOLE SODIUM IV 40 MG VIAL IV PUSH (09:46)
[2025-06-01] MEDS: PREGABALIN (*CRX) 50 MG CAPSULE PO ×3 (09:49→16:41)
--- NOTE | 2025-06-01 10:26 | PCNWS ---
Weekly nutritional screen. Patient is tolerating current Heart healthy diet with adequate intake, 90-100%. No weight loss reported. No nutritional needs at this time.
--- NOTE | 2025-06-01 10:55 | PCPTNOTE ---
Patient requests PT return later today. Patient states she is about to fall asleep and would like to do therapy later.
[2025-06-01] MEDS: ACETAMINOPHEN 325 MG TABLET 650 MG PO (13:08)
--- NOTE | 2025-06-01 18:57 | PM.IMPN2 ---
Assessment and Plan Assessment and Plan (1) Septic shock: Code(s): A41.9 - Sepsis, unspecified organism; R65.21 - Severe sepsis with septic shock Status: Resolved Assessment and Plan: Patient presented with generalized weakness, fall, altered mental status, fevers, UA was reflective of UTI. Patient does have a history of UTI. Also bilateral hydronephrosis which are chronic and she follows up with Urology -05/25: patient was hypotensive in the ER, was given 30 cc/kg IV fluid bolus despite which her blood pressures remain low, right femoral central line was inserted -OFF Levophed, maintain MAP > 65 mmHg or SBP > 100 mmHg -patient started on cefepime and vancomycin, will deescalate once cultures a result (05/26) -05/25: Urine and blood cultures have been obtained and pending, (patient has had Citrobacter, Klebsiella and Pseudomonas in the past in the urine cultures, all susceptible to cefepime) -lactic acid are within normal limits -will discontinue maintenance IV fluid since patient is currently volume resuscitated -monitor urine output -05/27: blood cultures growing gram positive cocci- cefepime + vancomycin adequate coverage at this time, sensitivities pending. -05/29: Blood cultures grew pansensitive E faecalis. Antibiotic therapy switch to ampicillin along with repeat blood culture consideration for echocardiogram if repeat blood cultures positive -06/01: Reviewed blood culture so far no growth. Will get ID consult in regards to continuing ampicillin. Patient remains out of shock or sepsis at this time. (2) Acute UTI: Code(s): N39.0 - Urinary tract infection, site not specified Status: Resolved Assessment and Plan: Admitted for urosepsis as likely primary source of septic shock however urine culture returned negative. Blood cultures as above have returned positive, management as above with ampicillin monotherapy. Urology has been on board as patient does have chronic hydronephrosis. They recommended repeating the urine culture given prior negative result. Will follow culture, repeat 05/29 NG final. (3) Altered mental status: Code(s): R41.82 - Altered mental status, unspecified Status: Acute Assessment and Plan: New onset delirium, ddx includes sepsis, ICU-related delirium, metabolic (however low suspicion), hardware (central line), transfer from [facility] as well, and sleep deprivation/altered sleep-wake cycle. 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 Will reassess in the afternoon to track progression of altered mental status. Blood cultures have grown positive for pansensitive Enterococcus faecalis in urine cultures so far are negative. Patient is not in shock number showing significant signs of sepsis as white count is normal today. However, given ongoing infection, there may be element of sepsis causing altered mental status at this time as well as previously mentioned factors. -Monitor for improvement -manage underlying causes -Frequent reorientation -Neurology evaluation- recommending EEG at this time. EEG still pending (4) MAGALIS (acute kidney injury): Code(s): N17.9 - Acute kidney failure, unspecified Status: Resolved Assessment and Plan: Acute kidney injury likely related to hypovolemia per ER physician -adequately fluid resuscitated -continue to monitor renal function, electrolytes and urine output -creatinine is 1.1. Appears to be more element of CKD at this time. (5) History of pulmonary embolism: Code(s): Z86.711 - Personal history of pulmonary embolism Status: Chronic Assessment and Plan: Patient on apixaban, clopidogrel at home will hold for now given patient is anemic -hemoglobin 7.2 -will consider restarting anticoagulation if hemoglobin remains stable (6) CHF (congestive heart failure): Code(s): I50.9 - Heart failure, unspecified Status: Acute Assessment and Plan: Hold furosemide, carvedilol due to patient being hypotensive, in septic shock, on pressors 05/27: off pressors, cautiously resume as BP goes up -will resume losartan and carvedilol at this time, and continue to monitor blood pressure (7) Hypertension: Code(s): I10 - Essential (primary) hypertension Status: Chronic Assessment and Plan: Off pressors -will resume losartan and carvedilol at this time, and continue to monitor blood pressure (8) Anemia: Code(s): D64.9 - Anemia, unspecified Status: Acute Assessment and Plan: Patient dropped her hemoglobin, 9.6 on admission to 7.1. Hemoglobin now 7.2. -iron panel reflects anemia of chronic disease -vitamin B12 and folate within normal limit -stool occult has been ordered and pending -patient also on apixaban and clopidogrel at home which currently on hold -will consider resuming apixaban and clopidogrel if hemoglobin remains stable Plan Following repeat blood cultures, urology, Neurology, ID and mental status DVT prophylaxis on hold due to anemia, apixaban when resumed Diet: Heart healthy Medical Record Review I have reviewed the following patient records and this information was taken into consideration when formulating the assessment and plan.: previous labs, previous ER visits and previous hospitalizations Consultations Consultations: I have discussed the care of this pt with the consulting providers. Subjective Date/time seen: 06/01/25 18:57 Interval history: Reason for consult: Septic shock, UTI, altered mental status, anemia 05/27/2025: Patient seen and examined the ICU, is awake, alert, oriented x2, patient denies any chest pain, shortness a breath, abdominal pain, nausea vomiting. She only complains of right foot pain which has been ongoing for approximately 2 months. Patient had to be restarted on Levophed overnight, it has been off this since this morning. Afebrile, tolerating p.o. diet, adequate urine output. Also discontinued maintenance IV fluids 05/28/2025: Transferred from ICU, BP holding stable. Concern for new AMS, patient is not like this at baseline, and this has occurred after resolution of shock. May be element of sepsis that is still undergoing, but will need to be monitored. Urine culture returned negative, while blood cultures are growing E. Faecalis, sensitivities still pending. Consider Ampicillin + Ceftriaxone if sensitive to these. Urology on board for hydronephrosis and UTI, recommends to repeat Urine culture given negative result. Recommends 2 week urosepsis course of antibiotics once sensitivities are in. Outpatient cystoscopy on discharge. 05/29: Patient was complaining of ankle swelling on the right side. Prior foot x-ray reviewed which is new and, ankle x-ray was obtained and nonvisualization of image, does not appear to have any fractures. Likely a sprain, will get a uric acid to rule out, however. Blood culture returned with pansensitive Enterococcus faecalis, discussed with Pharmacy, will change to ampicillin monotherapy and follow-up with repeat blood culture. Repeat urine culture pending. Care coordination recommend short-term rehab on discharge. Patient was lethargic in the morning, difficult to get information from. Will re-evaluate in the afternoon to reassess mental status change. May obtain imaging consider neurology evaluation however suspicion is still strong at this time that altered mental status is multifactorial in nature, due to sepsis, ICU stay, transfer from ICU, underlying cognitive impairment. 05/30: AMS improving but persistent. Per daughter who was available in patient's room, this is new, as she was completely lucid prior to septic shock and hospitalization. As such, will get neurology on board tomorrow to further assess. Cultures still pending. Urology ok with void trial prior to DC, can do today/tomorrow as patient is highly uncomfortable from crum. Urology is on board and following patient. Labs reviewed. 05/31: AMS persists, neurology on board and will obtain EEG. Crum has been removed, patient has urinated twice today and appears to be tolerating well without need for catheterization. Continuing antibiotics per ID for E Faecalis. Repeat blood culture 05/29 still pending. Review of Systems Review of Systems: All systems reviewed & are unremarkable except as noted in HPI and below Exam Narrative: General: No acute distress, awake and alert but still confused HEENT:? Pupils equal and reactive, sclerae is clear Neck:? Supple Respiratory:? Coarse breath sounds at bases, scattered wheezing, adequate air entry Cardiac:? S1-S2 normal, regular rate and rhythm Abdomen:? Soft, nontender, nondistended, normoactive bowel sounds Extremities:? No edema, palpable pedal pulses Neuro:? Patient is awake, alert, oriented x2, able to answer questions and follows simple commands in all extremities. Confusion which is not baseline. Skin:? Warm and dry Psych:? Depressed affect Objective Data Vital Signs Vital Signs: Vital Signs - 24 hr 05/31/25 20:19 05/31/25 22:04 05/31/25 22:04 Temperature 97.6 F Pulse Rate 74 95 Respiratory Rate 18 22 H Blood Pressure 127/61 Pulse Oximetry 93 93 Oxygen Delivery Room Air 05/31/25 22:08 06/01/25 05:40 06/01/25 07:39 Temperature 98.9 F Pulse Rate 90 65 63 Respiratory Rate 22 H 17 19 Blood Pressure 110/60 Pulse Oximetry 91 Oxygen Delivery 06/01/25 07:39 06/01/25 07:42 06/01/25 09:46 Temperature Pulse Rate 67 67 Respiratory Rate 19 Blood Pressure Pulse Oximetry 94 Oxygen Delivery Room Air 06/01/25 14:00 06/01/25 14:17 Temperature 97.7 F Pulse Rate 81 63 Respiratory Rate 18 18 Blood Pressure 114/62 Pulse Oximetry 96 Oxygen Delivery Intake/Output Intake/Output: Intake & Output 05/29/25 05/30/25 05/31/25 06/01/25 23:59 23:59 23:59 23:59 Intake Total 593 082 2824 1028 Output Total 1300 1100 500 Balance -530 -758 713 9102 Meds/Results Medications: Active Medications Generic Name Dose Route Start Last Admin Trade Name Freq PRN Reason Stop Dose Admin Acetaminophen 650 mg 05/26/25 04:35 06/01/25 13:08 Acetaminophen 325 Mg Tablet PO 650 mg Q4H PRN Administration Mild Pain (1-3) or Fever Albuterol/Ipratropium 3 ml 05/27/25 20:00 06/01/25 14:16 Ipratropium 0.5 Mg/Albuterol Sulfate 2.5 Mg (Base) Ampul.Neb 3 Ml INHALATION 3 ml Q6HRT FUNMI Administration Atorvastatin Calcium 40 mg 05/26/25 21:00 05/31/25 20:53 Atorvastatin 40 Mg Tablet PO 40 mg HS FUNMI Administration Carvedilol 6.25 mg 05/28/25 21:00 06/01/25 09:46 Carvedilol 6.25 Mg Tablet PO 6.25 mg Q12HR FUNMI Administration Ampicillin Sodium 2 gm/ Sodium 100 mls @ 200 mls/hr 05/29/25 14:00 06/01/25 13:10 Chloride IVPB 100 mls/hr Q8HR FUNMI Administration Losartan Potassium 50 mg 05/30/25 12:00 05/31/25 09:20 Losartan Potassium 50 Mg Tablet PO 50 mg DAILY FUNMI Administration Ondansetron HCl 4 mg 05/26/25 04:35 Ondansetron Inj 4 Mg/2 Ml Vial IV PUSH Q4H PRN Nausea Pantoprazole Sodium 40 mg 05/26/25 09:00 06/01/25 09:46 Pantoprazole Sodium Iv 40 Mg Vial IV PUSH 40 mg QAM FUNMI Administration Pregabalin 50 mg 05/26/25 13:00 06/01/25 16:41 Pregabalin (*Crx) 50 Mg Capsule PO 50 mg TID FUNMI Administration Radiology Results: ITS Impressions Head CT 05/25/25 20:11 IMPRESSION: No acute findings. All CT scans at this facility are performed using low dose modulation techniques as appropriate to perform exam including the following: automated exposure control; use of iterative reconstruction technique; adjustment of the mA and/or kV according to patient size (this includes techniques or standardized protocols for targeted exams where dose is matched to indication/reason for exam). Foot X-Ray 05/25/25 20:17 IMPRESSION: No acute abnormalities are seen. Given the MTP findings, consider gout. Abdomen/Pelvis CT 05/26/25 08:15 IMPRESSION: 1. Bilateral hydronephrosis and hydroureter with distal stricture suspected. Findings are probably chronic without. The renal parenchyma noted bilaterally. 2. Incidental findings above Chest X-Ray 05/28/25 11:07 IMPRESSION: 1. Worsening bibasilar atelectasis and/or airspace disease, left lung worse. Ankle X-Ray 05/29/25 11:21 Impression: No acute fracture or malalignment. Labs Labs: Laboratory Results - last 24 hr 06/01/25 06:10 WBC 5.6 RBC 2.93 L Hgb 7.2 L Hct 25.4 L MCV 86.7 MCH 24.6 L MCHC 28.3 L RDW 16.6 H Plt Count 303 MPV 9.5 Immature Gran % (Auto) 0.4 Neut % (Auto) 54.8 Lymph % (Auto) 32.7 [place] % (Auto) 6.5 Eos % (Auto) 4.5 H Baso % (Auto) 1.1 Lymph # (Auto) 1.82 [place] # (Auto) 0.4 Eos # (Auto) 0.3 Baso # (Auto) 0.1 Abs Immat Gran (auto) 0.02 Absolute Neuts (auto) 3.1 Absolute Nucleated RBC 0.000 Band Neutrophils % Not Reportable Nucleated RBC % 0.0 Platelet Estimate Slightly increased Hypochromasia Occasional Anisocytosis 1+ Ovalocytes 1+ Sanchez Cells 2+ Schistocytes Occasional Sodium 138 Potassium 3.3 L Chloride 112 H Carbon Dioxide 25 Anion Gap 1 L BUN 9 Creatinine 1.00 Estim Creat Clear Calc 28 Estimated GFR 53 L Glucose 88 Calcium 8.9 Phosphorus 2.9 Magnesium 2.1 Total Bilirubin 0.3 AST 17 ALT 11 Alkaline Phosphatase 76 Total Protein 6.1 L Albumin 2.7 L Hospitalist [facility] Advance Care Plan I have confirmed that the patient's Advanced Care Plan is present, code status is documented, or surrogate decision maker is listed in patient medical record.: Yes Medication Reconciliation I have utilized all available resources to obtain, update and review the patients current medications (includes all prescriptions, OTC, herbals, cannabis, and nutritional supplements).: Yes
[2025-06-01] MEDS: ATORVASTATIN 40 MG TABLET PO (20:29)
[2025-06-02] VITALS (13 sets, daily range): BP systolic 106–109; BP diastolic 55–64; PULSE 64–96; RESP 16–24; TEMP 36.3–37.1; O2SAT 86–96
[2025-06-02] MEDS: IPRATROPIUM 0.5 MG/ALBUTEROL SULFATE 2.5 MG (BASE) AMPUL.NEB 3 ML INHALATION ×4 (02:54→20:13)
[2025-06-02] MEDS: AMPICILLIN SODIUM 2 GM in SODIUM CHLORIDE 0.9% IV 100 ML IVPB ×2 (05:52→15:16)
[2025-06-02 07:26] LABS: Hematocrit 24.9 % (37.0-47.0); Hemoglobin 7.2 g/dL (12.0-15.0); Immature Granulocyte Percent A 0.5 % (0-0.5); Lymphocytes Absolute Auto 1.56 K/mm3 (0.9-3.2); Mean Corpuscular HGB Conc 28.9 g/dl (32-36); Mean Corpuscular Hemoglobin 24.8 pg (26-34); Mean Corpuscular Volume 85.9 fl (80-100); Nucleated Red Blood Cells Absolute Auto 0.000 K/mm3 (0.0-0.012); Nucleated Red Blood Cells Perc 0.0 % (0.0-0.2); Platelet Count Result 315 k/mm3 (150-375); Red Blood Count 2.90 M/mm3 (4.2-5.4); White Blood Count 5.6 K/mm3 (4.5-10.0)
[2025-06-02 08:00] LABS: Alanine Aminotransferase 7 U/L (6-35); Albumin Level 2.7 g/dL (3.5-5.1); Alkaline Phosphatase 75 U/L (38-126); Anion Gap 1 mmol/L (4-12); Aspartate Amino Transferase 17 U/L (14-36); Bilirubin,Total 0.3 mg/dL (0.2-1.3); Blood Urea Nitrogen 7 mg/dL (7-17); Calcium 8.7 mg/dL (8.4-10.2); Carbon Dioxide 26 mmol/L (22-30); Chloride 113 mmol/L (98-107); Estimated CRCL calculation 29 ml/min; Estimated Glomerular Filt Rate 55; Glucose 83 mg/dL (65-110); Potassium 3.3 mmol/L (3.4-5.0); Sodium 140 mmol/L (137-145); Total Protein 6.3 g/dL (6.3-8.2)
[2025-06-02 08:18] LABS: Hypersegmented Neutrophils Present
[2025-06-02 08:19] LABS: Anisocytosis 1+; Hypochromasia 1+
[2025-06-02 08:20] LABS: Burr Cells 1+; Ovalocytes 1+; Schistocytes Occasional
[2025-06-02] MEDS: ACETAMINOPHEN 325 MG TABLET 650 MG PO ×2 (09:47→23:58)
[2025-06-02] MEDS: PANTOPRAZOLE SODIUM IV 40 MG VIAL IV PUSH (09:47)
[2025-06-02] MEDS: PREGABALIN (*CRX) 50 MG CAPSULE PO ×3 (09:47→17:30)
--- NOTE | 2025-06-02 13:06 | P.PNUR_ITS ---
Progress Note: A&P Assessment and Plan (1) Acute UTI: Code(s): N39.0 - Urinary tract infection, site not specified Status: Resolved Assessment and Plan: - 05/25 urine culture shows e. faecalis. repeat ucx shows no growth from 05/29. (2) Hydronephrosis: Qualifiers: Hydronephrosis type: unspecified Qualified Code(s): N13.30 - Unspecified hydronephrosis Code(s): N13.30 - Unspecified hydronephrosis Status: Acute Assessment and Plan: - Chronic hydronephrosis; stable as compared to previous imaging. Creatinine stable. - Plan for outpatient follow up for surveillance cysto (3) Turner catheter in place: Code(s): Z97.8 - Presence of other specified devices Status: Acute Assessment and Plan: - Patient had successful voiding trial and is urinating well. - Recommend bowel regimine to mitigate any constipation Subjective Subjective Date/Time Seen: 06/02/25 13:06 Interval history: 05/31: Turner has been removed, patient has urinated twice today and appears to be tolerating well without need for catheterization. 06/02/2025 Patient doing well today. she is urinating well without any issues. AMS still present. Review of Systems Review of Systems: All systems reviewed & are unremarkable except as noted in HPI and below (the history and physical examination) ROS unobtainable: Yes unobtainable due to mental status Constitutional: Constitutional: Reports as per HPI and Reports no additional constitutional complaints Eyes: Eyes: Reports as per HPI and Reports no additional eye complaints ENT: Reports system reviewed and no additional complaints, except as documented and Reports Normal hearing present Cardiovascular: Cardiovascular: Reports no additional cardiovascular complaints Respiratory: Respiratory: Reports as per HPI and Reports no additional respiratory complaints Gastrointestinal: Gastrointestinal: Reports as per HPI and Reports no additional gastrointestinal complaints Genitourinary: Genitourinary: Reports no additional female genitourinary complaints Musculoskeletal: Musculoskeletal: Reports no additional musculoskeletal complaints Integumentary/Breasts: Skin/Breast: Reports system reviewed and no additional complaints, except as docu Neurologic: Reports system reviewed and no additional complaints, except as documented and Reports Normal hearing present Psychiatric: Psychiatric: Reports no additional psychiatric complaints and Reports as per HPI Hematologic/Lymphatic: Hematologic/Lymphatic: Reports no additional hematologic/lymphatic complaints Allergic/Immunologic: Allergic/Immunologic: Reports no additional allergic/immunologic complaints Exam Narrative: alert Const: General: comfortable and no acute distress HENMT: Face/Nose/Sinus: Normal nares present Mouth: Yes moist mucous membranes Eyes: General: appearance normal, both eyes and all related structures EOM: EOMs intact bilaterally Resp: Effort & Inspection: normal respiratory effort GI: Other: Non tender, non distended : General: Yes bladder normal to palpation Other: No CVAT Urinary Catheter: Urinary Catheter: patent and draining and urine clear Skin: General skin exam: normal color Neuro: Cranial nerves: Yes Normal hearing present Speech: normal speech Extrem: General: normal to inspection Psych: Affect: normal affect Objective Data Vital Signs Vital Signs: Vital Signs - 24 hr 06/01/25 14:00 06/01/25 14:17 06/01/25 20:00 Temperature 97.7 F Pulse Rate 81 63 Respiratory Rate 18 18 Blood Pressure 114/62 Pulse Oximetry 96 Oxygen Delivery Room Air Fraction of Inspired Oxygen 06/01/25 21:29 06/01/25 21:29 06/01/25 21:30 Temperature 98.4 F Pulse Rate 73 73 73 Respiratory Rate 18 18 20 Blood Pressure 111/55 L Pulse Oximetry 94 94 Oxygen Delivery Room Air Fraction of Inspired Oxygen 21 06/02/25 02:54 06/02/25 02:57 06/02/25 05:34 Temperature 97.3 F L Pulse Rate 81 81 70 Respiratory Rate 16 16 24 H Blood Pressure 106/55 L Pulse Oximetry 86 L 90 Oxygen Delivery Room Air Fraction of Inspired Oxygen 21 06/02/25 06:04 06/02/25 07:26 06/02/25 07:26 Temperature Pulse Rate 66 Respiratory Rate 18 Blood Pressure Pulse Oximetry 93 93 Oxygen Delivery Room Air Fraction of Inspired Oxygen 06/02/25 07:33 06/02/25 09:49 Temperature Pulse Rate 65 65 Respiratory Rate 18 Blood Pressure Pulse Oximetry Oxygen Delivery Fraction of Inspired Oxygen Intake/Output Intake/Output: Intake & Output 05/30/25 05/31/25 06/01/25 06/02/25 23:59 23:59 23:59 23:59 Intake Total 830 1020 1228 418 Output Total 1100 500 Balance -559 559 8887 418 Meds/Results Medications: Active Medications Generic Name Dose Route Start Last Admin Trade Name Freq PRN Reason Stop Dose Admin Acetaminophen 650 mg 05/26/25 04:35 06/02/25 09:47 Acetaminophen 325 Mg Tablet PO 650 mg Q4H PRN Administration Mild Pain (1-3) or Fever Albuterol/Ipratropium 3 ml 05/27/25 20:00 06/02/25 07:25 Ipratropium 0.5 Mg/Albuterol Sulfate 2.5 Mg (Base) Ampul.Neb 3 Ml INHALATION 3 ml Q6HRT FUNMI Administration Atorvastatin Calcium 40 mg 05/26/25 21:00 06/01/25 20:29 Atorvastatin 40 Mg Tablet PO 40 mg HS FUNMI Administration Carvedilol 6.25 mg 05/28/25 21:00 06/02/25 09:49 Carvedilol 6.25 Mg Tablet PO 6.25 mg Q12HR FUNMI Administration Ampicillin Sodium 2 gm/ Sodium 100 mls @ 200 mls/hr 05/29/25 14:00 06/02/25 05:52 Chloride IVPB 100 mls/hr Q8HR FUNMI Administration Losartan Potassium 50 mg 05/30/25 12:00 06/02/25 09:52 Losartan Potassium 50 Mg Tablet PO Not Given DAILY FUNMI Ondansetron HCl 4 mg 05/26/25 04:35 Ondansetron Inj 4 Mg/2 Ml Vial IV PUSH Q4H PRN Nausea Pantoprazole Sodium 40 mg 05/26/25 09:00 06/01/25 09:46 Pantoprazole Sodium Iv 40 Mg Vial IV PUSH 40 mg QAM FUNMI Administration Pregabalin 50 mg 05/26/25 13:00 06/02/25 09:47 Pregabalin (*Crx) 50 Mg Capsule PO 50 mg TID FUNMI Administration Radiology Results: ITS Impressions Head CT 05/25/25 20:11 IMPRESSION: No acute findings. All CT scans at this facility are performed using low dose modulation techniques as appropriate to perform exam including the following: automated exposure control; use of iterative reconstruction technique; adjustment of the mA and/or kV according to patient size (this includes techniques or standardized protocols for targeted exams where dose is matched to indication/reason for exam). Foot X-Ray 05/25/25 20:17 IMPRESSION: No acute abnormalities are seen. Given the MTP findings, consider gout. Abdomen/Pelvis CT 05/26/25 08:15 IMPRESSION: 1. Bilateral hydronephrosis and hydroureter with distal stricture suspected. Findings are probably chronic without. The renal parenchyma noted bilaterally. 2. Incidental findings above Chest X-Ray 05/28/25 11:07 IMPRESSION: 1. Worsening bibasilar atelectasis and/or airspace disease, left lung worse. Ankle X-Ray 05/29/25 11:21 Impression: No acute fracture or malalignment. Labs Labs: Laboratory Results - last 24 hr 06/02/25 06:41 WBC 5.6 RBC 2.90 L Hgb 7.2 L Hct 24.9 L MCV 85.9 MCH 24.8 L MCHC 28.9 L RDW 16.7 H Plt Count 315 MPV 9.5 Immature Gran % (Auto) 0.5 Neut % (Auto) 59.9 Lymph % (Auto) 27.7 [place] % (Auto) 6.6 Eos % (Auto) 4.1 Baso % (Auto) 1.2 Lymph # (Auto) 1.56 [place] # (Auto) 0.4 Eos # (Auto) 0.2 Baso # (Auto) 0.1 Abs Immat Gran (auto) 0.03 Absolute Neuts (auto) 3.4 Absolute Nucleated RBC 0.000 Band Neutrophils % Not Reportable Nucleated RBC % 0.0 Hypersegmented Neuts Present Platelet Estimate Adequate Hypochromasia 1+ Anisocytosis 1+ Ovalocytes 1+ Sanchez Cells 1+ Schistocytes Occasional Sodium 140 Potassium 3.3 L Chloride 113 H Carbon Dioxide 26 Anion Gap 1 L BUN 7 Creatinine 0.97 Estim Creat Clear Calc 29 Estimated GFR 55 L Glucose 83 Calcium 8.7 Total Bilirubin 0.3 AST 17 ALT 7 Alkaline Phosphatase 75 Total Protein 6.3 Albumin 2.7 L
--- NOTE | 2025-06-02 14:50 | PCNEURO ---
EEG will not be able to be completed until Tuesday 06/05.
--- NOTE | 2025-06-02 16:25 | P.PNIM_ITS ---
Assessment and Plan Assessment and Plan (1) Septic shock: Code(s): A41.9 - Sepsis, unspecified organism; R65.21 - Severe sepsis with septic shock Status: Resolved Assessment and Plan: Patient presented with generalized weakness, fall, altered mental status, fevers, UA was reflective of UTI. Patient does have a history of UTI. Also bilateral hydronephrosis which are chronic and she follows up with Urology -05/25: patient was hypotensive in the ER, was given 30 cc/kg IV fluid bolus despite which her blood pressures remain low, right femoral central line was inserted -OFF Levophed, maintain MAP > 65 mmHg or SBP > 100 mmHg -patient started on cefepime and vancomycin, will deescalate once cultures a result (05/26) -05/25: Urine and blood cultures have been obtained and pending, (patient has had Citrobacter, Klebsiella and Pseudomonas in the past in the urine cultures, all susceptible to cefepime) -lactic acid are within normal limits -will discontinue maintenance IV fluid since patient is currently volume resuscitated -monitor urine output -05/27: blood cultures growing gram positive cocci- cefepime + vancomycin adequate coverage at this time, sensitivities pending. -05/29: Blood cultures grew pansensitive E faecalis. Antibiotic therapy switch to ampicillin along with repeat blood culture consideration for echocardiogram if repeat blood cultures positive -06/01: Reviewed blood culture so far no growth. Will get ID consult in regards to continuing ampicillin. Patient remains out of shock or sepsis at this time. -06/02: ID recommendations pending, will follow. (2) Acute UTI: Code(s): N39.0 - Urinary tract infection, site not specified Status: Resolved Assessment and Plan: Admitted for urosepsis as likely primary source of septic shock however urine culture returned negative. Blood cultures as above have returned positive, man agement as above with ampicillin monotherapy. Urology has been on board as patient does have chronic hydronephrosis. They recommended repeating the urine culture given prior negative result. Will follow culture, repeat 05/29 NG final. (3) Altered mental status: Code(s): R41.82 - Altered mental status, unspecified Status: Acute Assessment and Plan: New onset delirium, ddx includes sepsis, ICU-related delirium, metabolic (however low suspicion), hardware (central line), transfer from [facility] as well, and sleep deprivation/altered sleep-wake cycle. 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 Will reassess in the afternoon to track progression of altered mental status. Blood cultures have grown positive for pansensitive Enterococcus faecalis in urine cultures so far are negative. Patient is not in shock number showing significant signs of sepsis as white count is normal today. However, given ongoing infection, there may be element of sepsis causing altered mental status at this time as well as previously mentioned factors. -Monitor for improvement -manage underlying causes -Frequent reorientation -Neurology evaluation- recommending EEG at this time. EEG still pending-can be done on Thursday or outpatient. Will discuss with family. (4) MAGALIS (acute kidney injury): Code(s): N17.9 - Acute kidney failure, unspecified Status: Resolved Assessment and Plan: Acute kidney injury likely related to hypovolemia per ER physician -adequately fluid resuscitated -continue to monitor renal function, electrolytes and urine output -creatinine is 1.1. Appears to be more element of CKD at this time. (5) History of pulmonary embolism: Code(s): Z86.711 - Personal history of pulmonary embolism Status: Chronic Assessment and Plan: Patient on apixaban, clopidogrel at home will hold for now given patient is ane akila -hemoglobin 7.2 -will consider restarting anticoagulation if hemoglobin remains stable (6) CHF (congestive heart failure): Code(s): I50.9 - Heart failure, unspecified Status: Acute Assessment and Plan: Hold furosemide, carvedilol due to patient being hypotensive, in septic shock, on pressors 05/27: off pressors, cautiously resume as BP goes up -will resume losartan and carvedilol at this time, and continue to monitor blood pressure (7) Hypertension: Code(s): I10 - Essential (primary) hypertension Status: Chronic Assessment and Plan: Off pressors -will resume losartan and carvedilol at this time, and continue to monitor blood pressure (8) Anemia: Code(s): D64.9 - Anemia, unspecified Status: Acute Assessment and Plan: Patient dropped her hemoglobin, 9.6 on admission to 7.1. Hemoglobin now 7.2. -iron panel reflects anemia of chronic disease -vitamin B12 and folate within normal limit -stool occult has been ordered and pending -patient also on apixaban and clopidogrel at home which currently on hold -will consider resuming apixaban and clopidogrel if hemoglobin remains stable Plan Following repeat blood cultures, urology, Neurology, ID and mental status DVT prophylaxis on hold due to anemia, apixaban when resumed. Will resume Lovenox for now. Diet: Heart healthy Medical Record Review I have reviewed the following patient records and this information was taken into consideration when formulating the assessment and plan.: previous labs, previous ER visits and previous hospitalizations Consultations Consultations: I have discussed the care of this pt with the consulting providers. Subjective Date/time seen: 06/02/25 16:25 Interval history: Reason for consult: Septic shock, UTI, altered mental status, anemia 05/27/2025: Patient seen and examined the ICU, is awake, alert, oriented x2, patient denies any chest pain, shortness a breath, abdominal pain, nausea vomiting. She only complains of right foot pain which has been ongoing for approximately 2 months. Patient had to be restarted on Levophed overnight, it has been off this since this morning. Afebrile, tolerating p.o. diet, adequate urine output. Also discontinued maintenance IV fluids 05/28/2025: Transferred from ICU, BP holding stable. Concern for new AMS, patient is not like this at baseline, and this has occurred after resolution of shock. May be element of sepsis that is still undergoing, but will need to be monitored. Urine culture returned negative, while blood cultures are growing E. Faecalis, sensitivities still pending. Consider Ampicillin + Ceftriaxone if sensitive to these. Urology on board for hydronephrosis and UTI, recommends to repeat Urine culture given negative result. Recommends 2 week urosepsis course of antibiotics once sensitivities are in. Outpatient cystoscopy on discharge. 05/29: Patient was complaining of ankle swelling on the right side. Prior foot x-ray reviewed which is new and, ankle x-ray was obtained and nonvisualization of image, does not appear to have any fractures. Likely a sprain, will get a uric acid to rule out, however. Blood culture returned with pansensitive Enterococcus faecalis, discussed with Pharmacy, will change to ampicillin monotherapy and follow-up with repeat blood culture. Repeat urine culture pending. Care coordination recommend short-term rehab on discharge. Patient was lethargic in the morning, difficult to get information from. Will re- evaluate in the afternoon to reassess mental status change. May obtain imaging consider neurology evaluation however suspicion is still strong at this time that altered mental status is multifactorial in nature, due to sepsis, ICU stay, transfer from ICU, underlying cognitive impairment. 05/30: AMS improving but persistent. Per daughter who was available in patient's room, this is new, as she was completely lucid prior to septic shock and ho spitalization. As such, will get neurology on board tomorrow to further assess. Cultures still pending. Urology ok with void trial prior to DC, can do today/tomorrow as patient is highly uncomfortable from crum. Urology is on board and following patient. Labs reviewed. 05/31: AMS persists, neurology on board and will obtain EEG. Crum has been removed, patient has urinated twice today and appears to be tolerating well without need for catheterization. Continuing antibiotics for E Faecalis. Repeat blood culture 05/29 still pending. 06/01: EEG still pending, ID consulted given patient is on ampicillin. 06/02: Informed EEG will not be able to be done until Thursday, per Neurology can be done in the outpatient setting. ID recommendations pending. Urology recommending outpatient follow-up for surveillance cystoscopy. Patient has been voiding successfully. Will discuss with family in regards to further management of patient's mental status changes (await EEG inpatient or obtain outpatient), as she will otherwise be likely stable for discharge to nursing facility after ID recommendations. Review of Systems Review of Systems: All systems reviewed & are unremarkable except as noted in HPI and below Exam Narrative: General: No acute distress, awake and alert but still confused HEENT:? Pupils equal and reactive, sclerae is clear Neck:? Supple Respiratory:? Coarse breath sounds at bases, scattered wheezing, adequate air entry Cardiac:? S1-S2 normal, regular rate and rhythm Abdomen:? Soft, nontender, nondistended, normoactive bowel sounds Extremities:? No edema, palpable pedal pulses Neuro:? Patient is awake, alert, oriented x2, able to answer questions and follows simple commands in all extremities. Confusion which is not baseline. Skin:? Warm and dry Psych:? Depressed affect Objective Data Vital Signs Vital Signs: Vital Signs - 24 hr 06/01/25 20:00 06/01/25 21:29 06/01/25 21:29 Temperature Pulse Rate 73 73 Respiratory Rate 18 18 Blood Pressure Pulse Oximetry 94 Oxygen Delivery Room Air Room Air Fraction of Inspired Oxygen 21 06/01/25 21:30 06/02/25 02:54 06/02/25 02:57 Temperature 98.4 F Pulse Rate 73 81 81 Respiratory Rate 20 16 16 Blood Pressure 111/55 L Pulse Oximetry 94 86 L Oxygen Delivery Room Air Fraction of Inspired Oxygen 21 06/02/25 05:34 06/02/25 06:04 06/02/25 07:26 Temperature 97.3 F L Pulse Rate 70 Respiratory Rate 24 H Blood Pressure 106/55 L Pulse Oximetry 90 93 93 Oxygen Delivery Room Air Fraction of Inspired Oxygen 06/02/25 07:26 06/02/25 07:33 06/02/25 09:49 Temperature Pulse Rate 66 65 65 Respiratory Rate 18 18 Blood Pressure Pulse Oximetry Oxygen Delivery Fraction of Inspired Oxygen 06/02/25 13:28 06/02/25 13:36 06/02/25 14:00 Temperature 97.6 F Pulse Rate 64 68 70 Respiratory Rate 18 18 18 Blood Pressure 109/64 Pulse Oximetry 95 Oxygen Delivery Fraction of Inspired Oxygen Intake/Output Intake/Output: Intake & Output 05/30/25 05/31/25 06/01/25 06/02/25 23:59 23:59 23:59 23:59 Intake Total 830 1020 1228 758 Output Total 1100 500 Balance -577 268 7073 758 Meds/Results Medications: Active Medications Generic Name Dose Route Start Last Admin Trade Name Harjeetq PRN Reason Stop Dose Admin Acetaminophen 650 mg 05/26/25 04:35 06/02/25 09:47 Acetaminophen 325 Mg Tablet PO 650 mg Q4H PRN Administration Mild Pain (1-3) or Fever Albuterol/Ipratropium 3 ml 05/27/25 20:00 06/02/25 13:28 Ipratropium 0.5 Mg/Albuterol Sulfate 2.5 Mg (Base) Ampul.Neb 3 Ml INHALATION 3 ml Q6HRT FUNMI Administration Atorvastatin Calcium 40 mg 05/26/25 21:00 06/01/25 20:29 Atorvastatin 40 Mg Tablet PO 40 mg HS FUNMI Administration Carvedilol 6.25 mg 05/28/25 21:00 06/02/25 09:49 Carvedilol 6.25 Mg Tablet PO 6.25 mg Q12HR FUNMI Administration Ampicillin Sodium 2 gm/ Sodium 100 mls @ 200 mls/hr 05/29/25 14:00 06/02/25 15:16 Chloride IVPB 100 mls/hr Q8HR FUNMI Administration Losartan Potassium 50 mg 05/30/25 12:00 06/02/25 09:52 Losartan Potassium 50 Mg Tablet PO Not Given DAILY FUNMI Ondansetron HCl 4 mg 05/26/25 04:35 Ondansetron Inj 4 Mg/2 Ml Vial IV PUSH Q4H PRN Nausea Pantoprazole Sodium 40 mg 05/26/25 09:00 06/02/25 09:47 Pantoprazole Sodium Iv 40 Mg Vial IV PUSH 40 mg QAM FUNMI Administration Pregabalin 50 mg 05/26/25 13:00 06/02/25 15:15 Pregabalin (*Crx) 50 Mg Capsule PO 50 mg TID FUNMI Administration Radiology Results: ITS Impressions Head CT 05/25/25 20:11 IMPRESSION: No acute findings. All CT scans at this facility are performed using low dose modulation techniques as appropriate to perform exam including the following: automated exposure control; use of iterative reconstruction technique; adjustment of the mA and/or kV according to patient size (this includes techniques or standardized protocols for targeted exams where dose is matched to indication/reason for exam). Foot X-Ray 05/25/25 20:17 IMPRESSION: No acute abnormalities are seen. Given the MTP findings, consider gout. Abdomen/Pelvis CT 05/26/25 08:15 IMPRESSION: 1. Bilateral hydronephrosis and hydroureter with distal stricture suspected. Findings are probably chronic without. The renal parenchyma noted bilaterally. 2. Incidental findings above Chest X-Ray 05/28/25 11:07 IMPRESSION: 1. Worsening bibasilar atelectasis and/or airspace disease, left lung worse. Ankle X-Ray 05/29/25 11:21 Impression: No acute fracture or malalignment. Labs Labs: Laboratory Results - last 24 hr 06/02/25 06:41 WBC 5.6 RBC 2.90 L Hgb 7.2 L Hct 24.9 L MCV 85.9 MCH 24.8 L MCHC 28.9 L RDW 16.7 H Plt Count 315 MPV 9.5 Immature Gran % (Auto) 0.5 Neut % (Auto) 59.9 Lymph % (Auto) 27.7 Gillespie % (Auto) 6.6 Eos % (Auto) 4.1 Baso % (Auto) 1.2 Lymph # (Auto) 1.56 Gillespie # (Auto) 0.4 Eos # (Auto) 0.2 Baso # (Auto) 0.1 Abs Immat Gran (auto) 0.03 Absolute Neuts (auto) 3.4 Absolute Nucleated RBC 0.000 Band Neutrophils % Not Reportable Nucleated RBC % 0.0 Hypersegmented Neuts Present Platelet Estimate Adequate Hypochromasia 1+ Anisocytosis 1+ Ovalocytes 1+ Columbia Cells 1+ Schistocytes Occasional Sodium 140 Potassium 3.3 L Chloride 113 H Carbon Dioxide 26 Anion Gap 1 L BUN 7 Creatinine 0.97 Estim Creat Clear Calc 29 Estimated GFR 55 L Glucose 83 Calcium 8.7 Total Bilirubin 0.3 AST 17 ALT 7 Alkaline Phosphatase 75 Total Protein 6.3 Albumin 2.7 L Hospitalist MIPS Advance Care Plan I have confirmed that the patient's Advanced Care Plan is present, code status is documented, or surrogate decision maker is listed in patient medical record.: Yes Medication Reconciliation I have utilized all available resources to obtain, update and review the patients current medications (includes all prescriptions, OTC, herbals, cannabis, and nutritional supplements).: Yes
--- NOTE | 2025-06-02 17:17 | WPDIDCN ---
Assessment and Plan Assessment and plan (1) Enterococcal bacteremia: Code(s): R78.81 - Bacteremia; B95.2 - Enterococcus as the cause of diseases classified elsewhere Status: Acute Assessment and Plan: ASSESSMENT: 1. enterococcus faecalis bacteremia--likely 2nd source given pyuria; was on outpatient keflex which does not have activitiy against this pathogen. 2. CHF, CAD, HTN, HL, PE RECOMMENDATIONS: repeat blood cxs NGTD continue ampicillin through tomorrow then stop and monitor off abx d/w pharmacy staff Pt was seen via video telehealth consultation with the assistance of staff. Chart, data and patient info reviewed. Patient was located at [facility] while I was in my [place] office. Pt gave consent. HPI Data of Consult Date/Time: 06/02/25 17:17 Requesting Physician: Fili Moise MD Primary Care Provider: Armando Concepcion, Consult Narrative Reason for consult: abx mgmt Narrative: Diana Terry is a 79 year old female with pmhx/o PE, HTN, HL, CHF, CAD, presented to ED 05/25 with fatigue. Was getting keflex for UTI. Was in septic shock and admitted to ICU. Now out of ICU. Here UA with pyuria but UCx neg. Blood cxs with E. faecalis. Currently on ampicillin. ID consulted for abx mgmt. Repeat blood cxs NGTD. Pt reports no pain at my visit. No current fever or leukocytosis. PMFSH Past Medical History Medical History Chronic anticoagulation Splenic infarct CHF (congestive heart failure) Vitamin D deficiency Pure hypercholesterolemia Overweight (09/19/16) Other chronic pain Melanocytic nevus of neck Chronic right shoulder pain Urgency incontinence PVC's (premature ventricular contractions) Hypokalemia Acute UTI Osteoarthritis of first carpometacarpal joint of right hand Retention of urine Bilateral hydronephrosis Pulmonary infarct Pulmonary emboli 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 PONV (postoperative nausea and vomiting) GERD (gastroesophageal reflux disease) Hypertension Surgical History Surgical History History of bladder surgery History of hysterectomy Family History Family History Mother Family history of renal failure Patient's mother is Father Family history of heart disease in male family member before age 55 Patient's father is Other Diabetes mellitus Family history of arthritis Hypertension Urge incontinence Social History Social History Social History: She lives alone and has 2 children. She is . She is retired. Code status: Full code Smoking packs per day: 1 Smoking cigarettes per day: 20.0 Years smoked: 55 Smoking pack-years: 55.00 Smoking status: Former smoker Tobacco type: cigarettes Alcohol intake: never Substance use: never Substance use type: does not use Lack of Transportation: No Lack of Food: Never True Current Housing: I Have Housing Concerned About Future Housing: No Difficulty Paying Gas/Electric Bills: No Difficulty Paying for Meds: No Currently Unemployed: No Education: High School Diploma/GED Difficulty w/ Childcare or Family Care: No Living arrangements: alone Spiritual care concerns: No Meds Home Medications and Allergies Home Medications ?Medication ?Instructions ?Recorded ?Confirmed ?Type apixaban 2.5 mg tablet 2.5 mg PO Q12H #60 tabs 05/20/24 05/26/25 Rx atorvastatin 40 mg tablet 40 mg PO HS #30 tabs 05/20/24 05/26/25 Rx carvedilol 6.25 mg tablet (Coreg) 6.25 mg PO Q12HR #60 tabs 05/20/24 05/26/25 Rx clopidogrel 75 mg tablet 75 mg PO QAM #30 tabs 05/20/24 05/26/25 Rx furosemide 40 mg tablet 40 mg PO QAM #30 tabs 05/20/24 05/26/25 Rx losartan 50 mg tablet (Cozaar) 50 mg PO DAILY #30 tabs 05/20/24 05/26/25 Rx cephalexin 500 mg capsule 500 mg PO QID 05/26/25 05/26/25 History pregabalin 50 mg capsule 50 mg PO TID 05/26/25 05/26/25 History Allergies Allergy/AdvReac Type Severity Reaction Status Date / Time No Known Allergies Allergy Verified 05/26/25 09:06 Vital Signs Vital Signs - 24 hr 06/01/25 20:00 06/01/25 21:29 06/01/25 21:29 Temperature Pulse Rate 73 73 Respiratory Rate 18 18 Blood Pressure Pulse Oximetry 94 Oxygen Delivery Room Air Room Air Fraction of Inspired Oxygen 21 06/01/25 21:30 06/02/25 02:54 06/02/25 02:57 Temperature 98.4 F Pulse Rate 73 81 81 Respiratory Rate 20 16 16 Blood Pressure 111/55 L Pulse Oximetry 94 86 L Oxygen Delivery Room Air Fraction of Inspired Oxygen 21 06/02/25 05:34 06/02/25 06:04 06/02/25 07:26 Temperature 97.3 F L Pulse Rate 70 Respiratory Rate 24 H Blood Pressure 106/55 L Pulse Oximetry 90 93 93 Oxygen Delivery Room Air Fraction of Inspired Oxygen 06/02/25 07:26 06/02/25 07:33 06/02/25 09:49 Temperature Pulse Rate 66 65 65 Respiratory Rate 18 18 Blood Pressure Pulse Oximetry Oxygen Delivery Fraction of Inspired Oxygen 06/02/25 13:28 06/02/25 13:36 06/02/25 14:00 Temperature 97.6 F Pulse Rate 64 68 70 Respiratory Rate 18 18 18 Blood Pressure 109/64 Pulse Oximetry 95 Oxygen Delivery Fraction of Inspired Oxygen Exam Narrative: poor historian NAD, non-toxic, on room air pale abd soft NT Results Labs 06/02/25 06:41 06/02/25 06:41 Labs: Short CBC 06/02/25 Range/Units 06:41 WBC 5.6 (4.5-10.0) K/mm3 Hgb 7.2 L (12.0-15.0) g/dL Hct 24.9 L (37.0-47.0) % Plt Count 315 (150-375) k/mm3 [facility] 06/02/25 06:41 Sodium 140 Potassium 3.3 L Chloride 113 H Carbon Dioxide 26 BUN 7 Creatinine 0.97 Glucose 83 Calcium 8.7 Liver Function 06/02/25 Range/Units 06:41 Total Bilirubin 0.3 (0.2-1.3) mg/dL AST 17 (14-36) U/L ALT 7 (6-35) U/L Alkaline Phosphatase 75 (38-126) U/L Albumin 2.7 L (3.5-5.1) g/dL
[2025-06-02] MEDS: ATORVASTATIN 40 MG TABLET PO (21:12)
[2025-06-02] MEDS: AMPICILLIN SODIUM 2 GM in SODIUM CHLORIDE 0.9% IV 100 ML 200 ML IVPB (21:12)
[2025-06-02] MEDS: BENZONATATE 100 MG CAPSULE PO (23:59)
[2025-06-03] VITALS (11 sets, daily range): BP systolic 108–130; BP diastolic 80–87; PULSE 62–79; RESP 14–18; TEMP 36.6–36.9; O2SAT 92–95
[2025-06-03] MEDS: AMPICILLIN SODIUM 2 GM in SODIUM CHLORIDE 0.9% IV 100 ML 200 ML IVPB ×3 (05:59→21:01)
[2025-06-03 06:26] LABS: Hematocrit 24.0 % (37.0-47.0); Hemoglobin 7.0 g/dL (12.0-15.0); Immature Granulocyte Percent A 0.5 % (0-0.5); Lymphocytes Absolute Auto 1.58 K/mm3 (0.9-3.2); Mean Corpuscular HGB Conc 29.2 g/dl (32-36); Mean Corpuscular Hemoglobin 24.7 pg (26-34); Mean Corpuscular Volume 84.8 fl (80-100); Nucleated Red Blood Cells Absolute Auto 0.000 K/mm3 (0.0-0.012); Nucleated Red Blood Cells Perc 0.0 % (0.0-0.2); Platelet Count Result 291 k/mm3 (150-375); Red Blood Count 2.83 M/mm3 (4.2-5.4); White Blood Count 5.6 K/mm3 (4.5-10.0)
[2025-06-03 06:56] LABS: Alanine Aminotransferase 8 U/L (6-35); Albumin Level 2.7 g/dL (3.5-5.1); Alkaline Phosphatase 75 U/L (38-126); Anion Gap 4 mmol/L (4-12); Aspartate Amino Transferase 18 U/L (14-36); Bilirubin,Total 0.4 mg/dL (0.2-1.3); Blood Urea Nitrogen 11 mg/dL (7-17); Calcium 8.5 mg/dL (8.4-10.2); Carbon Dioxide 25 mmol/L (22-30); Chloride 111 mmol/L (98-107); Estimated CRCL calculation 26 ml/min; Estimated Glomerular Filt Rate 48; Glucose 95 mg/dL (65-110); Potassium 3.2 mmol/L (3.4-5.0); Sodium 140 mmol/L (137-145); Total Protein 6.3 g/dL (6.3-8.2)
[2025-06-03 07:26] LABS: Anisocytosis 1+; Schistocytes None Seen
[2025-06-03 07:28] LABS: Hypochromasia 1+; Ovalocytes 2+
[2025-06-03 07:29] LABS: Smudge Cells FEW
[2025-06-03 07:31] LABS: Acanthocytes Occasional
[2025-06-03] MEDS: IPRATROPIUM 0.5 MG/ALBUTEROL SULFATE 2.5 MG (BASE) AMPUL.NEB 3 ML INHALATION ×3 (07:58→21:44)
[2025-06-03] MEDS: BENZONATATE 100 MG CAPSULE PO ×3 (10:09→21:01)
[2025-06-03] MEDS: ENOXAPARIN 30 MG/0.3 ML SYRINGE SUB-Q (10:09)
[2025-06-03] MEDS: PANTOPRAZOLE SODIUM IV 40 MG VIAL IV PUSH (10:09)
[2025-06-03] MEDS: PREGABALIN (*CRX) 50 MG CAPSULE PO ×2 (10:10→14:19)
[2025-06-03] MEDS: POTASSIUM CHLORIDE 20 MEQ ER TABLET 40 MEQ PO (10:12)
[2025-06-03] MEDS: POTASSIUM CHLORIDE 20 MEQ ER TABLET PO (14:19)
--- NOTE | 2025-06-03 14:33 | P.PNIM_ITS ---
Assessment and Plan Assessment and Plan (1) Septic shock: Code(s): A41.9 - Sepsis, unspecified organism; R65.21 - Severe sepsis with septic shock Status: Resolved Assessment and Plan: Patient presented with generalized weakness, fall, altered mental status, fevers, UA was reflective of UTI. Patient does have a history of UTI. Also bilateral hydronephrosis which are chronic and she follows up with Urology -05/25: patient was hypotensive in the ER, was given 30 cc/kg IV fluid bolus despite which her blood pressures remain low, right femoral central line was inserted -OFF Levophed, maintain MAP > 65 mmHg or SBP > 100 mmHg -patient started on cefepime and vancomycin, will deescalate once cultures a result (05/26) -05/25: Urine and blood cultures have been obtained and pending, (patient has had Citrobacter, Klebsiella and Pseudomonas in the past in the urine cultures, all susceptible to cefepime) -lactic acid are within normal limits -will discontinue maintenance IV fluid since patient is currently volume resuscitated -monitor urine output -05/27: blood cultures growing gram positive cocci- cefepime + vancomycin adequate coverage at this time, sensitivities pending. -05/29: Blood cultures grew pansensitive E faecalis. Antibiotic therapy switch to ampicillin along with repeat blood culture consideration for echocardiogram if repeat blood cultures positive -06/01: Reviewed blood culture so far no growth. Will get ID consult in regards to continuing ampicillin. Patient remains out of shock or sepsis at this time. -06/02: ID recommendations pending, will follow. -06/03: Noted ID recommendations continue ampicillin for today and discontinue. As above, new cough with pulmonary infiltrate noted however no signs of recurrence of sepsis at this time. Will trend white blood cell count, monitor for fever monitor for production of sputum, and obtain lactic acid with a.m. labs. Consider ID evaluation tomorrow 06/04 if patient appears to be developing non ventilator associated hospital-acquired pneumonia. Possibility this is due to congestion rather than pneumonia. (2) Acute UTI: Code(s): N39.0 - Urinary tract infection, site not specified Status: Resolved Assessment and Plan: Admitted for urosepsis as likely primary source of septic shock however urine culture returned negative. Blood cultures as above have returned positive, management as above with ampicillin monotherapy. Urology has been on board as patient does have chronic hydronephrosis. They recommended repeating the urine culture given prior negative result. Will follow culture, repeat 05/29 NG final. (3) Altered mental status: Code(s): R41.82 - Altered mental status, unspecified Status: Acute Assessment and Plan: New onset delirium, ddx includes sepsis, ICU-related delirium, metabolic (however low suspicion), hardware (central line), transfer from [facility] as well, and sleep deprivation/altered sleep-wake cycle. 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 Will reassess in the afternoon to track progression of altered mental status. Blood cultures have grown positive for pansensitive Enterococcus faecalis in urine cultures so far are negative. Patient is not in shock number showing significant signs of sepsis as white count is normal today. However, given ongoing infection, there may be element of sepsis causing altered mental status at this time as well as previously mentioned factors. -Monitor for improvement -manage underlying causes -Frequent reorientation -Neurology evaluation- recommending EEG at this time. EEG still pending-can be done on Thursday or outpatient. (4) MAGALIS (acute kidney injury): Code(s): N17.9 - Acute kidney failure, unspecified Status: Resolved Assessment and Plan: Acute kidney injury likely related to hypovolemia per ER physician -adequately fluid resuscitated -continue to monitor renal function, electrolytes and urine output -creatinine is 1.1. Appears to be more element of CKD at this time. (5) History of pulmonary embolism: Code(s): Z86.711 - Personal history of pulmonary embolism Status: Chronic Assessment and Plan: Patient on apixaban, clopidogrel at home will hold for now given patient is anemic -hemoglobin 7.2 -will consider restarting anticoagulation if hemoglobin remains stable (6) CHF (congestive heart failure): Code(s): I50.9 - Heart failure, unspecified Status: Acute Assessment and Plan: Hold furosemide, carvedilol due to patient being hypotensive, in septic shock, on pressors 05/27: off pressors, cautiously resume as BP goes up -will resume losartan and carvedilol at this time, and continue to monitor blood pressure (7) Hypertension: Code(s): I10 - Essential (primary) hypertension Status: Chronic Assessment and Plan: Off pressors -will resume losartan and carvedilol at this time, and continue to monitor blood pressure (8) Anemia: Code(s): D64.9 - Anemia, unspecified Status: Acute Assessment and Plan: Patient dropped her hemoglobin, 9.6 on admission to 7.1. -iron panel reflects anemia of chronic disease -vitamin B12 and folate within normal limit -patient also on apixaban and clopidogrel at home which are currently on hold -will consider resuming apixaban and clopidogrel if hemoglobin remains stable -06/03: Hemoglobin now 7.0. FOBT with next bowel movement, type and screen with morning labs, transfuse if hemoglobin less than 7 Plan Following FOBT, morning CBC, pneumonia symptoms, urology, Neurology, ID and mental status DVT prophylaxis on hold due to anemia, apixaban when resumed. Will resume Lovenox for now. Diet: Heart healthy Medical Record Review I have reviewed the following patient records and this information was taken into consideration when formulating the assessment and plan.: previous labs, previous ER visits and previous hospitalizations Consultations Consultations: I have discussed the care of this pt with the consulting providers. Subjective Date/time seen: 06/03/25 14:33 Interval history: Reason for consult: Septic shock, UTI, altered mental status, anemia 05/27/2025: Patient seen and examined the ICU, is awake, alert, oriented x2, patient denies any chest pain, shortness a breath, abdominal pain, nausea vomiting. She only complains of right foot pain which has been ongoing for approximately 2 months. Patient had to be restarted on Levophed overnight, it has been off this since this morning. Afebrile, tolerating p.o. diet, adequate urine output. Also discontinued maintenance IV fluids 05/28/2025: Transferred from ICU, BP holding stable. Concern for new AMS, patient is not like this at baseline, and this has occurred after resolution of shock. May be element of sepsis that is still undergoing, but will need to be monitored. Urine culture returned negative, while blood cultures are growing E. Faecalis, sensitivities still pending. Consider Ampicillin + Ceftriaxone if sensitive to these. Urology on board for hydronephrosis and UTI, recommends to repeat Urine culture given negative result. Recommends 2 week urosepsis course of antibiotics once sensitivities are in. Outpatient cystoscopy on discharge. 05/29: Patient was complaining of ankle swelling on the right side. Prior foot x-ray reviewed which is new and, ankle x-ray was obtained and nonvisualization of image, does not appear to have any fractures. Likely a sprain, will get a uric acid to rule out, however. Blood culture returned with pansensitive Enterococcus faecalis, discussed with Pharmacy, will change to ampicillin monotherapy and follow-up with repeat blood culture. Repeat urine culture pending. Care coordination recommend short-term rehab on discharge. Patient was lethargic in the morning, difficult to get information from. Will re- evaluate in the afternoon to reassess mental status change. May obtain imaging consider neurology evaluation however suspicion is still strong at this time that altered mental status is multifactorial in nature, due to sepsis, ICU stay, transfer from ICU, underlying cognitive impairment. 05/30: AMS improving but persistent. Per daughter who was available in patient's room, this is new, as she was completely lucid prior to septic shock and hospitalization. As such, will get neurology on board tomorrow to further assess. Cultures still pending. Urology ok with void trial prior to DC, can do today/tomorrow as patient is highly uncomfortable from crum. Urology is on board and following patient. Labs reviewed. 05/31: AMS persists, neurology on board and will obtain EEG. Crum has been removed, patient has urinated twice today and appears to be tolerating well without need for catheterization. Continuing antibiotics for E Faecalis. Repeat blood culture 05/29 still pending. 06/01: EEG still pending, ID consulted given patient is on ampicillin. 06/02: Informed EEG will not be able to be done until Thursday, per Neurology can be done in the outpatient setting. ID recommendations pending. Urology recommending outpatient follow-up for surveillance cystoscopy. Patient has been voiding successfully. Will discuss with family in regards to further management of patient's mental status changes (await EEG inpatient or obtain outpatient), as she will otherwise be likely stable for discharge to nursing facility after ID recommendations. 06/03: Noted ID recommendations, last day of ampicillin today. Of concern, patient reports new nonproductive cough. However there have been no fever spikes over past 72 hours, and white count remains stable without any increase in past 72 hours. Chest x-ray was done given clinical findings, consistent with early left lower lobe pneumonia suspected and moderate pulmonary venous congestion. Given patient's only finding is dry cough and pulmonary infiltrate, and fact the patient is actively on antibiotics for today, will monitor for increase in white blood cell count, fever spikes, worsening production of sputum and consider ID opinion tomorrow as to appropriate antibiotic therapy for these new findings. Review of Systems Review of Systems: All systems reviewed & are unremarkable except as noted in HPI and below Exam Narrative: General: No acute distress, awake and alert but still confused HEENT:? Pupils equal and reactive, sclerae is clear Neck:? Supple Respiratory:? Coarse breath sounds left more than right, adequate air entry Cardiac:? S1-S2 normal, regular rate and rhythm Abdomen:? Soft, nontender, nondistended, normoactive bowel sounds Extremities:? No edema, palpable pedal pulses Neuro:? Patient is awake, alert, oriented x2, able to answer questions and follows simple commands in all extremities. Confusion which is not baseline. Skin:? Warm and dry Psych:? Depressed affect Objective Data Vital Signs Vital Signs: Vital Signs - 24 hr 06/02/25 19:54 06/02/25 20:00 06/02/25 20:14 Temperature 98.8 F Pulse Rate 80 96 Respiratory Rate 17 18 Blood Pressure 106/57 L Pulse Oximetry 96 Oxygen Delivery Room Air 06/02/25 20:23 06/03/25 05:26 06/03/25 07:58 Temperature 97.8 F Pulse Rate 89 66 62 Respiratory Rate 18 17 18 Blood Pressure 108/84 Pulse Oximetry 92 Oxygen Delivery 06/03/25 08:01 06/03/25 08:05 06/03/25 10:09 Temperature Pulse Rate 65 66 Respiratory Rate 18 Blood Pressure Pulse Oximetry 92 Oxygen Delivery Room Air 06/03/25 13:51 06/03/25 14:10 Temperature Pulse Rate 72 70 Respiratory Rate 18 18 Blood Pressure Pulse Oximetry Oxygen Delivery Intake/Output Intake/Output: Intake & Output 05/31/25 06/01/25 06/02/25 06/03/25 23:59 23:59 23:59 23:59 Intake Total 1020 1228 1438 400 Output Total 500 Balance 520 1228 1438 400 Meds/Results Medications: Active Medications Generic Name Dose Route Start Last Admin Trade Name Freq PRN Reason Stop Dose Admin Acetaminophen 650 mg 05/26/25 04:35 06/02/25 23:58 Acetaminophen 325 Mg Tablet PO 650 mg Q4H PRN Administration Mild Pain (1-3) or Fever Albuterol/Ipratropium 3 ml 05/27/25 20:00 06/03/25 13:51 Ipratropium 0.5 Mg/Albuterol Sulfate 2.5 Mg (Base) Ampul.Neb 3 Ml INHALATION 3 ml Q6HRT FUNMI Administration Atorvastatin Calcium 40 mg 05/26/25 21:00 06/02/25 21:12 Atorvastatin 40 Mg Tablet PO 40 mg HS FUNMI Administration Benzonatate 100 mg 06/03/25 06:50 06/03/25 14:19 Benzonatate 100 Mg Capsule PO 100 mg Q8HR FUNMI Administration Carvedilol 6.25 mg 05/28/25 21:00 06/03/25 10:09 Carvedilol 6.25 Mg Tablet PO 6.25 mg Q12HR FUNMI Administration Enoxaparin Sodium 30 mg 06/03/25 09:00 06/03/25 10:09 Enoxaparin 30 Mg/0.3 Ml Syringe SUB-Q 30 mg DAILY FUNMI Administration Ampicillin Sodium 2 gm/ Sodium 100 mls @ 200 mls/hr 05/29/25 14:00 06/03/25 14:20 Chloride IVPB 200 mls/hr Q8HR FUNMI Administration Losartan Potassium 50 mg 05/30/25 12:00 06/03/25 10:11 Losartan Potassium 50 Mg Tablet PO Not Given DAILY FUNMI Ondansetron HCl 4 mg 05/26/25 04:35 Ondansetron Inj 4 Mg/2 Ml Vial IV PUSH Q4H PRN Nausea Pantoprazole Sodium 40 mg 05/26/25 09:00 06/03/25 10:09 Pantoprazole Sodium Iv 40 Mg Vial IV PUSH 40 mg QAM FUNMI Administration Polyethylene Glycol 17 gm 06/03/25 12:45 06/03/25 14:20 Polyethylene Glycol 3350 17 Gm Powd.Pack PO 17 gm QAM FUNMI Administration Pregabalin 50 mg 05/26/25 13:00 06/03/25 14:19 Pregabalin (*Crx) 50 Mg Capsule PO 50 mg TID FUNMI Administration Radiology Results: ITS Impressions Head CT 05/25/25 20:11 IMPRESSION: No acute findings. All CT scans at this facility are performed using low dose modulation techniques as appropriate to perform exam including the following: automated exposure control; use of iterative reconstruction technique; adjustment of the mA and/or kV according to patient size (this includes techniques or standardized protocols for targeted exams where dose is matched to indication/reason for exam). Foot X-Ray 05/25/25 20:17 IMPRESSION: No acute abnormalities are seen. Given the MTP findings, consider gout. Abdomen/Pelvis CT 05/26/25 08:15 IMPRESSION: 1. Bilateral hydronephrosis and hydroureter with distal stricture suspected. Findings are probably chronic without. The renal parenchyma noted bilaterally. 2. Incidental findings above Ankle X-Ray 05/29/25 11:21 Impression: No acute fracture or malalignment. Chest X-Ray 06/03/25 14:10 Impression: CHF. Early left lower lobe pneumonia suspected. Labs Labs: Laboratory Results - last 24 hr 06/03/25 06:14 WBC 5.6 RBC 2.83 L Hgb 7.0 L Hct 24.0 L MCV 84.8 MCH 24.7 L MCHC 29.2 L RDW 17.1 H Plt Count 291 MPV 9.3 Immature Gran % (Auto) 0.5 Neut % (Auto) 61.6 Lymph % (Auto) 28.1 [place] % (Auto) 6.2 Eos % (Auto) 2.7 Baso % (Auto) 0.9 Lymph # (Auto) 1.58 [place] # (Auto) 0.4 Eos # (Auto) 0.2 Baso # (Auto) 0.1 Abs Immat Gran (auto) 0.03 Absolute Neuts (auto) 3.5 Absolute Nucleated RBC 0.000 Band Neutrophils % Not Reportable Nucleated RBC % 0.0 Smudge Cells Few Platelet Estimate Adequate Large Platelets Present Hypochromasia 1+ Anisocytosis 1+ Ovalocytes 2+ Acanthocytes (Spur) Occasional Schistocytes None seen Sodium 140 Potassium 3.2 L Chloride 111 H Carbon Dioxide 25 Anion Gap 4 BUN 11 Creatinine 1.10 H Estim Creat Clear Calc 26 Estimated GFR 48 L Glucose 95 Calcium 8.5 Total Bilirubin 0.4 AST 18 ALT 8 Alkaline Phosphatase 75 Total Protein 6.3 Albumin 2.7 L Hospitalist MIPS Advance Care Plan I have confirmed that the patient's Advanced Care Plan is present, code status is documented, or surrogate decision maker is listed in patient medical record.: Yes Medication Reconciliation I have utilized all available resources to obtain, update and review the patients current medications (includes all prescriptions, OTC, herbals, cannabis, and nutritional supplements).: Yes
[2025-06-03 15:24] LABS: Potassium 4.2 mmol/L (3.4-5.0)
[2025-06-03] MEDS: ATORVASTATIN 40 MG TABLET PO (20:35)
[2025-06-03 23:04] LABS: IFOB Positive Control Positive; Immunochemical Fecal Occult Bl Negative (N)
[2025-06-04] VITALS (17 sets, daily range): BP systolic 114–152; BP diastolic 62–98; PULSE 68–126; RESP 14–40; TEMP 36.1–37.1; O2SAT 89–99
[2025-06-04] MEDS: IPRATROPIUM 0.5 MG/ALBUTEROL SULFATE 2.5 MG (BASE) AMPUL.NEB 3 ML INHALATION ×4 (01:25→20:05)
--- NOTE | 2025-06-04 01:26 | PCRCNOTE ---
Pt does not tolerate treatment. She is sleeping and removes tx.
[2025-06-04] MEDS: ACETAMINOPHEN 325 MG TABLET 650 MG PO (04:08)
[2025-06-04 05:18] LABS: Hematocrit 23.5 % (37.0-47.0); Immature Granulocyte Percent A 0.8 % (0-0.5); Lymphocytes Absolute Auto 1.27 K/mm3 (0.9-3.2); Mean Corpuscular HGB Conc 29.4 g/dl (32-36); Mean Corpuscular Hemoglobin 24.9 pg (26-34); Mean Corpuscular Volume 84.8 fl (80-100); Nucleated Red Blood Cells Absolute Auto 0.000 K/mm3 (0.0-0.012); Nucleated Red Blood Cells Perc 0.0 % (0.0-0.2); Platelet Count Result 296 k/mm3 (150-375); Red Blood Count 2.77 M/mm3 (4.2-5.4); White Blood Count 3.8 K/mm3 (4.5-10.0)
[2025-06-04 05:40] LABS: Alanine Aminotransferase 8 U/L (6-35); Albumin Level 2.6 g/dL (3.5-5.1); Alkaline Phosphatase 78 U/L (38-126); Anion Gap 1 mmol/L (4-12); Aspartate Amino Transferase 18 U/L (14-36); Bilirubin,Total 0.4 mg/dL (0.2-1.3); Blood Urea Nitrogen 8 mg/dL (7-17); Calcium 8.7 mg/dL (8.4-10.2); Carbon Dioxide 25 mmol/L (22-30); Chloride 114 mmol/L (98-107); Estimated CRCL calculation 30 ml/min; Estimated Glomerular Filt Rate 56; Glucose 91 mg/dL (65-110); Potassium 3.9 mmol/L (3.4-5.0); Sodium 140 mmol/L (137-145); Total Protein 6.1 g/dL (6.3-8.2)
[2025-06-04 05:41] LABS: Hemoglobin 6.9 g/dL (12.0-15.0)
[2025-06-04 05:42] LABS: Anisocytosis 1+
[2025-06-04 05:43] LABS: Schistocytes None Seen
[2025-06-04] MEDS: BENZONATATE 100 MG CAPSULE PO ×2 (06:09→13:09)
[2025-06-04] MEDS: AMPICILLIN SODIUM 2 GM in SODIUM CHLORIDE 0.9% IV 100 ML 200 ML IVPB ×2 (06:09→13:25)
--- NOTE | 2025-06-04 09:08 | PM.IMPN2 ---
Assessment and Plan Assessment and Plan (1) Septic shock: Code(s): A41.9 - Sepsis, unspecified organism; R65.21 - Severe sepsis with septic shock Status: Resolved Assessment and Plan: Patient presented with generalized weakness, fall, altered mental status, fevers, UA was reflective of UTI. Patient does have a history of UTI. Also bilateral hydronephrosis which are chronic and she follows up with Urology -05/25: patient was hypotensive in the ER, was given 30 cc/kg IV fluid bolus despite which her blood pressures remain low, right femoral central line was inserted -OFF Levophed, maintain MAP > 65 mmHg or SBP > 100 mmHg -patient started on cefepime and vancomycin, will deescalate once cultures a result (05/26) -05/25: Urine and blood cultures have been obtained and pending, (patient has had Citrobacter, Klebsiella and Pseudomonas in the past in the urine cultures, all susceptible to cefepime) -lactic acid are within normal limits -will discontinue maintenance IV fluid since patient is currently volume resuscitated -monitor urine output -05/27: blood cultures growing gram positive cocci- cefepime + vancomycin adequate coverage at this time, sensitivities pending. -05/29: Blood cultures grew pansensitive E faecalis. Antibiotic therapy switch to ampicillin along with repeat blood culture consideration for echocardiogram if repeat blood cultures positive -06/01: Reviewed blood culture so far no growth. Will get ID consult in regards to continuing ampicillin. Patient remains out of shock or sepsis at this time. -06/02: ID recommendations pending, will follow. -06/03: Noted ID recommendations continue ampicillin for today and discontinue. As above, new cough with pulmonary infiltrate noted however no signs of recurrence of sepsis at this time. Will trend white blood cell count, monitor for fever monitor for production of sputum, and obtain lactic acid with a.m. labs. Consider ID evaluation tomorrow 06/04 if patient appears to be developing non ventilator associated hospital-acquired pneumonia. Possibility this is due to congestion rather than pneumonia. 06/04: Per nursing and pt, cough better today. Expiratory wheezing/coarse BS throughout, continue with scheduled nebs. WBC stable, lactic acid WDL. VSS. (2) Acute UTI: Code(s): N39.0 - Urinary tract infection, site not specified Status: Resolved Assessment and Plan: Admitted for urosepsis as likely primary source of septic shock however urine culture returned negative. Blood cultures as above have returned positive, management as above with ampicillin monotherapy. Urology has been on board as patient does have chronic hydronephrosis. They recommended repeating the urine culture given prior negative result. Will follow culture, repeat 05/29 NG final. (3) Altered mental status: Code(s): R41.82 - Altered mental status, unspecified Status: Acute Assessment and Plan: New onset delirium, ddx includes sepsis, ICU-related delirium, metabolic (however low suspicion), hardware (central line), transfer from [facility] as well, and sleep deprivation/altered sleep-wake cycle. 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 Will reassess in the afternoon to track progression of altered mental status. Blood cultures have grown positive for pansensitive Enterococcus faecalis in urine cultures so far are negative. Patient is not in shock number showing significant signs of sepsis as white count is normal today. However, given ongoing infection, there may be element of sepsis causing altered mental status at this time as well as previously mentioned factors. -Monitor for improvement -manage underlying causes -Frequent reorientation -Neurology evaluation- recommending EEG at this time. EEG still pending-can be done on Tuesday 06/05 or outpatient. (4) MAGALIS (acute kidney injury): Code(s): N17.9 - Acute kidney failure, unspecified Status: Resolved Assessment and Plan: Acute kidney injury likely related to hypovolemia per ER physician -adequately fluid resuscitated -continue to monitor renal function, electrolytes and urine output -creatinine is 1.1. Appears to be more element of CKD at this time. (5) History of pulmonary embolism: Code(s): Z86.711 - Personal history of pulmonary embolism Status: Chronic Assessment and Plan: Patient on apixaban, clopidogrel at home will hold for now given patient is anemic -hemoglobin 6.9 today, to be transfused with x1 PRBC -will consider restarting anticoagulation if hemoglobin remains stable (6) CHF (congestive heart failure): Code(s): I50.9 - Heart failure, unspecified Status: Acute Assessment and Plan: Hold furosemide, carvedilol due to patient being hypotensive, in septic shock, on pressors 05/27: off pressors, cautiously resume as BP goes up -will resume losartan and carvedilol at this time, and continue to monitor blood pressure (7) Hypertension: Code(s): I10 - Essential (primary) hypertension Status: Chronic Assessment and Plan: Off pressors -will resume losartan and carvedilol at this time, and continue to monitor blood pressure (8) Anemia: Code(s): D64.9 - Anemia, unspecified Status: Acute Assessment and Plan: Patient dropped her hemoglobin, 9.6 on admission to 7.1. -iron panel reflects anemia of chronic disease -vitamin B12 and folate within normal limit -patient also on apixaban and clopidogrel at home which are currently on hold -will consider resuming apixaban and clopidogrel if hemoglobin remains stable -06/03: Hemoglobin now 7.0. FOBT with next bowel movement, type and screen with morning labs, transfuse if hemoglobin less than 7 -06/04: Hgb 6.9 with AM labs, x1 unit PRBCs ordered for transfusion, will repeat h/h after --FOBT negative Plan Following H/H, pneumonia symptoms, urology, Neurology & EEG, ID, and mental status DVT prophylaxis on hold due to anemia, apixaban when resumed. Lovenox for now. Diet: Heart healthy Time Spent With Patient Time with patient: Greater than 35 minutes Subjective Date/time seen: 06/04/25 1055 Interval history: Pt resting comfortably in bed awake upon my arrival. Only complaint is her R foot, which she would not let me assess, imaging negative. Denies any issues with breathing or CP. Discussed plans for blood transfusion. Per nursing pt has been refusing therapy, encouraged pt to participate, pt agreeable with plan. Review of Systems Review of Systems: All systems reviewed & are unremarkable except as noted in HPI and below Constitutional: Constitutional: Reports as per HPI and Reports no additional constitutional complaints Eyes: Eyes: Reports as per HPI and Reports no additional eye complaints ENT: Reports system reviewed and no additional complaints, except as documented and Reports Normal hearing present Cardiovascular: Cardiovascular: Reports no additional cardiovascular complaints Respiratory: Respiratory: Reports as per HPI and Reports no additional respiratory complaints Gastrointestinal: Gastrointestinal: Reports as per HPI and Reports no additional gastrointestinal complaints Genitourinary: Genitourinary: Reports no additional female genitourinary complaints Musculoskeletal: Musculoskeletal: Reports no additional musculoskeletal complaints Integumentary/Breasts: Skin/Breast: Reports system reviewed and no additional complaints, except as docu Neurologic: Reports system reviewed and no additional complaints, except as documented and Reports Normal hearing present Psychiatric: Psychiatric: Reports no additional psychiatric complaints and Reports as per HPI Hematologic/Lymphatic: Hematologic/Lymphatic: Reports no additional hematologic/lymphatic complaints Allergic/Immunologic: Allergic/Immunologic: Reports no additional allergic/immunologic complaints Exam Narrative: General: No acute distress, awake and alert but still confused HEENT:? Pupils equal and reactive, sclerae is clear Neck:? Supple Respiratory:? Coarse breath sounds left more than right, adequate air entry Cardiac:? S1-S2 normal, regular rate and rhythm Abdomen:? Soft, nontender, nondistended, normoactive bowel sounds Extremities:? No edema, palpable pedal pulses, R foot with slight erythema to the top just under the ankle, unable to palpation due to pt refusing Neuro:? Patient is awake, alert, oriented x2, able to answer questions and follows simple commands in all extremities. Confusion which is not baseline. Skin:? Warm and dry Psych:? Nml affect Objective Data Vital Signs Vital Signs: Vital Signs - 24 hr 06/03/25 10:09 06/03/25 13:51 06/03/25 14:00 Temperature 98.4 F Pulse Rate 66 72 79 Respiratory Rate 18 14 Blood Pressure 130/87 Pulse Oximetry 95 Oxygen Delivery 06/03/25 14:10 06/03/25 20:00 06/03/25 21:44 Temperature Pulse Rate 70 63 Respiratory Rate 18 16 Blood Pressure Pulse Oximetry Oxygen Delivery Room Air 06/03/25 21:48 06/03/25 22:00 06/04/25 06:00 Temperature 98.1 F 98.7 F Pulse Rate 67 77 70 Respiratory Rate 16 16 18 Blood Pressure 121/80 122/75 Pulse Oximetry 94 93 Oxygen Delivery Intake/Output Intake/Output: Intake & Output 06/01/25 06/02/25 06/03/25 06/04/25 23:59 23:59 23:59 23:59 Intake Total 1228 1438 600 Balance 1228 1438 600 Meds/Results Medications: Active Medications Generic Name Dose Route Start Last Admin Trade Name Freq PRN Reason Stop Dose Admin Acetaminophen 650 mg 05/26/25 04:35 06/04/25 04:08 Acetaminophen 325 Mg Tablet PO 650 mg Q4H PRN Administration Mild Pain (1-3) or Fever Albuterol/Ipratropium 3 ml 05/27/25 20:00 06/04/25 08:27 Ipratropium 0.5 Mg/Albuterol Sulfate 2.5 Mg (Base) Ampul.Neb 3 Ml INHALATION 3 ml Q6HRT FUNMI Administration Atorvastatin Calcium 40 mg 05/26/25 21:00 06/03/25 20:35 Atorvastatin 40 Mg Tablet PO 40 mg HS FUNMI Administration Benzonatate 100 mg 06/03/25 06:50 06/04/25 06:09 Benzonatate 100 Mg Capsule PO 100 mg Q8HR FUNMI Administration Carvedilol 6.25 mg 05/28/25 21:00 06/03/25 20:35 Carvedilol 6.25 Mg Tablet PO 6.25 mg Q12HR FUNMI Administration Enoxaparin Sodium 30 mg 06/03/25 09:00 06/03/25 10:09 Enoxaparin 30 Mg/0.3 Ml Syringe SUB-Q 30 mg DAILY FUNMI Administration Ampicillin Sodium 2 gm/ Sodium 100 mls @ 200 mls/hr 05/29/25 14:00 06/04/25 06:09 Chloride IVPB 200 mls/hr Q8HR FUNMI Administration Sodium Chloride 250 mls @ 30 mls/hr 06/04/25 06:57 Normal Saline Iv IV CONT 06/04/25 15:16 .Q8H20M STA Losartan Potassium 50 mg 05/30/25 12:00 06/03/25 10:11 Losartan Potassium 50 Mg Tablet PO Not Given DAILY FUNMI Ondansetron HCl 4 mg 05/26/25 04:35 Ondansetron Inj 4 Mg/2 Ml Vial IV PUSH Q4H PRN Nausea Pantoprazole Sodium 40 mg 05/26/25 09:00 06/03/25 10:09 Pantoprazole Sodium Iv 40 Mg Vial IV PUSH 40 mg QAM FUNMI Administration Polyethylene Glycol 17 gm 06/03/25 12:45 06/03/25 14:20 Polyethylene Glycol 3350 17 Gm Powd.Pack PO 17 gm QAM FUNMI Administration Pregabalin 50 mg 05/26/25 13:00 06/03/25 18:36 Pregabalin (*Crx) 50 Mg Capsule PO Not Given TID [facility] Radiology Results: ITS Impressions Head CT 05/25/25 20:11 IMPRESSION: No acute findings. All CT scans at this facility are performed using low dose modulation techniques as appropriate to perform exam including the following: automated exposure control; use of iterative reconstruction technique; adjustment of the mA and/or kV according to patient size (this includes techniques or standardized protocols for targeted exams where dose is matched to indication/reason for exam). Foot X-Ray 05/25/25 20:17 IMPRESSION: No acute abnormalities are seen. Given the MTP findings, consider gout. Abdomen/Pelvis CT 05/26/25 08:15 IMPRESSION: 1. Bilateral hydronephrosis and hydroureter with distal stricture suspected. Findings are probably chronic without. The renal parenchyma noted bilaterally. 2. Incidental findings above Ankle X-Ray 05/29/25 11:21 Impression: No acute fracture or malalignment. Chest X-Ray 06/03/25 14:10 Impression: CHF. Early left lower lobe pneumonia suspected. Labs Labs: Laboratory Results - last 24 hr 06/03/25 06/03/25 06/04/25 14:49 20:49 05:11 WBC 3.8 L RBC 2.77 L Hgb 6.9 L* Hct 23.5 L MCV 84.8 MCH 24.9 L MCHC 29.4 L RDW 17.1 H Plt Count 296 MPV 9.4 Immature Gran % (Auto) 0.8 H Neut % (Auto) 53.4 Lymph % (Auto) 33.1 Harlan % (Auto) 6.5 Eos % (Auto) 4.9 H Baso % (Auto) 1.3 H Lymph # (Auto) 1.27 Harlan # (Auto) 0.3 Eos # (Auto) 0.2 Baso # (Auto) 0.1 Abs Immat Gran (auto) 0.03 Absolute Neuts (auto) 2.1 Absolute Nucleated RBC 0.000 Band Neutrophils % Not Reportable Nucleated RBC % 0.0 Platelet Estimate Adequate Anisocytosis 1+ Schistocytes None seen Sodium 140 Potassium 4.2 3.9 Chloride 114 H Carbon Dioxide 25 Anion Gap 1 L BUN 8 Creatinine 0.96 Estim Creat Clear Calc 30 Estimated GFR 56 L Glucose 91 Lactic Acid 0.7 Calcium 8.7 Total Bilirubin 0.4 AST 18 ALT 8 Alkaline Phosphatase 78 Total Protein 6.1 L Albumin 2.6 L Stl Occult Blood (IFOB) Negative Blood Type A Positive Antibody Screen Negative Crossmatch See Detail Quality VTE Prophylaxis VTE prophylaxis: mechanical ordered and pharmacologic ordered
[2025-06-04] MEDS: PANTOPRAZOLE SODIUM IV 40 MG VIAL IV PUSH (09:16)
[2025-06-04] MEDS: ENOXAPARIN 30 MG/0.3 ML SYRINGE SUB-Q (09:17)
[2025-06-04] MEDS: PREGABALIN (*CRX) 50 MG CAPSULE PO ×2 (09:17→13:09)
[2025-06-04] MEDS: SODIUM CHLORIDE 0.9% IV 250 ML 30 ML IV CONT (14:20)
[2025-06-04] MEDS: FUROSEMIDE INJ 40 MG/4 ML VIAL 20 MG IV PUSH (17:01)
--- NOTE | 2025-06-04 18:21 | P.PNCROSS_ITS ---
Event Note Event Note Event Note: Increased shortness of breath and wheezing this afternoon. Chest x-ray consist ent with pulmonary edema and cardiomegaly. No chest pain noted. Neck with mild JVD and hepatic jugular reflux. Chest with diffuse inspiratory expiratory wheezing and bibasilar crackles. Heart irregular with 3/6 apical systolic murmur. Extremities no edema. Abdomen soft and nontender with bowel sounds present. She is alert and her confused. A/P: Exacerbation of congestive heart failure, perhaps due to worsened anemia. IV Lasix 40 mg and albuterol nebulizer treatment ordered.
[2025-06-04 19:48] LABS: Hematocrit 34.0 % (37.0-47.0); Hemoglobin 10.1 g/dL (12.0-15.0)
--- NOTE | 2025-06-04 20:05 | ECG_ITS ---
Test Date: 2025-06-04 20:09:28 Measurements Intervals [place] Rate: 126 P: 71 ME: 135 QRS: 39 QRSD: 93 T: 94 QT: 275 QTc: 399 Interpretive Statements SINUS TACHYCARDIA BORDERLINE ST-T WAVE ABNORMALITY- INF/LAT LEADS BASELINE ARTIFACT- II, III, AVR, AVL, AVF, V3 ABNORMAL ECG Compared to ECG 05/25/2025 19:45:20 HEART RATE HAS INCREASED Electronically Signed On 06-05-2025 06:02:43 [employer] by Azael Sen D.O.
--- NOTE | 2025-06-04 20:15 | PC.NURSE ---
Pt assessed this morning; noted to have coarse lung sounds and expiratory wheezes and ineffective, productive cough. Pt A/Ox2 with a hgb of 6.9. Attempted to call son, but left VM. Called around 1400 from pt phone; consent obtained. As unit infusing-started at 1520s, pt WOB increased. Call made to Dr River covering pt. MD reviewed chart at 1606 and ordered 20 lasix IVP. 2L NC applied for increased WOB, 02 sat from 90 to 92. Pt noted to become more confused in late afternoon over the past several shifts I worked with her. Pt wheezing audible at foot of bed. Noted that 1400 duoneb had been non-admin'ed. Call made to med-surg RT requesting neb to be given stat. Call again made to Dr. River at 1807, requesting he come to bedside to eval pt increased WOB. evaluated pt and stated he would order lasix for pt. Awaiting order; Called provider at 1903 and took verbal order as MD order never came through. 40 IVP lasix to be given. During bedside shift report, pt found lying sideways in bed with bed alarm on. Pt naked, confused and stating that she was putting her dishes away. Pt repositioned and appeared very dusky. Rapid response called at this time.
[2025-06-04] MEDS: FUROSEMIDE INJ 40 MG/4 ML VIAL IV PUSH (20:46)
--- NOTE | 2025-06-04 21:20 | PC.NURSE ---
patient transferred to [facility] 212 Report given to Liudmila ANGUIANO SBAR sent
--- NOTE | 2025-06-04 22:03 | PC.NURSE ---
Pt received to room 212 at 2121. Pt in stable condition wearing 5L NC. Pt A&O to person, place and time. Assessment completed on patient. Pt denies any discomfort, shortness of breath, or needs at this time. Pt placed on tele with continuous O2 monitoring. Frequent rounds will be performed to check on patient and patient has been advised to call with any needs or concerns. Will continue to monitor.
--- NOTE | 2025-06-04 23:44 | P.PNCROSS_ITS ---
Event Note Event Note Event Note: Called to bedside via rapid response. Patient having tachypnea. Sinus tachyca rdia. Coarse breath sounds, some bibasilar crackles, wheezing. Patient given DuoNeb, placed on BiPAP. Feeling much better, went to sleep afterwards. Previous chest x-ray this afternoon showing possible left lower lobe pneumonia, interstitial edema. Will order echocardiogram. Check quad viral screen, start ceftriaxone and azithromycin. Continue Lasix daily. Continue DuoNebs q.6 hours. Give 1 time Solu-Medrol
[2025-06-05] VITALS (20 sets, daily range): BP systolic 100–111; BP diastolic 54–66; PULSE 56–110; RESP 18–20; TEMP 36.1–36.8; O2SAT 93–100
[2025-06-05] MEDS: cefTRIAXone 1 GM in SODIUM CHLORIDE 0.9% IV 50 ML 100 ML IVPB (00:42)
[2025-06-05] MEDS: AZITHROMYCIN IV 500 MG in SODIUM CHLORIDE 0.9% IV 250 ML IVPB (00:50)
[2025-06-05 04:37] LABS: Hematocrit 29.2 % (37.0-47.0); Hemoglobin 8.9 g/dL (12.0-15.0); Immature Granulocyte Percent A 0.7 % (0-0.5); Lymphocytes Absolute Auto 0.83 K/mm3 (0.9-3.2); Mean Corpuscular HGB Conc 30.5 g/dl (32-36); Mean Corpuscular Hemoglobin 25.8 pg (26-34); Mean Corpuscular Volume 84.6 fl (80-100); Nucleated Red Blood Cells Absolute Auto 0.000 K/mm3 (0.0-0.012); Nucleated Red Blood Cells Perc 0.0 % (0.0-0.2); Platelet Count Result 298 k/mm3 (150-375); Red Blood Count 3.45 M/mm3 (4.2-5.4); White Blood Count 6.1 K/mm3 (4.5-10.0)
[2025-06-05 05:12] LABS: Alanine Aminotransferase 11 U/L (6-35); Albumin Level 2.9 g/dL (3.5-5.1); Alkaline Phosphatase 146 U/L (38-126); Anion Gap 6 mmol/L (4-12); Aspartate Amino Transferase 22 U/L (14-36); Bilirubin,Total 0.5 mg/dL (0.2-1.3); Blood Urea Nitrogen 13 mg/dL (7-17); Calcium 8.8 mg/dL (8.4-10.2); Carbon Dioxide 24 mmol/L (22-30); Chloride 111 mmol/L (98-107); Estimated CRCL calculation 26 ml/min; Estimated Glomerular Filt Rate 48; Glucose 133 mg/dL (65-110); Potassium 4.0 mmol/L (3.4-5.0); Sodium 141 mmol/L (137-145); Total Protein 6.7 g/dL (6.3-8.2)
[2025-06-05] MEDS: PREGABALIN (*CRX) 50 MG CAPSULE PO ×3 (05:45→21:11)
[2025-06-05] MEDS: BENZONATATE 100 MG CAPSULE PO ×2 (05:45→17:44)
[2025-06-05] MEDS: IPRATROPIUM 0.5 MG/ALBUTEROL SULFATE 2.5 MG (BASE) AMPUL.NEB 3 ML INHALATION ×2 (07:53→14:48)
[2025-06-05] MEDS: ENOXAPARIN 30 MG/0.3 ML SYRINGE SUB-Q (09:06)
[2025-06-05] MEDS: LOSARTAN POTASSIUM 50 MG TABLET PO (09:06)
[2025-06-05] MEDS: PANTOPRAZOLE SODIUM IV 40 MG VIAL IV PUSH (09:06)
[2025-06-05] MEDS: FUROSEMIDE 40 MG TABLET PO (09:06)
--- NOTE | 2025-06-05 11:31 | PM.IMPN2 ---
Assessment and Plan Assessment and Plan (1) Septic shock: Code(s): A41.9 - Sepsis, unspecified organism; R65.21 - Severe sepsis with septic shock Status: Resolved Assessment and Plan: Patient presented with generalized weakness, fall, altered mental status, fevers, UA was reflective of UTI. Patient does have a history of UTI. Also bilateral hydronephrosis which are chronic and she follows up with Urology -05/25: patient was hypotensive in the ER, was given 30 cc/kg IV fluid bolus despite which her blood pressures remain low, right femoral central line was inserted -OFF Levophed, maintain MAP > 65 mmHg or SBP > 100 mmHg -patient started on cefepime and vancomycin, will deescalate once cultures a result (05/26) -05/25: Urine and blood cultures have been obtained and pending, (patient has had Citrobacter, Klebsiella and Pseudomonas in the past in the urine cultures, all susceptible to cefepime) -lactic acid are within normal limits -will discontinue maintenance IV fluid since patient is currently volume resuscitated -monitor urine output -05/27: blood cultures growing gram positive cocci- cefepime + vancomycin adequate coverage at this time, sensitivities pending. -05/29: Blood cultures grew pansensitive E faecalis. Antibiotic therapy switch to ampicillin along with repeat blood culture consideration for echocardiogram if repeat blood cultures positive -06/01: Reviewed blood culture so far no growth. Will get ID consult in regards to continuing ampicillin. Patient remains out of shock or sepsis at this time. -06/02: ID recommendations pending, will follow. -06/03: Noted ID recommendations continue ampicillin for today and discontinue. As above, new cough with pulmonary infiltrate noted however no signs of recurrence of sepsis at this time. Will trend white blood cell count, monitor for fever monitor for production of sputum, and obtain lactic acid with a.m. labs. Consider ID evaluation tomorrow 06/04 if patient appears to be developing non ventilator associated hospital-acquired pneumonia. Possibility this is due to congestion rather than pneumonia. 06/04: Per nursing and pt, cough better today. Expiratory wheezing/coarse BS throughout, continue with scheduled nebs. WBC stable, lactic acid WDL. VSS. 06/05 respiratory distress needing BiPAP support. Will recheck chest x-ray. Restarted on ceftriaxone and azithromycin which will be continued. Check procalcitonin. Suspect pulmonary edema related rather than pneumonia. (2) Acute UTI: Code(s): N39.0 - Urinary tract infection, site not specified Status: Resolved Assessment and Plan: Admitted for urosepsis as likely primary source of septic shock however urine culture returned negative. Blood cultures as above have returned positive, management as above with ampicillin monotherapy. Urology has been on board as patient does have chronic hydronephrosis. They recommended repeating the urine culture given prior negative result. Will follow culture, repeat 05/29 NG final. (3) Altered mental status: Code(s): R41.82 - Altered mental status, unspecified Status: Acute Assessment and Plan: New onset delirium, ddx includes sepsis, ICU-related delirium, metabolic (however low suspicion), hardware (central line), transfer from [facility] as well, and sleep deprivation/altered sleep-wake cycle. 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 Will reassess in the afternoon to track progression of altered mental status. Blood cultures have grown positive for pansensitive Enterococcus faecalis in urine cultures so far are negative. Patient is not in shock number showing significant signs of sepsis as white count is normal today. However, given ongoing infection, there may be element of sepsis causing altered mental status at this time as well as previously mentioned factors. -Monitor for improvement -manage underlying causes -Frequent reorientation -Neurology evaluation- recommending EEG at this time. EEG still pending-can be done on Tuesday 06/05 or outpatient. (4) MAGALIS (acute kidney injury): Code(s): N17.9 - Acute kidney failure, unspecified Status: Resolved Assessment and Plan: Acute kidney injury likely related to hypovolemia per ER physician -adequately fluid resuscitated -continue to monitor renal function, electrolytes and urine output -creatinine is 1.1. Appears to be more element of CKD at this time. (5) History of pulmonary embolism: Code(s): Z86.711 - Personal history of pulmonary embolism Status: Chronic Assessment and Plan: Patient on apixaban, clopidogrel at home will hold for now given patient is anemic -hemoglobin 6.9 needing transfusion 06/04/2025 -will consider restarting anticoagulation if hemoglobin remains stable No signs of bleeding (6) CHF (congestive heart failure): Code(s): I50.9 - Heart failure, unspecified Status: Acute Assessment and Plan: Hold furosemide, carvedilol due to patient being hypotensive, in septic shock, on pressors 05/27: off pressors, cautiously resume as BP goes up -will resume losartan and carvedilol at this time, and continue to monitor blood pressure Received IV Lasix 60 mg 06/04/2025 Restarted on oral Lasix (7) Hypertension: Code(s): I10 - Essential (primary) hypertension Status: Chronic Assessment and Plan: Off pressors -will resume losartan and carvedilol at this time, and continue to monitor blood pressure (8) Anemia: Code(s): D64.9 - Anemia, unspecified Status: Acute Assessment and Plan: Patient dropped her hemoglobin, 9.6 on admission to 7.1. -iron panel reflects anemia of chronic disease -vitamin B12 and folate within normal limit -patient also on apixaban and clopidogrel at home which are currently on hold -will consider resuming apixaban and clopidogrel if hemoglobin remains stable -06/03: Hemoglobin now 7.0. FOBT with next bowel movement, type and screen with morning labs, transfuse if hemoglobin less than 7 -06/04: Hgb 6.9 with AM labs, x1 unit PRBCs ordered for transfusion, will repeat h/h after --FOBT negative H&H appropriately up. Will continue to monitor Plan Following H/H, pneumonia symptoms, urology, Neurology & EEG, ID, and mental status DVT prophylaxis on hold due to anemia, apixaban when resumed. Lovenox for now. Diet: Heart healthy Subjective Date/time seen: 06/05/25 11:31 Interval history: Overnight events noted. Respiratory distress needing BiPAP placement last night. She is feeling much better this a.m.. Family at bedside and discussed with them. Review of Systems Review of Systems: All systems reviewed & are unremarkable except as noted in HPI and below Exam Narrative: General: No acute distress, awake and alert but still confused HEENT:? Pupils equal and reactive, sclerae is clear Neck:? Supple Respiratory:? Coarse breath sounds bilaterally, adequate air entry no respiratory distress Cardiac:? S1-S2 normal, regular rate and rhythm Abdomen:? Soft, nontender, nondistended, normoactive bowel sounds Extremities:? No edema, palpable pedal pulses, R foot with slight erythema to the top just under the ankle, unable to palpation due to pt refusing Neuro:? Patient is awake, alert, oriented x2, able to answer questions and follows simple commands in all extremities. Mildly confused Skin:? Warm and dry Psych:? Nml affect Objective Data Vital Signs Vital Signs: Vital Signs - 24 hr 06/04/25 14:00 06/04/25 15:26 06/04/25 15:41 Temperature 97.0 F L 97.0 F L 97.8 F Pulse Rate 77 77 81 Respiratory Rate 14 14 14 Blood Pressure 147/71 H 119/62 136/70 Pulse Oximetry 89 L 90 92 Oxygen Delivery Fraction of Inspired Oxygen 06/04/25 16:41 06/04/25 17:41 06/04/25 18:15 Temperature 98.2 F 98.4 F Pulse Rate 77 80 92 Respiratory Rate 14 16 24 H Blood Pressure 130/87 142/68 H Pulse Oximetry 99 96 Oxygen Delivery Fraction of Inspired Oxygen 06/04/25 18:22 06/04/25 18:41 06/04/25 20:05 Temperature 97.9 F Pulse Rate 95 84 126 H Respiratory Rate 24 H 24 H 26 H Blood Pressure 152/98 H Pulse Oximetry 92 Oxygen Delivery Fraction of Inspired Oxygen 06/04/25 20:05 06/04/25 20:15 06/04/25 21:00 Temperature 98.2 F Pulse Rate 123 H 114 H 106 H Respiratory Rate 40 H 23 H 14 Blood Pressure 152/92 H 118/77 Pulse Oximetry 92 92 Oxygen Delivery Non-Rebreather Mask Fraction of Inspired Oxygen 06/04/25 21:20 06/04/25 22:00 06/05/25 00:00 Temperature 98.4 F Pulse Rate 99 92 82 Respiratory Rate 14 Blood Pressure 114/64 Pulse Oximetry 94 Oxygen Delivery Fraction of Inspired Oxygen 06/05/25 02:00 06/05/25 04:00 06/05/25 06:00 Temperature Pulse Rate 76 66 81 Respiratory Rate Blood Pressure Pulse Oximetry Oxygen Delivery Fraction of Inspired Oxygen 06/05/25 07:54 06/05/25 07:59 06/05/25 08:00 Temperature Pulse Rate 57 L 61 60 Respiratory Rate 20 20 20 Blood Pressure Pulse Oximetry 100 Oxygen Delivery Room Air Fraction of Inspired Oxygen 21 06/05/25 08:00 06/05/25 08:01 06/05/25 09:06 Temperature Pulse Rate 60 61 64 Respiratory Rate Blood Pressure Pulse Oximetry 100 Oxygen Delivery Room Air Fraction of Inspired Oxygen 06/05/25 10:00 Temperature Pulse Rate 69 Respiratory Rate Blood Pressure Pulse Oximetry Oxygen Delivery Fraction of Inspired Oxygen Intake/Output Intake/Output: Intake & Output 06/02/25 06/03/25 06/04/25 06/05/25 23:59 23:59 23:59 23:59 Intake Total 1438 160 748 6834 Balance 1438 727 584 6037 Meds/Results Medications: Active Medications Generic Name Dose Route Start Last Admin Trade Name Freq PRN Reason Stop Dose Admin Acetaminophen 650 mg 05/26/25 04:35 06/04/25 04:08 Acetaminophen 325 Mg Tablet PO 650 mg Q4H PRN Administration Mild Pain (1-3) or Fever Albuterol/Ipratropium 3 ml 05/27/25 20:00 06/05/25 07:53 Ipratropium 0.5 Mg/Albuterol Sulfate 2.5 Mg (Base) Ampul.Neb 3 Ml INHALATION 3 ml Q6HRT FUNMI Administration Atorvastatin Calcium 40 mg 05/26/25 21:00 06/04/25 22:06 Atorvastatin 40 Mg Tablet PO Not Given HS FUNMI Benzonatate 100 mg 06/03/25 06:50 06/05/25 05:45 Benzonatate 100 Mg Capsule PO 100 mg Q8HR FUNMI Administration Carvedilol 6.25 mg 05/28/25 21:00 06/05/25 09:06 Carvedilol 6.25 Mg Tablet PO 6.25 mg Q12HR FUNMI Administration Enoxaparin Sodium 30 mg 06/03/25 09:00 06/05/25 09:06 Enoxaparin 30 Mg/0.3 Ml Syringe SUB-Q 30 mg DAILY FUNMI Administration Furosemide 40 mg 06/05/25 09:00 06/05/25 09:06 Furosemide 40 Mg Tablet PO 40 mg QAM FUNMI Administration Ceftriaxone Sodium 1 gm/ 50 mls @ 100 mls/hr 06/05/25 22:00 Sodium Chloride IVPB Q24H FUNMI Azithromycin 250 mg in 250 mls @ 250 mls/hr 06/05/25 23:00 Zithromax IVPB Q24H FUNMI Losartan Potassium 50 mg 05/30/25 12:00 06/05/25 09:06 Losartan Potassium 50 Mg Tablet PO 50 mg DAILY FUNMI Administration Ondansetron HCl 4 mg 05/26/25 04:35 Ondansetron Inj 4 Mg/2 Ml Vial IV PUSH Q4H PRN Nausea Pantoprazole Sodium 40 mg 05/26/25 09:00 06/05/25 09:06 Pantoprazole Sodium Iv 40 Mg Vial IV PUSH 40 mg QAM FUNMI Administration Perflutren Lipid Microsphere 0 ml 06/05/25 00:05 Perflutren Lipid Microspheres 1.5 Ml Vial Diluted To 10 Ml Total Volume IV PUSH ONCE PRN adequate visualization Protocol Polyethylene Glycol 17 gm 06/03/25 12:45 06/05/25 09:05 Polyethylene Glycol 3350 17 Gm Powd.Pack PO 17 gm QAM FUNMI Administration Pregabalin 50 mg 06/04/25 14:00 06/05/25 05:45 Pregabalin (*Crx) 50 Mg Capsule PO 50 mg Q8HR FUNMI Administration Radiology Results: ITS Impressions Head CT 05/25/25 20:11 IMPRESSION: No acute findings. All CT scans at this facility are performed using low dose modulation techniques as appropriate to perform exam including the following: automated exposure control; use of iterative reconstruction technique; adjustment of the mA and/or kV according to patient size (this includes techniques or standardized protocols for targeted exams where dose is matched to indication/reason for exam). Foot X-Ray 05/25/25 20:17 IMPRESSION: No acute abnormalities are seen. Given the MTP findings, consider gout. Abdomen/Pelvis CT 05/26/25 08:15 IMPRESSION: 1. Bilateral hydronephrosis and hydroureter with distal stricture suspected. Findings are probably chronic without. The renal parenchyma noted bilaterally. 2. Incidental findings above Ankle X-Ray 05/29/25 11:21 Impression: No acute fracture or malalignment. Chest X-Ray 06/03/25 14:10 Impression: CHF. Early left lower lobe pneumonia suspected. Labs Labs: Laboratory Results - last 24 hr 06/03/25 06/04/25 06/05/25 14:49 19:43 04:17 WBC 6.1 RBC 3.45 L Hgb 10.1 L D 8.9 L Hct 34.0 L 29.2 L MCV 84.6 MCH 25.8 L MCHC 30.5 L RDW 16.3 H Plt Count 298 MPV 9.4 Immature Gran % (Auto) 0.7 H Neut % (Auto) 81.9 H Lymph % (Auto) 13.6 L [place] % (Auto) 2.6 Eos % (Auto) 0.2 Baso % (Auto) 1.0 Lymph # (Auto) 0.83 L [place] # (Auto) 0.2 Eos # (Auto) 0.0 Baso # (Auto) 0.1 Abs Immat Gran (auto) 0.04 H Absolute Neuts (auto) 5.0 Absolute Nucleated RBC 0.000 Nucleated RBC % 0.0 Sodium 141 Potassium 4.0 Chloride 111 H Carbon Dioxide 24 Anion Gap 6 BUN 13 D Creatinine 1.10 H Estim Creat Clear Calc 26 Estimated GFR 48 L Glucose 133 H Calcium 8.8 Total Bilirubin 0.5 AST 22 ALT 11 Alkaline Phosphatase 146 H Total Protein 6.7 Albumin 2.9 L Blood Type A Positive Antibody Screen Negative Crossmatch See Detail
[2025-06-05 12:41] LABS: Procalcitonin 7.3 ng/mL
--- NOTE | 2025-06-05 16:52 | P.PNINF_ITS ---
Progress Note: A&P Assessment and Plan (1) Enterococcal bacteremia: Code(s): R78.81 - Bacteremia; B95.2 - Enterococcus as the cause of diseases classified elsewhere Status: Acute Assessment and Plan: ASSESSMENT: 1. enterococcus faecalis bacteremia--likely 2nd source given pyuria; treated 2. CHF, CAD, HTN, HL, PE 3. ??PNA on imaging? RECOMMENDATIONS: repeat blood cxs negative stop abx and monitor d/w pharmacy staff Pt was seen via video telehealth consultation with the assistance of staff. Chart, data and patient info reviewed. Patient was located at [facility] while I was in my [place] office. Pt gave consent. Subjective Date/time seen: 06/05/25 16:52 Interval history: no fever no leukocytosis no cough Exam Narrative: no conversational dyspnea up in chair, on room air non-toxic, NAD Objective Data Vital Signs Vital Signs: Vital Signs - 24 hr 06/04/25 17:41 06/04/25 18:15 06/04/25 18:22 Temperature 98.4 F Pulse Rate 80 92 95 Respiratory Rate 16 24 H 24 H Blood Pressure 142/68 H Pulse Oximetry 96 Oxygen Delivery Fraction of Inspired Oxygen 06/04/25 18:41 06/04/25 20:05 06/04/25 20:05 Temperature 97.9 F Pulse Rate 84 126 H 123 H Respiratory Rate 24 H 26 H 40 H Blood Pressure 152/98 H 152/92 H Pulse Oximetry 92 92 Oxygen Delivery Non-Rebreather Mask Fraction of Inspired Oxygen 06/04/25 20:15 06/04/25 21:00 06/04/25 21:20 Temperature 98.2 F 98.4 F Pulse Rate 114 H 106 H 99 Respiratory Rate 23 H 14 14 Blood Pressure 118/77 114/64 Pulse Oximetry 92 94 Oxygen Delivery Fraction of Inspired Oxygen 06/04/25 22:00 06/05/25 00:00 06/05/25 02:00 Temperature Pulse Rate 92 82 76 Respiratory Rate Blood Pressure Pulse Oximetry Oxygen Delivery Fraction of Inspired Oxygen 06/05/25 04:00 06/05/25 06:00 06/05/25 07:54 Temperature Pulse Rate 66 81 57 L Respiratory Rate 20 Blood Pressure Pulse Oximetry Oxygen Delivery Fraction of Inspired Oxygen 06/05/25 07:59 06/05/25 08:00 06/05/25 08:00 Temperature Pulse Rate 61 60 60 Respiratory Rate 20 20 Blood Pressure Pulse Oximetry 100 Oxygen Delivery Room Air Fraction of Inspired Oxygen 21 06/05/25 08:00 06/05/25 08:01 06/05/25 09:06 Temperature 98.3 F Pulse Rate 58 L 61 64 Respiratory Rate 18 Blood Pressure 111/66 Pulse Oximetry 99 100 Oxygen Delivery Room Air Fraction of Inspired Oxygen 06/05/25 10:00 06/05/25 12:00 06/05/25 12:00 Temperature Pulse Rate 69 65 65 Respiratory Rate 20 Blood Pressure Pulse Oximetry 100 Oxygen Delivery Room Air Fraction of Inspired Oxygen 21 06/05/25 12:00 06/05/25 14:00 06/05/25 14:48 Temperature 98.2 F Pulse Rate 72 75 68 Respiratory Rate 18 20 Blood Pressure 100/60 Pulse Oximetry 96 Oxygen Delivery Fraction of Inspired Oxygen 06/05/25 14:53 06/05/25 16:00 Temperature 97.5 F L Pulse Rate 69 81 Respiratory Rate 20 18 Blood Pressure 103/60 Pulse Oximetry 99 Oxygen Delivery Fraction of Inspired Oxygen Intake/Output Intake/Output: Intake & Output 06/02/25 06/03/25 06/04/25 06/05/25 23:59 23:59 23:59 23:59 Intake Total 1438 322 645 1831 Balance 1438 872 162 1907 Meds/Results Medications: Active Medications Generic Name Dose Route Start Last Admin Trade Name Freq PRN Reason Stop Dose Admin Acetaminophen 650 mg 05/26/25 04:35 06/04/25 04:08 Acetaminophen 325 Mg Tablet PO 650 mg Q4H PRN Administration Mild Pain (1-3) or Fever Albuterol/Ipratropium 3 ml 05/27/25 20:00 06/05/25 14:48 Ipratropium 0.5 Mg/Albuterol Sulfate 2.5 Mg (Base) Ampul.Neb 3 Ml INHALATION 3 ml Q6HRT FUNMI Administration Atorvastatin Calcium 40 mg 05/26/25 21:00 06/04/25 22:06 Atorvastatin 40 Mg Tablet PO Not Given HS FUNMI Benzonatate 100 mg 06/03/25 06:50 06/05/25 05:45 Benzonatate 100 Mg Capsule PO 100 mg Q8HR FUNMI Administration Carvedilol 6.25 mg 05/28/25 21:00 06/05/25 09:06 Carvedilol 6.25 Mg Tablet PO 6.25 mg Q12HR FUNMI Administration Enoxaparin Sodium 30 mg 06/03/25 09:00 06/05/25 09:06 Enoxaparin 30 Mg/0.3 Ml Syringe SUB-Q 30 mg DAILY FUNMI Administration Furosemide 40 mg 06/05/25 09:00 06/05/25 09:06 Furosemide 40 Mg Tablet PO 40 mg QAM FUNMI Administration Ceftriaxone Sodium 1 gm/ 50 mls @ 100 mls/hr 06/05/25 22:00 Sodium Chloride IVPB Q24H FUNMI Azithromycin 250 mg in 250 mls @ 250 mls/hr 06/05/25 23:00 Zithromax IVPB Q24H FUNMI Losartan Potassium 50 mg 05/30/25 12:00 06/05/25 09:06 Losartan Potassium 50 Mg Tablet PO 50 mg DAILY FUNMI Administration Ondansetron HCl 4 mg 05/26/25 04:35 Ondansetron Inj 4 Mg/2 Ml Vial IV PUSH Q4H PRN Nausea Pantoprazole Sodium 40 mg 05/26/25 09:00 06/05/25 09:06 Pantoprazole Sodium Iv 40 Mg Vial IV PUSH 40 mg QAM FUNMI Administration Perflutren Lipid Microsphere 0 ml 06/05/25 00:05 Perflutren Lipid Microspheres 1.5 Ml Vial Diluted To 10 Ml Total Volume IV PUSH ONCE PRN adequate visualization Protocol Polyethylene Glycol 17 gm 06/03/25 12:45 06/05/25 09:05 Polyethylene Glycol 3350 17 Gm Powd.Pack PO 17 gm QAM FUNMI Administration Pregabalin 50 mg 06/04/25 14:00 06/05/25 05:45 Pregabalin (*Crx) 50 Mg Capsule PO 50 mg Q8HR FUNMI Administration Radiology Results: ITS Impressions Head CT 05/25/25 20:11 IMPRESSION: No acute findings. All CT scans at this facility are performed using low dose modulation techniques as appropriate to perform exam including the following: automated exposure control; use of iterative reconstruction technique; adjustment of the mA and/or kV according to patient size (this includes techniques or standardized protocols for targeted exams where dose is matched to indication/reason for exam). Foot X-Ray 05/25/25 20:17 IMPRESSION: No acute abnormalities are seen. Given the MTP findings, consider gout. Abdomen/Pelvis CT 05/26/25 08:15 IMPRESSION: 1. Bilateral hydronephrosis and hydroureter with distal stricture suspected. Findings are probably chronic without. The renal parenchyma noted bilaterally. 2. Incidental findings above Ankle X-Ray 05/29/25 11:21 Impression: No acute fracture or malalignment. Chest X-Ray 06/05/25 12:19 Impression: CHF. Superimposed pneumonia is suspected the findings appear improved compared to the previous study. Labs Labs: Laboratory Results - last 24 hr 06/03/25 06/04/25 06/05/25 14:49 19:43 04:17 WBC 6.1 RBC 3.45 L Hgb 10.1 L D 8.9 L Hct 34.0 L 29.2 L MCV 84.6 MCH 25.8 L MCHC 30.5 L RDW 16.3 H Plt Count 298 MPV 9.4 Immature Gran % (Auto) 0.7 H Neut % (Auto) 81.9 H Lymph % (Auto) 13.6 L [place] % (Auto) 2.6 Eos % (Auto) 0.2 Baso % (Auto) 1.0 Lymph # (Auto) 0.83 L [place] # (Auto) 0.2 Eos # (Auto) 0.0 Baso # (Auto) 0.1 Abs Immat Gran (auto) 0.04 H Absolute Neuts (auto) 5.0 Absolute Nucleated RBC 0.000 Nucleated RBC % 0.0 Sodium 141 Potassium 4.0 Chloride 111 H Carbon Dioxide 24 Anion Gap 6 BUN 13 D Creatinine 1.10 H Estim Creat Clear Calc 26 Estimated GFR 48 L Glucose 133 H Calcium 8.8 Total Bilirubin 0.5 AST 22 ALT 11 Alkaline Phosphatase 146 H Total Protein 6.7 Albumin 2.9 L Procalcitonin 7.3 Crossmatch See Detail
[2025-06-05] MEDS: ATORVASTATIN 40 MG TABLET PO (21:11)
[2025-06-06] VITALS (21 sets, daily range): BP systolic 103–125; BP diastolic 47–76; PULSE 54–107; RESP 2–20; TEMP 36.3–36.8; O2SAT 94–99
--- NOTE | 2025-06-06 03:45 | PCRCNOTE ---
Patient refused both 1999 and 199 updraft treatments. Patient stated she is breathing fine.
[2025-06-06 08:07] LABS: Hematocrit 28.9 % (37.0-47.0); Hemoglobin 8.9 g/dL (12.0-15.0); Immature Granulocyte Percent A 0.9 % (0-0.5); Lymphocytes Absolute Auto 2.09 K/mm3 (0.9-3.2); Mean Corpuscular HGB Conc 30.8 g/dl (32-36); Mean Corpuscular Hemoglobin 25.6 pg (26-34); Mean Corpuscular Volume 83.3 fl (80-100); Nucleated Red Blood Cells Absolute Auto 0.000 K/mm3 (0.0-0.012); Nucleated Red Blood Cells Perc 0.0 % (0.0-0.2); Platelet Count Result 291 k/mm3 (150-375); Red Blood Count 3.47 M/mm3 (4.2-5.4); White Blood Count 5.6 K/mm3 (4.5-10.0)
[2025-06-06 08:30] LABS: Acanthocytes 1+; Anisocytosis 1+; Burr Cells 1+; Hypochromasia 1+; Ovalocytes 1+; Schistocytes None Seen
[2025-06-06 08:31] LABS: Alanine Aminotransferase 15 U/L (6-35); Albumin Level 3.1 g/dL (3.5-5.1); Alkaline Phosphatase 124 U/L (38-126); Anion Gap 4 mmol/L (4-12); Aspartate Amino Transferase 28 U/L (14-36); Bilirubin,Total 0.4 mg/dL (0.2-1.3); Blood Urea Nitrogen 19 mg/dL (7-17); Calcium 9.3 mg/dL (8.4-10.2); Carbon Dioxide 26 mmol/L (22-30); Chloride 109 mmol/L (98-107); Estimated CRCL calculation 26 ml/min; Estimated Glomerular Filt Rate 47; Glucose 142 mg/dL (65-110); Magnesium 1.9 mg/dL (1.6-2.3); Potassium 3.2 mmol/L (3.4-5.0); Sodium 139 mmol/L (137-145); Total Protein 7.0 g/dL (6.3-8.2)
[2025-06-06] MEDS: IPRATROPIUM 0.5 MG/ALBUTEROL SULFATE 2.5 MG (BASE) AMPUL.NEB 3 ML INHALATION (08:43)
[2025-06-06] MEDS: PANTOPRAZOLE SODIUM IV 40 MG VIAL IV PUSH (09:35)
[2025-06-06] MEDS: LOSARTAN POTASSIUM 50 MG TABLET PO (09:35)
[2025-06-06] MEDS: FUROSEMIDE 40 MG TABLET PO (09:35)
[2025-06-06] MEDS: ENOXAPARIN 30 MG/0.3 ML SYRINGE SUB-Q (09:36)
[2025-06-06] MEDS: PREGABALIN (*CRX) 50 MG CAPSULE PO ×2 (14:40→22:00)
--- NOTE | 2025-06-06 15:50 | P.PNIM_ITS ---
Assessment and Plan Assessment and Plan (1) Septic shock: Code(s): A41.9 - Sepsis, unspecified organism; R65.21 - Severe sepsis with septic shock Status: Resolved Assessment and Plan: Patient presented with generalized weakness, fall, altered mental status, fevers, UA was reflective of UTI. Patient does have a history of UTI. Also bilateral hydronephrosis which are chronic and she follows up with Urology -05/25: patient was hypotensive in the ER, was given 30 cc/kg IV fluid bolus despite which her blood pressures remain low, right femoral central line was inserted -OFF Levophed, maintain MAP > 65 mmHg or SBP > 100 mmHg -patient started on cefepime and vancomycin, will deescalate once cultures a result (05/26) -05/25: Urine and blood cultures have been obtained and pending, (patient has had Citrobacter, Klebsiella and Pseudomonas in the past in the urine cultures, all susceptible to cefepime) -lactic acid are within normal limits -will discontinue maintenance IV fluid since patient is currently volume resuscitated -monitor urine output -05/27: blood cultures growing gram positive cocci- cefepime + vancomycin adequate coverage at this time, sensitivities pending. -05/29: Blood cultures grew pansensitive E faecalis. Antibiotic therapy switch to ampicillin along with repeat blood culture consideration for echocardiogram if repeat blood cultures positive -06/01: Reviewed blood culture so far no growth. Will get ID consult in regards to continuing ampicillin. Patient remains out of shock or sepsis at this time. -06/02: ID recommendations pending, will follow. -06/03: Noted ID recommendations continue ampicillin for today and discontinue. As above, new cough with pulmonary infiltrate noted however no signs of recurrence of sepsis at this time. Will trend white blood cell count, monitor for fever monitor for production of sputum, and obtain lactic acid with a.m. labs. Consider ID evaluation tomorrow 06/04 if patient appears to be developing non ventilator associated hospital-acquired pneumonia. Possibility this is due to congestion rather than pneumonia. 06/04: Per nursing and pt, cough better today. Expiratory wheezing/coarse BS throughout, continue with scheduled nebs. WBC stable, lactic acid WDL. VSS. 06/05 respiratory distress needing BiPAP support. Will recheck chest x-ray. Restarted on ceftriaxone and azithromycin which will be continued. Check procalcitonin. Suspect pulmonary edema related rather than pneumonia. Completed abtibiotics for bacteremia (2) Acute UTI: Code(s): N39.0 - Urinary tract infection, site not specified Status: Resolved Assessment and Plan: Admitted for urosepsis as likely primary source of septic shock however urine culture returned negative. Blood cultures as above have returned positive, management as above with ampicillin monotherapy. Urology has been on board as patient does have chronic hydronephrosis. They recommended repeating the urine culture given prior negative result. Will follow culture, repeat 05/29 NG final. (3) Altered mental status: Code(s): R41.82 - Altered mental status, unspecified Status: Acute Assessment and Plan: New onset delirium, ddx includes sepsis, ICU-related delirium, metabolic (however low suspicion), hardware (central line), transfer from [facility] as well, and sleep deprivation/altered sleep-wake cycle. 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 Will reassess in the afternoon to track progression of altered mental status. Blood cultures have grown positive for pansensitive Enterococcus faecalis in urine cultures so far are negative. Patient is not in shock number showing significant signs of sepsis as white count is normal today. However, given ongoing infection, there may be element of sepsis causing altered mental status at this time as well as previously mentioned factors. -Monitor for improvement -manage underlying causes -Frequent reorientation -Neurology evaluation- recommending EEG at this time. EEG still pending-can be done on Tuesday 06/05 or outpatient. (4) MAGALIS (acute kidney injury): Code(s): N17.9 - Acute kidney failure, unspecified Status: Resolved Assessment and Plan: Acute kidney injury likely related to hypovolemia per ER physician -adequately fluid resuscitated -continue to monitor renal function, electrolytes and urine output -creatinine is 1.1. Appears to be more element of CKD at this time. (5) History of pulmonary embolism: Code(s): Z86.711 - Personal history of pulmonary embolism Status: Chronic Assessment and Plan: Patient on apixaban, clopidogrel at home will hold for now given patient is anemic -hemoglobin 6.9 needing transfusion 06/04/2025 -will consider restarting anticoagulation if hemoglobin remains stable No signs of bleeding (6) CHF (congestive heart failure): Code(s): I50.9 - Heart failure, unspecified Status: Acute Assessment and Plan: Hold furosemide, carvedilol due to patient being hypotensive, in septic shock, on pressors 05/27: off pressors, cautiously resume as BP goes up -will resume losartan and carvedilol at this time, and continue to monitor blood pressure Received IV Lasix 60 mg 06/04/2025 Restarted on oral Lasix (7) Hypertension: Code(s): I10 - Essential (primary) hypertension Status: Chronic Assessment and Plan: Off pressors -will resume losartan and carvedilol at this time, and continue to monitor blood pressure (8) Anemia: Code(s): D64.9 - Anemia, unspecified Status: Acute Assessment and Plan: Patient dropped her hemoglobin, 9.6 on admission to 7.1. -iron panel reflects anemia of chronic disease -vitamin B12 and folate within normal limit -patient also on apixaban and clopidogrel at home which are currently on hold -will consider resuming apixaban and clopidogrel if hemoglobin remains stable -06/03: Hemoglobin now 7.0. FOBT with next bowel movement, type and screen with morning labs, transfuse if hemoglobin less than 7 -06/04: Hgb 6.9 with AM labs, x1 unit PRBCs ordered for transfusion, will repeat h/h after --FOBT negative H&H appropriately up. Will continue to monitor Plan Following H/H, pneumonia symptoms, urology, Neurology & EEG, ID, and mental status DVT prophylaxis on hold due to anemia, apixaban when resumed. Lovenox for now. Diet: Heart healthy Awaiting placement Subjective Date/time seen: 06/06/25 15:50 Interval history: Comfortable at bedside Completed Abx per ID awaiting placement Review of Systems Review of Systems: All systems reviewed & are unremarkable except as noted in HPI and below Constitutional: Constitutional: Reports as per HPI and Reports no additional constitutional complaints Eyes: Eyes: Reports as per HPI and Reports no additional eye complaints ENT: Reports system reviewed and no additional complaints, except as documented and Reports Normal hearing present Cardiovascular: Cardiovascular: Reports no additional cardiovascular complaints Respiratory: Respiratory: Reports as per HPI and Reports no additional respiratory complaints Gastrointestinal: Gastrointestinal: Reports as per HPI and Reports no additional gastrointestinal complaints Genitourinary: Genitourinary: Reports no additional female genitourinary complaints Musculoskeletal: Musculoskeletal: Reports no additional musculoskeletal complaints Integumentary/Breasts: Skin/Breast: Reports system reviewed and no additional complaints, except as docu Neurologic: Reports system reviewed and no additional complaints, except as documented and Reports Normal hearing present Psychiatric: Psychiatric: Reports no additional psychiatric complaints and Reports as per HPI Hematologic/Lymphatic: Hematologic/Lymphatic: Reports no additional hematologic/lymphatic complaints Allergic/Immunologic: Allergic/Immunologic: Reports no additional allergic/immunologic complaints Exam Narrative: General: No acute distress, awake and alert but still confused HEENT:? Pupils equal and reactive, sclerae is clear Neck:? Supple Respiratory:? Coarse breath sounds bilaterally, adequate air entry no respiratory distress Cardiac:? S1-S2 normal, regular rate and rhythm Abdomen:? Soft, nontender, nondistended, normoactive bowel sounds Extremities:? No edema, palpable pedal pulses, R foot with slight erythema to the top just under the ankle, unable to palpation due to pt refusing Neuro:? Patient is awake, alert, oriented x2, able to answer questions and follows simple commands in all extremities. Mildly confused Skin:? Warm and dry Psych:? Nml affect Const: General: cooperative, comfortable, no acute distress, well developed, awake, Physically active, average body habitus and well nourished Nutritional Appearance: average body habitus and well nourished Orientation/consciousness: oriented to person and oriented to place HENMT: Head: normal to inspection, No palpable skull fracture present, normocephalic, atraumatic and abrasion Other: She is very hard of hearing bilaterally Eyes: General: appearance normal, both eyes and all related structures Alignment and Position: alignment normal Periorbital: periorbital findings normal Eyelids: eyelids normal Neck: Neck: normal visual inspection and full ROM Chest: Chest palpation & inspection: normal inspection of the chest Resp: Effort & Inspection: normal respiratory effort Auscultation: clear to auscultation bilaterally Percussion: percussion normal Cardio: Palpation: normal PMI Rate: regular rate Rhythm: regular rhythm Heart sounds: S1 normal heart sound present and S2 normal heart sound present Peripheral pulses: Peripheral pulses 2+ throughout GI: Inspection: normal to inspection Auscultation: normal bowel sounds : General: Yes no CVA tenderness Back/Spine/Pelvis: Back: no CVA tenderness Skin: General skin exam: normal color Lesions: no lesions Rashes: no rashes Trauma: no lacerations or abrasions Wounds: no wounds Hair: normal Nails: normal Neuro: General: oriented to person and oriented to place Cranial nerves: Yes Normal hearing present Extrem: General: normal to inspection Right upper extremity: normal to inspection and shoulder/upper arm Left upper extremity: normal to inspection and shoulder/upper arm Right lower extremity: normal to inspection Left lower extremity: normal to inspection Psych: Appearance: grossly normal Mental Status: mental status grossly normal Speech and movement: Normal speech and movement present Affect: normal affect Attitude: cooperative Thought process: Normal thought process present Objective Data Vital Signs Vital Signs: Vital Signs - 24 hr 06/05/25 16:00 06/05/25 16:00 06/05/25 16:00 Temperature 97.5 F L Pulse Rate 81 73 73 Respiratory Rate 18 18 Blood Pressure 103/60 Pulse Oximetry 99 99 Oxygen Delivery Room Air Fraction of Inspired Oxygen 21 06/05/25 18:00 06/05/25 20:00 06/05/25 20:24 Temperature 96.9 F L Pulse Rate 74 110 H 56 L Respiratory Rate 18 Blood Pressure 102/54 L Pulse Oximetry 93 Oxygen Delivery Fraction of Inspired Oxygen 06/05/25 21:12 06/05/25 22:00 06/06/25 00:00 Temperature Pulse Rate 78 105 H 74 Respiratory Rate Blood Pressure Pulse Oximetry Oxygen Delivery Fraction of Inspired Oxygen 06/06/25 00:23 06/06/25 02:00 06/06/25 04:00 Temperature 97.4 F L Pulse Rate 95 107 H 90 Respiratory Rate 18 Blood Pressure 103/51 L Pulse Oximetry 96 Oxygen Delivery Fraction of Inspired Oxygen 06/06/25 06:00 06/06/25 07:52 06/06/25 08:44 Temperature 98.2 F Pulse Rate 78 60 62 Respiratory Rate 18 20 Blood Pressure 111/54 L Pulse Oximetry 96 98 Oxygen Delivery Room Air Fraction of Inspired Oxygen 06/06/25 08:44 06/06/25 08:57 06/06/25 09:35 Temperature Pulse Rate 62 66 66 Respiratory Rate 20 20 Blood Pressure Pulse Oximetry Oxygen Delivery Fraction of Inspired Oxygen 06/06/25 11:41 Temperature 97.5 F L Pulse Rate 71 Respiratory Rate 18 Blood Pressure 108/51 L Pulse Oximetry 99 Oxygen Delivery Fraction of Inspired Oxygen Intake/Output Intake/Output: Intake & Output 06/03/25 06/04/25 06/05/25 06/06/25 23:59 23:59 23:59 23:59 Intake Total 805 539 6880 360 Balance 422 250 4696 360 Meds/Results Medications: Active Medications Generic Name Dose Route Start Last Admin Trade Name Freq PRN Reason Stop Dose Admin Acetaminophen 650 mg 05/26/25 04:35 06/04/25 04:08 Acetaminophen 325 Mg Tablet PO 650 mg Q4H PRN Administration Mild Pain (1-3) or Fever Albuterol/Ipratropium 3 ml 06/06/25 11:27 Ipratropium 0.5 Mg/Albuterol Sulfate 2.5 Mg (Base) Ampul.Neb 3 Ml INHALATION Q6HRT PRN Wheezing Atorvastatin Calcium 40 mg 05/26/25 21:00 06/05/25 21:11 Atorvastatin 40 Mg Tablet PO 40 mg HS FUNMI Administration Benzonatate 100 mg 06/03/25 06:50 06/06/25 14:40 Benzonatate 100 Mg Capsule PO Not Given Q8HR FUNMI Carvedilol 6.25 mg 05/28/25 21:00 06/06/25 09:35 Carvedilol 6.25 Mg Tablet PO 6.25 mg Q12HR FUNMI Administration Enoxaparin Sodium 30 mg 06/03/25 09:00 06/06/25 09:36 Enoxaparin 30 Mg/0.3 Ml Syringe SUB-Q 30 mg DAILY FUNMI Administration Furosemide 40 mg 06/05/25 09:00 06/06/25 09:35 Furosemide 40 Mg Tablet PO 40 mg QAM FUNMI Administration Losartan Potassium 50 mg 05/30/25 12:00 06/06/25 09:35 Losartan Potassium 50 Mg Tablet PO 50 mg DAILY FUNMI Administration Ondansetron HCl 4 mg 05/26/25 04:35 Ondansetron Inj 4 Mg/2 Ml Vial IV PUSH Q4H PRN Nausea Pantoprazole Sodium 40 mg 05/26/25 09:00 06/06/25 09:35 Pantoprazole Sodium Iv 40 Mg Vial IV PUSH 40 mg QAM FUNMI Administration Perflutren Lipid Microsphere 0 ml 06/05/25 00:05 Perflutren Lipid Microspheres 1.5 Ml Vial Diluted To 10 Ml Total Volume IV PUSH ONCE PRN adequate visualization Protocol Polyethylene Glycol 17 gm 06/03/25 12:45 06/06/25 09:36 Polyethylene Glycol 3350 17 Gm Powd.Pack PO 17 gm QAM FUNMI Administration Pregabalin 50 mg 06/04/25 14:00 06/06/25 14:40 Pregabalin (*Crx) 50 Mg Capsule PO 50 mg Q8HR FUNMI Administration Radiology Results: ITS Impressions Head CT 05/25/25 20:11 IMPRESSION: No acute findings. All CT scans at this facility are performed using low dose modulation techniques as appropriate to perform exam including the following: automated exposure control; use of iterative reconstruction technique; adjustment of the mA and/or kV according to patient size (this includes techniques or standardized protocols for targeted exams where dose is matched to indication/reason for exam). Foot X-Ray 05/25/25 20:17 IMPRESSION: No acute abnormalities are seen. Given the MTP findings, consider gout. Abdomen/Pelvis CT 05/26/25 08:15 IMPRESSION: 1. Bilateral hydronephrosis and hydroureter with distal stricture suspected. Findings are probably chronic without. The renal parenchyma noted bilaterally. 2. Incidental findings above Ankle X-Ray 05/29/25 11:21 Impression: No acute fracture or malalignment. Chest X-Ray 06/05/25 12:19 Impression: CHF. Superimposed pneumonia is suspected the findings appear improved compared to the previous study. Labs Labs: Laboratory Results - last 24 hr 06/06/25 08:02 WBC 5.6 RBC 3.47 L Hgb 8.9 L Hct 28.9 L MCV 83.3 MCH 25.6 L MCHC 30.8 L RDW 16.7 H Plt Count 291 MPV 9.6 Immature Gran % (Auto) 0.9 H Neut % (Auto) 57.0 Lymph % (Auto) 37.4 [place] % (Auto) 3.6 Eos % (Auto) 0.2 Baso % (Auto) 0.9 Lymph # (Auto) 2.09 [place] # (Auto) 0.2 Eos # (Auto) 0.0 Baso # (Auto) 0.1 Abs Immat Gran (auto) 0.05 H Absolute Neuts (auto) 3.2 Absolute Nucleated RBC 0.000 Band Neutrophils % Not Reportable Nucleated RBC % 0.0 Platelet Estimate Adequate Hypochromasia 1+ Anisocytosis 1+ Ovalocytes 1+ [place] Cells 1+ Acanthocytes (Spur) 1+ Schistocytes None seen Sodium 139 Potassium 3.2 L Chloride 109 H Carbon Dioxide 26 Anion Gap 4 BUN 19 H Creatinine 1.12 H Estim Creat Clear Calc 26 Estimated GFR 47 L Glucose 142 H Calcium 9.3 Magnesium 1.9 Total Bilirubin 0.4 AST 28 ALT 15 Alkaline Phosphatase 124 Total Protein 7.0 Albumin 3.1 L Quality VTE Prophylaxis VTE prophylaxis: mechanical ordered and pharmacologic ordered
[2025-06-06] MEDS: BENZONATATE 100 MG CAPSULE PO (22:00)
[2025-06-06] MEDS: ACETAMINOPHEN 325 MG TABLET 650 MG PO (22:01)
[2025-06-06] MEDS: ATORVASTATIN 40 MG TABLET PO (22:01)
[2025-06-07] VITALS (19 sets, daily range): BP systolic 101–130; BP diastolic 46–75; PULSE 55–84; RESP 14–18; TEMP 36.4–37; O2SAT 66–99
[2025-06-07 04:41] LABS: Hematocrit 29.0 % (37.0-47.0); Hemoglobin 8.7 g/dL (12.0-15.0); Immature Granulocyte Percent A 0.4 % (0-0.5); Lymphocytes Absolute Auto 2.39 K/mm3 (0.9-3.2); Mean Corpuscular HGB Conc 30.0 g/dl (32-36); Mean Corpuscular Hemoglobin 25.8 pg (26-34); Mean Corpuscular Volume 86.1 fl (80-100); Nucleated Red Blood Cells Absolute Auto 0.000 K/mm3 (0.0-0.012); Nucleated Red Blood Cells Perc 0.0 % (0.0-0.2); Platelet Count Result 300 k/mm3 (150-375); Red Blood Count 3.37 M/mm3 (4.2-5.4); White Blood Count 5.6 K/mm3 (4.5-10.0)
[2025-06-07 04:56] LABS: Alanine Aminotransferase 12 U/L (6-35); Albumin Level 2.9 g/dL (3.5-5.1); Alkaline Phosphatase 112 U/L (38-126); Anion Gap 3 mmol/L (4-12); Aspartate Amino Transferase 18 U/L (14-36); Bilirubin,Total 0.3 mg/dL (0.2-1.3); Blood Urea Nitrogen 21 mg/dL (7-17); Calcium 8.7 mg/dL (8.4-10.2); Carbon Dioxide 26 mmol/L (22-30); Chloride 111 mmol/L (98-107); Estimated CRCL calculation 23 ml/min; Estimated Glomerular Filt Rate 41; Glucose 84 mg/dL (65-110); Potassium 3.1 mmol/L (3.4-5.0); Sodium 140 mmol/L (137-145); Total Protein 6.5 g/dL (6.3-8.2)
[2025-06-07 05:19] LABS: Anisocytosis 1+; Burr Cells 1+; Hypochromasia 1+; Ovalocytes 1+; Schistocytes None Seen
[2025-06-07] MEDS: BENZONATATE 100 MG CAPSULE PO ×3 (05:25→21:33)
[2025-06-07] MEDS: PREGABALIN (*CRX) 50 MG CAPSULE PO ×3 (05:25→21:33)
[2025-06-07] MEDS: PANTOPRAZOLE SODIUM IV 40 MG VIAL IV PUSH (08:41)
[2025-06-07] MEDS: FUROSEMIDE 40 MG TABLET PO (08:42)
[2025-06-07] MEDS: LOSARTAN POTASSIUM 50 MG TABLET PO (08:42)
[2025-06-07] MEDS: ENOXAPARIN 30 MG/0.3 ML SYRINGE SUB-Q (08:42)
--- NOTE | 2025-06-07 09:51 | WPDNEUROLOGY ---
Neurology EEG Report General Information Date of Study: 06/06/25 TEST EEG DIAGNOSIS Acute mental status changes CONDITION OF RECORDING awake EEG NUMBER [id number] CLINICAL HISTORY 79 years old of female had a septic infection and became unresponsive. Her children gave her after non medicine and noticed she was not feeling well. Then, when giving her nighttime medicine, she became unresponsive. Patient is still currently not back to baseline, according to the daughter. Patient having trouble remembering things and is awake alert oriented x2 patient has lived independently drove herself does crafts. Patient has past medical history of fibrillation and holds a lot of fluid in her heart . EEG DESCRIPTION whole record consists of medium voltage 5 to 7 hertz per 2nd theta activity admixed with multiple movement artifacts and muscle artifacts. Photic stimulation not done. Hyperventilation not done. Non paroxysmal. Nonfocal. Nonlateralizing. IMPRESSION Abnormal record due to the absence of normal background rhythm and due to the presence of theta activity throughout the tracing. These abnormalities are suggestive of organic or metabolic encephalopathy. Clinical correlation recommended. There is no evidence of any paroxysmal discharge.
--- NOTE | 2025-06-07 13:45 | PM.IMPN2 ---
Assessment and Plan Assessment and Plan (1) Septic shock: Code(s): A41.9 - Sepsis, unspecified organism; R65.21 - Severe sepsis with septic shock Status: Resolved Assessment and Plan: Patient presented with generalized weakness, fall, altered mental status, fevers, UA was reflective of UTI. Patient does have a history of UTI. Also bilateral hydronephrosis which are chronic and she follows up with Urology -05/25: patient was hypotensive in the ER, was given 30 cc/kg IV fluid bolus despite which her blood pressures remain low, right femoral central line was inserted -OFF Levophed, maintain MAP > 65 mmHg or SBP > 100 mmHg -patient started on cefepime and vancomycin, will deescalate once cultures a result (05/26) -05/25: Urine and blood cultures have been obtained and pending, (patient has had Citrobacter, Klebsiella and Pseudomonas in the past in the urine cultures, all susceptible to cefepime) -lactic acid are within normal limits -will discontinue maintenance IV fluid since patient is currently volume resuscitated -monitor urine output -05/27: blood cultures growing gram positive cocci- cefepime + vancomycin adequate coverage at this time, sensitivities pending. -05/29: Blood cultures grew pansensitive E faecalis. Antibiotic therapy switch to ampicillin along with repeat blood culture consideration for echocardiogram if repeat blood cultures positive -06/01: Reviewed blood culture so far no growth. Will get ID consult in regards to continuing ampicillin. Patient remains out of shock or sepsis at this time. -06/02: ID recommendations pending, will follow. -06/03: Noted ID recommendations continue ampicillin for today and discontinue. As above, new cough with pulmonary infiltrate noted however no signs of recurrence of sepsis at this time. Will trend white blood cell count, monitor for fever monitor for production of sputum, and obtain lactic acid with a.m. labs. Consider ID evaluation tomorrow 06/04 if patient appears to be developing non ventilator associated hospital-acquired pneumonia. Possibility this is due to congestion rather than pneumonia. 06/04: Per nursing and pt, cough better today. Expiratory wheezing/coarse BS throughout, continue with scheduled nebs. WBC stable, lactic acid WDL. VSS. 06/05 respiratory distress needing BiPAP support. Will recheck chest x-ray. Restarted on ceftriaxone and azithromycin which will be continued. Check procalcitonin. Suspect pulmonary edema related rather than pneumonia. Completed abtibiotics for bacteremia (2) Acute UTI: Code(s): N39.0 - Urinary tract infection, site not specified Status: Resolved Assessment and Plan: Admitted for urosepsis as likely primary source of septic shock however urine culture returned negative. Blood cultures as above have returned positive, management as above with ampicillin monotherapy. Urology has been on board as patient does have chronic hydronephrosis. They recommended repeating the urine culture given prior negative result. Will follow culture, repeat 05/29 NG final. (3) Altered mental status: Code(s): R41.82 - Altered mental status, unspecified Status: Acute Assessment and Plan: New onset delirium, ddx includes sepsis, ICU-related delirium, metabolic (however low suspicion), hardware (central line), transfer from [facility] as well, and sleep deprivation/altered sleep-wake cycle. 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 Will reassess in the afternoon to track progression of altered mental status. Blood cultures have grown positive for pansensitive Enterococcus faecalis in urine cultures so far are negative. Patient is not in shock number showing significant signs of sepsis as white count is normal today. However, given ongoing infection, there may be element of sepsis causing altered mental status at this time as well as previously mentioned factors. -Monitor for improvement -manage underlying causes -Frequent reorientation -Neurology evaluation- recommending EEG at this time. EEG still pending-can be done on Tuesday 06/05 or outpatient. (4) MAGALIS (acute kidney injury): Code(s): N17.9 - Acute kidney failure, unspecified Status: Resolved Assessment and Plan: Acute kidney injury likely related to hypovolemia per ER physician -adequately fluid resuscitated -continue to monitor renal function, electrolytes and urine output -creatinine is 1.1. Appears to be more element of CKD at this time. (5) History of pulmonary embolism: Code(s): Z86.711 - Personal history of pulmonary embolism Status: Chronic Assessment and Plan: Patient on apixaban, clopidogrel at home will hold for now given patient is anemic -hemoglobin 6.9 needing transfusion 06/04/2025 -will consider restarting anticoagulation if hemoglobin remains stable No signs of bleeding (6) CHF (congestive heart failure): Code(s): I50.9 - Heart failure, unspecified Status: Acute Assessment and Plan: Hold furosemide, carvedilol due to patient being hypotensive, in septic shock, on pressors 05/27: off pressors, cautiously resume as BP goes up -will resume losartan and carvedilol at this time, and continue to monitor blood pressure Received IV Lasix 60 mg 06/04/2025 Restarted on oral Lasix (7) Hypertension: Code(s): I10 - Essential (primary) hypertension Status: Chronic Assessment and Plan: Off pressors -will resume losartan and carvedilol at this time, and continue to monitor blood pressure (8) Anemia: Code(s): D64.9 - Anemia, unspecified Status: Acute Assessment and Plan: Patient dropped her hemoglobin, 9.6 on admission to 7.1. -iron panel reflects anemia of chronic disease -vitamin B12 and folate within normal limit -patient also on apixaban and clopidogrel at home which are currently on hold -will consider resuming apixaban and clopidogrel if hemoglobin remains stable -06/03: Hemoglobin now 7.0. FOBT with next bowel movement, type and screen with morning labs, transfuse if hemoglobin less than 7 -06/04: Hgb 6.9 with AM labs, x1 unit PRBCs ordered for transfusion, will repeat h/h after --FOBT negative H&H appropriately up. Will continue to monitor Plan Following H/H, pneumonia symptoms, urology, Neurology & EEG, ID, and mental status DVT prophylaxis on hold due to anemia, apixaban when resumed. Lovenox for now. Diet: Heart healthy Awaiting placement Subjective Date/time seen: 06/07/25 13:45 Interval history: Comfortable at bedside Completed Abx per ID awaiting placement Review of Systems Review of Systems: All systems reviewed & are unremarkable except as noted in HPI and below Constitutional: Constitutional: Reports as per HPI and Reports no additional constitutional complaints Eyes: Eyes: Reports as per HPI and Reports no additional eye complaints ENT: Reports system reviewed and no additional complaints, except as documented and Reports Normal hearing present Cardiovascular: Cardiovascular: Reports no additional cardiovascular complaints Respiratory: Respiratory: Reports as per HPI and Reports no additional respiratory complaints Gastrointestinal: Gastrointestinal: Reports as per HPI and Reports no additional gastrointestinal complaints Genitourinary: Genitourinary: Reports no additional female genitourinary complaints Musculoskeletal: Musculoskeletal: Reports no additional musculoskeletal complaints Integumentary/Breasts: Skin/Breast: Reports system reviewed and no additional complaints, except as docu Neurologic: Reports system reviewed and no additional complaints, except as documented and Reports Normal hearing present Psychiatric: Psychiatric: Reports no additional psychiatric complaints and Reports as per HPI Hematologic/Lymphatic: Hematologic/Lymphatic: Reports no additional hematologic/lymphatic complaints Allergic/Immunologic: Allergic/Immunologic: Reports no additional allergic/immunologic complaints Exam Narrative: General: No acute distress, awake and alert but still confused HEENT:? Pupils equal and reactive, sclerae is clear Neck:? Supple Respiratory:? Coarse breath sounds bilaterally, adequate air entry no respiratory distress Cardiac:? S1-S2 normal, regular rate and rhythm Abdomen:? Soft, nontender, nondistended, normoactive bowel sounds Extremities:? No edema, palpable pedal pulses, R foot with slight erythema to the top just under the ankle, unable to palpation due to pt refusing Neuro:? Patient is awake, alert, oriented x2, able to answer questions and follows simple commands in all extremities. Mildly confused Skin:? Warm and dry Psych:? Nml affect Const: General: cooperative, comfortable, no acute distress, well developed, awake, Physically active, average body habitus and well nourished Nutritional Appearance: average body habitus and well nourished Orientation/consciousness: oriented to person and oriented to place HENMT: Head: normal to inspection, No palpable skull fracture present, normocephalic, atraumatic and abrasion Other: She is very hard of hearing bilaterally Eyes: General: appearance normal, both eyes and all related structures Alignment and Position: alignment normal Periorbital: periorbital findings normal Eyelids: eyelids normal Neck: Neck: normal visual inspection and full ROM Chest: Chest palpation & inspection: normal inspection of the chest Resp: Effort & Inspection: normal respiratory effort Auscultation: clear to auscultation bilaterally Percussion: percussion normal Cardio: Palpation: normal PMI Rate: regular rate Rhythm: regular rhythm Heart sounds: S1 normal heart sound present and S2 normal heart sound present Peripheral pulses: Peripheral pulses 2+ throughout GI: Inspection: normal to inspection Auscultation: normal bowel sounds : General: Yes no CVA tenderness Back/Spine/Pelvis: Back: no CVA tenderness Skin: General skin exam: normal color Lesions: no lesions Rashes: no rashes Trauma: no lacerations or abrasions Wounds: no wounds Hair: normal Nails: normal Neuro: General: oriented to person and oriented to place Cranial nerves: Yes Normal hearing present Extrem: General: normal to inspection Right upper extremity: normal to inspection and shoulder/upper arm Left upper extremity: normal to inspection and shoulder/upper arm Right lower extremity: normal to inspection Left lower extremity: normal to inspection Psych: Appearance: grossly normal Mental Status: mental status grossly normal Speech and movement: Normal speech and movement present Affect: normal affect Attitude: cooperative Thought process: Normal thought process present Objective Data Vital Signs Vital Signs: Vital Signs - 24 hr 06/06/25 14:00 06/06/25 16:00 06/06/25 16:00 Temperature Pulse Rate 77 67 Respiratory Rate Blood Pressure Pulse Oximetry 97 Oxygen Delivery Room Air Fraction of Inspired Oxygen 06/06/25 16:03 06/06/25 18:00 06/06/25 19:24 Temperature 97.4 F L 97.4 F L Pulse Rate 58 L 71 54 L Respiratory Rate 2 L 18 Blood Pressure 125/76 105/47 L Pulse Oximetry 97 94 Oxygen Delivery Fraction of Inspired Oxygen 06/06/25 20:00 06/06/25 20:00 06/06/25 20:44 Temperature Pulse Rate 54 L 59 L Respiratory Rate 18 Blood Pressure Pulse Oximetry 99 99 Oxygen Delivery Room Air Room Air Fraction of Inspired Oxygen 06/06/25 22:00 06/07/25 00:00 06/07/25 00:00 Temperature 98.0 F Pulse Rate 73 73 55 L Respiratory Rate 18 16 Blood Pressure 102/46 L Pulse Oximetry 99 95 Oxygen Delivery Room Air Fraction of Inspired Oxygen 06/07/25 00:00 06/07/25 02:00 06/07/25 04:00 Temperature Pulse Rate 62 64 59 L Respiratory Rate 14 Blood Pressure Pulse Oximetry 96 Oxygen Delivery Room Air Fraction of Inspired Oxygen 21 06/07/25 04:00 06/07/25 04:02 06/07/25 06:00 Temperature 98.1 F Pulse Rate 63 59 L 56 L Respiratory Rate 14 Blood Pressure 101/55 L Pulse Oximetry 96 Oxygen Delivery Fraction of Inspired Oxygen 06/07/25 07:43 06/07/25 08:00 06/07/25 08:00 Temperature Pulse Rate 70 Respiratory Rate Blood Pressure Pulse Oximetry 97 Oxygen Delivery Room Air Room Air Fraction of Inspired Oxygen 06/07/25 08:03 06/07/25 08:42 06/07/25 10:00 Temperature 97.7 F Pulse Rate 60 64 63 Respiratory Rate 16 Blood Pressure 126/69 Pulse Oximetry 97 Oxygen Delivery Fraction of Inspired Oxygen 06/07/25 11:23 06/07/25 12:00 06/07/25 12:00 Temperature 97.9 F Pulse Rate 65 73 Respiratory Rate 18 Blood Pressure 130/75 Pulse Oximetry 96 Oxygen Delivery Room Air Fraction of Inspired Oxygen Intake/Output Intake/Output: Intake & Output 06/04/25 06/05/25 06/06/25 06/07/25 23:59 23:59 23:59 23:59 Intake Total 644 2060 630 240 Balance 644 2060 630 240 Meds/Results Medications: Active Medications Generic Name Dose Route Start Last Admin Trade Name Freq PRN Reason Stop Dose Admin Acetaminophen 650 mg 05/26/25 04:35 06/06/25 22:01 Acetaminophen 325 Mg Tablet PO 650 mg Q4H PRN Administration Mild Pain (1-3) or Fever Albuterol/Ipratropium 3 ml 06/06/25 11:27 Ipratropium 0.5 Mg/Albuterol Sulfate 2.5 Mg (Base) Ampul.Neb 3 Ml INHALATION Q6HRT PRN Wheezing Atorvastatin Calcium 40 mg 05/26/25 21:00 06/06/25 22:01 Atorvastatin 40 Mg Tablet PO 40 mg HS FUNMI Administration Benzonatate 100 mg 06/03/25 06:50 06/07/25 13:32 Benzonatate 100 Mg Capsule PO 100 mg Q8HR FUNMI Administration Carvedilol 6.25 mg 05/28/25 21:00 06/07/25 08:42 Carvedilol 6.25 Mg Tablet PO 6.25 mg Q12HR FUNMI Administration Enoxaparin Sodium 30 mg 06/03/25 09:00 06/07/25 08:42 Enoxaparin 30 Mg/0.3 Ml Syringe SUB-Q 30 mg DAILY FUNMI Administration Furosemide 40 mg 06/05/25 09:00 06/07/25 08:42 Furosemide 40 Mg Tablet PO 40 mg QAM FUNMI Administration Losartan Potassium 50 mg 05/30/25 12:00 06/07/25 08:42 Losartan Potassium 50 Mg Tablet PO 50 mg DAILY FUNMI Administration Ondansetron HCl 4 mg 05/26/25 04:35 Ondansetron Inj 4 Mg/2 Ml Vial IV PUSH Q4H PRN Nausea Pantoprazole Sodium 40 mg 05/26/25 09:00 06/07/25 08:41 Pantoprazole Sodium Iv 40 Mg Vial IV PUSH 40 mg QAM FUNMI Administration Perflutren Lipid Microsphere 0 ml 06/05/25 00:05 Perflutren Lipid Microspheres 1.5 Ml Vial Diluted To 10 Ml Total Volume IV PUSH ONCE PRN adequate visualization Protocol Polyethylene Glycol 17 gm 06/03/25 12:45 06/07/25 08:41 Polyethylene Glycol 3350 17 Gm Powd.Pack PO Not Given QAM FUNMI Pregabalin 50 mg 06/04/25 14:00 06/07/25 13:32 Pregabalin (*Crx) 50 Mg Capsule PO 50 mg Q8HR FUNMI Administration Radiology Results: ITS Impressions Head CT 05/25/25 20:11 IMPRESSION: No acute findings. All CT scans at this facility are performed using low dose modulation techniques as appropriate to perform exam including the following: automated exposure control; use of iterative reconstruction technique; adjustment of the mA and/or kV according to patient size (this includes techniques or standardized protocols for targeted exams where dose is matched to indication/reason for exam). Foot X-Ray 05/25/25 20:17 IMPRESSION: No acute abnormalities are seen. Given the MTP findings, consider gout. Abdomen/Pelvis CT 05/26/25 08:15 IMPRESSION: 1. Bilateral hydronephrosis and hydroureter with distal stricture suspected. Findings are probably chronic without. The renal parenchyma noted bilaterally. 2. Incidental findings above Ankle X-Ray 05/29/25 11:21 Impression: No acute fracture or malalignment. Chest X-Ray 06/05/25 12:19 Impression: CHF. Superimposed pneumonia is suspected the findings appear improved compared to the previous study. Labs Labs: Laboratory Results - last 24 hr 06/07/25 04:25 WBC 5.6 RBC 3.37 L Hgb 8.7 L Hct 29.0 L MCV 86.1 MCH 25.8 L MCHC 30.0 L RDW 17.2 H Plt Count 300 MPV 9.8 Immature Gran % (Auto) 0.4 Neut % (Auto) 45.9 Lymph % (Auto) 42.5 [place] % (Auto) 6.2 Eos % (Auto) 3.4 Baso % (Auto) 1.6 H Lymph # (Auto) 2.39 [place] # (Auto) 0.4 Eos # (Auto) 0.2 Baso # (Auto) 0.1 Abs Immat Gran (auto) 0.02 Absolute Neuts (auto) 2.6 Absolute Nucleated RBC 0.000 Band Neutrophils % Not Reportable Nucleated RBC % 0.0 Platelet Estimate Adequate Hypochromasia 1+ Anisocytosis 1+ Ovalocytes 1+ [place] Cells 1+ Schistocytes None seen Sodium 140 Potassium 3.1 L Chloride 111 H Carbon Dioxide 26 Anion Gap 3 L BUN 21 H Creatinine 1.26 H Estim Creat Clear Calc 23 Estimated GFR 41 L Glucose 84 Calcium 8.7 Total Bilirubin 0.3 AST 18 ALT 12 Alkaline Phosphatase 112 Total Protein 6.5 Albumin 2.9 L Quality VTE Prophylaxis VTE prophylaxis: mechanical ordered and pharmacologic ordered
[2025-06-07] MEDS: ATORVASTATIN 40 MG TABLET PO (21:33)
[2025-06-08] VITALS (9 sets, daily range): BP systolic 121–129; BP diastolic 60–81; PULSE 52–81; RESP 16–20; TEMP 36.3–36.7; O2SAT 91–96
[2025-06-08 04:16] LABS: Hematocrit 29.9 % (37.0-47.0); Hemoglobin 8.8 g/dL (12.0-15.0); Immature Granulocyte Percent A 0.4 % (0-0.5); Lymphocytes Absolute Auto 1.94 K/mm3 (0.9-3.2); Mean Corpuscular HGB Conc 29.4 g/dl (32-36); Mean Corpuscular Hemoglobin 25.4 pg (26-34); Mean Corpuscular Volume 86.2 fl (80-100); Nucleated Red Blood Cells Absolute Auto 0.000 K/mm3 (0.0-0.012); Nucleated Red Blood Cells Perc 0.0 % (0.0-0.2); Platelet Count Result 310 k/mm3 (150-375); Red Blood Count 3.47 M/mm3 (4.2-5.4); White Blood Count 5.7 K/mm3 (4.5-10.0)
[2025-06-08 04:37] LABS: Hypochromasia 1+; Ovalocytes 1+; Schistocytes None Seen
[2025-06-08 04:39] LABS: Alanine Aminotransferase 13 U/L (6-35); Albumin Level 3.0 g/dL (3.5-5.1); Alkaline Phosphatase 108 U/L (38-126); Anion Gap 5 mmol/L (4-12); Aspartate Amino Transferase 15 U/L (14-36); Bilirubin,Total 0.4 mg/dL (0.2-1.3); Blood Urea Nitrogen 16 mg/dL (7-17); Calcium 8.8 mg/dL (8.4-10.2); Carbon Dioxide 27 mmol/L (22-30); Chloride 110 mmol/L (98-107); Estimated CRCL calculation 25 ml/min; Estimated Glomerular Filt Rate 46; Glucose 81 mg/dL (65-110); Magnesium 1.8 mg/dL (1.6-2.3); Potassium 3.1 mmol/L (3.4-5.0); Sodium 142 mmol/L (137-145); Total Protein 6.6 g/dL (6.3-8.2)
[2025-06-08] MEDS: PREGABALIN (*CRX) 50 MG CAPSULE PO ×2 (06:05→14:42)
[2025-06-08] MEDS: BENZONATATE 100 MG CAPSULE PO ×2 (06:05→14:42)
[2025-06-08] MEDS: LOSARTAN POTASSIUM 50 MG TABLET PO (10:19)
[2025-06-08] MEDS: FUROSEMIDE 40 MG TABLET PO (10:19)
[2025-06-08] MEDS: ENOXAPARIN 30 MG/0.3 ML SYRINGE SUB-Q (10:20)
[2025-06-08] MEDS: PANTOPRAZOLE SODIUM IV 40 MG VIAL IV PUSH (10:20)
[2025-06-08] MEDS: IRON SUCROSE COMPLEX 400 MG, IRON SUCROSE COMPLEX 100 MG in SODIUM CHLORIDE 0.9% IV 250 ML 78.57 MG IVPB (11:59)
--- NOTE | 2025-06-08 13:23 | P.DS_ITS ---
DS: Admitting Diagnosis Discharge Date 06/08/2025 Admitting Diagnosis Weakness DS: Discharge Diagnosis Discharge Diagnosis (1) Septic shock: Code(s): A41.9 - Sepsis, unspecified organism; R65.21 - Severe sepsis with septic shock Status: Resolved (2) MAGALIS (acute kidney injury): Code(s): N17.9 - Acute kidney failure, unspecified Status: Resolved DS: Summary Hospital Course Hospital Course: Reason for Admission 79-year-old female with a history of CHF, CAD, chronic bilateral hydronephrosis, prior bladder cancer, and chronic anticoagulation, admitted for septic shock secondary to urosepsis with acute mental status changes and falls. Hospital Course History of Present Illness * Presented with 2 weeks of progressive weakness, increased falls, and acute worsening over 2 days. * Found to be febrile (Tmax 101.9?F), hypotensive (BP rhona 74/48), and altered. * Initial labs: WBC 13.5, Hgb 9.6, Hct 30.8, Na 135, K 3.2, BUN 22, Cr 1.27, UA with pyuria and leukocyte esterase. * Imaging: No acute findings on head CT or foot x-ray; chest x-ray with cardiomegaly; CT abdomen/pelvis with chronic bilateral hydronephrosis. * Met sepsis criteria; required 4L IV fluids and vasopressor support (norepinephrine). * Admitted to ICU for management of septic shock. ICU Course * Treated with broad-spectrum antibiotics (cefepime, vancomycin, later narrowed to ampicillin for Enterococcus faecalis bacteremia). * Urology consulted: No acute intervention for hydronephrosis; chronic findings. * Developed MAGALIS, which resolved with resuscitation. * Developed anemia (Hgb rhona 6.9), likely multifactorial (chronic disease, acute illness, anticoagulation held). * Mental status fluctuated; neurology consulted, EEG showed diffuse theta activity consistent with metabolic/organic encephalopathy. * Infectious Disease consulted for bacteremia management. * Developed new cough and pulmonary infiltrate late in course, managed as possible CHF exacerbation and/or pneumonia. Hospital Course * Vasopressors weaned off as hemodynamics stabilized. * Completed appropriate antibiotic course for E. faecalis bacteremia. * UTI resolved; urine cultures negative, blood cultures cleared. * MAGALIS resolved; creatinine returned to baseline. * Anemia managed with transfusion as needed; no evidence of active bleeding. S/p 500mg IV iron and discharged on 30 days of PO iron. Also discussed with GI, will hold eliquis until follow up with GI outpatient for possible GI bleed eval * CHF managed with cautious diuresis as tolerated. * Altered mental status improved but did not return to baseline; EEG confirmed encephalopathy. * Discharge planning for post-acute care due to persistent cognitive and functional decline. Discharge Diagnoses Principal: * Septic shock, resolved?(A41.9, R65.21) ? secondary to urosepsis, now resolved. Secondary:?2.?Enterococcus faecalis bacteremia?(R78.81, B95.2) ? treated, resolved. 3.?Acute UTI?(N39.0) ? treated, resolved. 4.?Acute kidney injury, resolved?(N17.9) ? now at baseline. 5.?Congestive heart failure, acute on chronic?(I50.9) ? managed, compensated. 6.?Altered mental status/encephalopathy?(R41.82, G93.40) ? multifactorial, improved but not at baseline. 7.?Anemia of chronic disease, acute on chronic?(D64.9) ? transfused, stable. 8.?History of pulmonary embolism?(Z86.711) 9.?Chronic bilateral hydronephrosis?(N13.30) 10.?History of bladder cancer?(C67.2, Z85.51) 11.?Hypertension?(I10) 12.?Hyperlipidemia?(E78.5) 13.?Chronic anticoagulation?(Z79.01) 14.?History of splenic infarct?(D73.5) 15.?History of falls?(R29.6) Procedures * Central venous catheter placement (right femoral vein) for vasopressor administration. * Blood transfusion (PRBCs) for anemia. Consultations * Critical Care/[employer] Director * Urology * Neurology * Infectious Disease Referral to GI in 1 week. Discussed with GI as above Hospital Medications (at Discharge) * Atorvastatin 40 mg PO HS * Carvedilol 6.25 mg PO BID?(if hemodynamically stable) * Losartan 50 mg PO daily?(if hemodynamically stable) * Furosemide 40 mg PO daily?(as tolerated for CHF) * Pantoprazole 40 mg IV/PO daily * Acetaminophen 650 mg PO q4h PRN pain/fever * Albuterol/ipratropium nebulizer q6h PRN * Benzonatate 100 mg PO q8h PRN cough * Pregabalin 50 mg PO TID * Ondansetron 4 mg IV/PO q4h PRN nausea * Enoxaparin 30 mg SQ daily?(for DVT prophylaxis, if not on full anticoagulation) * Clopidogrel:?Hold Eliquis until follow up with GI outpatient * Antibiotics: Completed per ID recommendations Discharge Condition * Hemodynamically stable, afebrile, no acute distress. * Mental status: Awake, alert, oriented to person and place, but persistent mild confusion compared to baseline. * Ambulating with assistance; at increased fall risk. * No respiratory distress; oxygenating well on room air. * Turner catheter removed; voiding spontaneously. * No evidence of active infection or bleeding. Discharge Instructions * Activity:?Ambulate with assistance; fall precautions. * Diet:?Heart-healthy. * Medications:?As above; resume home medications as tolerated, except anticoagulation/antiplatelet agents per instructions. * Wound Care:?None required. * Follow-up Appointments: * Primary Care:?Within 1 week. * Urology:?Outpatient cystoscopy as recommended. * Neurology:?Outpatient follow-up for encephalopathy if persistent. * Infectious Disease:?As needed. * Cardiology:?For CHF management. * Gi in 1 week for GI bleed eval * SNF * Return Precautions:?Worsening confusion, fever, chest pain, shortness of breath, new or worsening weakness, decreased urine output, or any other concerning symptoms. Summary of [place] Issues for Post-Acute Care * Monitor for recurrent infection (UTI, bacteremia). * Monitor for CHF exacerbation and volume status. * Monitor for recurrent or worsening encephalopathy. * Monitor for anemia and bleeding, hold Eliquis until follow up with GI for GI bleed eval * Fall precautions and assistance with ADLs. Time Spent with Patient Time attestation: Total time spent providing and/or coordinating discharge services: DS: Data Data Completed and Pending Labs on day of discharge: Labs from last 24 hours 06/08/25 04:03 WBC 5.7 RBC 3.47 L Hgb 8.8 L Hct 29.9 L MCV 86.2 MCH 25.4 L MCHC 29.4 L RDW 17.5 H Plt Count 310 MPV 9.4 Immature Gran % (Auto) 0.4 Neut % (Auto) 53.7 Lymph % (Auto) 34.0 [place] % (Auto) 6.5 Eos % (Auto) 4.2 Baso % (Auto) 1.2 Lymph # (Auto) 1.94 [place] # (Auto) 0.4 Eos # (Auto) 0.2 Baso # (Auto) 0.1 Abs Immat Gran (auto) 0.02 Absolute Neuts (auto) 3.1 Absolute Nucleated RBC 0.000 Band Neutrophils % Not Reportable Nucleated RBC % 0.0 Platelet Estimate Adequate Hypochromasia 1+ Ovalocytes 1+ Schistocytes None seen Sodium 142 Potassium 3.1 L Chloride 110 H Carbon Dioxide 27 Anion Gap 5 BUN 16 Creatinine 1.14 H Estim Creat Clear Calc 25 Estimated GFR 46 L Glucose 81 Lactic Acid 1.5 Calcium 8.8 Magnesium 1.8 Total Bilirubin 0.4 AST 15 ALT 13 Alkaline Phosphatase 108 Total Protein 6.6 Albumin 3.0 L Discharge Plan Discharge Attending physician on discharge: Héctor Gracia Consulting providers: Belia Perez; Angela Ca; Michael Cottrell; Adolfo Pate; Herlinda Quiroz; Héctor Gracia Discharging Clinician: Héctor Gracia Anticipated Discharge Date/Time: 06/08/25 13:12 Patient Disposition: SNF Activity: as tolerated Diet: as tolerated and heart healthy Discharge Instructions: Hold Eliquis until follow up with GI. Patient Instructions: Apixaban (By mouth), Heart Failure (GEN), Urinary Tract Infection in Women (GEN), Sepsis (GEN), Urinary Tract Infection in Older Adults (GEN) Patient Language: Bolivian Stand Alone Forms: General Discharge Information Follow-up/Referrals: Michael Cottrell MD [Physician, Urology] Referral Note: F/u with urology as instructed Bethel,Agustin Wade MD [Primary Care Provider] Referral Note: F/u with PCP in 3-5 days Herlinda Quiroz MD [Physician, Infectious Disease] Referral Note: F/u with ID as instructed Adolfo Pate MD [Physician, Neurology] Referral Note: F/u with Neurology as instructed Chintan Reed MD [Physician, Gastroenterology] Referral Note: F/u with in 1 week for GI bleed eval Eleiquis on hold pending follow up with GI Discharge Medications: New ferrous sulfate 324 mg (65 mg iron) tablet,delayed release (DR/EC) 324 mg PO DAILY 30 Days Qty: 30 0RF pantoprazole [Protonix] 40 mg tablet,delayed release (DR/EC) 40 mg PO BID 30 Days Qty: 60 0RF Continued losartan [Cozaar] 50 mg Tablet 50 mg PO DAILY Qty: 30 1RF furosemide 40 mg Tablet 40 mg PO QAM Qty: 30 1RF atorvastatin 40 mg Tablet 40 mg PO HS Qty: 30 1RF carvedilol [Coreg] 6.25 mg Tablet 6.25 mg PO Q12HR Qty: 60 1RF clopidogrel 75 mg Tablet 75 mg PO QAM Qty: 30 1RF pregabalin 50 mg capsule 50 mg PO TID cephalexin 500 mg capsule 500 mg PO QID Held apixaban 2.5 mg tablet 2.5 mg PO Q12H Qty: 60 1RF Hold Instructions: Resume on 06/20/25. Hold until follow up with GI. Date of admission: 05/26/25 04:35 Primary Care Provider: Jamey,Agustin Wade Admitting Provider: Fili Moise Attending physician on admission: Fili Moise Condition: Stable
--- NOTE | 2025-06-08 13:23 | PM.DS ---
DS: Admitting Diagnosis Discharge Date 06/08/2025 Admitting Diagnosis Weakness DS: Discharge Diagnosis Discharge Diagnosis (1) Septic shock: Code(s): A41.9 - Sepsis, unspecified organism; R65.21 - Severe sepsis with septic shock Status: Resolved (2) MAGALIS (acute kidney injury): Code(s): N17.9 - Acute kidney failure, unspecified Status: Resolved DS: Summary Hospital Course Hospital Course: Reason for Admission 79-year-old female with a history of CHF, CAD, chronic bilateral hydronephrosis, prior bladder cancer, and chronic anticoagulation, admitted for septic shock secondary to urosepsis with acute mental status changes and falls. Hospital Course History of Present Illness Presented with 2 weeks of progressive weakness, increased falls, and acute worsening over 2 days. Found to be febrile (Tmax 101.9?F), hypotensive (BP rhona 74/48), and altered. Initial labs: WBC 13.5, Hgb 9.6, Hct 30.8, Na 135, K 3.2, BUN 22, Cr 1.27, UA with pyuria and leukocyte esterase. Imaging: No acute findings on head CT or foot x-ray; chest x-ray with cardiomegaly; CT abdomen/pelvis with chronic bilateral hydronephrosis. Met sepsis criteria; required 4L IV fluids and vasopressor support (norepinephrine). Admitted to ICU for management of septic shock. ICU Course Treated with broad-spectrum antibiotics (cefepime, vancomycin, later narrowed to ampicillin for Enterococcus faecalis bacteremia). Urology consulted: No acute intervention for hydronephrosis; chronic findings. Developed MAGALIS, which resolved with resuscitation. Developed anemia (Hgb rhona 6.9), likely multifactorial (chronic disease, acute illness, anticoagulation held). Mental status fluctuated; neurology consulted, EEG showed diffuse theta activity consistent with metabolic/organic encephalopathy. Infectious Disease consulted for bacteremia management. Developed new cough and pulmonary infiltrate late in course, managed as possible CHF exacerbation and/or pneumonia. Hospital Course Vasopressors weaned off as hemodynamics stabilized. Completed appropriate antibiotic course for E. faecalis bacteremia. UTI resolved; urine cultures negative, blood cultures cleared. MAGALIS resolved; creatinine returned to baseline. Anemia managed with transfusion as needed; no evidence of active bleeding. S/p 500mg IV iron and discharged on 30 days of PO iron. Also discussed with GI, will hold eliquis until follow up with GI outpatient for possible GI bleed eval CHF managed with cautious diuresis as tolerated. Altered mental status improved but did not return to baseline; EEG confirmed encephalopathy. Discharge planning for post-acute care due to persistent cognitive and functional decline. Discharge Diagnoses Principal: Septic shock, resolved?(A41.9, R65.21) ? secondary to urosepsis, now resolved. Secondary:?2.?Enterococcus faecalis bacteremia?(R78.81, B95.2) ? treated, resolved. 3.?Acute UTI?(N39.0) ? treated, resolved. 4.?Acute kidney injury, resolved?(N17.9) ? now at baseline. 5.?Congestive heart failure, acute on chronic?(I50.9) ? managed, compensated. 6.?Altered mental status/encephalopathy?(R41.82, G93.40) ? multifactorial, improved but not at baseline. 7.?Anemia of chronic disease, acute on chronic?(D64.9) ? transfused, stable. 8.?History of pulmonary embolism?(Z86.711) 9.?Chronic bilateral hydronephrosis?(N13.30) 10.?History of bladder cancer?(C67.2, Z85.51) 11.?Hypertension?(I10) 12.?Hyperlipidemia?(E78.5) 13.?Chronic anticoagulation?(Z79.01) 14.?History of splenic infarct?(D73.5) 15.?History of falls?(R29.6) Procedures Central venous catheter placement (right femoral vein) for vasopressor administration. Blood transfusion (PRBCs) for anemia. Consultations Critical Care/Service Developer Urology Neurology Infectious Disease Referral to GI in 1 week. Discussed with GI as above Hospital Medications (at Discharge) Atorvastatin 40 mg PO HS Carvedilol 6.25 mg PO BID?(if hemodynamically stable) Losartan 50 mg PO daily?(if hemodynamically stable) Furosemide 40 mg PO daily?(as tolerated for CHF) Pantoprazole 40 mg IV/PO daily Acetaminophen 650 mg PO q4h PRN pain/fever Albuterol/ipratropium nebulizer q6h PRN Benzonatate 100 mg PO q8h PRN cough Pregabalin 50 mg PO TID Ondansetron 4 mg IV/PO q4h PRN nausea Enoxaparin 30 mg SQ daily?(for DVT prophylaxis, if not on full anticoagulation) Clopidogrel:?Hold Eliquis until follow up with GI outpatient Antibiotics: Completed per ID recommendations Discharge Condition Hemodynamically stable, afebrile, no acute distress. Mental status: Awake, alert, oriented to person and place, but persistent mild confusion compared to baseline. Ambulating with assistance; at increased fall risk. No respiratory distress; oxygenating well on room air. Turner catheter removed; voiding spontaneously. No evidence of active infection or bleeding. Discharge Instructions Activity:?Ambulate with assistance; fall precautions. Diet:?Heart-healthy. Medications:?As above; resume home medications as tolerated, except anticoagulation/antiplatelet agents per instructions. Wound Care:?None required. Follow-up Appointments: Primary Care:?Within 1 week. Urology:?Outpatient cystoscopy as recommended. Neurology:?Outpatient follow-up for encephalopathy if persistent. Infectious Disease:?As needed. Cardiology:?For CHF management. Gi in 1 week for GI bleed eval SNF Return Precautions:?Worsening confusion, fever, chest pain, shortness of breath, new or worsening weakness, decreased urine output, or any other concerning symptoms. Summary of [place] Issues for Post-Acute Care Monitor for recurrent infection (UTI, bacteremia). Monitor for CHF exacerbation and volume status. Monitor for recurrent or worsening encephalopathy. Monitor for anemia and bleeding, hold Eliquis until follow up with GI for GI bleed eval Fall precautions and assistance with ADLs. Time Spent with Patient Time attestation: Total time spent providing and/or coordinating discharge services: DS: Data Data Completed and Pending Labs on day of discharge: Labs from last 24 hours 06/08/25 04:03 WBC 5.7 RBC 3.47 L Hgb 8.8 L Hct 29.9 L MCV 86.2 MCH 25.4 L MCHC 29.4 L RDW 17.5 H Plt Count 310 MPV 9.4 Immature Gran % (Auto) 0.4 Neut % (Auto) 53.7 Lymph % (Auto) 34.0 [place] % (Auto) 6.5 Eos % (Auto) 4.2 Baso % (Auto) 1.2 Lymph # (Auto) 1.94 [place] # (Auto) 0.4 Eos # (Auto) 0.2 Baso # (Auto) 0.1 Abs Immat Gran (auto) 0.02 Absolute Neuts (auto) 3.1 Absolute Nucleated RBC 0.000 Band Neutrophils % Not Reportable Nucleated RBC % 0.0 Platelet Estimate Adequate Hypochromasia 1+ Ovalocytes 1+ Schistocytes None seen Sodium 142 Potassium 3.1 L Chloride 110 H Carbon Dioxide 27 Anion Gap 5 BUN 16 Creatinine 1.14 H Estim Creat Clear Calc 25 Estimated GFR 46 L Glucose 81 Lactic Acid 1.5 Calcium 8.8 Magnesium 1.8 Total Bilirubin 0.4 AST 15 ALT 13 Alkaline Phosphatase 108 Total Protein 6.6 Albumin 3.0 L Discharge Plan Discharge Attending physician on discharge: Héctor Gracia Consulting providers: Belia Perez; Angela Ca; Michael Cottrell; Adolfo Pate; Herlinda Quiroz; Héctor Gracia Discharging Clinician: Héctor Gracia Anticipated Discharge Date/Time: 06/08/25 13:12 Patient Disposition: SNF Activity: as tolerated Diet: as tolerated and heart healthy Discharge Instructions: Hold Eliquis until follow up with GI. Patient Instructions: Apixaban (By mouth), Heart Failure (GEN), Urinary Tract Infection in Women (GEN), Sepsis (GEN), Urinary Tract Infection in Older Adults (GEN) Patient Language: Slovenian Stand Alone Forms: General Discharge Information Follow-up/Referrals: Michael Cottrell MD [Physician, Urology] Referral Note: F/u with urology as instructed Jamey,Agustin Wade MD [Primary Care Provider] Referral Note: F/u with PCP in 3-5 days Herlinda Quiroz MD [Physician, Infectious Disease] Referral Note: F/u with ID as instructed Adolfo Pate MD [Physician, Neurology] Referral Note: F/u with Neurology as instructed Chintan Reed MD [Physician, Gastroenterology] Referral Note: F/u with in 1 week for GI bleed casie Springeriquis on hold pending follow up with GI Discharge Medications: New ferrous sulfate 324 mg (65 mg iron) tablet,delayed release (DR/EC) 324 mg PO DAILY 30 Days Qty: 30 0RF pantoprazole [Protonix] 40 mg tablet,delayed release (DR/EC) 40 mg PO BID 30 Days Qty: 60 0RF Continued losartan [Cozaar] 50 mg Tablet 50 mg PO DAILY Qty: 30 1RF furosemide 40 mg Tablet 40 mg PO QAM Qty: 30 1RF atorvastatin 40 mg Tablet 40 mg PO HS Qty: 30 1RF carvedilol [Coreg] 6.25 mg Tablet 6.25 mg PO Q12HR Qty: 60 1RF clopidogrel 75 mg Tablet 75 mg PO QAM Qty: 30 1RF pregabalin 50 mg capsule 50 mg PO TID cephalexin 500 mg capsule 500 mg PO QID Held apixaban 2.5 mg tablet 2.5 mg PO Q12H Qty: 60 1RF Hold Instructions: Resume on 06/20/25. Hold until follow up with GI. Date of admission: 05/26/25 04:35 Primary Care Provider: Bethel,Agustin Wade Admitting Provider: Fili Moise Attending physician on admission: Fili Moise Condition: Stable
[2025-06-08 16:09] LABS: Influenza A QL RT-PCR Negative (Negative); Influenza B QL RT-PCR Negative (Negative); RSV RNA, RT-PCR Negative (Negative); SARS-CoV-2 RNA PCR Negative (Negative)
== END 2025-06-08 16:44 | DRG 871 ==
LOC: ANHED 05-26 04:41 → ANHICU 05-26 05:01 → ANHIMU 05-27 18:51 → ANH3MEDSUR 05-28 17:14 → ANH3MED 05-28 18:00 → ANH3MEDSUR 05-28 18:15 → ANHIMU 06-04 21:53
PROVIDERS: Internal Medicine; Nurse Practitioner; Student in an Organized Health Care Education/Training Program; Admitting Provider Internal Medicine; Emergency Provider Student in an Organized Health Care Education/Training Program; PCP Internal Medicine; Visit Provider Internal Medicine
DX: A41.9 Sepsis, unspecified organism (principal); G93.41 Metabolic encephalopathy; R65.21 Severe sepsis with septic shock; N17.9 Acute kidney failure, unspecified; G93.49 Other encephalopathy; N39.0 Urinary tract infection, site not specified; N13.30 Unspecified hydronephrosis; E86.0 Dehydration; D73.5 Infarction of spleen; I25.10 Atherosclerotic heart disease of native coronary artery without angina pectoris; I50.9 Heart failure, unspecified; D63.8 Anemia in other chronic diseases classified elsewhere; K21.9 Gastro-esophageal reflux disease without esophagitis; E78.5 Hyperlipidemia, unspecified; I11.0 Hypertensive heart disease with heart failure; R29.6 Repeated falls; Z86.711 Personal history of pulmonary embolism; Z85.51 Personal history of malignant neoplasm of bladder; Z79.01 Long term (current) use of anticoagulants; Z87.891 Personal history of nicotine dependence
CPT/HCPCS: 36415; 36430; 36556; 36600; 70450; 71045; 73600; 73620; 74177; 80048; 80053; 80202; 80307; 81001; 82077; 82140; 82274; 82550; 82607; 82746; 82948; 83540; 83550; 83605; 83735; 84100; 84132; 84145; 85014; 85018; 85025; 85027; 85610; 85730; 86850; 86900; 86901; 86923; 87040; 87086; 87186; 87637; 87641; 93005; 94640; 95816; 96365; 96367; 97110; 97162; 97166; 97530; 97535; 99285; A9270; C1751; C8929; J0290; J0456; J0692; J0696; J1650; J1756; J1938; J2470; J2919; J3373; J3480; J7050; J7120; P9016; Q9957; Q9967